=== PATIENT | female | born 2000 | race Caucasian/White ===

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

== ENCOUNTER 2019-03-24 21:46 | Emergency (ER) | payer MEDICAID, OTHER ==
[~2019-03-24] VITALS: Ht 154.9 cm; Wt 55.2 kg
[~2019-03-24 21:46] MED LIST changes: +BACT800T5 PO; +HYDR-3715 PO; -NORCOTAB PO
[2019-03-24 21:47] VITALS: BP 118/86
[2019-03-24] MEDS ORDERED: IBUP-1022 PO (22:56)
[2019-03-24] MEDS ORDERED: IBUPROFEN 600 MG TAB PO ONE (23:00)
== END 2019-03-24 23:02 | disposition home or self-care (01) ==
LOC: M ED 21:46
DX: N94.6 Dysmenorrhea, unspecified (principal); J45.909 Unspecified asthma, uncomplicated; F33.9 Major depressive disorder, recurrent, unspecified; F41.9 Anxiety disorder, unspecified; Z88.1 Allergy status to other antibiotic agents; Z91.030 Bee allergy status; F17.210 Nicotine dependence, cigarettes, uncomplicated

== ENCOUNTER 2019-08-19 01:54 | Emergency (ER) | payer OTHER ==
[~2019-08-19] VITALS: Ht 154.9 cm; Wt 58.4 kg
[~2019-08-19 01:54] MED LIST changes: +IBUP-1022 PO
[2019-08-19] MEDS ORDERED: PROAAER10 INH ×2 (02:25→04:56)
[2019-08-19] MEDS ORDERED: EPIP0.3I2 IM ×2 (02:26→04:56)
[2019-08-19 02:44] LABS: HEMATOCRIT 39.9 % (36.0-47.0); HEMOGLOBIN 13.8 g/dl (12.0-15.5); MEAN CORPUSCULAR HEMOGLOBIN 30.7 pg (27.0-33.0); MEAN CORPUSCULAR HGB CONC 34.6 g/dl (32.0-36.5); MEAN CORPUSCULAR VOLUME 88.7 fl (80.0-96.0); PLATELET COUNT, AUTOMATED 308 10^3/uL (150-450); WHITE BLOOD COUNT 13.8 10^3/uL (4.0-10.0)
[2019-08-19 03:10] LABS: HCG, SERUM QUALITATIVE NEGATIVE (NEGATIVE)
[2019-08-19 03:20] LABS: ACETAMINOPHEN LEVEL < 2.0 UG/ML (10.0-30.0); ALBUMIN 4.1 GM/DL (3.2-5.2); ALT/SGPT 20 U/L (12-78); BILIRUBIN,DIRECT < 0.1 MG/DL (0.0-0.2); BILIRUBIN,TOTAL 0.2 MG/DL (0.2-1.0); BLOOD UREA NITROGEN 7 MG/DL (7-18); CALCIUM LEVEL 8.8 MG/DL (8.5-10.1); CARBON DIOXIDE LEVEL 27 MEQ/L (21-32); CHLORIDE LEVEL 108 MEQ/L (98-107); CREATININE FOR GFR 0.78 MG/DL (0.55-1.30); ETHYL ALCOHOL (ETHANOL) < 0.003 % (0.000-0.010); GLUCOSE, FASTING 90 MG/DL (70-100); POTASSIUM SERUM 3.8 MEQ/L (3.5-5.1); SALICYLATE LEVEL 2.6 MG/DL (5.0-30.0); SODIUM LEVEL 142 MEQ/L (136-145); TOTAL PROTEIN 7.9 GM/DL (6.4-8.2)
[2019-08-19 03:29] LABS: AMPHETAMINES LEVEL URINE NEGATIVE (NEGATIVE); BARBITURATES URINE NEGATIVE (NEGATIVE); BENZODIAZEPINES URINE NEGATIVE (NEGATIVE); CANNABINOIDS URINE NEGATIVE (NEGATIVE); COCAINE METABOLITE URINE NEGATIVE (NEGATIVE); METHADONE URINE NEGATIVE (NEGATIVE); OPIATES URINE NEGATIVE (NEGATIVE); PHENCYCLIDINE URINE NEGATIVE (NEGATIVE)
[2019-08-19] MEDS ORDERED: ACETAMINOPHEN TAB 650MG DOSE (2X325MG) PO ONE (04:00)
[2019-08-19] MEDS ORDERED: NICOTINE 21MG/24HR 1 EA TRANSDERMAL TD ONE (04:00)
[2019-08-19] MEDS ORDERED: ACET-897 PO (04:56)
[2019-08-19] MEDS ORDERED: CRAN400C PO (04:56)
--- NOTE | 2019-08-19 07:15 | ECGEPIP ---
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
[2019-08-19 13:26] VITALS: BP 124/60
== END 2019-08-19 13:28 ==
LOC: M ED 01:54
DX: R45.851 Suicidal ideations (principal); J45.909 Unspecified asthma, uncomplicated; Z88.1 Allergy status to other antibiotic agents; Z91.030 Bee allergy status; F17.210 Nicotine dependence, cigarettes, uncomplicated
CPT/HCPCS: 36415; 80048; 80076; 80307; 84443; 84703; 85027; 93005; 99285; G0480

== ENCOUNTER 2019-10-15 09:00 | Emergency (ER) | payer OTHER ==
[~2019-10-15] VITALS: Ht 154.9 cm; Wt 62.8 kg
[~2019-10-15 09:00] MED LIST changes: +ACET-897 PO; +CRAN400C PO; +EPIP0.3I2 IM; +PROAAER10 INH
[2019-10-15] MEDS ORDERED: PRAZ1CAP (09:06)
[2019-10-15] MEDS ORDERED: ARIP1TAB6 (09:06)
[2019-10-15] MEDS ORDERED: NICO2GUM5 (09:06)
[2019-10-15 10:34] LABS: INFLUENZA A AMPLIFICATION NEGATIVE (NEGATIVE); INFLUENZA B AMPLIFICATION NEGATIVE (NEGATIVE)
[2019-10-15] MEDS ORDERED: VENTAER INH (11:00)
[2019-10-15 11:07] VITALS: BP 128/95
== END 2019-10-15 11:09 | disposition home or self-care (01) ==
LOC: M ED 09:00
DX: J40 Bronchitis, not specified as acute or chronic (principal); J45.909 Unspecified asthma, uncomplicated; F33.9 Major depressive disorder, recurrent, unspecified; F41.9 Anxiety disorder, unspecified; F43.10 Post-traumatic stress disorder, unspecified; Z88.1 Allergy status to other antibiotic agents; Z88.8 Allergy status to other drugs, medicaments and biological substances; Z91.030 Bee allergy status; F17.210 Nicotine dependence, cigarettes, uncomplicated

== ENCOUNTER 2019-12-28 10:13 | Emergency (ER) | payer OTHER ==
[~2019-12-28] VITALS: Ht 154.9 cm; Wt 64.0 kg
[~2019-12-28 10:13] MED LIST changes: +ARIP1TAB6; +NICO2GUM5; +PRAZ1CAP; +VENTAER INH
[2019-12-28] MEDS ORDERED: ONDANSETRON 4 MG ORAL DISINTEGRATING TAB (Q0162 PER 1MG) PO ONE (12:00)
[2019-12-28] MEDS ORDERED: ONDA4TAB6 PO (12:52)
[2019-12-28] MEDS ORDERED: MUCI600T31 PO (12:54)
[2019-12-28 12:59] VITALS: BP 100/59
== END 2019-12-28 13:01 | disposition home or self-care (01) ==
LOC: M ED 10:13
DX: R11.2 Nausea with vomiting, unspecified (principal); J45.909 Unspecified asthma, uncomplicated; Z79.51 Long term (current) use of inhaled steroids; Z79.899 Other long term (current) drug therapy; Z88.8 Allergy status to other drugs, medicaments and biological substances; Z91.030 Bee allergy status
CPT/HCPCS: 81001; 84702; 99284; Q0162

== ENCOUNTER → 2019-12-30 | Outpatient (REF) | payer OTHER ==
[~2019-12-30] MED LIST changes: +MUCI600T31 PO; +ONDA4TAB6 PO
== END ==
LOC: M LAB REF 12:33
PROVIDERS: ATTEND Physician Assistant Medical
DX: R19.7 Diarrhea, unspecified (principal)

== ENCOUNTER 2020-01-07 08:54 | Emergency (ER) | payer OTHER ==
[~2020-01-07] VITALS: Ht 154.9 cm; Wt 63.6 kg
[2020-01-07 10:10] LABS: HEMATOCRIT 42.5 % (36.0-47.0); HEMOGLOBIN 14.8 g/dl (12.0-15.5); MEAN CORPUSCULAR HEMOGLOBIN 30.8 pg (27.0-33.0); MEAN CORPUSCULAR HGB CONC 34.8 g/dl (32.0-36.5); MEAN CORPUSCULAR VOLUME 88.5 fl (80.0-96.0); PLATELET COUNT, AUTOMATED 376 10^3/uL (150-450); WHITE BLOOD COUNT 11.6 10^3/uL (4.0-10.0)
[2020-01-07] MEDS ORDERED: NS 1,000 ML IV ONE (10:15)
[2020-01-07 10:42] LABS: ALBUMIN 4.5 GM/DL (3.2-5.2); ALT/SGPT 24 U/L (12-78); BILIRUBIN,DIRECT 0.1 MG/DL (0.0-0.2); BILIRUBIN,TOTAL 0.4 MG/DL (0.2-1.0); BLOOD UREA NITROGEN 9 MG/DL (7-18); CARBON DIOXIDE LEVEL 28 MEQ/L (21-32); CHLORIDE LEVEL 110 MEQ/L (98-107); CREATININE FOR GFR 0.82 MG/DL (0.55-1.30); GLUCOSE, FASTING 75 MG/DL (70-100); LIPASE 59 U/L (73-393); POTASSIUM SERUM 4.1 MEQ/L (3.5-5.1); SODIUM LEVEL 142 MEQ/L (136-145); TOTAL PROTEIN 8.2 GM/DL (6.4-8.2)
[2020-01-07 10:48] LABS: AMPHETAMINES LEVEL URINE NEGATIVE (NEGATIVE); BARBITURATES URINE NEGATIVE (NEGATIVE); BENZODIAZEPINES URINE NEGATIVE (NEGATIVE); CANNABINOIDS URINE POSITIVE (NEGATIVE); COCAINE METABOLITE URINE NEGATIVE (NEGATIVE); METHADONE URINE NEGATIVE (NEGATIVE); OPIATES URINE NEGATIVE (NEGATIVE); PHENCYCLIDINE URINE NEGATIVE (NEGATIVE)
[2020-01-07 11:14] VITALS: BP 106/63
== END 2020-01-07 11:17 | disposition home or self-care (01) ==
LOC: M ED 08:54
DX: R11.15 Cyclical vomiting syndrome unrelated to migraine (principal); F12.10 Cannabis abuse, uncomplicated; Z88.1 Allergy status to other antibiotic agents; Z88.8 Allergy status to other drugs, medicaments and biological substances; Z91.030 Bee allergy status; F17.210 Nicotine dependence, cigarettes, uncomplicated

== ENCOUNTER 2020-01-28 08:25 | Emergency (ER) | payer OTHER ==
[~2020-01-28] VITALS: Ht 154.9 cm; Wt 61.3 kg
[2020-01-28] MEDS ORDERED: EPIP0.3I2 IM (08:31)
[2020-01-28] MEDS ORDERED: AZITHROMYCIN 250 MG TAB PO ONE (10:30)
[2020-01-28] MEDS ORDERED: GENTAMICIN SULF INJ 80MG/2ML VIAL (J1580) IM ONE (10:30)
[2020-01-28] MEDS ORDERED: GENTAMICIN 10 MG/ML 2ML VIAL*PRES.FREE* (J1580) IM SCH (10:45)
[2020-01-28 10:48] LABS: HCG, SERUM QUALITATIVE NEGATIVE (NEGATIVE)
[2020-01-28] MEDS ORDERED: METR1GEL7 PV (10:53)
[2020-01-28 11:20] VITALS: BP 121/58
[2020-01-28 11:28] LABS: CHLAMYDIA DNA AMPLIFICATION NEGATIVE (NEGATIVE); GC DNA AMPLIFICATION NEGATIVE (NEGATIVE)
[2020-01-28 11:44] LABS: HEPATITIS A ANTIBODY IGM NEGATIVE (NEGATIVE); HEPATITIS B CORE ANTIBODY IGM NEGATIVE (NEGATIVE); HEPATITIS B SURFACE ANTIGEN NEGATIVE (NEGATIVE); HEPATITIS C VIRUS ABY INDEX < 0.0 INDEX (<0.8); HIV 1&2 SCREEN CENTAUR NEGATIVE (NEGATIVE)
== END 2020-01-28 11:26 | disposition home or self-care (01) ==
LOC: M ED 08:25
DX: N76.0 Acute vaginitis (principal); F12.10 Cannabis abuse, uncomplicated; F17.200 Nicotine dependence, unspecified, uncomplicated; Z20.2 Contact with and (suspected) exposure to infections with a predominantly sexual mode of transmission; J45.909 Unspecified asthma, uncomplicated; Z79.51 Long term (current) use of inhaled steroids; Z79.899 Other long term (current) drug therapy; Z88.8 Allergy status to other drugs, medicaments and biological substances; Z91.030 Bee allergy status

== ENCOUNTER → 2020-02-01 | Outpatient (REF) | payer OTHER ==
[~2020-02-01] MED LIST changes: +METR1GEL7 PV
[2020-02-08 00:06] LABS: HSV TYPE I IgG SPECIFIC <0.91 index (0.00-0.90); HSV TYPE I IgM AB <1:10 titer (<1:10); HSV TYPE II IgG SPECIFIC <0.91 index (0.00-0.90); HSV TYPE II IgM ABY <1:10 titer (<1:10)
== END ==
LOC: M SFHCLERA 14:57
PROVIDERS: ATTEND Nurse Practitioner Family
DX: Z20.2 Contact with and (suspected) exposure to infections with a predominantly sexual mode of transmission (principal)
CPT/HCPCS: 86695; 86696; G0463

== ENCOUNTER 2020-02-28 13:51 | Emergency (ER) | payer OTHER ==
[~2020-02-28] VITALS: Ht 154.9 cm; Wt 59.4 kg
[2020-02-28 14:25] LABS: BASO % 0.4 % (0.0-1.0); EOS # 0.1 10^3/uL (0.0-0.5); HEMATOCRIT 41.2 % (36.0-47.0); HEMOGLOBIN 14.3 g/dl (12.0-15.5); LYMPH # 3.4 10^3/uL (1.5-5.0); LYMPH % 33.8 % (24.0-44.0); MEAN CORPUSCULAR HGB CONC 34.7 g/dl (32.0-36.5); MEAN CORPUSCULAR VOLUME 89.2 fl (80.0-96.0); MONO # 0.7 10^3/uL (0.0-0.8); MONO % 7.1 % (0.0-5.0); NEUTROPHILS # 5.7 10^3/uL (1.5-8.5); NEUTROPHILS % 57.5 % (36.0-66.0); PLATELET COUNT, AUTOMATED 358 10^3/uL (150-450); RED BLOOD COUNT 4.62 10^6/uL (4.00-5.40); WHITE BLOOD COUNT 9.9 10^3/uL (4.0-10.0)
[2020-02-28] MEDS ORDERED: ACETAMINOPHEN 325 MG TAB PO ONE (14:30)
[2020-02-28 14:35] LABS: APPEARANCE, URINE CLEAR (CLEAR); BACTERIA, URINE AUTO NEGATIVE (NEGATIVE); BILIRUBIN, URINE AUTO NEGATIVE (NEGATIVE); BLOOD, URINE BLOOD 2+ (NEGATIVE); COLOR, URINE YELLOW (YELLOW); GLUCOSE, URINE (UA) AUTO NEGATIVE (NEGATIVE); KETONE, URINE AUTO 1+ mg/dL (NEGATIVE); LEUKOCYTE ESTERASE, URINE AUTO NEGATIVE (NEGATIVE); NITRITE, URINE AUTO NEGATIVE (NEGATIVE); PROTEIN, URINE AUTO NEGATIVE (NEGATIVE); RBC, URINE AUTO 0 /HPF (0-3); SPECIFIC GRAVITY URINE AUTO 1.017 (1.002-1.035); SQUAMOUS EPITHELIAL CELL UR AU 2 /HPF (0-6); WBC, URINE AUTO 0 /HPF (0-3)
[2020-02-28 16:20] VITALS: BP 113/51
--- NOTE | 2020-02-28 17:13 | REP ---
REASON: Pelvic cramping. COMPARISON: 11/24/2018 which was normal. Transvesical imaging only was performed. The uterus measures 6.9 x 3.4 x 4.6 cm and is within normal limits. The endometrial echo complex is unremarkable appearing measuring 7 mm in its greatest thickness. There is no free fluid in the cul-de-sac. There is no fluid in the endometrial cavity. The right ovary measures 3 x 1.7 x 2.3 cm and is within normal limits with an RI of 0.58. The left ovary measures 3.2 x 2.9 x 2 cm and is within normal limits with an RI of 0.50. The urinary bladder was empty. IMPRESSION: Normal pelvic ultrasound. Electronically Signed by Octaviano Calero DO 02/29/2020 10:54 A
== END 2020-02-28 16:21 | disposition home or self-care (01) ==
LOC: M ED 13:51
DX: N93.8 Other specified abnormal uterine and vaginal bleeding (principal); J45.909 Unspecified asthma, uncomplicated; G43.909 Migraine, unspecified, not intractable, without status migrainosus; F33.9 Major depressive disorder, recurrent, unspecified; F41.9 Anxiety disorder, unspecified; F43.10 Post-traumatic stress disorder, unspecified; Z88.1 Allergy status to other antibiotic agents; Z88.8 Allergy status to other drugs, medicaments and biological substances; F17.210 Nicotine dependence, cigarettes, uncomplicated

== ENCOUNTER → 2020-03-22 | Outpatient (REF) | payer OTHER | LOC: M LAB REF 07:45 | PROVIDERS: ATTEND Dermatology | DX: D22.5 Melanocytic nevi of trunk (principal) ==

== ENCOUNTER 2020-04-30 18:13 | Emergency (ER) | payer OTHER ==
[~2020-04-30] VITALS: Ht 157.5 cm; Wt 57.6 kg
[2020-04-30] MEDS ORDERED: PRENTAB53 PO (18:19)
[2020-04-30] MEDS ORDERED: AZO1CHW PO (18:19)
[2020-04-30 18:54] LABS: HEMATOCRIT 39.8 % (36.0-47.0); HEMOGLOBIN 13.3 g/dl (12.0-15.5); MEAN CORPUSCULAR HEMOGLOBIN 30.1 pg (27.0-33.0); MEAN CORPUSCULAR HGB CONC 33.4 g/dl (32.0-36.5); PLATELET COUNT, AUTOMATED 351 10^3/uL (150-450); RED BLOOD COUNT 4.42 10^6/uL (4.00-5.40); WHITE BLOOD COUNT 8.9 10^3/uL (4.0-10.0)
[2020-04-30 19:19] LABS: AMPHETAMINES LEVEL URINE NEGATIVE (NEGATIVE); BARBITURATES URINE NEGATIVE (NEGATIVE); BENZODIAZEPINES URINE NEGATIVE (NEGATIVE); CANNABINOIDS URINE POSITIVE (NEGATIVE); COCAINE METABOLITE URINE NEGATIVE (NEGATIVE); METHADONE URINE NEGATIVE (NEGATIVE); OPIATES URINE NEGATIVE (NEGATIVE); PHENCYCLIDINE URINE NEGATIVE (NEGATIVE)
[2020-04-30 19:30] LABS: HCG, SERUM QUALITATIVE NEGATIVE (NEGATIVE)
[2020-04-30 19:38] LABS: ALBUMIN 4.3 GM/DL (3.2-5.2); ALT/SGPT 19 U/L (12-78); BILIRUBIN,DIRECT < 0.1 MG/DL (0.0-0.2); BILIRUBIN,TOTAL 0.3 MG/DL (0.2-1.0); BLOOD UREA NITROGEN 9 MG/DL (7-18); CALCIUM LEVEL 9.1 MG/DL (8.5-10.1); CARBON DIOXIDE LEVEL 26 MEQ/L (21-32); CHLORIDE LEVEL 110 MEQ/L (98-107); CREATININE FOR GFR 0.76 MG/DL (0.55-1.30); GLUCOSE, FASTING 97 MG/DL (70-100); POTASSIUM SERUM 3.7 MEQ/L (3.5-5.1); SALICYLATE LEVEL 3.5 MG/DL (5.0-30.0); SODIUM LEVEL 141 MEQ/L (136-145); THYROID STIMULATING HORMONE 0.837 uIU/ML (0.463-3.98); TOTAL PROTEIN 7.9 GM/DL (6.4-8.2)
[2020-04-30 19:39] LABS: ACETAMINOPHEN LEVEL < 2.0 UG/ML (10.0-30.0); ETHYL ALCOHOL (ETHANOL) < 0.003 % (0.000-0.010)
[2020-04-30 20:08] VITALS: BP 113/72
== END 2020-04-30 20:14 | disposition home or self-care (01) ==
LOC: M ED 18:13
DX: Z60.9 Problem related to social environment, unspecified (principal); F41.8 Other specified anxiety disorders; J45.909 Unspecified asthma, uncomplicated; F60.3 Borderline personality disorder; Z88.0 Allergy status to penicillin; Z88.8 Allergy status to other drugs, medicaments and biological substances; Z91.030 Bee allergy status; F17.210 Nicotine dependence, cigarettes, uncomplicated
CPT/HCPCS: 36415; 80048; 80076; 80307; 84443; 84703; 85027; 99284; G0480

== ENCOUNTER 2020-05-07 16:14 | Emergency (ER) | payer OTHER ==
[~2020-05-07] VITALS: Ht 157.5 cm; Wt 54.5 kg
[~2020-05-07 16:14] MED LIST changes: +AZO1CHW PO; +PRENTAB53 PO
[2020-05-07] MEDS ORDERED: EPIP0.3I2 IM (16:40)
[2020-05-07] MEDS ORDERED: NICOTINE 21MG/24HR 1 EA TRANSDERMAL TD ONE (16:45)
[2020-05-07 16:55] LABS: HEMATOCRIT 40.6 % (36.0-47.0); HEMOGLOBIN 13.9 g/dl (12.0-15.5); MEAN CORPUSCULAR HEMOGLOBIN 30.5 pg (27.0-33.0); MEAN CORPUSCULAR HGB CONC 34.2 g/dl (32.0-36.5); PLATELET COUNT, AUTOMATED 363 10^3/uL (150-450); RED BLOOD COUNT 4.56 10^6/uL (4.00-5.40); WHITE BLOOD COUNT 9.2 10^3/uL (4.0-10.0)
[2020-05-07 17:15] LABS: HCG, SERUM QUALITATIVE NEGATIVE (NEGATIVE)
[2020-05-07 17:16] LABS: AMPHETAMINES LEVEL URINE NEGATIVE (NEGATIVE); BARBITURATES URINE NEGATIVE (NEGATIVE); BENZODIAZEPINES URINE NEGATIVE (NEGATIVE); CANNABINOIDS URINE POSITIVE (NEGATIVE); COCAINE METABOLITE URINE NEGATIVE (NEGATIVE); METHADONE URINE NEGATIVE (NEGATIVE); OPIATES URINE NEGATIVE (NEGATIVE); PHENCYCLIDINE URINE NEGATIVE (NEGATIVE)
[2020-05-07 17:34] LABS: ACETAMINOPHEN LEVEL < 2.0 UG/ML (10.0-30.0); ALBUMIN 4.3 GM/DL (3.2-5.2); ALT/SGPT 16 U/L (12-78); BILIRUBIN,DIRECT 0.1 MG/DL (0.0-0.2); BILIRUBIN,TOTAL 0.4 MG/DL (0.2-1.0); BLOOD UREA NITROGEN 6 MG/DL (7-18); CALCIUM LEVEL 9.2 MG/DL (8.5-10.1); CARBON DIOXIDE LEVEL 20 MEQ/L (21-32); CHLORIDE LEVEL 112 MEQ/L (98-107); CREATININE FOR GFR 0.74 MG/DL (0.55-1.30); ETHYL ALCOHOL (ETHANOL) < 0.003 % (0.000-0.010); GLUCOSE, FASTING 87 MG/DL (70-100); SALICYLATE LEVEL 4.5 MG/DL (5.0-30.0); SODIUM LEVEL 140 MEQ/L (136-145); THYROID STIMULATING HORMONE 0.651 uIU/ML (0.463-3.98); TOTAL PROTEIN 7.7 GM/DL (6.4-8.2)
[2020-05-07] MEDS ORDERED: ACETAMINOPHEN 325 MG TAB PO ONE (19:45)
[2020-05-08] MEDS ORDERED: PREN29TA4 PO (14:53)
[2020-05-08] MEDS ORDERED: VENTAER INH (14:53)
--- NOTE | 2020-05-08 15:59 | ECGEPIP ---
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
[2020-05-08 21:53] VITALS: BP 112/64
== END 2020-05-08 21:55 | disposition home or self-care (01) ==
LOC: M ED 16:14
DX: F33.9 Major depressive disorder, recurrent, unspecified (principal); J45.909 Unspecified asthma, uncomplicated; Z88.1 Allergy status to other antibiotic agents; Z88.8 Allergy status to other drugs, medicaments and biological substances; Z91.030 Bee allergy status; F17.210 Nicotine dependence, cigarettes, uncomplicated
CPT/HCPCS: 36415; 80048; 80076; 80307; 81001; 84443; 84703; 85027; 87086; 93005; 99284; G0480

== ENCOUNTER → 2020-07-03 | Emergency (ER) | payer OTHER ==
[~2020-07-03] MED LIST changes: +PREN29TA4 PO
== END | disposition left against medical advice (07) ==
LOC: M ED
DX: Z53.21 Procedure and treatment not carried out due to patient leaving prior to being seen by health care provider (principal)

== ENCOUNTER → 2020-11-02 | Outpatient (CLI) | payer OTHER | LOC: M LAB 14:51 | PROVIDERS: ATTEND Nurse Practitioner Family | DX: N92.6 Irregular menstruation, unspecified (principal) ==

== ENCOUNTER → 2020-11-20 | Outpatient (REF) | payer OTHER | LOC: M SFHCLERA 09:28 | PROVIDERS: ATTEND Nurse Practitioner Family | DX: R19.5 Other fecal abnormalities (principal) | CPT/HCPCS: 87177; 87505; G0463 ==

== ENCOUNTER → 2020-11-28 | Outpatient (REF) | payer OTHER | LOC: M SFHCLERA 14:54 | PROVIDERS: ATTEND Nurse Practitioner Family | DX: R19.5 Other fecal abnormalities (principal) ==

== ENCOUNTER 2020-12-07 18:31 | Emergency (ER) | payer OTHER ==
[~2020-12-07] VITALS: Ht 157.5 cm; Wt 58.9 kg
--- OUTSIDE RECORDS SUMMARY | 2020-12-07 18:37 | CCD ---
Author Author [facility] Organization [facility] Address Unknown Phone Unavailable Care Team Providers Care Heating And Cooling Systems Engineer Name Role Phone Shawna Mosquera Unavailable PROBLEMS Type Condition ICD9-CM Code [id number] Code Onset Dates Condition S tatus SNOMED Code Notes Problem Allergy to bee sting Z91.030 Active 145019941 Problem Exercise-induced asthma J45.990 Active 49861126 Problem Bipolar disorder, current episode depressed, mild F31.31 Active 655649847 Problem Abnormal findings on imaging test R93.89 Active 048467466 Problem Bipolar disorder, current episode mixed, moderate F31.62 Active 075265772 Problem Bipolar disorder, current ep isode depressed, severe, without psychotic features F31.4 Active 244043500 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 0171520 02 Problem Missed menses N92.6 Active 59551884 Problem 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 Active 763123651 ALLERGIES Allergen (clinical drug ingredient) Drug/Non Drug Allergy do cumented on EMR Reaction Allergy Type Onset Date Status lidocaine Lidocaine([facility] Code:[address]-40) swollen,hives Drug Aller gy Active Bees, hornets and wasp Anaphylaxis Non Drug Allergy Active Clindamycin Phos & Cleanser peeling skin Drug Allergy Active ceclor Anaphylaxis Drug Allergy Active ENCOUNTERS from 1999 to 2020-11-04 Encounter Location Date Provider Diagnosis [facility] [address] [place] [address] Oct, Shawna Mosquera Acute vaginitis N76.0 ; Other specified bacterial agents as the cause of diseases classified elsewhere B96.89 ; Bipolar disorder, current episode mixed, moderate F31.62 ; Abnormal findings on imaging test R93.89 and Missed menses N92.6 IMMUNIZATIONS No Information SOCIAL HISTORY Tobacco Use: Social History Observation Description Date Details (start date - stop date) Former Smoker Sex Assigned At : Social History Observation Description Sex Assigned At Unknown Education: Question Answer Notes Level of Education: Finished High School Audit Question Answer Notes Total Score: 0 Interpretation: Alcohol Education Language: Question Answer Notes Languages spoken: Belarusian Sikhism: Question Answer Notes Sikhism 33 None Sexual Hx: Question Answer Notes Had sex in the last 12 months (vaginal, oral, or anal)? Yes LMP: 09/28/2019 Have you ever had an STD? No with Men only Use protection? No Drug and Alcohol Question Answer Notes Total Score: 0 Interpretation: No problems reported Alcohol Screening: Question Answer Notes Did you have a drink containing alcohol in the past year? No Points 0 Interpretation Negative Tobacco Use: Question Answer Notes Are you a: former smoker 1 week without smoki ng Smoking Cessation Information Given 10/27/2020 REASON FOR REFERRAL No Information VITAL SIGNS Weight 129 lbs Oct, Height 61 in Oct, BMI 24.37 kg/m2 Oct, Heart Rate 78 /min Oct, Respiratory Rate 17 /min Oct, Temperature 98.6 degrees Fahrenheit Oct, Oximetry 99 Oct, Blood pressure systolic 127 mm Hg Oct, Blood pressure diastolic 56 mm Hg Oct, MEDICATIONS Medication SIG (Take, Route, Frequency, Duration) Notes Start Da te End Date Status BuSpar 10 MG 1 tablet Orally Twice a day Active Metronidazole 0.75 % 1 applicator full at bedtime Vaginal Once a day for 5 day(s) Aug, Active Rexulti 1 MG 1 tablet Orally Once a day for 30 day(s) Active Azithromycin 250 MG 2 tablets on day 1 then 1 ta blet x 4 days Orally Daily for 5 day(s) Oct, Not-Taking Aripiprazole 5 MG TAKE 1 TABLET BY MOUTH ONCE DAILY Oral for 30 Not-Taking Multivitamins - 1 tablet Orally Once a day for 30 day(s) Not-Taking EpiPen 2-Jay 0.3 MG/0.3ML as directed Injection as nee ded for allergic rxn for 1 days May, Active - 1 tablet Orally Once a day for 30 day(s) Active Prazosin HCl 1 MG 1 capsule at bedtime Orally Once a day for 30 day(s ) Not-Taking Nicotine Step 3 7 MG/24HR 1 patch to skin Transdermal Once a day for 30 day(s) May, Not-Taking One-A-Day Womens 1 28-0.8-235 MG 1 capsule Or ally Once a day for 30 day(s) Oct, Not-Taking Valacyclovir HCl 1 GM 1 tablet Orally bid for 10 day(s) Jan, Not-Taking EpiPen Not-Taking Valacyclovir HCl 1 GM 1 tablet Orally Once a day for 90 day(s) Sep, Active Albuterol 90 MCG/ACT 1 Inhalation every 4 hours as needed for 30 days Active Nicotine Step 2 14 MG/24HR 1 patch to skin Transdermal Once a day for 30 day(s) May, Not-Taking Melatonin 5 MG 2 tablet in the evening Orally Once a day Not-Taking Abilify 5 MG 1 tablet Orally Once a day for 30 day(s) Not-Taking Ventolin HFA 108 (90 Base) MCG/ACT 2 puffs as needed I nhalation every 6 hrs for 30 days Not-Taking Macrobid 100 MG 1 capsule Orally twice daily for 5 day(s) Feb, Not-Taking AZO Cranberry 250-30 MG as directed Orally Not-Taking PredniSONE 20 MG 2 tablets Orally Once a day for 5 day(s) Oct, Not-Taking PROCEDURES No Information RESULTS Component Value Reference Range Test, Urine Reviewed date:10/30/2020 11:31:43 Interpretation: Performing Lab:[facility], [place] [address] Test, Urine neg Negative - Internal QC Acceptable (Y/N) yes Urinalysis, no micro Reviewed date:10/30/2020 11:31:43 Interpretation: Performing Lab:[facility], ,[place] [address] Spec gravity 1.005 1.002 - 1.035 pH 8 5.0 - 9.0 Leukocyte neg Negative - Nitrate neg Negative - Protein trace Negative - mg/dl Glucose neg Negative - mg/dl Ketones neg Negative - mg/dl Urobili neg Normal - mg/dl Bilirubin nneg Negative - Blood neg Negative - Internal QC Acceptable (Y/N) yes REASON FOR VISIT follow up BV MEDICAL (GENERAL) HISTORY Type Description Date Medical History Bipolar disorder Medical History Borderline personality disorder Medical History PDSD Medical History Anxiety/depression Medical History Asthma Surgical History root canal 2013 Hospitalization History [facility] 08/2019 Goals Section No Information Health Concerns No Information MEDICAL EQUIPMENT No Information MENTAL STATUS No Information FUNCTIONAL STATUS No Information ASSESSMENTS Encounter Date Diagnosis Assessment Notes Treatment Notes Treatm ent Clinical Notes Oct, Acute vaginitis (ICD-10 - N76.0) UA negative, urine test also negative. Recurrent, no wet mount required. Plan initiate tx. Recommend consult w/ [facility] as she was being followed previously. Recurrent episodes of BV, not responding to conventional treatment. Also discussed use of natural lubricant like coconut oil, also refrain from hygienic products with fragrance. Oct, Other specified bacterial ag ents as the cause of diseases classified elsewhere (ICD-10 - B96.89) see notes above Oct, Bipolar disorder, current ep isode mixed, moderate (ICD-10 - F31.62) Per HPI notes, unable to start medications due to insurance coverage issues. She has also not been seen by in 2 months (per pt). This is concerning to me given recent sxs that brought her to ED. STRONGLY encouraged her to contact to set up appointment. Also STRONGLY encouraged her to contact [facility] to work out coverage issues. She tells me "I'm going to do that today, its getting annoying." Oct, Abnormal findings on imaging test (ICD-10 - R93. 89) I have requested ED report from [facility] be faxed for review. I am uncertain findings and therefore necessity for neurological consultation. Will initiate referral if warranted upon review of ED report. Oct, Missed menses (ICD-10 - N92.6) urine test negative at this time PLAN OF TREATMENT Medication Medication Name Sig Start Date Stop Date Metronidazole 0.75 % 1 applicator full at bedtime Vaginal Once a day for 5 day(s) Aug, Treatment Notes Assessment Notes Clinical Notes Acute vaginitis UA negative, urine p regnancy test also negative. Recurrent, no wet mount required. Plan initiate tx. Recommend consult w/ [facility] as she was being followed previously. Recurrent episodes of BV, not responding to conventional treatment. Also discussed use of natural lubricant like coconut oil, also refrain from hygienic products with fragrance. Other specified bacterial agents as the cause of disea ses classified elsewhere see notes above Bipolar disorder, current episode mixed, moderate Per HPI notes, unable to start medications due to insurance coverage issues. She has also not been seen by in 2 months (per pt). This is concerning to me given recent sxs that brought her to ED. STRONGLY encouraged her to contact to set up appointment. Also STRONGLY encouraged her to contact [facility] to work out coverage issues. She tells me "I'm going to do that today, its getting annoying." Abnormal findings on imaging test I have requested ED report from [facility] be faxed for review. I am uncertain findings and therefore necessity for neurological consultation. Will initiate referral if warranted upon review of ED report. Missed menses urine test negative at this time Next Appt Details 1 Week, non-resolving (prefer [facility] consul t) Reason: Insurance Providers Payer Name Payer Address Payer Phone Insured Name Patient Relati onship to Insured Coverage Start Date Coverage End Date [facility] [employer] [id number] [place] [id number] JOHNATHAN FONSECA
--- OUTSIDE RECORDS SUMMARY | 2020-12-07 18:37 | CCD | Continuity of Care Document ---
Author Author Kesha AVILA M.D. Organization Unknown Address [address] [place] [address] Phone [phone] Care Team Providers Care Audio Technician Name Role Phone Shawna Mosquera AUTM [phone] Problems Active Problems Provider Date MRI scan abnormal Liane Avila M.D. Onset: 11/27/2020 Headache Liane Avila M.D. Onset: 11/27/2020 Dizziness Liane Avila M.D. Onset: 11/27/2020 Social History Type Date Description Comments Sex Unknown Tobacco Use Start: Unknown Patient is a current smoker, smo kes every day Allergies, Adverse Reactions, Alerts Active Allergies Reaction Severity Comments Date Cefaclor 11/27/2020 Bee Sting 11/27/2020 Wasps 11/27/2020 Yellow Hornet Venom 11/27/19 21 Medications Active Medications SIG Qnty Indications Ordering Provide r Date Valacyclovir HCL 1gm Tablets 1 tablet Orally Once a day for 90 day(s) Unknown 09/29/2020 Macrobid 100mg Capsules 1 capsule Orally twice daily for 5 day(s) Unknown 020 Valacyclovir HCL 1gm Tablets 1 tablet Orally bid for 10 day(s) Unknown 020 Azithromycin 250mg Tablets 2 tablets on day 1 then 1 tablet x 4 days Orally Daily for 5 day(s) Unknown 10/19/2019 Prednisone 20mg Tablets 2 tablets Orally Once a day for 5 day(s) Unknown 10/19/20 19 Metronidazole 0.75% Gel 1 applicator full at bedtime Vaginal Once a day for 5 day(s) Unkno wn 09/09/2019 Epipen 2-Jay 0.3mg/0 .3ML Solution Auto-Inject as directed Injection as needed for allergic rxn for 1 days Unknown 05/24/2019 Nicotine Transdermal System Step 3 7mg/24HR Patches 24HR 1 patch to skin Transdermal Once a day for 30 day(s) Unknown 05/24/2019 Nicotine Transdermal System Step 2 14mg/24HR Patches 24HR 1 patch to skin Transdermal Once a day for 30 day(s) Unknown 05/24/2019 Quetiapine Fumarate 50mg Tablets Patient takes 1 tablet by mouth as needed at bedtime Benson Avila M.D. Rexulti 1mg Tablets 1 tablet Orally Once a day for 30 day(s) Unknown Aripiprazole 5mg Tablets Take 1 Tablet By Mouth Once Daily Oral for 30 Unknown Prazosin HCL 1mg Capsules 1 capsule at bedtime Orally Once a day for 30 day(s) Unknown Abilify 5mg Tablets 1 tablet Orally Once a day for 30 day(s) Unknown Ventolin HFA 108(90Base) mcg/Act A erosol 2 puffs as needed Inhalation every 6 hrs for 30 days Unknown Immunizations Description No Information Available Vital Signs Date Vital Result Comment 11/27/2020 9:36am Respiratory Rate 12 /min Height 62 inches 5'2" Weight 130.00 lb BMI (Body Mass Index) 23.8 kg/m2 [place] Body Weight 110 lb Results Description No Information Available Procedures Description No Information Available Medical Devices Description No Information Available Encounters Type Date Location Provider Dx Diagnosis Office Visit 11/27/2020 9:00a [facility] Liane chen M.D. 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 Plan of Treatment Future Appointment(s):* 02/26/2021 11:00 am - Liane Avila M.D. at [facility] * 12/01/2020 12:45 pm - EEG at [facility] Functional Status Description No Information Available Mental Status Description No Information Available Referrals Description No Information Available
--- OUTSIDE RECORDS SUMMARY | 2020-12-07 18:37 | CCD | Continuity of Care Document ---
Author Author Kesha ADDISON Organization Unknown Address [address] [place] [address] Phone [phone] Care Team Providers Care Electrician Powerhouse Name Role Phone Shawna Mosquera MORTGAGE SPECIALIST AUTM [phone] Problems Active Problems Provider Date MRI scan abnormal Liane Dodge M.D. Onset: 11/27/2020 Headache Liane Dodge M.D. Onset: 11/27/2020 Dizziness Liane Dodge M.D. Onset: 11/27/2020 Social History Type Date [...] by mouth as needed at bedtime Benson Dodge M.D. Rexulti 1mg Tablets 1 tablet Orally [...] lb BMI (Body Mass Index) 23.8 kg/m2 [place] Body Weight 110 lb Results Description No Information Available Procedures Date Code Description Status 12/01/2020 96739 EEG Recording Awake & Asleep Com pleted 12/01/2020 85671 EEG Recording Awake & Asleep Com pleted Medical Devices Description No Information Available Encounters Type Date Location Provider Dx Diagnosis Office Visit 11/27/2020 9:00a Main office - [place] Liane chen M.D. 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 Plan of Treatment Future Appointment(s):* 02/26/2021 11:00 am - Liane Dodge M.D. at Main office - [place] Functional Status Description No Information Available Mental Status Description No Information Available Referrals Refer to Dr Reason for Referral Status Appt Date Liane Dodge M.D. Created 0 [address] [place] [address] [phone]
--- OUTSIDE RECORDS SUMMARY | 2020-12-07 18:37 | CCD ---
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 Active 552005558 Problem Exercise-induced asthma J45.990 Active 63802477 Problem Bipolar disorder, current episode depressed, mild F31.31 Active 289995268 Problem Bipolar disorder, current ep isode depressed, severe, without psychotic features F31.4 Active 123792846 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 5260789 02 ALLERGIES Allergen (clinical drug ingredient) Drug/Non Drug Allergy do cumented on EMR Reaction Allergy Type Onset Date Status lidocaine Lidocaine([facility] Code:[address]-68) swollen,hives Drug Aller gy Active Bees, hornets and wasp Anaphylaxis Non Drug Allergy Active Clindamycin Phos & Cleanser peeling skin Drug Allergy Active ceclor Anaphylaxis Drug Allergy Active ENCOUNTERS from 1999 to 2020-10-06 Encounter Location Date Provider Diagnosis [facility] [address] [place] [address] Sep, Shawna Mosquera Acute vaginitis N76.0 IMMUNIZATIONS No Information SOCIAL HISTORY Tobacco Use: Social History Observation Description Date Details (start date - stop date) Current Smoker Sex Assigned At : Social History Observation Description Sex Assigned At Unknown Education: Question Answer Notes Level of Education: Finished High School Audit Question Answer Notes Total Score: 0 Interpretation: Alcohol Education Language: Question Answer Notes Languages spoken: Malay Cheondoism: Question Answer Notes Cheondoism 33 None Sexual Hx: Question Answer Notes [...] Use: Question Answer Notes Are you a: current smoker How many cigarettes a day do you smoke? 6-10 Are you interested in quitting? Not ready to quit REASON FOR REFERRAL No Information VITAL SIGNS No information MEDICATIONS Medication SIG (Take, Route, Frequency, Duration) Notes Start Da te End Date Status BuSpar 10 MG 1 tablet Orally Twice a day Active One-A-Day Womens 1 28-0.8-235 MG 1 capsule Or ally Once a day for 30 day(s) Oct, Not-Taking Valacyclovir HCl 1 GM 1 tablet Orally bid for 10 day(s) Jan, Active Macrobid 100 MG 1 capsule Orally twice daily for 5 day(s) Feb, Not-Taking Azithromycin 250 MG 2 tablets on day 1 then 1 ta blet x 4 days Orally Daily for 5 day(s) Oct, Not-Taking Ventolin HFA 108 (90 Base) MCG/ACT 2 puffs as needed I nhalation every 6 hrs for 30 days Not-Taking PredniSONE 20 MG 2 tablets Orally Once a day for 5 day(s) Oct, Not-Taking Melatonin 5 MG 2 tablet in the evening Orally Once a day Not-Taking Aripiprazole 5 MG TAKE 1 TABLET BY MOUTH ONCE DAILY Oral for 30 Not-Taking Metronidazole 0.75 % 1 applicator full at bedtime Vaginal Once a day for 5 day(s) Aug, Active Nicotine Step 2 14 MG/24HR 1 patch to skin Transdermal Once a day for 30 day(s) May, Not-Taking Nicotine Step 3 7 MG/24HR 1 patch to skin Transdermal Once a day for 30 day(s) May, Not-Taking Abilify 5 MG 1 tablet Orally Once a day for 30 day(s) Not-Taking EpiPen Not-Taking EpiPen 2-Jay 0.3 MG/0.3ML as directed Injection as nee ded for allergic rxn for 1 days May, Active Multivitamins - 1 tablet Orally Once a day for 30 day(s) Not-Taking AZO Cranberry 250-30 MG as directed Orally Not-Taking Albuterol 90 MCG/ACT 1 Inhalation every 4 hours as needed for 30 days Active - 1 tablet Orally Once a day for 30 day(s) Active Valacyclovir HCl 1 GM 1 tablet Orally Once a day for 90 day(s) Sep, Active Prazosin HCl 1 MG 1 capsule at bedtime Orally Once a day for 30 day(s ) Not-Taking Rexulti 1 MG 1 tablet Orally Once a day for 30 day(s) Active PROCEDURES No Information RESULTS No Results REASON FOR VISIT requesting more vaginal gel MEDICAL (GENERAL) HISTORY Type Description Date Medical History Bipolar disorder Medical History Borderline personality disorder Medical History PDSD Medical History Anxiety/depression Medical History Asthma Surgical History root canal 2013 [facility] Goals Section No Information Health Concerns No Information MEDICAL EQUIPMENT No Information MENTAL STATUS No Information FUNCTIONAL STATUS No Information ASSESSMENTS Encounter Date Diagnosis Assessment Notes Treatment Notes Treatm ent Clinical Notes Sep, Acute vaginitis (ICD-10 - N76.0) PLAN OF TREATMENT Medication Medication Name Sig Start Date Stop Date Metronidazole 0.75 % 1 applicator full at bedtime Vaginal Once a day for 5 day(s) Aug, Valacyclovir HCl 1 GM 1 tablet Orally Once a day for 90 day(s) 1 2020 Insurance Providers Payer Name Payer Address Payer Phone Insured Name Patient Relati onship to Insured Coverage Start Date Coverage End Date [facility] [address] [place] [address] JOHNATHAN FONSECA
--- OUTSIDE RECORDS SUMMARY | 2020-12-07 18:37 | CCD ---
Author Author [facility] Organization [facility] Address Unknown Phone Unavailable Care Team Providers Care Feather Shaper Name Role Phone Emy Marvinhan Unavailable PROBLEMS Type Condition ICD9-CM Code [id number] Code Onset Dates Condition S tatus SNOMED Code Notes Problem Allergy to bee sting Z91.030 Active 213151284 Problem Exercise-induced asthma J45.990 Active 10506391 Problem Bipolar disorder, current episode depressed, mild F31.31 Active 598744511 Problem Abnormal findings on imaging test R93.89 Active 952020001 Problem Bipolar disorder, current episode mixed, moderate F31.62 Active 045496307 Problem Bipolar disorder, current ep isode depressed, severe, without psychotic features F31.4 Active 052089903 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 0634259 02 Problem Missed menses N92.6 Active 04960608 Problem 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 Active 713349511 ALLERGIES Allergen (clinical drug ingredient) Drug/Non Drug Allergy do cumented on EMR Reaction Allergy Type Onset Date Status lidocaine Lidocaine([facility] Code:[address]-28) swollen,hives Drug Aller gy Active Bees, hornets and wasp Anaphylaxis Non Drug Allergy Active Clindamycin Phos & Cleanser peeling skin Drug Allergy Active ceclor Anaphylaxis Drug Allergy Active ENCOUNTERS from 1999 to 2020-11-21 Encounter Location Date Provider Diagnosis [facility] [address] [place] [address] Nov, Meghan Marvin Abnormal stools R19.5 IMMUNIZATIONS No Information SOCIAL HISTORY Tobacco Use: Social History Observation Description Date Details (start date - stop date) Former Smoker Sex Assigned At : Social History Observation Description Sex Assigned At Unknown Education: Question Answer Notes Level of Education: Finished High School Audit Question Answer Notes Total Score: 0 Interpretation: Alcohol Education Language: Question Answer Notes Languages spoken: German Rastafarian: Question Answer Notes Rastafarian 33 None Sexual Hx: Question Answer Notes [...] FOR REFERRAL No Information VITAL SIGNS Weight 130 lbs Nov, Height 61 in Nov, BMI 24.56 kg/m2 Nov, Heart Rate 85 /min Nov, Respiratory Rate 17 /min Nov, Temperature 98.6 degrees Fahrenheit Nov, Oximetry 99 Nov, Blood pressure systolic 104 mm Hg Nov, Blood pressure diastolic 67 mm Hg Nov, MEDICATIONS Medication SIG (Take, Route, Frequency, Duration) Notes Start Da te End Date Status Rexulti 1 MG 1 tablet Orally Once a day for 30 day(s) Not-Taking EpiPen 2-Jay 0.3 MG/0.3ML as directed Injection as nee ded for allergic rxn for 1 days May, Active EpiPen Not-Taking BuSpar 10 MG 1 tablet Orally Twice a day Not-Taking Abilify 5 MG 1 tablet Orally Once a day for 30 day(s) Not-Taking One-A-Day Womens 1 28-0.8-235 MG 1 capsule Or ally Once a day for 30 day(s) Oct, Not-Taking SEROquel 50 MG 1 tablet at bedtime Orally Once a day Active Azithromycin 250 MG 2 tablets on day 1 then 1 ta blet x 4 days Orally Daily for 5 day(s) Oct, Not-Taking Albuterol 90 MCG/ACT 1 Inhalation every 4 hours as needed for 30 days Active Ventolin HFA 108 (90 Base) MCG/ACT 2 puffs as needed I nhalation every 6 hrs for 30 days Not-Taking Aripiprazole 5 MG TAKE 1 TABLET BY MOUTH ONCE DAILY Oral for 30 Not-Taking - 1 tablet Orally Once a day for 30 day(s) Active Multivitamins - 1 tablet Orally Once a day for 30 day(s) Not-Taking PredniSONE 20 MG 2 tablets Orally Once a day for 5 day(s) Oct, Not-Taking Macrobid 100 MG 1 capsule Orally twice daily for 5 day(s) Feb, Not-Taking Nicotine Step 2 14 MG/24HR 1 patch to skin Transdermal Once a day for 30 day(s) May, Not-Taking Melatonin 5 MG 2 tablet in the evening Orally Once a day Not-Taking Prazosin HCl 1 MG 1 capsule at bedtime Orally Once a day for 30 day(s ) Not-Taking AZO Cranberry 250-30 MG as directed Orally Not-Taking Valacyclovir HCl 1 GM 1 tablet Orally bid for 10 day(s) Jan, Not-Taking Valacyclovir HCl 1 GM 1 tablet Orally Once a day for 90 day(s) Sep, Active Metronidazole 0.75 % 1 applicator full at bedtime Vaginal Once a day for 5 day(s) Aug, Not-Taking Nicotine Step 3 7 MG/24HR 1 patch to skin Transdermal Once a day for 30 day(s) May, Not-Taking PROCEDURES No Information RESULTS Component Value Reference Range GASTROINTESTINAL GI PANEL (GIPANEL) Reviewed date:11/21/2020 07:07:39 Interpretation:NEGATIVE by MULTIPLEXED NUCLEIC ACID PCR Performing Lab:[facility], [facility] [address] [address] , ,[place] [address] GASTROINTESTINAL (GI) PANEL This Gastrointestinal PCR Panel detects the following bacteria, GASTROINTESTINAL (GI) PANEL parasites and viruses: Cam pylobacter (jejuni, coli and upsaliensis), GASTROINTESTINAL (GI) PANEL Clostridium difficile (tox in A/B), Plesiomonas shigelloides, GASTROINTESTINAL (GI) PANEL Salmonella, Yersinia enter ocolitica, Vibrio (parahaemolyticus, GASTROINTESTINAL (GI) PANEL vulnificus and cholerae), Vibrio clolerae, Enteroaggregative GASTROINTESTINAL (GI) PANEL E. coli (EAEC), Enteropath ogenis E. coli (EPEC), Enterotoxigenic GASTROINTESTINAL (GI) PANEL E. coli (ETEC) it/st, Shig a-like producing E. coli (STEC) stx1/stc2, GASTROINTESTINAL (GI) PANEL E.coli O157, Shigella/Ente roinvasive E. coli (EIEC), Cryptosporidium, GASTROINTESTINAL (GI) PANEL Cyclospora cayetanensis, E ntamoeba histolytica, Giardia lamblia, GASTROINTESTINAL (GI) PANEL Adenovirus F 40/41, Astrov irus, Norovirus GI/GII, Rotavirus A and GASTROINTESTINAL (GI) PANEL Sapovirus (I, II, IV, V). GASTROINTESTINAL (GI) PANEL GASTROINTESTINAL (GI) PANEL NEGATIVE by MULTIPLEXED NUCLEIC ACID PCR GASTROINTESTINAL (GI) PANEL REASON FOR VISIT [place] MEDICAL (GENERAL) HISTORY Type Description Date Medical History Bipolar disorder Medical History Borderline personality disorder Medical History PDSD Medical History Anxiety/depression Medical History Asthma Surgical History root canal 2012 Hospitalization History [facility] 08/2019 Goals Section No Information Health Concerns No Information MEDICAL EQUIPMENT No Information MENTAL STATUS No Information FUNCTIONAL STATUS No Information ASSESSMENTS Encounter Date Diagnosis Assessment Notes Treatment Notes Treatm ent Clinical Notes Nov, Abnormal stools (ICD-10 - R19.5) Patient reports abnormal stools with worm like structures noted. Will get GI panel and O&P for further eval. Discussed hand hygiene and supportive care. F/u with PCP in 1 week if sxs persist and testing negative. ER for new or worsening sxs. Patient educated on diagnosis, medications, treatments, and expected outcomes. Patient educated on risks, SE/AE, benefits, alternatives of regimen. Discussed emergent signs and symptoms and to seek emergency medical attention if they occur. Patient voiced understanding and had all questions answered. PLAN OF TREATMENT Treatment Notes Assessment Notes Clinical Notes Abnormal stools Patient reports abnormal sto ols with worm like structures noted. Will get GI panel and O&P for further eval. Discussed hand hygiene and supportive care. F/u with PCP in 1 week if sxs persist and testing negative. ER for new or worsening sxs. Patient educated on diagnosis, medicatio ns, treatments, and expected outcomes. Patient educated on risks, SE/AE, benefits, alternatives of regimen. Discussed emergent signs and symptoms and to seek [facility] medical attention if they occur. Patient voiced understanding and had all questions answered. Treatment Notes Test Name Order Date OVA Parasite Conventional 2020-11-21 Next Appt Details 1 Week, prn Reason: Insurance Providers Payer Name Payer Address Payer Phone Insured Name Patient Relati onship to Insured Coverage Start Date Coverage End Date [facility] [address] [place] [address] JOHNATHAN FONSECA
--- OUTSIDE RECORDS SUMMARY | 2020-12-07 18:37 | CCD | Continuity of Care Document ---
Author Author Kesha AVILA M.D. Organization Unknown Address [address] [place] [address] Phone [phone] Care Team Providers Care Investigation Clerk Name Role Phone Shawna Mosquera AUTM [phone] Problems Active Problems Provider Date MRI scan [...] lb BMI (Body Mass Index) 23.8 kg/m2 [place] Body Weight 110 lb Results Description No Information Available Procedures Description No Information Available Medical Devices Description No Information Available Encounters Description No Information Available Assessments Date Code Description Provider 11/27/2020 R94.02 Abnormal brain scan Liane chen M.D. 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 Plan of Treatment Future Appointment(s):* 02/26/2021 11:00 am - Liane Avila M.D. at [facility] * 12/01/2020 12:45 pm - EEG at [facility] Functional Status Description No Information Available Mental Status Description No Information Available Referrals Description No Information Available
--- OUTSIDE RECORDS SUMMARY | 2020-12-07 18:37 | CCD ---
Author Author [facility] Organization [facility] Address Unknown Phone Unavailable Care Team Providers Care Marketing Information Manager Name Role Phone Shawna Mosquera Unavailable PROBLEMS Type Condition ICD9-CM Code [id number] Code Onset Dates Condition S tatus SNOMED Code Notes Problem Allergy to bee sting Z91.030 Active 052754965 Problem Exercise-induced asthma J45.990 Active 18057550 Problem Bipolar disorder, current episode depressed, mild F31.31 Active 648027815 Problem Abnormal findings on imaging test R93.89 Active 234549680 Problem Bipolar disorder, current episode mixed, moderate F31.62 Active 586152172 Problem Bipolar disorder, current ep isode depressed, severe, without psychotic features F31.4 Active 947718581 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 4328487 02 Problem Missed menses N92.6 Active 32192501 Problem 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 Active 377484393 ALLERGIES Allergen (clinical drug ingredient) Drug/Non Drug Allergy do cumented on EMR Reaction Allergy Type Onset Date Status lidocaine Lidocaine([facility] Code:[address]-98) swollen,hives Drug Aller gy Active Bees, hornets and wasp Anaphylaxis Non Drug Allergy Active Clindamycin Phos & Cleanser peeling skin Drug Allergy Active ceclor Anaphylaxis Drug Allergy Active ENCOUNTERS from 1999 to 2020-11-13 Encounter Location Date Provider Diagnosis [facility] [address] [place] [address] Oct, Shawna Mosquera Abnormal head CT R93.0 IMMUNIZATIONS No Information SOCIAL HISTORY Tobacco Use: Social History Observation Description Date Details (start date - stop date) Former Smoker Sex Assigned At : Social History Observation Description Sex Assigned At Unknown Education: Question Answer Notes Level of Education: Finished High School Audit Question Answer Notes Total Score: 0 Interpretation: Alcohol Education Language: Question Answer Notes Languages spoken: Citizen Of [place] Judaism: Question Answer Notes Judaism 33 None Sexual Hx: Question Answer Notes [...] day(s) Oct, Not-Taking PROCEDURES No Information RESULTS No Results REASON FOR VISIT Referral MEDICAL (GENERAL) HISTORY Type Description Date Medical History Bipolar disorder Medical History Borderline personality disorder Medical History PDSD Medical History Anxiety/depression Medical History Asthma Surgical History root canal 2013 Hospitalization History [facility] 08/2019 Goals Section No Information Health Concerns No Information MEDICAL EQUIPMENT No Information MENTAL STATUS No Information FUNCTIONAL STATUS No Information ASSESSMENTS Encounter Date Diagnosis Assessment Notes Treatment Notes Treatm ent Clinical Notes Oct, Abnormal head CT (ICD-10 - R93.0) PLAN OF TREATMENT Medication Medication Name Sig Start Date Stop Date Metronidazole 0.75 % 1 applicator full at bedtime Vaginal Once a day for 5 day(s) Aug, Insurance Providers Payer Name Payer Address Payer Phone Insured Name Patient Relati onship to Insured Coverage Start Date Coverage End Date [facility] [employer] [address] [place] [address] JOHNATHAN FONSECA
--- OUTSIDE RECORDS SUMMARY | 2020-12-07 18:37 | CCD ---
Author Author [facility] Organization [facility] Address Unknown Phone Unavailable Care Team Providers Care Infectious Diseases Physician Name Role Phone Shawna Mosquera Unavailable PROBLEMS Type Condition ICD9-CM Code [id number] Code Onset Dates Condition S tatus SNOMED Code Notes Problem Allergy to bee sting Z91.030 Active 385103288 Problem Exercise-induced asthma J45.990 Active 22183858 Problem Bipolar disorder, current episode depressed, mild F31.31 Active 606804497 Problem Abnormal findings on imaging test R93.89 Active 487387426 Problem Bipolar disorder, current episode mixed, moderate F31.62 Active 048072880 Problem Bipolar disorder, current ep isode depressed, severe, without psychotic features F31.4 Active 464342620 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 4953416 02 Problem Missed menses N92.6 Active 52160184 Problem 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 Active 737721995 ALLERGIES Allergen (clinical drug ingredient) Drug/Non Drug Allergy do cumented on EMR Reaction Allergy Type Onset Date Status lidocaine Lidocaine([facility] Code:[address]-80) swollen,hives Drug Aller gy Active Bees, hornets and wasp Anaphylaxis Non Drug Allergy Active Clindamycin Phos & Cleanser peeling skin Drug Allergy Active ceclor Anaphylaxis Drug Allergy Active ENCOUNTERS from 1999 to 2020-10-28 Encounter Location Date Provider Diagnosis [address] [address] Oct, Shawna Mosquera IMMUNIZATIONS No Information SOCIAL HISTORY Tobacco Use: Social History Observation Description Date Details (start date - stop date) Former Smoker Sex Assigned At : Social History Observation Description Sex Assigned At Unknown Education: Question Answer Notes Level of Education: Finished High School Audit Question Answer Notes Total Score: 0 Interpretation: Alcohol Education Language: Question Answer Notes Languages spoken: Israeli Christian: Question Answer Notes Christian 33 None Sexual Hx: Question Answer Notes [...] Information RESULTS No Results REASON FOR VISIT Chest pain MEDICAL (GENERAL) HISTORY Type Description Date Medical History Bipolar disorder Medical History Borderline personality disorder Medical History PDSD Medical History Anxiety/depression Medical History Asthma Surgical History root canal 2013 Hospitalization History [facility] 08/2019 Goals Section No Information Health Concerns No Information MEDICAL EQUIPMENT No Information MENTAL STATUS No Information FUNCTIONAL STATUS No Information ASSESSMENTS No Information PLAN OF TREATMENT Medication Medication Name Sig Start Date Stop Date Metronidazole 0.75 % 1 applicator full at bedtime Vaginal Once a day for 5 day(s) Aug, Insurance Providers Payer Name Payer Address Payer Phone Insured Name Patient Relati onship to Insured Coverage Start Date Coverage End Date [facility] [address] [place] [address] JOHNATHAN FONSECA
--- OUTSIDE RECORDS SUMMARY | 2020-12-07 18:37 | CCD ---
Author Author [facility] Organization [facility] Address Unknown Phone Unavailable Care Team Providers Care Wood Heel Flap Trimmer Name Role Phone Shanwa Mosquera Unavailable PROBLEMS Type Condition ICD9-CM Code [id number] Code Onset Dates Condition S tatus SNOMED Code Notes Problem Allergy to bee sting Z91.030 Active 987741741 Problem Exercise-induced asthma J45.990 Active 29412487 Problem Bipolar disorder, current episode depressed, mild F31.31 Active 806131079 Problem Abnormal findings on imaging test R93.89 Active 070446634 Problem Bipolar disorder, current episode mixed, moderate F31.62 Active 071165934 Problem Bipolar disorder, current ep isode depressed, severe, without psychotic features F31.4 Active 036251449 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 8568132 02 Problem Missed menses N92.6 Active 99567727 Problem 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 Active 663588619 ALLERGIES Allergen (clinical drug ingredient) Drug/Non Drug Allergy do cumented on EMR Reaction Allergy Type Onset Date Status lidocaine Lidocaine([facility] Code:[address]-02) swollen,hives Drug Aller gy Active Bees, hornets and wasp Anaphylaxis Non Drug Allergy Active Clindamycin Phos & Cleanser peeling skin Drug Allergy Active ceclor Anaphylaxis Drug Allergy Active ENCOUNTERS from 1999 to 2020-11-02 Encounter Location Date Provider Diagnosis [facility] [address] [place] [address] Oct, Shawnaoliver Mosquera Missed menses N92.6 IMMUNIZATIONS No Information SOCIAL HISTORY Tobacco Use: Social History Observation Description Date Details (start date - stop date) Former Smoker Sex Assigned At : Social History Observation Description Sex Assigned At Unknown Education: Question Answer Notes Level of Education: Finished High School Audit Question Answer Notes Total Score: 0 Interpretation: Alcohol Education Language: Question Answer Notes Languages spoken: Polish Mosque: Question Answer Notes Mosque 33 None Sexual Hx: Question Answer Notes [...] Information RESULTS No Results REASON FOR VISIT Test MEDICAL (GENERAL) HISTORY Type Description Date Medical History Bipolar disorder Medical History Borderline personality disorder Medical History PDSD Medical History Anxiety/depression Medical History Asthma Surgical History root canal 2012 Hospitalization History [facility] 08/2019 Goals Section No Information Health Concerns No Information MEDICAL EQUIPMENT No Information MENTAL STATUS No Information FUNCTIONAL STATUS No Information ASSESSMENTS Encounter Date Diagnosis Assessment Notes Treatment Notes Treatm ent Clinical Notes Oct, Missed menses (ICD-10 - N92.6) PLAN OF TREATMENT Medication Medication Name Sig Start Date Stop Date Metronidazole 0.75 % 1 applicator full at bedtime Vaginal Once a day for 5 day(s) Aug, Future Test Test Name Order Date HCG, SERUM QUANTITATIVE [id number] Insurance Providers Payer Name Payer Address Payer Phone Insured Name Patient Relati onship to Insured Coverage Start Date Coverage End Date [facility] INSUR[facility] [address] [place] [address] JOHNATHAN FONSECA
--- OUTSIDE RECORDS SUMMARY | 2020-12-07 18:37 | CCD | Continuity of Care Document ---
Author Author Kesha ADDISON Organization Unknown Address [address] [place] [address] Phone [phone] Care Team Providers Care Lead Developer Name Role Phone Shawna Mosquera TABLEAU ADMINISTRATOR AUTM [phone] Problems Active Problems Provider Date MRI scan [...] lb BMI (Body Mass Index) 23.8 kg/m2 [place] Body Weight 110 lb Results Description No Information Available Procedures Description No Information Available Medical Devices Description No Information Available Encounters Type Date Location Provider Dx Diagnosis Office Visit 11/27/2020 9:00a [facility] Liane chen M.D. 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 Plan of Treatment Future Appointment(s):* 02/26/2021 11:00 am - Liane Dodge M.D. at [facility] office [facility] Functional Status Description No Information Available Mental Status Description No Information Available Referrals Description No Information Available
--- OUTSIDE RECORDS SUMMARY | 2020-12-07 18:37 | CCD ---
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 Active 754987498 Problem Exercise-induced asthma J45.990 Active 83969971 Problem Bipolar disorder, current episode depressed, mild F31.31 Active 935347429 Problem Bipolar disorder, current ep isode depressed, severe, without psychotic features F31.4 Active 144821772 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 5226514 02 ALLERGIES Allergen (clinical drug ingredient) Drug/Non Drug Allergy do cumented on EMR Reaction Allergy Type Onset Date Status lidocaine Lidocaine([facility] Code:[address]-96) swollen,hives Drug Aller gy Active Bees, hornets and wasp Anaphylaxis Non Drug Allergy Active Clindamycin Phos & Cleanser peeling skin Drug Allergy Active ceclor Anaphylaxis Drug Allergy Active ENCOUNTERS from 1999 to 2020-10-07 Encounter Location Date Provider Diagnosis [facility] [address] [place] [address] Sep, Shawna Mosquera Acute vaginitis N76.0 ; Herpes simplex v irus (HSV) infection of vagina A60.04 and Exercise-induced asthma J45.990 IMMUNIZATIONS No Information SOCIAL HISTORY Tobacco Use: Social History Observation Description Date Details (start date - stop date) Current Smoker Sex Assigned At : Social History Observation Description Sex Assigned At Unknown Education: Question Answer Notes Level of Education: Finished High School Audit Question Answer Notes Total Score: 0 Interpretation: Alcohol Education Language: Question Answer Notes Languages spoken: Nepali Scientologist: Question Answer Notes Scientologist 33 None Sexual Hx: Question Answer Notes [...] FOR REFERRAL No Information VITAL SIGNS Weight 128.8 lbs Sep, Height 61 in Sep, BMI 24.33 kg/m2 Sep, Heart Rate 72 /min Sep, Respiratory Rate 17 /min Sep, Temperature 99.6 degrees Fahrenheit Sep, Oximetry 98 Sep, Blood pressure systolic 94 mm Hg Sep, Blood pressure diastolic 55 mm Hg Sep, MEDICATIONS Medication SIG (Take, Route, Frequency, Duration) [...] Information RESULTS No Results REASON FOR VISIT DISCUSS BACTERIAL VAGINOSIS, WHEEZING. MEDICAL (GENERAL) HISTORY Type Description Date Medical History Bipolar disorder Medical History Borderline personality disorder Medical History PDSD Medical History Anxiety/depression Medical History Asthma Surgical History root canal 2013 Hospitalization History [facility] 08/2019 Goals Section No Information Health Concerns No Information MEDICAL EQUIPMENT No Information MENTAL STATUS No Information FUNCTIONAL STATUS No Information ASSESSMENTS Encounter Date Diagnosis Assessment Notes Treatment Notes Treatm ent Clinical Notes Sep, Acute vaginitis (ICD-10 - N76.0) Plan initiate tx, pt very familiar with sxs. Uncertain as to ACCOUNTING ANALYST not initiating tx, will send at this time. Sep, Herpes simplex virus (HSV) infection of vagina ( ICD-10 - A60.04) Pt has treated >3 episodes in past month, plan suppressive therapy for 90 days, then re-evaluate. Continue to follow w/ ACCOUNTING ANALYST as directed. Sep, Exercise-induced asthma (ICD-10 - J45.990) Pt with inhaler on hand, disouraged smoking as she recently started smoking about 1/2 ppd. She will attempt to cut down and stop smoking altogether in next month. PLAN OF TREATMENT Medication Medication Name Sig Start Date Stop Date Metronidazole 0.75 % 1 applicator full at bedtime Vaginal Once a day for 5 day(s) Aug, Valacyclovir HCl 1 GM 1 tablet Orally Once a day for 90 day(s) 1 2020 Treatment Notes Assessment Notes Clinical Notes Acute vaginitis Plan initiate tx, pt very familiar with sxs. Uncertain as to ACCOUNTING ANALYST not initiating tx, will send at this time. Herpes simplex virus (HSV) infection of vagina Pt has treated >3 episodes in past month, plan suppressive therapy for 90 days, then re-evaluate. Continue to follow w/ ACCOUNTING ANALYST as directed. Exercise-induced asthma Pt with inhaler on hand, disouraged smoking as she recently started smoking about 1/2 ppd. She will attempt to cut down and stop smoking altogether in next month. Next Appt Details 3 Months (re-evaluate suppressive HSV tx ) Reason: Insurance Providers Payer Name Payer Address Payer Phone Insured Name Patient Relati onship to Insured Coverage Start Date Coverage End Date [facility] INSURANCE [address] [place] [id number] JOHNATHAN FONSECA
--- OUTSIDE RECORDS SUMMARY | 2020-12-07 18:37 | CCD ---
Author Author [facility] Organization [facility] Address Unknown Phone Unavailable Care Team Providers Care Oriental Rug Repairer Name Role Phone Shawna Mosquera Unavailable PROBLEMS Type Condition ICD9-CM Code [id number] Code Onset Dates Condition S tatus SNOMED Code Notes Problem Allergy to bee sting Z91.030 Active 021719059 Problem Exercise-induced asthma J45.990 Active 79744933 Problem Bipolar disorder, current episode depressed, mild F31.31 Active 192892774 Problem Abnormal findings on imaging test R93.89 Active 467134569 Problem Bipolar disorder, current episode mixed, moderate F31.62 Active 952664695 Problem Bipolar disorder, current ep isode depressed, severe, without psychotic features F31.4 Active 829410744 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 4408138 02 Problem Missed menses N92.6 Active 71367507 Problem 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 Active 129281861 ALLERGIES Allergen (clinical drug ingredient) Drug/Non Drug Allergy do cumented on EMR Reaction Allergy Type Onset Date Status lidocaine Lidocaine([facility] Code:[address]-25) swollen,hives Drug Aller gy Active Bees, hornets and wasp Anaphylaxis Non Drug Allergy Active Clindamycin Phos & Cleanser peeling skin Drug Allergy Active ceclor Anaphylaxis Drug Allergy Active ENCOUNTERS from 1999 to 2020-10-27 Encounter Location Date Provider Diagnosis [facility] [address] [place] [address] Oct, Shawna Mosquera IMMUNIZATIONS No Information SOCIAL HISTORY Tobacco Use: Social History Observation Description Date Details (start date - stop date) Former Smoker Sex Assigned At : Social History Observation Description Sex Assigned At Unknown Education: Question Answer Notes Level of Education: Finished High School Audit Question Answer Notes Total Score: 0 Interpretation: Alcohol Education Language: Question Answer Notes Languages spoken: Kenyan Mu-Ism: Question Answer Notes Mu-Ism 33 None Sexual Hx: Question Answer Notes [...] Information RESULTS No Results REASON FOR VISIT Appointment MEDICAL (GENERAL) HISTORY Type Description Date Medical History Bipolar disorder Medical History Borderline personality disorder Medical History PDSD Medical History Anxiety/depression Medical History Asthma Surgical History root canal 2013 Hospitalization History [facility] 08/2019 Goals Section No Information Health Concerns [...] Insured Coverage Start Date Coverage End Date [facility] INSURANCE [address] [place] [id number] JOHNATHAN FONSECA
--- OUTSIDE RECORDS SUMMARY | 2020-12-07 18:37 | CCD ---
Author Author [facility] Organization [facility] Address Unknown Phone Unavailable Care Team Providers Care Financial Analysis Manager Name Role Phone Shawna Mosquera Unavailable PROBLEMS Type Condition ICD9-CM Code QKC03-FP Code Onset Dates Condition S tatus SNOMED Code Notes Problem Allergy to bee sting Z91.030 Active 589592077 Problem Exercise-induced asthma J45.990 Active 65817863 Problem Bipolar disorder, current episode depressed, mild F31.31 Active 847645608 Problem Abnormal findings on imaging test R93.89 Active 918225332 Problem Bipolar disorder, current episode mixed, moderate F31.62 Active 524979661 Problem Bipolar disorder, current ep isode depressed, severe, without psychotic features F31.4 Active 888533428 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 5348783 02 Problem Missed menses N92.6 Active 82779113 Problem 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 Active 894393058 ALLERGIES Allergen (clinical drug ingredient) Drug/Non Drug Allergy do cumented on EMR Reaction Allergy Type Onset Date Status lidocaine Lidocaine([facility] Code:[address]-13) swollen,hives Drug Aller gy Active Bees, hornets and wasp Anaphylaxis Non Drug Allergy Active Clindamycin Phos & Cleanser peeling skin Drug Allergy Active ceclor Anaphylaxis Drug Allergy Active ENCOUNTERS from 1999 to 2020-11-03 Encounter Location Date Provider Diagnosis [facility] [address] [place] [address] Oct, Shawna Mosquera IMMUNIZATIONS No Information SOCIAL HISTORY Tobacco Use: Social History Observation Description Date Details (start date - stop date) Former Smoker Sex Assigned At : Social History Observation Description Sex Assigned At Unknown Education: Question Answer Notes Level of Education: Finished High School Audit Question Answer Notes Total Score: 0 Interpretation: Alcohol Education Language: Question Answer Notes Languages spoken: Libyan Restoration: Question Answer Notes Restoration 33 None Sexual Hx: Question Answer Notes [...] Information RESULTS No Results REASON FOR VISIT hcg MEDICAL (GENERAL) HISTORY Type Description Date Medical History Bipolar disorder Medical History Borderline personality disorder Medical History PDSD Medical History Anxiety/depression Medical History Asthma Surgical History root canal 2013 Hospitalization History [facility] 08/2019 Goals Section No Information Health Concerns [...] Insured Coverage Start Date Coverage End Date [facility] INSURANCE [address] [place] [id number] JOHNATHAN FONSECA
--- OUTSIDE RECORDS SUMMARY | 2020-12-07 18:37 | CCD ---
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 7356297 02 Problem Atopic dermatitis, mild L20.9 Active 71696262 Problem Exercise-induced asthma J45.990 Active 72604036 Problem Intrinsic eczema L20.84 Active 06122190 Problem Allergy to bee sting Z91.030 Active 709714526 Problem Missed menses N92.6 Active 37413014 Problem 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 Active 120651960 Problem Abnormal findings on imaging test R93.89 Active 256395819 Problem Bipolar disorder, current episode mixed, moderate F31.62 Active 024882842 ALLERGIES Allergen (clinical drug ingredient) Drug/Non Drug Allergy do cumented on EMR Reaction Allergy Type Onset Date Status lidocaine Lidocaine([facility] Code:[address]-12) swollen,hives Drug Aller gy Active Bees, hornets and wasp Anaphylaxis Non Drug Allergy Active Clindamycin Phos & Cleanser peeling skin Drug Allergy Active ceclor Anaphylaxis Drug Allergy Active ENCOUNTERS from 1999 to 2020-11-27 Encounter Location Date Provider Diagnosis [facility] [address] [place] [address] Nov, Meghan Rodríguezister IMMUNIZATIONS No Information SOCIAL HISTORY Tobacco Use: Social History Observation Description Date Details (start date - stop date) Former Smoker Sex Assigned At : Social History Observation Description Sex Assigned At Unknown Education: Question Answer Notes Level of Education: Finished High School Audit Question Answer Notes Total Score: 0 Interpretation: Alcohol Education Language: Question Answer Notes Languages spoken: Burundian Protestant: Question Answer Notes Protestant 33 None Sexual Hx: Question Answer Notes [...] Answer Notes Are you a: former smoker Quit Friday11/19/20 Smoking Cessation Information Given 10/27/2020 REASON FOR REFERRAL No Information VITAL SIGNS No information MEDICATIONS Medication SIG (Take, Route, Frequency, Duration) Notes Start Da te End Date Status Metronidazole 0.75 % 1 applicator full at bedtime Vaginal Once a day for 5 day(s) Aug, Not-Taking Macrobid 100 MG 1 capsule Orally twice daily for 5 day(s) Feb, Not-Taking Valacyclovir HCl 1 GM 1 tablet Orally Once a day for 90 day(s) Sep, Active Prazosin HCl 1 MG 1 capsule at bedtime Orally Once a day for 30 day(s ) Not-Taking Rexulti 1 MG 1 tablet Orally Once a day for 30 day(s) Not-Taking EpiPen Not-Taking SEROquel 50 MG 1 tablet at bedtime Orally Once a day Active Melatonin 5 MG 2 tablet in the evening Orally Once a day Not-Taking BuSpar 10 MG 1 tablet Orally Twice a day Not-Taking EpiPen 2-Jay 0.3 MG/0.3ML as directed Injection as nee ded for allergic rxn for 1 days May, Active Abilify 5 MG 1 tablet Orally Once a day for 30 day(s) Not-Taking Ventolin HFA 108 (90 Base) MCG/ACT 2 puffs as needed I nhalation every 6 hrs for 30 days Not-Taking Nicotine Step 3 7 MG/24HR 1 patch to skin Transdermal Once a day for 30 day(s) May, Not-Taking One-A-Day Womens 1 28-0.8-235 MG 1 capsule Or ally Once a day for 30 day(s) Oct, Not-Taking Aripiprazole 5 MG TAKE 1 TABLET BY MOUTH ONCE DAILY Oral for 30 Not-Taking Nicotine Step 2 14 MG/24HR 1 patch to skin Transdermal Once a day for 30 day(s) May, Not-Taking Valacyclovir HCl 1 GM 1 tablet Orally bid for 10 day(s) Jan, Not-Taking PredniSONE 20 MG 2 tablets Orally Once a day for 5 day(s) Oct, Not-Taking Triamcinolone Acetonide 0.1 % 1 application Externally Once a da y for 14 days Nov, Active AZO Cranberry 250-30 MG as directed Orally Not-Taking - 1 tablet Orally Once a day for 30 day(s) Active Albuterol 90 MCG/ACT 1 Inhalation every 4 hours as needed for 30 days Active Azithromycin 250 MG 2 tablets on day 1 then 1 ta blet x 4 days Orally Daily for 5 day(s) Oct, Not-Taking Multivitamins - 1 tablet Orally Once a day for 30 day(s) Not-Taking PROCEDURES No Information RESULTS No Results REASON FOR VISIT test results MEDICAL (GENERAL) HISTORY Type Description Date Medical [...] Medication Name Sig Start Date Stop Date Triamcinolone Acetonide 0.1 % 1 application Externally Once a day for 14 days Nov, Insurance Providers Payer Name Payer Address Payer Phone Insured Name Patient Relati onship to Insured Coverage Start Date Coverage End Date [facility] INS[facility] [address] [place] [id number] JOHNATHAN FONSECA
--- OUTSIDE RECORDS SUMMARY | 2020-12-07 18:38 | CCD ---
Author Author [facility] Organization [facility] Address Unknown Phone Unavailable Care Team Providers Care Inside Sales Trainer Name Role Phone TURRIN, DELMIS Unavailable Unavailable TURRIN, DELMIS Unavailable Unavailable TURRIN, DELMIS Unavailable Unavailable TURRIN, DELMIS Unavailable Unavailable Kendrick, J Juan PA-C Unavailable Unavailable Kendrick, J Juan PA-C Unavailable Unavailable Kendrick, J Juan PA-C Unavailable Unavailable Kendrick, J Juan PA-C Unavailable Unavailable Kendrick, J Juan PA-C Unavailable Unavailable Kendrick, J Juan PA-C Unavailable Unavailable Kendrick, J Juan PA-C Unavailable Unavailable Kendrick, J Juan PA-C Unavailable Unavailable Kendrick, J Juan PA-C Unavailable Unavailable Kendrick, J Juan PA-C Unavailable Unavailable Kendrick, J Juan PA-C Unavailable Unavailable DilleMarilia DDS Unavailable Unavailable Dille, Marilia Dennis DDS Unavailable Unavailable DilleMarilia DDS Unavailable Unavailable Dilrajwinder, Marilia Dennis DDS Unavailable Unavailable ALPA MOTA MD Unavailable Unavailable ALPA MOTA MD Unavailable Unavailable ALPA MOTA MD Unavailable Unavailable ALPA MOTA MD Unavailable Unavailable ALPA MOTA MD Unavailable Unavailable Rosalino, R Shawna DIRECTOR SPECIAL EDUCATION Unavailable Unavailable Rosalino, R Shawna DIRECTOR SPECIAL EDUCATION Unavailable Unavailable Rosalino, R Shawna DIRECTOR SPECIAL EDUCATION Unavailable Unavailable Rosalino, R Shawna DIRECTOR SPECIAL EDUCATION Unavailable Unavailable Rosalino, R Shawna DIRECTOR SPECIAL EDUCATION Unavailable Unavailable Rosalino, R Shawna DIRECTOR SPECIAL EDUCATION Unavailable Unavailable Rosalino, R Shawna DIRECTOR SPECIAL EDUCATION Unavailable Unavailable Rosalino, R Shawna DIRECTOR SPECIAL EDUCATION Unavailable Unavailable Rosalino, R Shawna DIRECTOR SPECIAL EDUCATION Unavailable Unavailable Rosalino, R Shawna DIRECTOR SPECIAL EDUCATION Unavailable Unavailable Rosalino, R Shawna DIRECTOR SPECIAL EDUCATION Unavailable Unavailable Rosalino, R Shawna DIRECTOR SPECIAL EDUCATION Unavailable Unavailable Rosalino, R Shawna DIRECTOR SPECIAL EDUCATION Unavailable Unavailable Rosalino, R Shawna DIRECTOR SPECIAL EDUCATION Unavailable Unavailable Rosalino, R Shawna DIRECTOR SPECIAL EDUCATION Unavailable Unavailable Rosalino, R Shawna DIRECTOR SPECIAL EDUCATION Unavailable Unavailable Rosalino, R Shawna DIRECTOR SPECIAL EDUCATION Unavailable Unavailable Rosalino, R Shawna DIRECTOR SPECIAL EDUCATION Unavailable Unavailable Rosalino, R Shawna DIRECTOR SPECIAL EDUCATION Unavailable Unavailable Rosalino, R Shawna DIRECTOR SPECIAL EDUCATION Unavailable Unavailable Rosalino, R Shawna DIRECTOR SPECIAL EDUCATION Unavailable Unavailable Rosalino, R Shawna DIRECTOR SPECIAL EDUCATION Unavailable Unavailable Rosalino, R Shawna DIRECTOR SPECIAL EDUCATION Unavailable Unavailable Rosalino, R Shawna DIRECTOR SPECIAL EDUCATION Unavailable Unavailable Rosalino, R Shawna DIRECTOR SPECIAL EDUCATION Unavailable Unavailable Rosalino, R Shawna DIRECTOR SPECIAL EDUCATION Unavailable Unavailable Rosalino, R Shawna DIRECTOR SPECIAL EDUCATION Unavailable Unavailable Rosalino, R Shawna DIRECTOR SPECIAL EDUCATION Unavailable Unavailable Rosalino, R Shawna DIRECTOR SPECIAL EDUCATION Unavailable Unavailable Rosalino, R Shawna DIRECTOR SPECIAL EDUCATION Unavailable Unavailable Rosalino, R Shawna DIRECTOR SPECIAL EDUCATION Unavailable Unavailable Rosalino, R Shawna DIRECTOR SPECIAL EDUCATION Unavailable Unavailable SAMANTA, JAYNA MD Unavailable Unavailable SAMANTA, JAYNA MD Unavailable Unavailable SAMANTA, JAYNA MD Unavailable Unavailable SAMANTA, JAYNA MD Unavailable Unavailable SAMANTA, JAYNA MD Unavailable Unavailable JACKYRanjith BELTRAN MD Unavailable Unavailable JACKYRanjith BELTRAN MD Unavailable Unavailable JACKYRanjith BELTRAN MD Unavailable Unavailable JACKYRanjith BELTRAN MD Unavailable Unavailable JACKYRanjith BELTRAN MD Unavailable Unavailable JACKYRanjith BELTRAN MD Unavailable Unavailable JACKYRanjith BELTRAN MD Unavailable Unavailable JACKYRanjith BELTRAN MD Unavailable Unavailable JACKYRanjith BELTRAN MD Unavailable Unavailable JACKYRanjith BELTRAN MD Unavailable Unavailable JACKYRanjith BELTRAN MD Unavailable Unavailable JACKYRanjith BELTRAN MD Unavailable Unavailable JACKYRanjith MD Unavailable Unavailable JACKYRanjith BELTRAN MD Unavailable Unavailable JACKYRanjith BELTRAN MD Unavailable Unavailable JACKYRanjith BELTRAN MD Unavailable Unavailable JACKYRanjith BELTRAN MD Unavailable Unavailable JACKYRanjith BELTRAN MD Unavailable Unavailable JACKYRanjith BELTRAN MD Unavailable Unavailable JACKYRanjith MD Unavailable Unavailable JACKYRanjith MD Unavailable Unavailable JACKYRanjith SERGEY MD Unavailable Unavailable JACKYRanjith BELTRAN MD Unavailable Unavailable Ty Dodge MD Unavailable Unavailable Ty Dodge MD Unavailable Unavailable Ty Dodge MD Unavailable Unavailable Ty Dodge MD Unavailable Unavailable Ty Dodge MD Unavailable Unavailable Ty Dodge MD Unavailable Unavailable Ty Dodge MD Unavailable Unavailable Ty Dodge MD Unavailable Unavailable Ty Dodge MD Unavailable Unavailable Ty Dodge MD Unavailable Unavailable Ty Dodge MD Unavailable Unavailable Ty Dodge MD Unavailable Unavailable Ty Dodge MD Unavailable Unavailable Ty Dodge MD Unavailable Unavailable Ty Dodge MD Unavailable Unavailable Ty Dodge MD Unavailable Unavailable Ty Dodge MD Unavailable Unavailable Ty Dodge MD Unavailable Unavailable Ty Dodge MD Unavailable Unavailable Ty Dodge MD Unavailable Unavailable Ty Dodge MD Unavailable Unavailable Ty Dodge MD Unavailable Unavailable Ty Dodge MD Unavailable Unavailable Ty Dodge MD Unavailable Unavailable Ty Dodge MD Unavailable Unavailable Ty Dodge MD Unavailable Unavailable Ty Dodge MD Unavailable Unavailable Ty Dodge MD Unavailable Unavailable Ty Dodge MD Unavailable Unavailable Ty Dodge MD Unavailable Unavailable Ty Dodge MD Unavailable Unavailable Ty Dodge MD Unavailable Unavailable Ty Dodge MD Unavailable Unavailable Ty Dodge MD Unavailable Unavailable Ty Dodge MD Unavailable Unavailable Ty Dodge MD Unavailable Unavailable Ty Dodge MD Unavailable Unavailable Ty Dodge MD Unavailable Unavailable Ty Dodge MD Unavailable Unavailable Ty Dodge MD Unavailable Unavailable Ty Dodge MD Unavailable Unavailable Ty Dodge MD Unavailable Unavailable Ty Dodge MD Unavailable Unavailable Ty Dodge MD Unavailable Unavailable Ty Dodge MD Unavailable Unavailable Ty Dodge MD Unavailable Unavailable Ty Dodge MD Unavailable Unavailable Ty Dodge MD Unavailable Unavailable Ty Dodge MD Unavailable Unavailable Ty Dodge MD Unavailable Unavailable Ty Dodge MD Unavailable Unavailable Ty Dodge MD Unavailable Unavailable Ty Dodge MD Unavailable Unavailable Ty Dodge MD Unavailable Unavailable Ty Dodge MD Unavailable Unavailable Ty Dodge MD Unavailable Unavailable Ty Dodge MD Unavailable Unavailable Ty Dodge MD Unavailable Unavailable Ty Dodge MD Unavailable Unavailable Ty Dodge MD Unavailable Unavailable Ty Dodge MD Unavailable Unavailable Ty Dodge MD Unavailable Unavailable Ty Dodge MD Unavailable Unavailable Ty Dodge MD Unavailable Unavailable Ty Dodge MD Unavailable Unavailable Ty Dodge MD Unavailable Unavailable Ty Dodge MD Unavailable Unavailable Ty Dodge MD Unavailable Unavailable Ty Dodge MD Unavailable Unavailable Ty Dodge MD Unavailable Unavailable Ty Dodge MD Unavailable Unavailable Ty Dodge MD Unavailable Unavailable Ty Dodge MD Unavailable Unavailable Ty Dodge MD Unavailable Unavailable Ty Dodge MD Unavailable Unavailable XIAO POWELL MD Unavailable Unavailable XIAO POWLEL MD Unavailable Unavailable XIAO POWELL MD Unavailable Unavailable XIAO POWELL MD Unavailable Unavailable XIAO POWELL MD Unavailable Unavailable XIAO POWELL MD Unavailable Unavailable XIAO POWELL MD Unavailable Unavailable Ranjith BLANCO MD Unavailable Unavailable Ranjith BLANCO MD Unavailable Unavailable Ranjith BLANCO MD Unavailable Unavailable Ranjith BLANCO MD Unavailable Unavailable Ranjith BLANCO MD Unavailable Unavailable Ranjith BLANCO MD Unavailable Unavailable Ranjith BLANCO MD Unavailable Unavailable Ranjith BLANCO MD Unavailable Unavailable Ranjith BLANCO MD Unavailable Unavailable Ranjith BLANCO MD Unavailable Unavailable Ranjith BLANCO MD Unavailable Unavailable Ranjith BLANCO MD Unavailable Unavailable Ranjith BLANCO MD Unavailable Unavailable Ranjith BLANCO MD Unavailable Unavailable Ranjith BLANCO MD Unavailable Unavailable Ranjith BLANCO MD Unavailable Unavailable Ranjith BLANCO MD Unavailable Unavailable Ranjith BLANCO MD Unavailable Unavailable Ranjith BLANCO MD Unavailable Unavailable Ranjith BLANCO MD Unavailable Unavailable BLANCO, L ANNAMARIE MD Unavailable Unavailable BLANCO, L ANNAMARIE MD Unavailable Unavailable BLANCO, L ANNAMARIE MD Unavailable Unavailable BLANCO, L ANNAMARIE MD Unavailable Unavailable BLANCO, L ANNAMARIE MD Unavailable Unavailable BLANCO, L ANNAMARIE MD Unavailable Unavailable BLANCO, L ANNAMARIE MD Unavailable Unavailable BLANCO, L ANNAMARIE MD Unavailable Unavailable BLANCO, L ANNAMARIE MD Unavailable Unavailable BLANCO, L ANNAMARIE MD Unavailable Unavailable BALNCO, L ANNAMARIE MD Unavailable Unavailable BLANCO, L ANNAMARIE MD Unavailable Unavailable BLANCO, L ANNAMARIE MD Unavailable Unavailable BLANCO, L ANNAMARIE MD Unavailable Unavailable BLANCO, L ANNAMARIE MD Unavailable Unavailable BLANCO, L ANNAMARIE MD Unavailable Unavailable BLANCO, L ANNAMARIE MD Unavailable Unavailable BLANCO, L ANNAMARIE MD Unavailable Unavailable BLANCO, L ANNAMARIE MD Unavailable Unavailable BLNACO, L ANNAMARIE MD Unavailable Unavailable BLANCO, L ANNAMARIE MD Unavailable Unavailable BLANCO, L ANNAMARIE MD Unavailable Unavailable Re-disclosure Warning The records that you are about to access may contain information from federally-assisted alcohol or drug abuse programs. If such information is present, then the following federally mandated warning applies: This information has been disclosed to you from records protected by federal confidentiality rules (42 CFR part 2). The federal rules prohibit you from making any further disclosure of this information unless further disclosure is expressly permitted by the written consent of the person to whom it pertains or as otherwise permitted by 42 CFR part 2. A general authorization for the release of medical or other information is NOT sufficient for this purpose. The Federal rules restrict any use of the information to criminally investigate or prosecute any alcohol or drug abuse patient.The records that you are about to access may contain highly sensitive health information, the redisclosure of which is protected by Article 27-F of the [facility] Public Health law. If you continue you may have access to information: Regarding HIV / AIDS; Provided by facilities licensed or operated by the [facility] Office of Mental Health; or Provided by the [facility] Office for People With Developmental Disabilities. If such information is present, then the following [facility] mandated warning applies: This information has been disclosed to you from confidential records which are protected by state law. State law prohibits you from making any further disclosure of this information without the specific written consent of the person to whom it pertains, or as otherwise permitted by law. Any unauthorized further disclosure in violation of state law may result in a fine or mcc sentence or both. A general authorization for the release of medical or other information is NOT sufficient authorization for further disc losure. Allergies and Adverse Reactions Type Description Substance Reaction Status Data Source(s ) Lidocaine Lidocaine Lidocaine swollen,hives Active eCW1 ([facility]) ceclor ceclor ceclor Anaphylaxis Active eCW1 ([facility]) Bees, hornets and wasp Bees, hornets and wasp Bees, hornets and wasp Anaphylaxis Active eCW1 ([facility]) Drug allergy Clindamycin Phos & Cleanser Clindamycin Phos & C leanser peeling skin Active eCW1 ([facility]) ceclor ceclor ceclor Anaphylaxis Active eCW1 ([facility]) Bees, hornets and wasp Bees, hornets and wasp Bees, hornets and wasp Anaphylaxis Active eCW1 ([facility]) Drug allergy Clindamycin Phos & Cleanser Clindamycin Phos & C leanser peeling skin Active eCW1 ([facility]) ceclor ceclor ceclor Anaphylaxis Active eCW1 ([facility]) Bees, hornets and wasp Bees, hornets and wasp Bees, hornets and wasp Anaphylaxis Active eCW1 ([facility]) Drug allergy Clindamycin Phos & Cleanser Clindamycin Phos & C leanser peeling skin Active eCW1 ([facility]) ceclor ceclor ceclor Anaphylaxis Active eCW1 ([facility]) Bees, hornets and wasp Bees, hornets and wasp Bees, hornets and wasp Anaphylaxis Active eCW1 ([facility]) Drug allergy Clindamycin Phos & Cleanser Clindamycin Phos & C leanser peeling skin Active eCW1 ([facility]) ceclor ceclor ceclor Anaphylaxis Active eCW1 ([facility]) Bees, hornets and wasp Bees, hornets and wasp Bees, hornets and wasp Anaphylaxis Active eCW1 ([facility]) Drug allergy Clindamycin Phos & Cleanser Clindamycin Phos & C leanser peeling skin Active eCW1 ([facility]) ceclor ceclor ceclor Anaphylaxis Active eCW1 ([facility]) Bees, hornets and wasp Bees, hornets and wasp Bees, hornets and wasp Anaphylaxis Active eCW1 ([facility]) Drug allergy Clindamycin Phos & Cleanser Clindamycin Phos & C leanser peeling skin Active eCW1 ([facility]) Encounters Encounter Providers Location Date Indications Data Source(s ) Outpatient Attender: Liane Dodge MD Main office - [facility] 11/27/2020 08:00:00 AM EST MEDENT ([facility] abel, TORO) Unknown [address] [facility] [id number] 11/22/2020 12:00:00 AM EST eCW1 ([facility]) Outpatient [address] [facility] [facility] [id number] 11/20/2020 12:00:00 AM EST eCW1 ([facility]) Unknown [address] [facility] [facility] [id number] 11/13/2020 12:00:00 AM EST eCW1 ([facility]) Unknown [address] [facility] [address] 11/02/2020 12:00:00 AM EST eCW1 ([facility]) Unknown [address] [facility] [id number] 11/01/2020 12:00:00 AM EST eCW1 ([facility]) Outpatient [address] [facility] [id number] 10/27/2020 12:00:00 AM EST eCW1 ([facility]) Emergency Attender: SERGEY RICO MDConsultant: Shawna PULIDO 10/26/2020 03:02:00 PM EST - 10/26/2020 08:33:00 PM EST [facility] Patient discharged. Unknown [address] [facility] [place] [address] 10/26/2020 12:00:00 AM EST eCW1 ([facility]) Unknown [address] [facility] [id number] 10/24/2020 12:00:00 AM EST eCW1 ([facility]) Unknown [address] [facility] [id number] 10/06/2020 12:00:00 AM EST [facility]1 [facility]) Outpatient [address] [facility] [id number] 09/29/2020 12:00:00 AM EST [facility]CW1 [facility]) Emergency Attender: Juan BESTCConsultant: Shawna Mosquera DIRECTOR SPECIAL EDUCATION 09/26/2020 04:48:00 PM EST - 09/26/2020 07:19:00 PM EST [facility] Patient discharged. Unknown [address] [facility] [id number] 09/12/2020 12:00:00 AM EDT eCW1 ([facility]) Emergency Attender: DELMIS KWONConsultant: Shawna gaspar DIRECTOR SPECIAL EDUCATION 07/03/2020 11:54:00 PM EDT - 07/04/2020 03:50:00 AM EDT [facility] Patient discharged. Outpatient 05/08/2020 01:06:00 PM EDT [facility] psych bed Unknown [address] [facility] [id number] 05/02/2020 12:00:00 AM EDT eCW1 ([facility]) Unknown [address] [facility] [id number] 04/26/2020 12:00:00 AM EDT eCW1 ([facility]) Outpatient Attender: Jeannie FLOR 04/25/2020 07:55:57 P M EDT [facility] Dermatology [address] [place] [address] 04/05/2020 12:00:00 AM EDT eCW1 ([facility]) [facility] [address] [place] [address] 04/04/2020 12:00:00 AM EDT eCW1 ([facility]) [facility] [address] [place] [address] 03/30/2020 12:00:00 AM EDT eCW1 ([facility]) [facility] [address] [place] [phone] 03/22/2020 12:00:00 AM EDT eCW1 ([facility]) ([facility]) [facility] Scheduled Visit [address] [place] [phone] 03/17/2020 12:00:00 AM EDT eCW1 ([facility]) Outpatient Attender: ANNAMARIE [facility] pit recorder 10:15:00 AM EDT MEDENT ([facility] [employer] [employer]) [facility] Derm[facility] [address] [place] [phone] 03/09/2020 12:00:00 AM EDT eCW1 ([facility]) Outpatient 03/08/2020 05:20:00 AM EDT [facility] [address] [address] 03/03/2020 12:00:00 AM EDT eCW1 ([facility]) Outpatient Attender: Jeannie MARADIAGA 03/01/2020 10:31:01 A M EDT [facility] [place] [address] [facility] [address] 02/29/2020 12:00:00 AM EDT eCW1 ([facility]) [facility] [address] [place] [address] [place] [address] 02/24/2020 12:00:00 AM EDT eCW1 ([facility]) [facility] [address] [place] [phone] 02/17/2020 12:00:00 AM EDT eCW1 ([facility]) [facility] [address] [facility] [place] [address] 02/16/2020 12:00:00 AM EDT eCW1 ([facility]) [facility] [place] [address] [facility] [place] [address] 02/08/2020 12:00:00 AM EDT eCW1 ([facility]) [facility] [address] [facility] [place] [address] 02/04/2020 12:00:00 AM EDT eCW1 ([facility]) [facility] [address] [facility] [place] [address] 02/03/2020 12:00:00 AM EDT eCW1 ([facility]) [facility] [address] [facility] [place] [address] 02/01/2020 12:00:00 AM EDT eCW1 ([facility]) [facility] [address] [place] [phone] 01/31/2020 12:00:00 AM EDT eCW1 ([facility]) [facility] [address] [facility] [address] 01/26/2020 12:00:00 AM EDT eCW1 ([facility]) [facility] [address] [facility] [address] 01/25/2020 12:00:00 AM EDT eCW1 ([facility]) Outpatient 01/14/2020 01:32:00 PM EST [facility] [place] [address] [facility] [address] 01/10/2020 12:00:00 AM EST eCW1 ([facility]) [facility] [place] [address] [facility] [address] 01/10/2020 12:00:00 AM EST eCW1 ([facility]) [facility] [address] [place] [phone] 12/30/2019 12:00:00 AM EST eCW1 ([facility]) [facility] [address] [facility] [place] [address] 12/29/2019 12:00:00 AM EST eCW1 ([facility]) [facility] [address] [place] [address] 12/09/2019 12:00:00 AM EST eCW1 ([facility]) [facility] Derm[facility] [address] [place] [phone] 12/02/2019 12:00:00 AM EST eCW1 ([facility]) [facility] [address] [place] [address] 11/29/2019 12:00:00 AM EST eCW1 ([facility]) [facility] [address] [place] [address] 11/29/2019 12:00:00 AM EST eCW1 ([facility]) [facility] [address] [address] 11/24/2019 12:00:00 AM EST eCW1 ([facility]) [facility] [address] [place] [address] 11/22/2019 12:00:00 AM EST eCW1 ([facility]) [facility] [address] [place] [phone] 11/22/2019 12:00:00 AM EST eCW1 ([facility]) [facility] [address] [place] [phone] 11/15/2019 12:00:00 AM EST eCW1 ([facility]) [facility] [address] [address] 11/08/2019 12:00:00 AM EST eCW1 ([facility]) [facility] [address] [address] 11/04/2019 12:00:00 AM EST eCW1 ([facility]) [facility] [address] [address] 10/21/2019 12:00:00 AM EST eCW1 ([facility]) [facility] Rajiv [address] [facility] [address] 10/19/2019 12:00:00 AM EST eCW1 ([facility]) [facility] Tom Ng [address] [place] [address] 10/19/2019 12:00:00 AM EST eCW1 ([facility]) Inpatient Attender: JAYNA ENGLAND MDAtten apolo: XIAO POWELL MDAttender: ALPA MOTA MDAdmitter: JAYNA ENGLAND MD ER-3RD 08/19/2019 09:03: 00 PM EDT - 08/24/2019 01:40:00 AM EDT [facility] Patient discharged. Medications Medication Brand Name Start Date Product Form Dose Route Admi nistrative Instructions Pharmacy Instructions Status Indications Reaction Description Data Source(s) Triamcinolone Acetonide 1 MG/ML Topical Cream Triamcin olone Acetonide 0.1 % Triamcinolone Acetonide 0.1 % 11/24/2020 12:00:00 AM EST 1.0 {appli cation} active Triamcinolone Acetonide 0 .1 % eCW1 ([facility]) valacyclovir 1000 MG Oral Tablet Valacyclovir HCl 1 GM Valac yclovir HCl 1 GM 09/29/2020 12:00:00 AM EST 1.0 {tablet} active Valacyclovir HCl 1 GM eCW1 ([facility]) valacyclovir 1000 MG Oral Tablet Valacyclovir HCl 1 GM Valac yclovir HCl 1 GM 09/29/2020 12:00:00 AM EST 1.0 {tablet} active Valacyclovir HCl 1 GM eCW1 ([facility]) valacyclovir 1000 MG Oral Tablet Valacyclovir HCl 1 GM Valac yclovir HCl 1 GM 09/29/2020 12:00:00 AM EST 1.0 {tablet} active Valacyclovir HCl 1 GM eCW1 ([facility]) valacyclovir 1000 MG Oral Tablet Valacyclovir HCL 09/29/2020 12:00: 00 AM EST active MEDENT ([facility] ) valacyclovir 1000 MG Oral Tablet Valacyclovir HCl 1 GM Valac yclovir HCl 1 GM 09/29/2020 12:00:00 AM EST 1.0 {tablet} active Valacyclovir HCl 1 GM eCW1 ([facility]) valacyclovir 1000 MG Oral Tablet Valacyclovir HCl 1 GM Valac yclovir HCl 1 GM 09/29/2020 12:00:00 AM EST 1.0 {tablet} active Valacyclovir HCl 1 GM eCW1 ([facility]) valacyclovir 1000 MG Oral Tablet Valacyclovir HCl 1 GM Valac yclovir HCl 1 GM 09/29/2020 12:00:00 AM EST 1.0 {tablet} active Valacyclovir HCl 1 GM eCW1 ([facility]) valacyclovir 1000 MG Oral Tablet Valacyclovir HCl 1 GM Valac yclovir HCl 1 GM 09/29/2020 12:00:00 AM EST 1.0 {tablet} active Valacyclovir HCl 1 GM eCW1 ([facility]) valacyclovir 1000 MG Oral Tablet Valacyclovir HCl 1 GM Valac yclovir HCl 1 GM 09/29/2020 12:00:00 AM EST 1.0 {tablet} active Valacyclovir HCl 1 GM eCW1 ([facility]) valacyclovir 1000 MG Oral Tablet Valacyclovir HCl 1 GM Valac yclovir HCl 1 GM 09/29/2020 12:00:00 AM EST 1.0 {tablet} active Valacyclovir HCl 1 GM eCW1 ([facility]) valacyclovir 1000 MG Oral Tablet Valacyclovir HCl 1 GM Valac yclovir HCl 1 GM 09/29/2020 12:00:00 AM EST 1.0 {tablet} active Valacyclovir HCl 1 GM eCW1 ([facility]) Multivitamin Plus Dha 03/13/2020 12:00:00 AM EDT ORAL active MEDENT ([facility]) NITROFURANTOIN, MACROCRYSTALS 25 MG / Ni trofurantoin, Monohydrate 75 MG Oral Capsule [Macrobid] Macrobid 100 MG Macrobid 100 MG 02/17/2020 12:00:00 AM EDT suspended 1 capsule eCW1 ([facility]) NITROFURANTOIN, MACROCRYSTALS 25 MG / Ni trofurantoin, Monohydrate 75 MG Oral Capsule [Macrobid] Macrobid 100 MG Macrobid 100 MG 02/17/2020 12:00:00 AM EDT 1.0 {capsule} suspended Macrobid 100 MG eCW1 ([facility]) NITROFURANTOIN, MACROCRYSTALS 25 MG / Ni trofurantoin, Monohydrate 75 MG Oral Capsule [Macrobid] Macrobid 100 MG Macrobid 100 MG 02/17/2020 12:00:00 AM EDT 1.0 {capsule} suspended Macrobid 100 MG eCW1 ([facility]) NITROFURANTOIN, MACROCRYSTALS 25 MG / Ni trofurantoin, Monohydrate 75 MG Oral Capsule [Macrobid] Macrobid 100 MG Macrobid 100 MG 02/17/2020 12:00:00 AM EDT 1.0 {capsule} suspended Macrobid 100 MG eCW1 ([facility]) NITROFURANTOIN, MACROCRYSTALS 25 MG / Ni trofurantoin, Monohydrate 75 MG Oral Capsule [Macrobid] Macrobid 100 MG Macrobid 100 MG 02/17/2020 12:00:00 AM EDT 1.0 {capsule} suspended Macrobid 100 MG eCW1 ([facility]) NITROFURANTOIN, MACROCRYSTALS 25 MG / Ni trofurantoin, Monohydrate 75 MG Oral Capsule [Macrobid] Macrobid 100 MG Macrobid 100 MG 02/17/2020 12:00:00 AM EDT 1.0 {capsule} suspended Macrobid 100 MG eCW1 ([facility]) NITROFURANTOIN, MACROCRYSTALS 25 MG / Ni trofurantoin, Monohydrate 75 MG Oral Capsule [Macrobid] Macrobid 100 MG Macrobid 100 MG 02/17/2020 12:00:00 AM EDT 1.0 {capsule} suspended Macrobid 100 MG eCW1 ([facility]) NITROFURANTOIN, MACROCRYSTALS 25 MG / Ni trofurantoin, Monohydrate 75 MG Oral Capsule [Macrobid] Macrobid 02/17/2020 12:00:00 AM EDT active MEDENT ([facility]) NITROFURANTOIN, MACROCRYSTALS 25 MG / Ni trofurantoin, Monohydrate 75 MG Oral Capsule [Macrobid] Macrobid 100 MG Macrobid 100 MG 02/17/2020 12:00:00 AM EDT suspended 1 capsule eCW1 ([facility]) NITROFURANTOIN, MACROCRYSTALS 25 MG / Ni trofurantoin, Monohydrate 75 MG Oral Capsule [Macrobid] Macrobid 100 MG Macrobid 100 MG 02/17/2020 12:00:00 AM EDT 1.0 {capsule} suspended Macrobid 100 MG eCW1 ([facility]) NITROFURANTOIN, MACROCRYSTALS 25 MG / Ni trofurantoin, Monohydrate 75 MG Oral Capsule [Macrobid] Macrobid 100 MG Macrobid 100 MG 02/17/2020 12:00:00 AM EDT 1.0 {capsule} suspended Macrobid 100 MG eCW1 ([facility]) NITROFURANTOIN, MACROCRYSTALS 25 MG / Ni trofurantoin, Monohydrate 75 MG Oral Capsule [Macrobid] Macrobid 100 MG Macrobid 100 MG 02/17/2020 12:00:00 AM EDT active 1 capsule eCW1 ([facility]) NITROFURANTOIN, MACROCRYSTALS 25 MG / Ni trofurantoin, Monohydrate 75 MG Oral Capsule [Macrobid] Macrobid 100 MG Macrobid 100 MG 02/17/2020 12:00:00 AM EDT 1.0 {capsule} suspended Macrobid 100 MG eCW1 ([facility]) NITROFURANTOIN, MACROCRYSTALS 25 MG / Ni trofurantoin, Monohydrate 75 MG Oral Capsule [Macrobid] Macrobid 100 MG Macrobid 100 MG 02/17/2020 12:00:00 AM EDT 1.0 {capsule} suspended Macrobid 100 MG eCW1 ([facility]) NITROFURANTOIN, MACROCRYSTALS 25 MG / Ni trofurantoin, Monohydrate 75 MG Oral Capsule [Macrobid] Macrobid 100 MG Macrobid 100 MG 02/17/2020 12:00:00 AM EDT 1.0 {capsule} suspended Macrobid 100 MG eCW1 ([facility]) NITROFURANTOIN, MACROCRYSTALS 25 MG / Ni trofurantoin, Monohydrate 75 MG Oral Capsule [Macrobid] Macrobid 100 MG Macrobid 100 MG 02/17/2020 12:00:00 AM EDT 1.0 {capsule} suspended Macrobid 100 MG eCW1 ([facility]) NITROFURANTOIN, MACROCRYSTALS 25 MG / Ni trofurantoin, Monohydrate 75 MG Oral Capsule [Macrobid] Macrobid 100 MG Macrobid 100 MG 02/17/2020 12:00:00 AM EDT 1.0 {capsule} suspended Macrobid 100 MG eCW1 ([facility]) NITROFURANTOIN, MACROCRYSTALS 25 MG / Ni trofurantoin, Monohydrate 75 MG Oral Capsule [Macrobid] Macrobid 100 MG Macrobid 100 MG 02/17/2020 12:00:00 AM EDT 1.0 {capsule} suspended Macrobid 100 MG eCW1 ([facility]) valacyclovir 1000 MG Oral Tablet Valacyclovir HCl 1 GM Valac yclovir HCl 1 GM 02/01/2020 12:00:00 AM EDT 1.0 {tablet} suspende d Valacyclovir HCl 1 GM eCW1 ([facility]) valacyclovir 1000 MG Oral Tablet Valacyclovir HCl 1 GM Valac yclovir HCl 1 GM 02/01/2020 12:00:00 AM EDT 1.0 {tablet} active Valacyclovir HCl 1 GM eCW1 ([facility]) valacyclovir 1000 MG Oral Tablet Valacyclovir HCl 1 GM Valac yclovir HCl 1 GM 02/01/2020 12:00:00 AM EDT 1.0 {tablet} suspende d Valacyclovir HCl 1 GM eCW1 ([facility]) valacyclovir 1000 MG Oral Tablet Valacyclovir HCl 1 GM Valac yclovir HCl 1 GM 02/01/2020 12:00:00 AM EDT 1.0 {tablet} suspende d Valacyclovir HCl 1 GM eCW1 ([facility]) valacyclovir 1000 MG Oral Tablet Valacyclovir HCl 1 GM Valac yclovir HCl 1 GM 02/01/2020 12:00:00 AM EDT 1.0 {tablet} suspende d Valacyclovir HCl 1 GM eCW1 ([facility]) valacyclovir 1000 MG Oral Tablet Valacyclovir HCl 1 GM Valac yclovir HCl 1 GM 02/01/2020 12:00:00 AM EDT suspended 1 tablet eCW1 ([facility]) valacyclovir 1000 MG Oral Tablet Valacyclovir HCl 1 GM Valac yclovir HCl 1 GM 02/01/2020 12:00:00 AM EDT 1.0 {tablet} suspende d Valacyclovir HCl 1 GM eCW1 ([facility]) valacyclovir 1000 MG Oral Tablet Valacyclovir HCl 1 GM Valac yclovir HCl 1 GM 02/01/2020 12:00:00 AM EDT suspended 1 tablet eCW1 ([facility]) valacyclovir 1000 MG Oral Tablet Valacyclovir HCl 1 GM Valac yclovir HCl 1 GM 02/01/2020 12:00:00 AM EDT active 1 tablet eCW1 ([facility]) valacyclovir 1000 MG Oral Tablet Valacyclovir HCl 1 GM Valac yclovir HCl 1 GM 02/01/2020 12:00:00 AM EDT 1.0 {tablet} suspende d Valacyclovir HCl 1 GM eCW1 ([facility]) valacyclovir 1000 MG Oral Tablet Valacyclovir HCl 1 GM Valac yclovir HCl 1 GM 02/01/2020 12:00:00 AM EDT 1.0 {tablet} active Valacyclovir HCl 1 GM eCW1 ([facility]) valacyclovir 1000 MG Oral Tablet Valacyclovir HCL 02/01/2020 12:00: 00 AM EDT active MEDENT ([facility] ) valacyclovir 1000 MG Oral Tablet Valacyclovir HCl 1 GM Valac yclovir HCl 1 GM 02/01/2020 12:00:00 AM EDT 1.0 {tablet} suspende d Valacyclovir HCl 1 GM eCW1 ([facility]) valacyclovir 1000 MG Oral Tablet Valacyclovir HCl 1 GM Valac yclovir HCl 1 GM 02/01/2020 12:00:00 AM EDT 1.0 {tablet} suspende d Valacyclovir HCl 1 GM eCW1 ([facility]) valacyclovir 1000 MG Oral Tablet Valacyclovir HCl 1 GM Valac yclovir HCl 1 GM 02/01/2020 12:00:00 AM EDT 1.0 {tablet} active Valacyclovir HCl 1 GM eCW1 ([facility]) valacyclovir 1000 MG Oral Tablet Valacyclovir HCl 1 GM Valac yclovir HCl 1 GM 02/01/2020 12:00:00 AM EDT 1.0 {tablet} suspende d Valacyclovir HCl 1 GM eCW1 ([facility]) valacyclovir 1000 MG Oral Tablet Valacyclovir HCl 1 GM Valac yclovir HCl 1 GM 02/01/2020 12:00:00 AM EDT 1.0 {tablet} suspende d Valacyclovir HCl 1 GM eCW1 ([facility]) valacyclovir 1000 MG Oral Tablet Valacyclovir HCl 1 GM Valac yclovir HCl 1 GM 02/01/2020 12:00:00 AM EDT 1.0 {tablet} suspende d Valacyclovir HCl 1 GM eCW1 ([facility]) 0.75 % 11/19/2019 12:00:00 AM EST gel 140 INSERT ONE APPLICATORFUL VAGINALLY TWO TIMES A DAY FOR 5 DAYS INSERT ONE APPLICATORFUL VAGINALLY TWO T IMES A DAY FOR 5 DAYS SOLD: 11/22/2019 [facility] 27 mg iron- 1 mg 11/19/2019 12:00:00 AM EST tablet 30 TAKE ONE TABLET BY MOUTH EVERY DAY TAKE ONE TABLET BY MOUTH EVERY DAY SOLD: 11/22/2019 [facility] 1 mg 11/16/2019 12:00:00 AM EST capsule 30 TAKE ONE CAPSULE BY MOUTH AT BEDTIME NEEDED FOR NIGHTMARES TAKE ONE CAPSULE BY MOUTH AT BEDTIME NEEDED FOR NIGHTMARES SOLD: 11/16/2019 [facility] 5 mg 11/03/2019 12:00:00 AM EST tablet 30 TAKE ONE TABLET BY MOUTH EVERY DAY TAKE ONE TABLET BY MOUTH EVERY DAY SOLD: 11/03/2019 [facility]aux Azithromycin 250 MG Oral Tablet Azithromycin 250 MG 10/19/2019 1 2:00:00 AM EST suspended 2 tablets on d ay 1 then 1 tablet x 4 days eCW1 ([facility]) Prednisone 20 MG Oral Tablet PredniSONE 20 MG PredniSONE 20 MG 10/19/2019 12:00:00 AM EST 2.0 {tablets} suspended PredniSONE 20 MG eCW1 ([facility]) Prednisone 20 MG Oral Tablet PredniSONE 20 MG PredniSONE 20 MG 10/19/2019 12:00:00 AM EST active 2 tablet s eCW1 ([facility]) PredniSONE 20 MG UNK 10/19/2019 12:00:00 AM EST a ctive 2 tablets eCW1 ([facility]) One-A-Day Womens 1 28-0.8-235 MG One-A-Day Wo mens 1 28-0.8-235 MG 10/19/2019 12:00:00 AM EST suspended 1 capsule eCW1 ([facility]) One-A-Day Womens 1 28-0.8-235 MG One-A-Day Wo mens 1 28-0.8-235 MG 10/19/2019 12:00:00 AM EST 1.0 {capsule} susp ended One-A-Day Womens 1 28-0.8-235 MG eCW1 ([facility]) One-A-Day Womens 1 28-0.8-235 MG One-A-Day Wo mens 1 28-0.8-235 MG 10/19/2019 12:00:00 AM EST 1.0 {capsule} susp ended One-A-Day Womens 1 28-0.8-235 MG eCW1 ([facility]) One-A-Day Womens 1 28-0.8-235 MG One-A-Day Wo mens 1 28-0.8-235 MG 10/19/2019 12:00:00 AM EST 1.0 {capsule} susp ended One-A-Day Womens 1 28-0.8-235 MG eCW1 ([facility]) Prednisone 20 MG Oral Tablet PredniSONE 20 MG PredniSONE 20 MG 10/19/2019 12:00:00 AM EST suspended 2 tab lets eCW1 ([facility]) Azithromycin 250 MG Oral Tablet Azithromycin 250 MG 10/19/2019 1 2:00:00 AM EST suspended Azithromycin 2 50 MG eCW1 ([facility]) Prednisone 20 MG Oral Tablet PredniSONE 20 MG PredniSONE 20 MG 10/19/2019 12:00:00 AM EST 2.0 {tablets} suspended PredniSONE 20 MG eCW1 ([facility]) One-A-Day Womens 1 28-0.8-235 MG One-A-Day Wo mens 1 28-0.8-235 MG 10/19/2019 12:00:00 AM EST 1.0 {capsule} susp ended One-A-Day Womens 1 28-0.8-235 MG eCW1 ([facility]) Prednisone 20 MG Oral Tablet PredniSONE 20 MG PredniSONE 20 MG 10/19/2019 12:00:00 AM EST 2.0 {tablets} suspended PredniSONE 20 MG eCW1 ([facility]) Azithromycin 250 MG Oral Tablet Azithromycin 250 MG 10/19/2019 1 2:00:00 AM EST suspended Azithromycin 2 50 MG eCW1 ([facility]) One-A-Day Womens 1 28-0.8-235 MG One-A-Day Wo mens 1 28-0.8-235 MG 10/19/2019 12:00:00 AM EST 1.0 {capsule} susp ended One-A-Day Womens 1 28-0.8-235 MG eCW1 ([facility]) Azithromycin 250 MG Oral Tablet Azithromycin 10/19/2019 12:00:00 AM EST active MEDENT ([facility] ) Azithromycin 250 MG Oral Tablet Azithromycin 250 MG 10/19/2019 1 2:00:00 AM EST suspended Azithromycin 2 50 MG eCW1 ([facility]) Azithromycin 250 MG Oral Tablet Azithromycin 250 MG 10/19/2019 1 2:00:00 AM EST suspended 2 tablets on d ay 1 then 1 tablet x 4 days eCW1 ([facility]) Prednisone 20 MG Oral Tablet PredniSONE 20 MG PredniSONE 20 MG 10/19/2019 12:00:00 AM EST 2.0 {tablets} suspended PredniSONE 20 MG eCW1 ([facility]) One-A-Day Womens 1 28-0.8-235 MG One-A-Day Wo mens 1 28-0.8-235 MG 10/19/2019 12:00:00 AM EST 1.0 {capsule} susp ended One-A-Day Womens 1 28-0.8-235 MG eCW1 ([facility]) Azithromycin 250 MG Oral Tablet Azithromycin 250 MG 10/19/2019 1 2:00:00 AM EST suspended Azithromycin 2 50 MG eCW1 ([facility]) Prednisone 20 MG Oral Tablet PredniSONE 20 MG PredniSONE 20 MG 10/19/2019 12:00:00 AM EST 2.0 {tablets} suspended PredniSONE 20 MG eCW1 ([facility]) Prednisone 20 MG Oral Tablet PredniSONE 20 MG PredniSONE 20 MG 10/19/2019 12:00:00 AM EST 2.0 {tablets} suspended PredniSONE 20 MG eCW1 ([facility]) Prednisone 20 MG Oral Tablet PredniSONE 20 MG PredniSONE 20 MG 10/19/2019 12:00:00 AM EST suspended 2 tab lets eCW1 ([facility]) Prednisone 20 MG Oral Tablet Prednisone 10/19/2019 12:00:00 AM EST active MEDENT ([facility] ) Azithromycin 250 MG Oral Tablet Azithromycin 250 MG 10/19/2019 1 2:00:00 AM EST suspended Azithromycin 2 50 MG eCW1 ([facility]) One-A-Day Womens 1 28-0.8-235 MG One-A-Day Wo mens 1 28-0.8-235 MG 10/19/2019 12:00:00 AM EST 1.0 {capsule} susp ended One-A-Day Womens 1 28-0.8-235 MG eCW1 ([facility]) Prednisone 20 MG Oral Tablet PredniSONE 20 MG PredniSONE 20 MG 10/19/2019 12:00:00 AM EST 2.0 {tablets} suspended PredniSONE 20 MG eCW1 ([facility]) One-A-Day Womens 1 28-0.8-235 MG One-A-Day Wo mens 1 28-0.8-235 MG 10/19/2019 12:00:00 AM EST suspended 1 capsule eCW1 ([facility]) Prednisone 20 MG Oral Tablet PredniSONE 20 MG PredniSONE 20 MG 10/19/2019 12:00:00 AM EST 2.0 {tablets} suspended PredniSONE 20 MG eCW1 ([facility]) One-A-Day Womens 1 28-0.8-235 MG UNK 10/19/2019 12:00:0 0 AM EST active 1 capsule eCW1 ([facility]) Azithromycin 250 MG Oral Tablet Azithromycin 250 MG 10/19/2019 1 2:00:00 AM EST suspended 2 tablets on d ay 1 then 1 tablet x 4 days eCW1 ([facility]) Azithromycin 250 MG Oral Tablet Azithromycin 250 MG 10/19/2019 1 2:00:00 AM EST suspended Azithromycin 2 50 MG eCW1 ([facility]) Prednisone 20 MG Oral Tablet PredniSONE 20 MG PredniSONE 20 MG 10/19/2019 12:00:00 AM EST 2.0 {tablets} suspended PredniSONE 20 MG eCW1 ([facility]) Prednisone 20 MG Oral Tablet PredniSONE 20 MG PredniSONE 20 MG 10/19/2019 12:00:00 AM EST 2.0 {tablets} suspended PredniSONE 20 MG eCW1 ([facility]) One-A-Day Womens 1 28-0.8-235 MG UNK 10/19/2019 12:00:0 0 AM EST suspended 1 capsule eCW1 ([facility]) Azithromycin 250 MG Oral Tablet Azithromycin 250 MG 10/19/2019 1 2:00:00 AM EST suspended Azithromycin 2 50 MG eCW1 ([facility]) Azithromycin 250 MG Oral Tablet Azithromycin 250 MG 10/19/2019 1 2:00:00 AM EST suspended Azithromycin 2 50 MG eCW1 ([facility]) Azithromycin 250 MG UNK 10/19/2019 12:00:00 AM EST suspended 2 tablets on day 1 then 1 tablet x 4 days eCW1 ([facility]) One-A-Day Womens 1 28-0.8-235 MG One-A-Day Wo mens 1 28-0.8-235 MG 10/19/2019 12:00:00 AM EST 1.0 {capsule} susp ended One-A-Day Womens 1 28-0.8-235 MG eCW1 ([facility]) Prednisone 20 MG Oral Tablet PredniSONE 20 MG PredniSONE 20 MG 10/19/2019 12:00:00 AM EST suspended 2 tab lets eCW1 ([facility]) Azithromycin 250 MG Oral Tablet Azithromycin 250 MG 10/19/2019 1 2:00:00 AM EST suspended Azithromycin 2 50 MG eCW1 ([facility]) Azithromycin 250 MG Oral Tablet Azithromycin 250 MG 10/19/2019 1 2:00:00 AM EST suspended Azithromycin 2 50 MG eCW1 ([facility]) One-A-Day Womens 1 28-0.8-235 MG One-A-Day Wo mens 1 28-0.8-235 MG 10/19/2019 12:00:00 AM EST suspended 1 capsule eCW1 ([facility]) Azithromycin 250 MG UNK 10/19/2019 12:00:00 AM EST active 2 tablets on day 1 then 1 tablet x 4 days eCW1 ([facility]) Azithromycin 250 MG Oral Tablet Azithromycin 250 MG 10/19/2019 1 2:00:00 AM EST suspended Azithromycin 2 50 MG eCW1 ([facility]) One-A-Day Womens 1 28-0.8-235 MG One-A-Day Wo mens 1 28-0.8-235 MG 10/19/2019 12:00:00 AM EST 1.0 {capsule} susp ended One-A-Day Womens 1 28-0.8-235 MG eCW1 ([facility]) One-A-Day Womens 1 28-0.8-235 MG One-A-Day Wo mens 1 28-0.8-235 MG 10/19/2019 12:00:00 AM EST 1.0 {capsule} susp ended One-A-Day Womens 1 28-0.8-235 MG eCW1 ([facility]) Azithromycin 250 MG Oral Tablet Azithromycin 250 MG 10/19/2019 1 2:00:00 AM EST active 2 tablets on day 1 then 1 tablet x 4 days eCW1 ([facility]) Prednisone 20 MG Oral Tablet PredniSONE 20 MG PredniSONE 20 MG 10/19/2019 12:00:00 AM EST 2.0 {tablets} suspended PredniSONE 20 MG eCW1 ([facility]) Prednisone 20 MG Oral Tablet PredniSONE 20 MG PredniSONE 20 MG 10/19/2019 12:00:00 AM EST 2.0 {tablets} suspended PredniSONE 20 MG eCW1 ([facility]) One-A-Day Womens 1 28-0.8-235 MG One-A-Day Wo mens 1 28-0.8-235 MG 10/19/2019 12:00:00 AM EST 1.0 {capsule} susp ended One-A-Day Womens 1 28-0.8-235 MG eCW1 ([facility]) Azithromycin 250 MG Oral Tablet Azithromycin 250 MG 10/19/2019 1 2:00:00 AM EST suspended Azithromycin 2 50 MG eCW1 ([facility]) Azithromycin 250 MG Oral Tablet Azithromycin 250 MG 10/19/2019 1 2:00:00 AM EST suspended Azithromycin 2 50 MG eCW1 ([facility]) One-A-Day Womens 1 28-0.8-235 MG One-A-Day Wo mens 1 28-0.8-235 MG 10/19/2019 12:00:00 AM EST 1.0 {capsule} susp ended One-A-Day Womens 1 28-0.8-235 MG eCW1 ([facility]) Prednisone 20 MG Oral Tablet PredniSONE 20 MG PredniSONE 20 MG 10/19/2019 12:00:00 AM EST 2.0 {tablets} suspended PredniSONE 20 MG eCW1 ([facility]) One-A-Day Womens 1 28-0.8-235 MG One-A-Day Wo mens 1 28-0.8-235 MG 10/19/2019 12:00:00 AM EST 1.0 {capsule} susp ended One-A-Day Womens 1 28-0.8-235 MG eCW1 ([facility]) Prednisone 20 MG Oral Tablet PredniSONE 20 MG PredniSONE 20 MG 10/19/2019 12:00:00 AM EST 2.0 {tablets} suspended PredniSONE 20 MG eCW1 ([facility]) PredniSONE 20 MG UNK 10/19/2019 12:00:00 AM EST suspended 2 tablets eCW1 ([facility]) Azithromycin 250 MG Oral Tablet Azithromycin 250 MG 10/19/2019 1 2:00:00 AM EST suspended Azithromycin 2 50 MG eCW1 ([facility]) One-A-Day Womens 1 28-0.8-235 MG One-A-Day Wo mens 1 28-0.8-235 MG 10/19/2019 12:00:00 AM EST 1.0 {capsule} susp ended One-A-Day Womens 1 28-0.8-235 MG eCW1 ([facility]) Insurance Providers Payer name Policy type / Coverage type Policy ID Covered green party ID Covered green party's relationship to yousif Policy Yousif Plan Information [facility] [id number] [facility] [id number] [facility] [id number] [facility] [id number] [facility] [employer] - O/P [id number] 18 [id number] [facility] [employer] - O/P [id number] 01 [id number] [facility] [id number] [facility] [id number] Medicaid Dental P [id number] S [id number] [employer] [facility] O [id number] S [id number] ANSI-Not a Secondary Insurance [id number] ANSI-Not a Secondary Insurance [id number] MEDICAID [id number] SP [id number] ANSI-Not a Secondary Insurance [id number] ANSI-Medicaid [id number] MEDICAID M [id number] ANSI-Medicaid [id number] Problems, Conditions, and Diagnoses Code Display Name Description Problem Type Effective Dates Data Source(s) 311322812 Dizziness Dizziness Problem 11/27/2020 12:00:00 AM NICK HINOJOSA ([facility], ) [id number] Headache Headache Problem 11/27/2020 12:00:00 AM ES T MEDENT ([facility] ) [id number] MRI scan abnormal MRI scan abnormal Problem 11/27 12:00:00 AM EST MEDENT ([facility] ) L20.84 [id number] Intrinsic eczema Problem 11/24/2020 12:00:00 AM EST eCW1 ([facility]) L20.9 23286005 Atopic dermatitis, mild Problem 11/24/2020 1 2:00:00 AM EST eCW1 ([facility]) F31.62 [id number] Bipolar disorder, current episode mixed, moderate Problem 10/27/2020 12:00:00 AM EST eCW1 ([facility]) R93.89 [id number] Abnormal findings on imaging test Problem 10/27/2020 12:00:00 AM EST eCW1 ([facility]) A60.04 349249028 Herpes simplex virus (HSV) infection of v agina Problem 09/29/2020 12:00:00 AM EST eCW1 ([facility]) N92.6 66057848 Missed menses Problem 05/23/2020 12:00:00 AM EDT eCW1 ([facility]) Q82.5 206658275 Congenital nevus of back Problem 12/02/2019 12:00:00 AM EST eCW1 ([facility]) Q82.5 723361134 Congenital nevus of back Problem 12/02/2019 12:00:00 AM EST eCW1 ([facility]) O86759 Nicotine dependence, cigarettes, uncompl icated Nicotine dependence, cigarettes, uncomplicated Diagnosis 10/26/2020 03:02:00 PM [facility] [id number] Unspecified asthma, uncomplicated Unspecified as thma, uncomplicated Diagnosis 10/26/2020 03:02:00 PM [facility] 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 Diagnosis 10/26/2020 03:02:00 P M [facility] B9689 Other specified bacterial ag ents as the cause of diseases classified elsewhere Other specified bacterial agents as the cause of diseases classified elsewhere Diagnosis 10/26/2020 03:02:00 PM [facility] J208 Acute bronchitis due to other specified organisms Acute bronchitis due to other specified organisms Diagnosis 10/26/2020 03:02:00 PM [facility] R0789 Other chest pain Other chest pain Diagnosis 10/26/2020 03 :02:00 PM [facility] N939 Abnormal uterine and vaginal bleeding, u nspecified Abnormal uterine and vaginal bleeding, unspecified Diagnosis 09/26/2020 04:48:00 PM [facility] R102 Pelvic and perineal pain Pelvic and perineal pain Diag nosis 09/26/2020 04:48:00 PM [facility] psych bed psych bed Diagnosis 05/08/2020 01:06:00 PM ED [facility] Surgeries/Procedures Procedure Description Date Indications Data Source(s) ELECTROENCEPHALOGRAM W/REC AWAKE&ASLEEP 12/01/2020 12: 00:00 AM EST MED[facility] ([facility]) ELECTROENCEPHALOGRAM W/REC AWAKE&ASLEEP 12/01/2020 12: 00:00 AM EST MED[facility] ([facility]) PSYTX W PT 45 MINUTES 04/04/2020 12:00:00 AM EDT eCW1 ([facility]) EXC TR-EXT B9 PEDRO 2.1-3 CM 03/22/2020 12:00:00 AM EDT eCW1 ([facility]) INTMD RPR S/A/T/EXT 2.6-7.5 03/22/2020 12:00:00 AM EDT eCW1 ([facility]) TeleMedicine Est. Pt. Level 3 03/09/2020 12:00:00 AM E DT eCW1 ([facility]) Results ID Date Data Source GASTROINTESTINAL GI PANEL (GIPANEL) 11/20/2020 12:00:00 AM EST eCW1 ([facility]) Name Value Range Interpretation Code Description Data Tasha rce(s) Supporting Document(s) This Gastrointestinal PCR Panel detects the following bacteria, GASTROINTESTINAL (GI) PANEL eCW1 ([facility]) ID Date Data Source [id number] 10/27/2020 03:09:00 PM EST [facility] [place] [address] PHONE: [phone] FAX: [phone] Name .................. : RAYMUNDO RECINOS Acct Number.................. : [id number] ROOM. ................. : TR- MR Number ................... : [id number] Stay type ............. : E/R Discharge Date......... ... : 10/26/20 Admit Date ......... : 10/26/20 Admit Phys .................... : COONEYNORM Date of ....... : 2000 Family Phys ................... : ROSALINO GARCIA Phone .................. : [phone] Age ................................ : 20 Film# .................. .:[id number] Sex ................................. : F Unsigned transcriptions are preliminary reports and do not represent a medical or legal document CT HEAD W/O CONTRAST [id number] COMPLETE:10/26/20 17:08 [place] [id number] Reaso n(s): Dizziness CT OF THE HEAD WITHOUT CONTRAST: COMPARISON: There are no previous studies for comparison. FINDINGS: There is severe symmetrical calcification at bilateral basal ganglia that is very dense. There is also a small area of calcification at the left frontal lobe measuring about 0.7 cm. There is no mass, mass effect, midline shift, extra-axial fluid collection or intracranial hemorrhage. The ventricles are normal size and configuration. The orbits are unremarkable along with the visualized paranasal sinuses. No suspicious osseous lesion or acute fracture is identified. IMPRESSION: Severe symmetrical calcification seen at bilateral basal ganglia with a small area of calcification at the left frontal lobe. The calcification at the basal ganglia can be caused by numerous etiologies, including Fahr disease, prior carbon monoxide poisoning, TORCH infections, parathyroid disorders, hypoxia, inherited disorders, such as mitochondrial disease, tubular sclerosis, to name a few possibilities. Correlate clinically. Otherwise, no acute disease. While performing the above CT examination, radiation dose reduction was accomplished utilizing automated exposure control, adjusting of the mA and kV based on the patient's body size and/or the use of imperative reconstructive techniques. CT dose: 778.1 mGycm Electronically Reviewed and Signed By Derick Pickens MD , 10/27/20 15:09, TDS Transcribe Initials: GET , Transcribe Date: 10/27/20 00:10, Dictation Date: Page 1 of 2 [place] [address] PHONE: [phone] FAX: [phone] Name .................. : RAYMUNDO RECINOS Acct Number.................. : [id number] ROOM. ................. : TR-06 Number ................... : [id number] Stay type ............. : E/R Discharge Date......... ... : 10/26/20 Admit Date ......... : 10/26/20 Admit Phys .................... : COONEYNORM Date of ....... : 2000 Family Phys ................... : ROSALINO GARCIA Phone .................. : [phone] Age ................................ : 20 Film# .................. .:[id number] Sex ................................. : F Unsigned transcriptions are preliminary reports and do not represent a medical or legal document CT HEAD W/O CONTRAST [id number] COMPLE TE:10/26/20 17:08 [place] [id number] Reason(s): Dizziness Copy for: LOUISE KATZ via fax Copy for: EMERGENCY DEPT via modem Copy for: Gavin MED REC DISCHARGED Page 2 of 2 Name Value Range Interpretation Code Description Data Tasha rce(s) Supporting Document(s) ID Date Data Source [id number] 10/27/2020 03:09:00 [place] [address] PHONE: [phone] FAX: [phone] Name .................. : RAYMUNDO RECINOS Acct Number.................. : [id number] ROOM. ................. : TR-06 Number ................... : [id number] Stay type ............. : E/R Discharge Date......... ... : 10/26/20 Admit Date ......... : 10/26/20 Admit Phys .................... : COONEYNORM Date of ....... : 2000 Family Phys ................... : ROSALINO GARCIA Phone .................. : [phone] Age ................................ : 20 Film# .................. .:[id number] Sex ................................. : F Unsigned transcriptions are preliminary reports and do not represent a medical or legal document CHEST 2 VIEWS 31904 COMPLETE:10/26/20 17:08 [place] [id number] Reason(s): Chest Pain CHEST X-RAY: PA AND LATERAL VIEWS HISTORY: Chest pain. FINDINGS: The cardiac and mediastinal silhouettes appear normal and the lungs are clear. The bones and soft tissues are normal. The upper abdomen is unremarkable. There is mild spurring at the thoracic spine. IMPRESSION: No acute disease identifiable. Electronically Reviewed and Signed By Derick Pickens MD , 10/27/20 15:09, TDS Transcribe Initials: GET , Transcribe Date: 10/27/20 00:09, Dictation Date: Copy for: LOUISE KATZ via fax Copy for: EMERGENCY DEPT via modem Copy for: 710 MED REC DISCHARGED Page 1 of 1 Name Value Range Interpretation Code Description Data Tasha rce(s) Supporting Document(s) ID Date Data Source [id number] 10/27/2020 02:41:00 PM [facility] [address] [place] [address] PHONE: [phone] FAX: [phone] Name .................. : RAYMUNDO RECINOS Acct Number.................. : [id number] ROOM. ................. : TR-06 MR Number ................... : [id number] Stay type ............. : E/R Discharge Date......... ... : 10/26/20 Admit Date ......... : 10/26/20 Admit Phys .................... : COONEYNORM Date of ....... : 2000 Family Phys ................... : ROSALINO MA Phone . ................. : [phone] Age ................................ : 20 Film# .................. .:[id number] Sex ................................. : F Unsigned transcriptions are preliminary reports and do not represent a medical or legal document [place] [address] COMPLETE:10/26/20 19:10 [place] [id number] Reason(s): chest pain w/ dizziness CTA OF THE NECK WITH CONTRAST: FINDINGS: The brachiocephalic artery, bilateral common carotid arteries and bilateral subclavian arteries are normal in appearance. The internal carotid arteries, vertebral arteries and external carotid arteries are without pathology. No evidence of arterial dissection is seen. The visualized pulmonic apices are clear. IMPRESSION: Negative CTA neck. While performing the above CT examination, radiation dose reduction was accomplished utilizing automated exposure control, adjusting of the mA and kV based on the patient's body size and/or the use of imperative reconstructive techniques. CT dose: 1047.8 mGycm Contrast agent in mL: 75 Isovue 370 Method of administration: Intravenous Electronic ally Reviewed and Signed By Naldo Brower MD , 10/27/20 14:41, KGG Transcribe Initials: DZ , Transcribe Date: 10/27/20 02:17, Dictation Date: Copy for: LOUISE KATZ via fax Copy for: EMERGENCY DEPT via modem Copy for: 710 MED REC DISCHARGED Page 1 of 1 Name Value Range Interpretation Code Description Data Tasha rce(s) Supporting Document(s) ID Date Data Source [id number] 10/27/2020 02:41:00 [place] [address] PHONE: [phone] FAX: [phone] Name .................. : RAYMUNDO RECINOS Acct Number.................. : [id number] ROOM. ................. : TR-06 MR Number ................... : [id number] Stay type ............. : E/R Discharge Date......... ... : 10/26/20 Admit Date ......... : 10/26/20 Admit Phys .................... : COONEYNO Date of ....... : 2000 Family Phys ................... : ROSALINO GARCIA Phone . ................. : [phone] Age ................................ : 20 Film# .................. .:[id number] Sex ................................. : F Unsigned transcriptions are preliminary reports and do not represent a medical or legal document [place] [id number] COMPLETE:10/26/20 19:10 [place] [id number] Reason(s): chest pain w/ dizziness CTA OF THE HEAD WITH CONTRAST: FINDINGS: The distal internal carotid arteries, distal vertebral arteries and basilar artery are normal in appearance. The anterior cerebral arteries, middle cerebral arteries and posterior cerebral arteries are normal in caliber without aneurysmal dilatation. Atherosclerotic narrowing or arterial embolus is not seen in the anterior, middle or posterior cerebral arteries. Patent normal caliber bilateral posterior communicating arteries are seen. IMPRESSION: Negative CTA brain. While performing the above CT examination, radiation dose reduction was accomplished utilizing automated exposure control, adjusting of the mA and kV based on the patient's body size and/or the use of imperative reconstructive techniques. CT dose: 1047.8 mGycm Contrast agent in mL: 75 Isovue 370 Method of administration: Intravenous Electronically Reviewed and Signed By Naldo Brower MD , 10/27/20 14:41, KGG Transcribe Initials: DZ , Transcribe Date: 10/27/20 02:14, Dictation Date: Copy for: LOUISE KATZ via fax Copy for: EMERGENCY DEPT via [place] Copy for: [address] [place] [address] REC [address] [place] [address] PHONE: [phone] FAX: [phone] Name .................. : RAYMUNDO RECINOS Acct Number.................. : [id number] ROOM. ................. : TR-06 MR Number ................... : [id number] Stay type ............. : E/R Discharge Date......... ... : 10/26/20 Admit Date ......... : 12/10/20 Admit Phys .................... : CODEVINNORM Date of ....... : 2000 Family Phys ................... : ROSALINO MA Phone .................. : [phone] Age ................................ : 20 Film# .................. .:[id number] Sex ................................. : F Unsigned transcriptions are preliminary reports and do not represent a medical or legal document [place] [address] COMPLETE:10/26/20 19:10 [place] [address] Reason(s): chest pain w/ dizziness DISCHARGED Page 2 of 2 Name Value Range Interpretation Code Description Data Tasha rce(s) Supporting Document(s) ID Date Data Source [id number] 10/27/2020 01:27:[address] [address] RESPIRATORY CARE REPORT ==== ---------NAME------- NUMBER SEX AGE ADMIT DISC. XRAY# F/C VIJI RECINOS [id number] F 10/26/20 10/26/20993015 SB4 E/R DATE OF : 2000 M/R# [id number] #: [id number] TR-06 LOCATION: EMERGENCY DEPT EKG 45929 COMP LETE:12/11/20 07:27 [facility] [address] PHYSICIAN: SRINIVAS GIL CH Name Value Range Interpretation Code Description Data Tasha rce(s) Supporting Document(s) ID Date Data Source [id number] 10/26/2020 03:02:00 PM EST [facility] 1 OrderSheet [facility] Department [address] [place] [address] Phone #: ext- [phone] 10/26/2020 15:01 Patient: JORJE FONSECA Sex: F : 2000 Age: 20yWEIGHT:58.0 kg (S) HEIGHT:62 inches (S) BMI:23.4ALLERGIES: Gustavo BuckleysCHIEF COMPLAINT: discomfortDIAGNOSIS: Atypical chest pain, Problem, BronchitisLAB ORDERSOrder Description Priority Entered Acknowledged InitialedCBC w Diff STAT 15:39 10/26/2020 15:39 [facility] winch derrick operator, Michael ER P.A.-C; [id number] STAT 15:39 10/26/2020 15:39 [facility] winch derrick operator, Michael ER P.A.-C; Movu4Aomyqf STAT 15:39 10/26/2020 15:39 [facility] winch derrick operator, Michael ER P.A.-C; Cqok3CY/PTT STAT 15:39 10/26/2020 15:39 [facility] winch derrick operator, Michael ER P.A.-C; Cmyp9Wzrxgbbr-Z STAT 15:39 10/26/2020 15:39 [facility] winch derrick operator, Michael ER P.A.-C; Onwc7Q-Eunzn STAT 15:39 10/26/2020 15:39 [facility] winch derrick operator, Michael ER P.A.-C; Htoh1ALL STAT 15:39 10/26/2020 15:39 [facility] winch derrick operator, Michael RUBIO P.A.-C; Eznr3Doaapeufut (Clean STAT 15:39 10/26/2020 15:39 BurnhamCatch) Vickey Gil winch derrick operator, Michael RUBIO P.A.-C; Zbsm5IZM Serum Qual STAT 15:39 10/26/2020 15:39 Hollie Vickey Gil winch derrick operator, Michael RUBIO P.A.-C; [id number] STUDY ORDERSOrder Description Priority Entered Acknowledged InitialedChest 2 View STAT 16:47 10/26/2020 16:55 Peter 2 OrderSheet [facility] Emergency Department [address] [place] [address] Phone #: ext- [phone] 15:01 Patient: JORJE FONSECA Sex: F : 2000 Age: 20y(Oxygen?(No)) Vickey Peña RN P.A.-C; Reason for Study: Chest PainCT Head W/O Cont STAT 16:47 10/26/2020 16:55 Matt(Oxygen?(No)) Vickey Peña RN P.A.-C; Reason for Study: DizzinessCT CTA HEAD W STAT 18:40 10/26/2020 18:46 PeterCON INC PP Vickey Peña RN(Oxygen?(No)) P.A.-C;(IV?(Yes)) Reason for Study: chest pain w/ dizzinessCT CTA NECK W STAT 18:40 10/26/2020 18:46 PeterCON INC PP Vickey Peña RN(Oxygen?(No)) P.A.-C;(IV?(Yes)) Reason for Study: chest pain w/ dizzinessMEDICATION/IV/DRIP/FLUID ORDERSOrder Description Priority Entered Acknowledged InitialedIV NS : Bolus 500 15:39 10/26/2020 15:50 PetermL, then 100 mL/hr Vickey Peña RN P.A.-C;GENERAL ORDERS Order Description Priority Entered Acknowledged InitialedBlood Pressure 15:39 10/26/2020 15:39 [facility] Vickey Gil winch derrick operator, Michael ER P.A.-C; Iugy3Behugkf Monitor 15:39 10/26/2020 15:39 Washta(continuous) Vickey Gil winch derrick operator, Michael ER P.A.-C; Caru4UBM 15:39 10/26/2020 15:39 Washta Vickey Gil winch derrick operator, Michael ER P.A.-C; Pxip5SAT 15:39 10/26/2020 15:39 Washta Vickey [facility] winch derrick operator, Michael ER P.A.-C; Fpdz3Witrlj Old EKG 15:39 10/26/2020 15:39 Washta Vickey Gil winch derrick operator, Michael ER P.A.-C; Upxy9Zwwcmp Old Records 15:39 10/26/2020 15:39 Washta Vickey Gil winch derrick operator, Michael ER 3 OrderSheet [facility] Emergency Department [address] [place] [address] Phone #: ext- [phone] 10/26/2020 15:01 Patient: JORJE FONSECA Sex: F : 2000 Age: 20y P.A.-C; Cffb8Daies oximeter 15:39 10/26/2020 15:39 Washta(Continuous) Vickey Gil winch derrick operator, Michael ER P.A.-C; Xdki0Bbezpa Lock 15:39 10/26/2020 15:49 Matt Peña RN P.A.-C;Vitals 15:39 10/26/2020 15:39 Hollie Gil winch derrick operator, Michael ER P.A.-C; Tech1-- (gait test) 18:40 10/26/2020 18:47 Matt Peña RN P.A.-C;[Electronically signed by Matt Peña RN (20:33 10/26/2020)][Electronically signed by Vickey Gil P.A.-C (21:53 10/26/2020)][Electronically locked by Matt Peña RN (20:33 10/26/2020)] Name Value Range Interpretation Code Description Data Tasha rce(s) Supporting Document(s) ID Date Data Source [id number] 10/26/2020 03:02:00 PM EST [facility] 1 Medication Reconciliation Report [facility] Department [address] [place] [address] Phone #: ext- [phone] 10/26/2020 15:01 Patient: JORJE FONSECA Sex: F : 2000 Age: 20yWeight: 58.0 kgHeight/Length: 62 in.BMI: 23.4ALLERGIES: Fanny Buckley patient's Home Medications are listed below:THE FOLLOWING MEDICATIONS NEED TO BE RECONCILED: Acyclovir Oral 200 mg, daily Albuterol Sulfate HFA Inhalation 2 puffs, prn Epinephrine Injection Vitamins Oral 1 pill, dailyThe source(s) of the original Home Medication information:Not obtained.The following Medications were given to the patient in the Emergency Department:IV NS IV Fluids bolus 500 mL over 20 minute(s), then 100 mL/hr, administered: 15:50 10/26/2020The following Medications were prescribed to the patient:azithromycin 250 mg tablet Take 2 tablet single dose for 1 days -- Take 2 tabs by mouth and day 1`andthen 1 tab by mouth for days 2-5. Dispense 6 tablet. Refills: 0. Substitution permitted.Pharmacy - [facility] [address] ; [place] [address]. .Zyrtec 10 mg tablet Take 1 tablet once a day for 15 days -- Dispense 15 tablet. Refills: 0. Substitutionpermitted.Pharmacy - [facility] [address] ; [place] [address]. . -- Vickey Gil P.A.-C Name Value Range Interpretation Code Description Data [facility]) Supporting Document(s) ID Date Data Source [id number] 10/26/2020 03:02:00 PM [facility] 1 Medication Administration Record [facility] Emergency Department [address] [place] [address] Phone #: ext- [phone] 10/26/2020 15:01 Patient: JORJE FONSECA Sex: F : 2000 Age: 20yWeight: 58.0 kgHeight/Length: 62 inBMI: 23.4ALLERGIES: Lidocaines, Cecor Date/Time Medication Administered Medication OrderedStart IV NS IV NS : Bolus 500 mL, then 43332:50 10/26/2020 Dose: IV Fluids mL/Yolanda Peña RN Rate: 100 mL/hr over 5 hour(s)---- Bolus: 500 mL over 20 minute(s)Stop Dispensed: 1000 mL bag20:26 10/26/2020 Site: #1 left Octavio Peña RN Name Value Range Interpretation Code Description Data [facility] rce(s) Supporting Document(s) ID Date Data Source [id number] 10/26/2020 03:02:00 PM [facility] 1 General Instructions [facility] Emergency Department [address] [place] [address] Phone #: ext [phone] 10/26/2020 15:01 [id number] Sex[facility] F : 2000 Age: 20yAtypical chest painAcute bacterial bronchitis. ;abnormal CT of the head. (severe dense calcofication bilat basxal ganglia).INSTRUCTIONSNo strenuous activity for two weeks.No dietary restrictions. Avoid stimulants (such as cigarettes, coffee, cold medicines, sinus medicines,street drugs). Do not smoke.(Recommend to utilize OTC Motrin and Tylenol to control inflammation and pain management.Recommend to follow the instructions on the bottle and not to exceed.).Warnings: Further evaluation is necessary.GENERAL WARNINGS: Return or contact your physician immediately if your condition worsens orchanges unexpectedly, if not improving as expected, or if other problems arise.Prescription Medications:azithromycin 250 mg tablet Take 2 tablet single dose for 1 days -- Take 2 tabs by mouth and day 1`andthen 1 tab by mouth for days 2-5. Dispense 6 tablet. Refills: 0. Substitution permitted.[facility] [address] ; [place] [address]. .Zyrtec 10 mg tablet Take 1 tablet once a day for 15 days -- Dispense 15 tablet. Refills: 0. Substitutionpermitted.[facility] [id number] ; [place] [address]. .Follow-up:Return to the emergency department as needed. Follow up with your healthcare provider in about twodays. Call for an appointment.Understanding of the discharge instructions verbalized by patient.Follow-up with: Jefry Morales MD, Cardiology, , [address] [place] [address], [address] Follow up. Call for the next available appointment. Reason for referral: evaluation and treatment.Follow-up with: [facility], , [id number], [address] [place], [address] 2 General Instructions [facility] Emergency Department [address] [place] [address] Phone #: ext- [phone] 10/26/2020 15:01 Patient: JORJE FONSECA Sex: F : 2000 Age: 20y F ollow up. Call for the next available appointment. Reason for referral: evaluation, treatment and Basedon finding today on head CT. severe dense calcofication bilat basxal ganglia. ADDITIONAL INFORMATIONUncertain Causes of Chest PainChest pain can happen for a number of reasons. Sometimes the cause can't be determined. Ifyour condition does not seem serious, and your pain does not appear to be coming from your heart,your healthcare provider may recommend watching it closely. Sometimes the signs of a seriousproblem take more time to appear. Many problems not related to your heart can cause chest pain.These include: Musculoskeletal. Costochondritis is an inflammation of the tissues around the ribs that can occur from trauma or overuse injuries, or a strain of the muscles of the chest wall Respiratory. Pneumonia, collapsed lung (pneumothorax), or inflammation of the lining of the chest and lungs (pleurisy) Gastrointestinal. Esophageal reflux, heartburn, ulcers, or gallbladder disease Anxiety and panic disorders 3 General Instructions [facility] Emergency Department [address] [place] [address] Phone #: ext- [phone] 10/26/2020 15:01 Patient: JORJE FONSECA Sex: F : 2000 Age: 20y Nerve compression and inflammation Rare miscellaneous problems such as aortic aneurysm (a swelling of the large artery coming out of the heart) or pulmonary embolism (a blood clot in the lungs)Home careAfter your visit, follow these recommendations: Rest today and avoid strenuous activity. Take any prescribed medicine as directed. Be aware of any recurrent chest pain and notice any changesFollow-up careFollow up with your healthcare provider if you do not start to feel better within 24 hours, or as advised.Call [phone] if any of these occur: A change in the type of pain: if it feels different, becomes more severe, lasts longer, or begins to spread into your shoulder, arm, neck, jaw or back Shortness of breath or increased pain with breathing Weakness, dizziness, or fainting Rapid heart beat Crushing sensation in your chestWhen to seek medical adviceCall your healthcare provider right away if any of the following occur: Cough with dark colored sputum (phlegm) or blood Fever of 100.4F (38C) or higher, or as directed by your healthcare provider Swelling, pain or redness in one leg 1720-1964 [employer]. [address] [place] [address]. All rights reserved. This information is not intended as asubstitute for professional medical care. Always follow your healthcare professional's instructions.Bronchitis, Antibiotic Treatment (Adult) 4 General Instructions [facility] Emergency Department [address] [place] [address] Phone #: ext- [phone] 10/26/2020 15:01 Patient: JORJE FONSECA Becca cct#: [id number] Sex: F : 2000 Age: 20yBronchitis is an infection of the air passages (bronchial tubes) in your lungs. It often occurs when youhave a cold. This illness is contagious during the first few days and is spread through the air bycoughing and sneezing, or by direct contact (touching the sick person and then touching your owneyes, nose, or mouth).Symptoms of bronchitis include cough with mucus (phlegm) and low-grade fever. Bronchitis usuallylasts 7 to 14 days. Mild cases can be treated with simple home remedies. More severe infection istreated with an antibiotic.Home careFollow these guidelines when caring for yourself at home: If your symptoms are severe, rest at home for the first 2 to 3 days. When you go back to your usual activities, don't let yourself get too tired. Don't smoke. Also stay away from secondhand smoke. 5 General Instructions [facility] Emergency Department [address] [place] [address] Phone #: ext- [phone] 10/26/2020 15:01 Patient: JORJE FONSECA Sex: F : 2000 Age: 20y You may use vwbv-bbq-wnzsvom medicines to control fever or pain, unless another medicine was prescribed. If you have chronic liver or kidney disease or have ever had a stomach ulcer or gastrointestinal bleeding, talk with your healthcare provider before using these medicines. Also talk to your provider if you are taking medicine to prevent blood clots. Aspirin should never be given to anyone younger than 18 who is ill with a viral infection or fever. It may cause severe liver or brain damage. Your appetite may be low, so a light diet is fine. Stay well hydrated by drinking 6 to 8 glasses of fluids per day. This includes water, soft drinks, sports drinks, juices, tea, or soup. Extra fluids will help loosen mucus in your nose and lungs. Ytmk-hix-qriecuz cough, cold, and sore- throat medicines will not shorten the length of the illness, but they may be helpful to reduce your symptoms. Don't use decongestants if you have high blood pressure. Finish all antibiotic medicine. Do this even if you are feeling better after only a few days.Follow-up careFollow up with your healthcare provider, or as advised. If you had an X-ray or ECG(electrocardiogram), a specialist will review it. You will be told of any new test results that may affectyour care.If you are age 65 or older, if you smoke, or if you have a chronic lung disease or condition that affectsyour immune system, ask your healthcare provider about getting a pneumococcal vaccine and ayearly flu shot (influenza vaccine).When to seek medical adviceCall your healthcare provider right away if any of these occur: Fever of 100.4F (38C) or higher, or as directed by your healthcare provider Coughing up more sputum Weakness, drowsiness, headache, facial pain, ear pain, or a stiff neckCall 911Call 911 if any of these occur. Coughing up blood Weakness, drowsiness, headache, or stiff neck that get worse Trouble breathing, wheezing, or pain with breathing 6 General Instructions [facility] Emergency Department [address] [place] [address] Phone #: ext- [phone] 10/26/2020 15:01 Patient: JORJE FONSECA Sex: F : 2000 Age: 20y 3225-1987 [employer]. [address] [place] [address]. All rights reserved. This information is not intended as asubstitute for professional medical care. Always follow your healthcare professional's instructions. You have been given the following additional information: Chest Pain, Uncertain Cause Bronchitis, Antibiotic Treatment (Adult) No strenuous activity for two weeks.(Electronically signed by Vickey Gil P.A.-C 10/26/2020 21:53) Name Value Range Interpretation Code Description Data Tasha rce(s) Supporting Document(s) ID Date Data Source [id number] 10/26/2020 03:02:00 PM EST [facility] 1 Clinical Report - Nurses [facility] Emergency Department [address] [place] [address] Phone #: [phone] 10/26/2020 15:01 Patient: JORJE FONSECA Sex: F : 2000 Age: 20yTRIAGEArrived by private vehicle. Historian: patient.Acuity: LEVEL 3.Chief Complaint: CHEST PAIN and DISCOMFORT and (dizziness, back spasms).Onset. (6 months ago). 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 SEPSIS SCREEN NEGATIVE. No suspected or confirmedsigns of infection present.SUSAN COMA SCORE: 15- eyes open- spontaneous (4); best verbal response- oriented (5); bestmotor response- obeys commands (6). --15:13 10/26/20 Matt Peña RN15:04 10/26/20. BP: 123/71. MAP: 88. HR: 74. RR: 16. O2 saturation: 99%. Temp: 98.9 F. Pain level now:12/27. --15:13 10/26/20 Matt Peña RN.Weight: 58 kg stated. Height/Length: 62 inches Per Patient. BMI: 23.4. --15:04 10/26/20 Matt Peña RN.MedicationsPrenatal Vitamins Oral 1 pill, daily. --15:08 10/26/20 Matt Peña RN Acyclovir Oral 200 mg, daily. --15:10/26/20 Matt Peña RN Albuterol Sulfate HFA Inhalation 2 puffs, as needed. --15:09/05 Matt Peña RN Epinephrine Injection. --15:10 10/26/20 Matt Peña RN.AllergiesCecor. --15:10 10/26/20 Matt Peña RNLidocaines. --15:10 10/26/20 Matt Peña RN.HistoryPAST MEDICAL HX: Immunizations: up-to-date. Last normal menstrual period- Sep 24.SOCIAL HX: Light tobacco smoker (cigarette)- less than 1/2 a pack per day. Occasional alcohol use;consumes liquor drinks. Occasional drug use: marijuana. She was offered HIV testing but declined andhepatitis C testing but declined. She has not traveled outside the [place]Infectious disease exposure: No infectious disease exposure. The patient was not exposed to Coronavirus. 2 Clinical Report - Nurses [facility] Emergency Department [address] [place] [address] Phone #: ext- [phone] 10/26/2020 15:01 Patient: JORJE FONSECA Sex: F : 2000 Age: 20y SELF HARM ASSESSMENT: Self harm assessment was performed. The patient answered "no" to the question(s) "Have you recently felt down, depressed, or hopeless?", "Do you have thoughts of harming or killing yourself?", "Do you have a plan for harming or killing yourself?", "Have you recently had thoughts about harming or killing others?", "Do you have any dangerous items in your possession?", "Have you noticed less interest or pleasure in doing things?", "Are you here because you tried to hurt yourself?" and "Have you ever tried to hurt yourself before today?". ABUSE ASSESSMENT: No report of abuse. NUTRITIONAL RISK ASSESSMENT: The nutritional risk assessment revealed no deficiencies. FUNCTIONAL ASSESSMENT: Functional assessment: no impairments noted. LEARNING NEEDS ASSESSMENT: The learning needs assessment revealed no barriers. FALL RISK ASSESSMENT: Fall risk assessment completed. No risk factors identified. SKIN INTEGRITY ASSESSMENT: Skin integrity risk assessment completed. No skin integrity risk identified. --15:13 10/26/20 Matt Peña RN. Interventions To treatment room. --15:13 10/26/20 Matt Peña RN.PHYSICAL ASSESSMENTAmbulatory to room.GENERAL / NEURO / PSYCH: Alert. Oriented X 4. Appears in pain.HEENT: Mucous membranes are pink.RESPIRATORY: Respirations not labored. Chest pain reproducible (left anterior chest). Breath soundswithin normal limits.CVS: Normal sinus rhythm noted. Heart sounds within normal limits. Pulses within normal limits.Capillary refill less than 2 seconds.GI / : The patient has had nausea. Abdomen soft and nontender.EXTREMITIES: No lower extremity edema.SKIN: Skin is warm and dry. Normal skin turgor. Skin is non-tender. --15:17 10/26/20 Matt Peña RN.NURSING PROGRESS NOTESCardiac monitor, NIBP monitor and pulse oximeter placed on patient; air sampling and monitoring- Lead II; monitoralarms on. Patient gowned. Head of bed elevated. Reassurance given. Call light placed in reach.Side rails up x 2. Bed placed in lowest position. Patient ready for evaluation- ED physician notified.--15:17 10/26/20 Matt Peña RN EKG time: (15:08 10/26/2020). EKG was performed by a robin and shown to the PARichard Gil. 3 Clinical Report - Nurses [facility] Emergency Department [address] [place] [address] Phone #: ext- [phone] 10/26/2020 15:01 Patient: JORJE FONSECA Sex: F : 2000 Age: 20y --15:18 10/26/20 Washta winch derrick operatorMichael Gillis ER Tech1 15:32 10/26/2020 Site #1 started via IV in the left antecubital space with an 20g angiocath, with aseptic technique and good blood return; one attempt. Blood drawn: rainbow set and green tube(s). Labeled in the presence of the patient and sent to the lab. Saline lock flushed with 10 mL saline. --15:32 10/26/20 Matt Peña RN 15:50 10/26/2020 Started bag #1 1000 mL IV Fluids IV NS; bolus of 500 mL over 20 minute(s) then a t 100 mL/hr over 5 hour(s) via site #1 via IV pump. Allergies verified and confirmed 5 rights. IV patency established. IV site checked: no pain, redness, or swelling. IV flushed thoroughly pre- and post-medication administration. Information reviewed with patient including reason for taking this medication. Verbalizes understanding. --15:50 10/26/20 Matt Peña RN 16:16 10/26/20. BP: 120/70. MAP: 86. HR: 64. RR: 16. O2 saturation: 100%. Pain level now: 010. --16:16 10/26/20 Matt Peña RN Patient transported to radiology and CT by wheelchair with mask and pc network technician. --16:57 10/26/20 Matt Peña RN Patient returned from radiology and CT by wheelchair with mask and pc network technician. --17:04 10/26/20 Matt Peña RN 17:10 10/26/20. BP: 116/54. MAP: 74. HR: 66. RR: 16. O2 saturation: 100%. Pain level now: 010. --17:10 10/26/20 Matt Peña RN ( Pt remains awake and alert, ambulating to the bathroom without issues, she denies any pain or discomfort, is waiting on final test results). --18:37 10/26/20 Matt Peña RN 18:36 10/26/20. BP: 121/71. MAP: 87. HR: 70. RR: 16. O2 saturation: 100%. Pain level now: 010. --18:37 10/26/20 Matt Peña RN 20:17 10/26/20. BP: 123/62. MAP: 82. HR: 62. RR: 16. O2 saturation: 100%. Pain level now: 02/24. --20:17 10/26/20 Matt Peña RN 20:26 10/26/2020 IV Fluids IV NS via IV site #1 Discontinued: STOPPED upon discharge. Total amount infused: 900 mL. IV patency established. IV site checked: no pain, redness, or swelling. IV flushed thoroughly. --20:26 10/26/20 Matt Peña RN 20:27 10/26/2020 Site #1 removed upon discharge. Catheter intact. Manual pressure and bandage applied. --20:27 10/26/20 Matt Peña RN.DISPOSITION / DISCHARGE Condition at departure: improved and stable. Discharge instructions provided and reviewed with the patient. Reviewed medication(s) side effects, precautions, dosing and course information. Prescription(s) 4 Clinical Report - Nurses [facility] Emergency Department [address] [place] [address] Phone #: ext- [phone] 10/26/2020 15:01 Patient: JORJE FONSECA Sex: F : 2000 Age: 20y sent electronically to pharmacy. Activity restrictions (rest) reviewed. Patient verbalized understanding. Written instructions provided in Venezuelan. The patient was discharged by the physician starch treating assistant. She was discharged home and accompanied by prepared foods team leader. She left ambulatory and via private vehicle. 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 --20:33 10/26/20 Matt Peña RN 20:27 10/26/20. BP: 119/82. MAP: 94. HR: 62. RR: 16. O2 saturation: 100%. Temp: 98.7 F. Pain level now: 02/24. --20:33 10/26/20 Matt Peña RN.Locked/Released at 10/26/2020 20:33 by Matt Peña RN Name Value Range Interpretation Code Description Data Tasha rce(s) Supporting Document(s) ID Date Data Source [id number] 10/26/2020 03:02:00 PM EST [facility] 1 Clinical Report - Physicians/Mid Levels [facility] Emergency Department [address] [place] [address] Phone #: ext- [phone] 10/26/2020 15:01 Patient: JORJE FONSECA Sex: F : 2000 Age: 20y Time Seen: 15:25 10/26/2020; initial patient contact, initial documentation. Arrived- By private vehicle. Historian- patient. Disposition decision: 20:26 10/26/2020.HISTORY OF PRESENT ILLNESS Chief Complaint: CHEST DISCOMFORT. It is described as sharp and "pain" and it is described as located in the left chest area. This started 6 months ago and is still present but is improving. No nausea, vomiting or difficulty breathing. (pt states she has had left chest pain for the past 6 months along with dizziness, she feels it may be related to her anxiety, she also reports back and neck spasms). Similar symptoms previously. Patient has had similar symptoms frequently. Recent medical care: Not recently seen/assessed.REVIEW OF SYSTEMSLast normal menstrual period was 4 weeks ago. No fever, chills, cough, pedal edema or faintingepisodes. No sore throat, blurred vision, abdominal pain, black stools or difficulty with urination. No skinrash, enlarged lymph nodes, joint pain or bloody stools. The patient has had a headache. All othersystems reviewed and are negative.PAST HISTORYSee nurses notes. Problems: Borderline personality disorder. Depression. Bipolar Disorder. Anxiety Reaction. Asthma. STD - Sexually Transmitted Disease. PTSD. Vaginal Bleeding. Herpes. (06/07/2020 refilled) Pelvic Pain. Additional Surgeries: Biopsy. (Mole benign) Oral surgery 2012. Medications: 2 Clinical Report - Physicians/Mid Levels [facility] Emergency Department [address] [place] [address] Phone #: ext- [phone] 10/26/2020 15:01 Patient: JORJE FONSECA Sex: F : 2000 Age: 20y Epinephrine Injection. Albuterol Sulfate HFA Inhalation 2 puffs, as needed. Acyclovir Oral 200 mg, daily. Vitamins Oral 1 pill, daily. Allergies: Cecor. Lidocaines.SOCIAL HISTORYLight tobacco smoker- less than 1/2 a pack per day. Occasional alcohol use. Drug use: marijuana.ADDITIONAL NOTESThe nursing notes have been reviewed.PHYSICAL EXAMVital Signs: 10/26/2020 15:04 BP: 123/71. MAP: 88. HR: 74. RR: 16. O2 saturation: 99%. Temp: 98.9 F.Pain level now: 12/27. Have been reviewed.Appearance: Alert. Oriented X3. No acute distress.Eyes: Eyelids appear normal to inspection. Corneas appear normal to inspection. Pupils equal, roundand reactive to light and light. EOMs intact. Periorbital areas appear normal to inspection. Anteriorchambers clear.ENT: Normal ENT inspection. Airway intact. TM's normal. Ears normal. Nose normal. Nares normal.Pharynx normal. Moist mucous membranes. Uvula midline. Voice normal.Neck: Normal in spection.CVS: Normal heart rate and rhythm. Pulses normal. Strong peripheral pulses. Heart sounds normal.Respiratory: Chest normal on inspection. No respiratory distress. Unlabored respirations. Lungs clear.Mild left mid- and anterior chest wall tenderness. The tenderness is well-localized. Good chest movement.Breath sounds normal and equal.Abdomen: Normal inspection. Soft and nontender. Bowel sounds normal. No distention.Back: Normal external inspection. No CVA tenderness.Skin: Skin warm and dry.Extremities: Extremities exhibit normal ROM. No lower extremity edema. No calf tenderness. No lowerextremity edema.Neuro: Awake. Alert. Oriented X 3. Mood/affect normal. Cranial nerves II through XII intact andnormal (as tested). No cerebellar findings. No motor deficit. Moves all extremities equally. No sensorydeficit. Normal gait. Reflexes normal. Reflex exam: right triceps 2+, left triceps 2+, right biceps 2+, leftbiceps 2+, right brachioradialis 2+ and left brachioradialis 2+.Psych: Cognition normal. Thought process and content normal. Insight and judgement normal.LABS, X-RAYS, AND EKGEKG: Normal sinus rhythm. Rate: 76. NSR w/ sinus arrhythmia; cannot r/o anterior infarct, ageundetermined, abnormal ecg Dicussed and reviewed with/by attending. 3 Clinical Report - Physicians/Mid Levels [facility] Emergency Department [address] [place] [address] Phone #: ext- [phone] 10/26/2020 15:01 [id number] Sex: F : 2000 Age: 20yChest X-ray: (Nelia mas Terence - 10/26/2020 5:37:31 PMNo acute disease). The X-rays were interpreted by the radiologist.CTA Head: denver Naldo Brower - 10/26/2020 8:04:49 PMNo acute disease. The study was interpreted by the radiologist.CT Head: (tg TonnyDerick tam - 10/26/2020 5:54:17 PMsevere dense calcofication bilat basxal ganglia; may be from Fahr dz, TORCH infection in utero,parathyroid d/o, carbon monoxide poisoning, hypoxia, mitochondraila disorders; nad). The study wasinterpreted by the radiologist.Note - Special Studies: CTA Neckdenver Naldo Brower - 10/26/2020 8:12:17 PMNega tive.Laboratory Tests:Chest 2 View: (LESLIE: 10/26/2020 16:47) ( Mscvd 10/26/2020 17:08) In [place]CHEST 2 VIEWSReason(s): Chest PainTRANSPORTATION: WC IV? O2? Oxygen?(No) Room: EDCT Head W/O Cont: (LESLIE: 10/26/2020 16:47) ( MsgRcvd 10/26/2020 17:08) In ProgressCT HEAD W/O CONTRASTReason(s): DizzinessTRANSPORTATION: WC IV? O2? Oxygen?(No) Room: EDCBC w Diff: (LESLIE: 10/26/2020 15:11) ( Mscvd 10/26/2020 15:57) Final results Test Result Flag Units (Reference) CBC W/AUTOMATED DIFF COMPLETE BLOOD COUNT WBC 8.8 10/uL (4.2 - 11.0) RBC 4.60 10/uL (4.20 - 5.40) HEMOGLOBIN 14.1 g/dL (12.0 - 16.0) HEMATOCRIT 41.1 % (37.0 - 47.0) MCV 89.3 fL (81.0 - 101) MCH 30.7 pg (27.0 - 34.0) MCHC 34.3 g/dL (31.0 - 36.0) RDW 12.4 % (11.5 - 14.5) PLATELETS 332 10/uL (150 - 450) MPV 9.4 fL (7.4 - 10.4) NEUT 52.1 % (37.0 - 80.0) LYMPH 39.0 % (25.0 - 40.0) MONO 7.1 % (3.0 - 8.0) EOS 1.1 % (0.0 - 7.0) BASO 0.5 % (0.0 - 2.5) %IG 0.2 H % (0.0 - 0.0) %NRBC 0.0 % (0.0 - 0.0) #NEUT 4.56 10/uL (2.00 - 6.90) #LYMPH 3.42 H 10/uL (0.60 - 3.40) #MONO 0.62 10/uL (0.00 - 0.90) #EOS 0.10 10/uL (0.00 - 0.70) 4 Clinical Report - Physicians/Mid Levels [facility] Emergency Department [address] [place] [address] Phone #: ext- [phone] 10/26/2020 15:01 Patient: JORJE FONSECA Sex: F : 2000 Age: 20y #BASO 0.04 10/uL (0.00 - 0.20) #IG 0.02 10/uL (0.00 - 0.10) #NRBC 0.00 10/uL (0.00 - 0.00) MANUAL DIFF NOT INDICATED RBC MORPH NOT INDICATEDCMP: (LESLIE: 10/26/2020 15:11) ( MsgRcvd 10/26/2020 16:42) Final results Test Result Flag Units (Reference) COMPREHENSIVE METABOLIC PANEL COMPREHENSIVE METABOLIC PANEL SODIUM 137 mEq/L (134 - 153) POTASSIUM 4.5 mEq/L (3.6 - 5.0) CHLORIDE 103 mEq/L (98 - 107) CO2 27 MEQ/L (22 - 30) GLUCOSE 86 MG/DL (65 - 110) BUN 11 MG/DL (7 - 21) CREATININE 0.7 MG/DL (0.7 - 1.5) BUN/CREAT 16 (8 - 27) TOTAL PROTEIN 7.5 G/DL (6.3 - 8.2) ALBUMIN 4.8 G/DL (3.9 - 5.0) GLOBULIN 2.7 GM/DL (2.4 - 3.2) A/G RATIO 1.8 (0.8 - 2.0) CALCIUM 9.8 MG/DL (8.4 - 10.2) TOTAL BILI <0.7 MG/DL (0.2 - 1.3) ALKALINE PHOS 69 U/L (38 - 126) SGOT/AST 12 U/L (5 - 40) SGPT/ALT 11 U/L (7 - 56) ANION GAP 7.0 L mmol/L (8.0 - 16.0) AGE 20 yrs NON-AA GFR >60 mL/min AFR AMER GFR >60 mL/min Male GFR Interprentation 20-49 yrs >60 mL/min Sopvjh20-36 yrs >56 mL/min Normal 60-69 yrs >49 mL/min Normal 70-79yrs>42 mL/min Normal 80 and above >35 mL/min Normal Female GFRInterpretation 20-39 yrs >60 mL/min Normal 40-49 yrs >58 mL/minNormal 50-59 yrs >51 mL/min Normal 60-69 yrs >45 mL/min Nczzhx83-04 yrs >39 mL/min Normal 80 and above >32 mL/min NormalLipase: (LESLIE: 10/26/2020 15:11) ( MsgRcvd 10/26/2020 16:42) Final results Test Result Flag Units (Reference) LIPASE 30 U/L (13 - 60)PT/PTT: (LESLIE: 10/26/2020 15:11) ( [facility] [place] [place] 15[facility]56) Final results Test Result Flag Units (Reference) PROTIME 13.7 SECONDS (11.0 - 15.5) INR 1.00 (0.93 - 1.23) PTT 29.8 SECONDS (24.8 - 36.7) \\BLDo\\INR INTERPRETATION\\BLDx\\ Therapeutic range for Coumadin andrelated oral anticoagulants. -International Normalized Ratio (INR): 2.0 - 3.0 for VenousThrombosis, Pulmonary Embolus, Tissue heart valves, Acute [place] Atrial Fibrillation, Valvular heart diseaseand recurrent Systemic Embolism. - International Normalized Ratio (INR): 2.5 - 3.5 forMechanical Prosthetic valve.Troponin-T: (LESLIE: 10/26/2020 15:11) ( [facility] [place] 10/26/2020 16:29) Final results Test Result Flag Units (Reference) 5 Clinical Report - Physicians/Mid Levels [facility] Emergency Department [address] [place] [address] Phone #: ext- [phone] 10/26/2020 15:01 Patient: JORJE FONSECA Sex: F : 2000 Age: 20y TROPONIN T <0.01 NG/ML (0.00 - 0.10) TROPONIN T0.1 ng/ml Recommended as the clinical threshold value forTroponin T. D-Dimer: (LESLIE: 10/26/2020 15:11) ( [facility] [place] 10/26/2020 15:57) Final results Test Result Flag Units (Reference) D-DIMER QUANT 0.43 ug/mL (0.27 - 0.50) TSH: (LESLIE: 10/26/2020 15:11) ( [facility] [place] 10/26/2020 16:42) Final results Test Result Flag Units (Reference) TSH 1.35 uIU/mL (0.47 - 5.01) Urinalysis: (LESLIE: 10/26/2020 15:11) ( [facility]54) Final results Test Result Flag Units (Reference) URINALYSIS URINALYSIS SOURCE R COLOR yellow (NORMAL: Yello CLARITY clear (NORMAL: Clear SPEC GRAVITY 1.010 (1.001 - 1.030 pH 7 (5 - 9) GLUCOSE NORM (NORMAL: Negat BILIRUBIN NEG (NORMAL: Negat KETONE NEG (NORMAL: Negat PROTEIN NEG (NORMAL: Negat NITRITE NEG (NORMAL: Negat BLOOD NEG (NORMAL: Negat LEUK EST NEG (NORMAL: Negat UROBILINOGEN NOR (less than 1.0 MICROSCOPIC Not Indicate Beta-HCG, Qual Serum: (LESLIE: 10/26/2020 15:11) ( [facility] 10/26/2020 16:30) Final results Test Result Flag Units (Reference) HCG SERUM QUAL NEGATIVE (NORMAL: NEGAT HCG SERUM QL REENTER NEGATIVE (NORMAL: NEGAT { KIT LOT # [id number] ){ KIT EXP DATE 08.22.21 ){ PROCEDURAL CONTROL VALID ).PROGRESS AND PROCEDURESCourse of Care: VSS, NAD, AOx3, interacting well and appropriately, no use of accessory muscle, able tospeak full sentences, stable, non-toxic looking. Enter room and pt lying peacefully in bed in NAD. Patient stable. Denies any new issues, concerns, or complaints. Pt has c/o of anter chest pain and transient dizziness. Will obitna labs and imaging for furhte reval. pending resuts. 6 Clinical Report - Physicians/Mid Levels [facility] Emergency Department [address] [place] [address] Phone #: ext- [phone] 10/26/2020 15:01 Patient: JORJE FONSECA Sex: F : 2000 Age: 20y Discussed wiht pt and sts she also noted a continued cough for a few months. ? bronchititis vs other. Pending resutls. If no significatn patho, will tx bronchoitits. Pt agrees. 16:53 10/26/20. Reviewed results. Enter room and patient lying peacefully in bed in NAD. Patient stable. Denies any new issues, concerns, or complaints. Understands imaging requests. Reviewed results. Enter room and patient lying peacefully in bed in NAD. Patient stable. Denies any new issues, concerns, or complaints. Will discuss wiht attening. Discussed with attending and recommends to obtian CTA head and neck due to dizziness and CP. Enter room and patient lying peacefully in bed in NAD. Patient stable. Denies any new issues, concerns, or complaints. Pt agrees and undestands. Penidng resutls. Discussed [facility] nurse and indicates he has seen pt ambulate to/from the restroom in NAD. Reviewed resutls. Enter room and patient lying peacefully in bed in NAD. Patient stable. Denies any new issues, concerns, or complaints. Discussed results with pt. Discussed tx plan with pt. Discussed a nd counseled on stable condition. Discussed importance of a f/u with PCP. Discussed return to ER criteria. Answered their questions. Indicates and verbalizes that they understand, agree, and will comply with above. Denies any new questions or concerns. Patient has capacity to understand. Stressed the importance to f/u with neurolgoy for further eval. Sts she has a appt with PCP tomorrow. Informed to discuss findings and obtain outpt referrals. Sts she understands and agrees. Discharge decision based on the following: patient's condition is stable; patient's exam is stable; social support is adequate; transportation is available; follow-up is available. Discussed of OTC Motrin and Tylenol to control inflammation and pain management. Informed to follow directions on bottle that are appropriate for age and/or weight. Disposition: Discharged home in good and improved condition. Condition: good and stable.CLINICAL IMPRESSION Atypical chest pain Acute bacterial bronchitis. ; abnormal CT of the head. (severe dense calcofication bilat basxal ganglia). 7 Clinical Report - Physicians/Mid Levels [facility] Emergency Department [address] [place] [address] Phone #: ext- [phone] 10/26/2020 15:01 Patient: JORJE FONSECA Sex: F : 2000 Age: 20yINSTRUCTIONS No strenuous activity for two weeks. No dietary restrictions. Avoid stimulants (such as cigarettes, coffee, cold medicines, sinus medicines, street drugs). Do not smoke. (Recommend to utilize OTC Motrin and Tylenol to control inflammation and pain management. Recommend to follow the instructions on the bottle and not to exceed.). Warnings: Further evaluation is necessary. GENERAL WARNINGS: Return or contact your physician immediately if your condition worsens or changes unexpectedly, if not improving as expected, or if other problems arise. Prescription Medications: azithromycin 250 mg tablet Take 2 tablet single dose for 1 days -- Take 2 tabs by mouth and day 1`and then 1 tab by mouth for days 2-5. Dispense 6 tablet. Refills: 0. Substitution permitted. [facility] [id number] ; [place] [address]. . Zyrtec 10 mg tablet Take 1 tablet once a day for 15 days -- Dispense 15 tablet. Refills: 0. Substitution p ermitted. [facility] [id number] ; [place] [address]. . Follow-up: Return to the emergency department as needed. Follow up with your healthcare provider in about two days. Call for an appointment. Understanding of the discharge instructions verbalized by patient. Follow-up with: Jefry Morales MD, Cardiology, , [address] [place] [address], [place], [address] Follow up. Call for the next available appointment. Reason for referral: evaluation and treatment. Follow-up with: [facility], , [id number], [address] [place] [address], [id number] Follow up. Call for the next available appointment. Reason for referral: evaluation, treatment and Based on finding today on head CT. severe dense calcofication bilat basxal ganglia.(Electronically signed by Vickey Gil P.A.-C 10/26/2020 21:53) Name Value Range Interpretation Code Description Data Tasha rce(s) Supporting Document(s) ID Date Data Source [id number] 10/26/2020 04:42:00 PM [facility] Name Value Range Interpretation Code Description Data Tasha rce(s) Supporting Document(s) Thyrotropin [Units/volume] in Serum or Plasma by Detec tion limit <= 0.05 mIU/L 1.35 uIU/mL 0.47 - 5.01 [facility] ID Date Data Source [id number] 10/26/2020 04:42:00 PM [facility] Name Value Range Interpretation Code Description Data Tasha rce(s) Supporting Document(s) Lipase [Enzymatic activity/volume] in Serum or Plasma 30 U/L 13 - 60 [facility] ID Date Data Source [id number] 10/26/2020 04:42:00 PM [facility] Name Value Range Interpretation Code Description Data Tasha rce(s) Supporting Document(s) COMPREHENSIVE METABOLIC PANEL [facility] COMPREHENSIVE METABOLIC PANEL Sodium [Moles/volume] in Serum or Plasma 137 mEq/L 134 - 153 [facility] Potassium [Moles/volume] in Serum or Plasma 4.5 mEq/L 3.6 - 5.0 [facility] Chloride [Moles/volume] in Serum or Plasma 103 mEq/L 98 - 107 [facility] Carbon dioxide, total [Moles/volume] in Serum or Plasma 27 MEQ/L 22 - 30 [facility] Glucose [Mass/volume] in Serum or Plasma 86 MG/DL 65 - 110 [facility] BUN 11 MG/DL 7 - 21 [facility] Creatinine [Mass/volume] in Serum or Plasma 0.7 MG/DL 0.7 - 1.5 [facility] BUN/CREAT 16 8 - 27 [facility] Protein [Mass/volume] in Serum or Plasma 7.5 G/DL 6.3 - 8.2 [facility] Albumin [Mass/volume] in Serum or Plasma 4.8 G/DL 3.9 - 5.0 [facility] Globulin [Mass/volume] in Serum by calculation 2.7 GM/DL 2.4 - 3.2 [facility] A/G RATIO 1.8 0.8 - 2.0 [facility] Calcium [Mass/volume] in Serum or Plasma 9.8 MG/DL 8.4 - 10.2 [facility] Bilirubin.total [Mass/volume] in Serum or Plasma <0.7 MG/DL 0.2 - 1.3 [facility] Alkaline phosphatase [Enzymatic activity/volume] in Serum or Plasma 69 U/L 38 - 126 [facility] Aspartate aminotransferase [Enzymatic activity/volume] in Serum or Plasma 12 U/L 5 - 40 [facility] Alanine aminotransferase [Enzymatic activity/volume] in Seru m or Plasma 11 U/L 7 - 56 [facility] Anion gap 3 in Serum or Plasma 7.0 mmol/L 8.0 - 16.0 L [facility] AGE 20 yrs [facility] al NON-AA GFR >60 mL/min [facility] ital AFR AMER GFR >60 mL/min [facility] Ho spital Male GFR In terprentation 20-49 yrs >60 mL/min Normal 50-59 yrs >56 mL/min Normal 60-69 yrs >49 mL/min Normal 70-79yrs >42 mL/min Normal 80 and above >35 mL/min Normal Female GFR Interpretation 20-39 yrs >60 mL/min Normal 40-49 yrs >58 mL/min Normal 50-59 yrs >51 mL/min Normal 60-69 yrs >45 mL/min Normal 70-79 yrs >39 mL/min Normal 80 and above >32 mL/min Normal ID Date Data Source [id number] 10/26/2020 04:29:00 PM [facility] Name Value Range Interpretation Code Description Data Tasha rce(s) Supporting Document(s) HCG SERUM QUAL NEGATIVE NORMAL: NEGATIVE [facility] HCG SERUM QL REENTER NEGATIVE NORMAL: NEGATIVE [facility] { KIT LOT # [id number] ){ KIT EXP DATE 08.22.21 ){ PROCEDURAL CONTROL VALID ) ID Date Data Source [id number] 10/26/2020 04:29:00 PM [facility] Name Value Range Interpretation Code Description Data Tasha rce(s) Supporting Document(s) TROPONIN T <0.01 NG/ML 0.00 - 0.10 [facility] ospital TROPONIN T0.1 ng/ml Recommended as the c linical threshold value forTroponin T. ID Date Data Source [id number] 10/26/2020 03:57:00 PM [facility] Name Value Range Interpretation Code Description Data Tasha rce(s) Supporting Document(s) Fibrin D-dimer FEU [Mass/volume] in Platelet poor plasma 0.43 ug /mL 0.27 - 0.50 [facility] ID Date Data Source [id number] 10/26/2020 03:57:00 PM [facility] Name Value Range Interpretation Code Description Data Tasha rce(s) Supporting Document(s) CBC W/AUTOMATED DIFF [facility] COMPLETE BLOOD COUNT Leukocytes [#/volume] in Blood by Automated count 8.8 10^3/uL 4.2 - 1 1.0 [facility] Erythrocytes [#/volume] in Blood by Automated count 4.60 10^6/uL 4. 20 - 5.40 [facility] Hemoglobin [Mass/volume] in Blood 14.1 g/dL 12.0 - 16.0 [facility] Hematocrit [Volume Fraction] of Blood by Automated count 41.1 % 3 7.0 - 47.0 [facility] Erythrocyte mean corpuscular volume [Entitic volume] by Auto mated count 89.3 fL 81.0 - 101 [facility] Erythrocyte mean corpuscular hemoglobin [Entitic mass] by Automated count 30.7 pg 27.0 - 34.0 [facility] Erythrocyte mean corpuscular hemoglobin concentration [Mass/volume] by Automated count 34.3 g/dL 31.0 - 36.0 [facility] Erythrocyte distribution width [Ratio] by Automated count 12.4 % 11.5 - 14.5 [facility] Platelets [#/volume] in Blood by Automated count 332 10^3/uL 150 - 45 0 [facility] Platelet mean volume [Entitic volume] in Blood by Automated count 9.4 fL 7.4 - 10.4 [facility] Neutrophils/100 leukocytes in Blood by Automated count 52.1 % 37. 0 - 80.0 [facility] Lymphocytes/100 leukocytes in Blood by Manual count 39.0 % 25.0 - 40.0 [facility] Monocytes/100 leukocytes in Blood by Automated count 7.1 % 3.0 - 8.0 [facility] Eosinophils/100 leukocytes in Blood by Automated count 1.1 % 0.0 - 7.0 [facility] Basophils/100 leukocytes in Blood by Automated count 0.5 % 0.0 - 2.5 [facility] %IG 0.2 % 0.0 - 0.0 [facility] %NRBC 0.0 % 0.0 - 0.0 [facility] al Neutrophils [#/volume] in Blood by Automated count 4.56 10^3/uL 2.00 - 6.90 [facility] Lymphocytes [#/volume] in Blood by Automated count 3.42 10^3/uL 0.60 - 3.40 H [facility] Monocytes [#/volume] in Blood by Automated count 0.62 10^3/uL 0.00 - 0.90 [facility] Eosinophils [#/volume] in Blood by Automated count 0.10 10^3/uL 0.00 - 0.70 [facility] Basophils [#/volume] in Blood by Automated count 0.04 10^3/uL 0.00 - 0.20 [facility] #IG 0.02 10^3/uL 0.00 - 0.10 [facility] ospital #NRBC 0.00 10^3/uL 0.00 - 0.00 [facility] ospital MANUAL DIFF NOT INDICATED [facility] RBC MORPH NOT INDICATED [facility] ID Date Data Source [id number] 10/26/2020 03:56:00 PM [facility] Name Value Range Interpretation Code Description Data Tasha rce(s) Supporting Document(s) Prothrombin time (PT) 13.7 SECONDS 11.0 - 15.5 [facility] INR in Platelet poor plasma by Coagulation assay 1.00 0.93 - 1. 23 [facility] aPTT in Blood by Coagulation assay 29.8 SECONDS 24.8 - 36.7 [facility] \\BLDo\\INR INTERPRETATION\\BLDx\\ Therapeutic range for Coumadin and related oral anticoagulants. - International Normalized Ratio (INR): 2.0 - 3.0 for Venous Thrombosis, Pulmonary Embolus, Tissue heart valves, Acute [place] Atrial Fibrillation, Valvular heart disease and recurrent Systemic Embolism. - International Normalized Ratio (INR): 2.5 - 3.5 for Mechanical Prosthetic valve. ID Date Data Source [id number] 10/26/2020 03:54:00 PM EST [facility] Name Value Range Interpretation Code Description Data [facility] rce(s) Supporting Document(s) [facility] SOURCE R [facility] COLOR yellow NORMAL: Yellow [facility]sp[facility] CLARITY clear NORMAL: Clear [facility] Specific gravity of Urine by Test strip 1.010 1.001 - 1.030 [facility] pH 7 5 - 9 [facility] al Glucose [Mass/volume] in Urine by Test strip NORM NORMAL: Negat [facility] Bilirubin.total [Presence] in Urine by Test strip NEG NORMAL: Negative [facility] Ketones [Presence] in Urine by Test strip NEG NORMAL: Negative [facility] Protein [Mass/volume] in Urine by Test strip NEG NORMAL: Negat [facility] Nitrite [Presence] in Urine by Test strip NEG NORMAL: Negative [facility] BLOOD NEG NORMAL: Negative [facility] Leukocyte esterase [Presence] in Urine by Test strip NEG SERGEY L: Negative [facility] Urobilinogen [Mass/volume] in Urine by Test strip NOR less donis n 1.0 mg/dL [facility] MICROSCOPIC Not Indicate [facility] ospital ID Date Data Source [id number] 09/26/2020 04:48:00 PM EST [facility] 1 OrderSheet [facility] Emergency Department [address] [place] [address] Phone #: ext- [phone] 09/26/2020 16:41 Patient: JORJE FONSECA Sex: F : 2000 Age: 20yWEIGHT:58.0 kg (S) HEIGHT:62 inches (S) BMI:23.4ALLERGIES: "numbing solution", Bee venom, CeclorCHIEF COMPLAINT: pelvic pain, vag bleedingDIAGNOSIS: Vaginal bleeding problemLAB ORDERSOrder Description Priority Entered Acknowledged InitialedBeta-HCG, Qual STAT 16:54 09/26/2020 17:00 Ish,Urine Juan JOE; Duke PaulinoCBC w Diff STAT 16:54 09/26/2020 17:00 Juan Deng; Duke PaulinoCMP STAT 16:54 09/26/2020 17:00 Juan Deng; Duke PaulinoLactic Acid STAT 16:54 09/26/2020 17:00 Juan Deng; Duke PaulinoLipase STAT 16:54 09/26/2020 17:00 Juan Deng; Duke PaulinoPT/PTT STAT 16:54 09/26/2020 17:00 Juan Deng; Duke PaulinoUrinalysis (Clean STAT 16:54 09/26/2020 17:03 Ferrell,Catch) Juan JOE; Nelsy PaulinoDIAGNOSTIC STUDY ORDERSOrder Description Priority Entered Acknowledged InitialedUS Pelvis STAT 17:27 09/26/2020 17:28 Sorbrosamaria,(Oxygen?(No)) Juan JOE; Duke Paulino Reason for Study: Abnormal Bleeding, Pelvic PainUS STAT 17:33 09/26/2020 17:39 Ferrell,TRANSVAGINAL Juan JOE; Nelsy Paulino(NON OB)(Oxygen?(No)) Reason for Study: Pelvic Pain, Abnormal BleedingMEDICATION/IV/DRIP/FLUID ORDERSOrder Description Priority Entered Acknowledged InitialedNS IV : Bolus 500 16:59 09/26/2020 17:20 Ish,mL, then 100 mL/hr Juan JOE; Duke Paulino(NOW x1) 2 OrderSheet [facility] Emergency Department [address] [place] [address] Phone #: ext- [phone] 09/26/2020 16:41 Patient: JORJE FONSECA Sex: F : 2000 Age: 20yZofran IVP 4 mg 16:59 09/26/2020 17:20 Juan Deng; Duke PaulinoGENERAL ORDERSOrder Description Priority Entered Acknowledged InitialedCardiac Monitor 16:54 09/26/2020 17:00 Ish,(continuous) Juan JOE; Duke PaulinoBlood Pressure 16:54 09/26/2020 16:59 Ish,Monitor Juan JOE; Duke PaulinoNPO 16:54 09/26/2020 16:59 Juan Deng; Duke PaulinoPulse Oximetry 16:54 09/26/2020 17:00 Ish,Continuous Juan JOE; Duke PaulinoVitals 16:54 09/26/2020 17:00 Juan Deng; Duke PaulinoWarm blanket 16:54 09/26/2020 17:00 Juan Deng; Duke Paulino[Electronically signed by Duke Deng R.N. (21:02 09/26/2020)][Electronically signed by Juan Marks (10:16 09/29/2020)][Electronically locked by Duke Deng R.N. (21:02 09/26/2020)] Name Value Range Interpretation Code Description Data [facility] Supporting Document(s) ID Date Data Source [id number] 09/26/2020 04:48:00 PM [place] [address] Medication Reconciliation Report [facility] Emergency Department [address] [place] [address] Phone #: ext- [phone] 09/26/2020 16:41 Patient: JORJE FONSECA Sex: F : 2000 Age: 20yWeight: 58.0 kgHeight/Length: 62 in.BMI: 23.4ALLERGIES: "numbing solution", Bee venom, CeclorThe patient's Home Medications are listed below:CONTINUE TAKING THE FOLLOWING MEDICATIONS: Albuterol Sulfate HFA Inhalation valACYclovir HCl Oral (1 gm), 2x a dayThe source(s) of the original Home Medication information:patientThe following Medications were given to the patient in the Emergency Department:NS [IV] IV Fluids bolus 500 mL over 30 minute(s), then 100 mL/hr, administered: 09/26/2020 5:20:00 PMZofran [IVP] IVP 4 mg, administered: 09/26/2020 5:20:00 PMThe following Medications were prescribed to the patient:None. Name Value Range Interpretation Code Description Data [facility]) Supporting Document(s) ID Date Data Source [id number] 09/26/2020 04:48:00 PM [place] [id number] Medication Administration Record [facility] Emergency Department [address] [place] [address] Phone #: ext- [phone] 09/26/2020 16:41 Patient: JORJE FONSECA Sex: F : 2000 Age: 20yWeight: 58.0 kgHeight/Length: 62 inBMI: 23.4ALLERGIES: Bee venom, "numbing solution", Ceclor Date/Time Medication Administered Medication OrderedStart NS [IV] NS IV : Bolus 500 mL, then 44406:20 09/26/2020 Dose: IV Fluids mL/hr (NOW x1)Duke Deng R.N. Rate: 100 mL/hr over 5 hour(s)---- Bolus: 500 mL over 30 minute(s)Stop Dispensed: 1000 mL bag18:40 09/26/2020 Site: #1 left ACSDuke franco R.N.Given ZOFRAN [IVP] (ONDANSETRON HCL) Zofran IVP 4 mg17:20 09/26/2020 Dose: 4 mg IVPSDuke franco R.N. Site: #1 left AC Name Value Range Interpretation Code Description Data Tasha rce(s) Supporting Document(s) ID Date Data Source [id number] 09/26/2020 04:48:00 PM EST [facility] 1 General Instructions [facility] Emergency Department [address] [place] [address] Phone #: ext- [phone] 09/26/2020 16:41 Patient: JORJE FONSECA Sex: F : 2000 Age: 20yModerate dysfunctional uterine bleeding and vaginal bleeding with ovulation.INSTRUCTIONSNo strenuous activity until better. Rest at home for two days. Do not work for two days.Drink plenty of fluids for the next 48 hours as needed. No sexual contact until symptoms resolve. Do notsmoke. No alcohol.(continue tylenol for pain as needed).Warnings: Further evaluation is necessary. It is very important to follow up with a healthcare provider.GENERAL WARNINGS: Return or contact your physician immediately if your condition worsens orchanges unexpectedly, if not improving as expected, or if other problems arise. Specifically return if pain,vomiting, bleeding, breathing difficulty or fever. worsening vaginal bleeding.Your Current Medications: Your current home medications have been reviewed.CONTINUE TAKING THE FOLLOWING MEDICATIONS:Albuterol Sulfate HFA Inhalation.valACYclovir HCl Oral : Tablet 1 gm, 2x a day.Follow-up:Follow up with your healthcare provider in three days even if well. Call for the next available appointment.Reason for referral: evaluation and recommend spot remover referral if symptoms persist. Summary of care providedto patient via paper.Understanding of the discharge instructions verbalized by patient. Expected course of illness, dischargeinstructions, a ctivity level, follow-up appointment and risks and benefits of treatment reviewed with patientand understanding verbalized. Agrees to plan of care. ADDITIONAL INFORMATIONPainful Menstrual Periods (Dysmenorrhea) 2 General Instructions [facility] Emergency Department [address] [place] [address] Phone #: ext- [phone] 09/26/2020 16:41 Patient: JORJE FONSECA Sex: F : 2000 Age: 20yDysmenorrhea is the term used to describe painful menstrual periods.The uterus is a muscle. Normally, chemicals called prostaglandins cause the uterus to contract duringyour period. The contractions push out the build-up of tissue that occurs each month inside theuterus. If the contraction is very strong, it can cause pain. The pain may feel like cramping in thelower abdomen, lower back, or thighs. In severe cases, you may have other symptoms as well. Thesecan include nausea, vomiting, loose stools, sweating, or dizziness.There are 2 types of dysmenorrhea:Primary dysmenorrhea refers to common menstrual cramps. It may begin 1 or 2 years after you firstget your period. It may get better or go away as you get older or when you have a baby. The crampsare most often felt just before, or on the first day of your period. They may last 1 to 3 days. Treatmentis with medicines and comfort measures as described below (see the "Home care" section).Secondary dysmenorrhea may start later in life. It describes menstrual pain that occurs due to anunderlying health problem. The pain may last longer than common menstrual cramps. It may alsoworsen over time. Some problems that can lead to secondary dysmenorrhea include: Pelvic inflammatory disease (PID). Infection that involves the female reproductive organs, such as the uterus and fallopian tubes Fibroids. Benign growths within the wall of the uterus (not cancer) Endometriosis. Tissue that normally only lines the uterus also grows outside of it (because the abnormal tissue also swells and bleeds each month, it can cause pain)Once the cause of secondary dysmenorrhea is found, it can be treated. Your healthcare provider willdiscuss options with you as needed. Your care may also include some of the treatments describedbelow (see the "Home care" section). 3 General Instructions [facility] Emergency Department [address] [place] [address] Phone #: ext- [phone] 09/26/2020 16:41 Patient: JORJE FONSECA Sex: F : 2000 Age: 20yHome careMedicinesCertain medicines can help relieve or prevent menstrual pain and cramping. These can include: Nonsteroidal anti-inflammatory drugs (NSAIDs), such as ibuprofen Prescription pain medicine, if needed Hormone therapy (this includes most methods of hormonal control such as pills, shots, or a hormone-releasing IUD)General careTo help relieve pain and cramping, try these tips: Rest as needed. Apply a heating pad to the lower belly or back as directed. A warm bath or massage to these areas may also help. Exercise regularly. Many women find that being more active each week helps reduce pain and cramping. Ask your healthcare provider for advice about other treatments you can try to help control pain and cramping.Follow-up careFollow up with your healthcare provider, or as advised.When to seek medical adviceCall your healthcare provider right away if any of these occur: Fever of 100.4F (38C) or higher, or as directed by your provider Pain or cramping worsens or doesn't improve with medicine Pain or cramping lasts longer than usual or occurs between periods Unusual vaginal discharge between periods Bleeding becomes heavy (soaking more than 1 pad or tampon every hour for 3 hours) Passage of pink or montes tissue from the vagina 4 General Instructions [facility] Emergency Department [address] [place] [address] Phone #: ext- [phone] 09/26/2020 16:41 Patient: JORJE FONSECA Sex: F : 2000 Age: 20y [id number] [employer] [place] [address]. All rights reserved. This information is not intended as asubstitute for professional medical care. Always follow your healthcare professional's instructions. You have been given the following additional information: Painful Menstrual Periods (Dysmenorrhea) No strenuous activity until better. Rest at home for two days. Do not work for two days.(Electronically signed by HEATH Castro 09/29/2020 10:16) Name Value Range Interpretation Code Description Data Tasha rce(s) Supporting Document(s) ID Date Data Source [id number] 09/26/2020 04:48:00 PM EST [facility] 1 Clinical Report - Nurses [facility] Emergency Department [address] [place] [address] Phone #: ext- [phone] 09/26/2020 16:41 Patient: JORJE FONSECA Sex: F : 2000 Age: 20yTRIAGEHistorian: patient. Unaccompanied.Triage time: 16:44 09/26/2020. Acuity: LEVEL 3.Chief Complaint: VAGINAL BLEED.Alert. No acute distress.( Pt states started menses yesterday. States bleeding heavier than usual with clots. Reports feeling dizzy inroute to hospital. Reports lower abd cramping yesterday, no pain at this time.).SEPSIS SCREEN: SIRS Screen negative. Sepsis Screen negative. No suspected or confirmed signs ofinfection present. --16:52 09/26/20 rFida Melgar6:44 09/26/20. BP: 135/75. MAP: 95. HR: 79. RR: 16. O2 saturation: 98% on room air. Temp: 97.7 F(oral). Pain level now: 0/10. --16:52 09/26/20 Gabo Melgar.Weight: 58 kg stated. Height/Length: 62 inches Per Patient. BMI: 23.4. --16:43 09/26/20 Gabo Melgar.MedicationsvalACYclovir HCl Oral (Tablet 1 gm), 2x a day. --16:50 09/26/20 Gabo Melgar Albuterol Sulfate HFA Inhalation. --16:50 09/26/20 Gabo Melgar.Allergies"numbing solution".Ceclor. --16:49 09/26/20 Gabo MelgarBee venom. --16:49 09/26/20 Gabo Melgar.PROBLEMS:STD - Sexually Transmitted Disease.Pelvic Pain.Bipolar Disorder.Borderline personality disorder.Anxiety Reaction.Asthma.Depression.PTSD.Herpes: (06/07/2020 refilled). --17:14 09/26/20 Duke Deng R.N.Medication/allergy information source: the patient. --16:52 09/26/20 Gabo Melgar.ADDITIONAL SURGERIES: 2 Clinical Report - Nurses [facility] Emergency Department [address] [place] [address] Phone #: ext- [phone] 09/26/2020 16:41 [id number] Sex: [facility] : 2000 Age: 20y Biopsy (Mole benign). Oral surgery 2012. --17:14 09/26/20 Duke Deng R.N. History PAST MEDICAL HX: Last normal menstrual period now. Denies current . SOCIAL HX: Light tobacco smoker (cigarette)- less than 1/2 a pack per day. Occasional alcohol use. History of drug use: marijuana. The patient was offered HIV testing but declined. Patient education was provided. The patient was offered hepatitis C testing but declined. Patient education was provided. The patient has not traveled outside the [place] Infectious disease exposure: No infectious disease exposure. The patient was not exposed to Coronavirus. Patient is not a known carrier of tuberculosis, hepatitis, HIV, MRSA or VRE. Patient is not a known carrier of CRE. SELF HARM ASSESSMENT: Self harm assessment was performed. The patient answered "no" to the question(s) "Do you have thoughts of harming or killing yourself?", "Do you have a plan for harming or killing yourself?" and "Have you recently had thoughts about harming or killing others?". ABUSE ASSESSMENT: Abuse assessment. The patient had positive responses to the question(s) "Do you feel safe in your home?". Abuse denied. No suspicion of abuse. No report of abuse. NUTRITIONAL RISK ASSESSMENT: The nutritional risk assessment revealed no deficiencies. FUNCTIONAL ASSESSMENT: Functional assessment: no impairments noted. LEARNING NEEDS ASSESSMENT: The learning needs assessment revealed no barriers. FALL RISK ASSESSMENT: Fall risk assessment completed. No risk factors identified. SKIN INTEGRITY ASSESSMENT: Skin integrity risk assessment completed. No skin integrity risk identified. --16:52 09/26/20 Gabo Melgar. Interventions Identification band on patient. To treatment room. --16:52 09/26/20 Gabo Melgar.PHYSICAL VLITQBGIAT57:59 09/26/20. Ambulatory to room. Patient gowned.GENERAL / NEURO / PSYCH: Alert. Oriented X 4. Appears in no acute distress.HEENT: Mucous membranes are pink.RESPIRATORY: Respirations not labored. Breath sounds within normal limits.CVS: Capillary refill less than 2 seconds.GI / : Abdomen soft and nontender. Bowel sounds within normal limits. Vaginal bleeding present.SKIN: Skin is warm and dry. --16:59 09/26/20 Duke Deng R.N.NURSING PROGRESS NOTES 3 Clinical Report - Nurses [facility] Emergency Department [address] [place] [address] Phone #: ext- [phone] 09/26/2020 16:41 Patient: JORJE FONSECA Sex: F : 2000 Age: 20y 16:59 09/26/20. Patient gowned. Reassurance given. Two patient identifiers checked. Call light placed in reach. Bed placed in lowest position. Brakes of bed on. Patient ready for evaluation- PA notified. --16:59 09/26/20 Duke Deng R.N. 17:00 09/26/20. BP: 123/79. MAP: 93. HR: 70. RR: 26. O2 saturation: 99%. --17:11 09/26/20 [facility] PhiladelphiaFl[facility] ER Tech 17:12 09/26/2020 Site #1 started via IV in the left antecubital space with an 20g angiocath, with aseptic technique and good blood return; one attempt. Blood drawn: rainbow set. Labeled in the presence of the patient and sent to the lab. Saline lock flushed with 10 mL saline. --17:12 09/26/20 Duke Deng R.N. 17:20 09/26/2020 Started bag #1 1000 mL IV Fluids NS; bolus of 500 mL over 30 minute(s) then at 100 mL/hr over 5 hour(s) via site #1 via IV pump. Allergies verified and confirmed 5 rights. IV patency established. IV site checked: no pain, redness, or swelling. IV flushed thoroughly pre- and post-medication administration. Information reviewed with patient including reason for taking this medication, signs of allergic reaction and precautions. Verbalizes understanding. --17:20 09/26/20 Duke Deng R.N. 17:20 09/26/2020 Zofran (Ondansetron HCl) IVP 4 mg given over 2 minute(s) via site #1. Allergies verified and confirmed 5 rights. IV patency established. IV site checked: no pain, redness, or swelling. IV flushed thoroughly pre- and post-medication administration. IVP given by RN. Information reviewed with patient including reason for taking this medication, signs of allergic reaction and precautions. Verbalizes understanding. --17:20 09/26/20 So Duke simms R.N. [facility] by wheelchair with pc network technician. --17:39 09/26/20 Ny Delgado RN 18:12 09/26/20. BP: 116/63. MAP: 80. HR: 58. RR: 24. O2 saturation: 99%. --18:13 09/26/20 [place] winch derrick operator, Flory, Tech1 18:40 09/26/2020 IV Fluids NS via IV site #1 Discontinued: bag #1 infused upon discharge. Total amount infused: 600 mL. IV patency established. IV site checked: no pain, redness, or swelling. IV flushed thoroughly. --18:40 09/26/20 Duke Deng R.N.DISPOSITION / DISCHARGE 18:43 09/26/20. Condition at departure: improved and stable. The goals identified in the patient's plan of care were met. Fall risk assessment completed. No risk factors identified. No learning barriers present. Discharge instructions provided and reviewed with the patient. Reviewed warnings. Reviewed medication(s). Treatments reviewed. Reviewed referral to a primary care physician. Activity restrictions (rest) reviewed. Work note given. Patient verbalized understanding. Written instruction s provided in [place]an. The patient was discharged by the physician starch treating assistant. She was discharged home. She left ambulatory and via private vehicle. Patient driving. --18:48 09/26/20 Duke Deng R.N. 18:47 09/26/2020 Site #1 removed upon discharge. Catheter intact. Bandage applied. --18:47 09/26/20 Duke Deng R.N. 4 Clinical Report - Nurses [facility] Emergency Department [address] [place] [address] Phone #: ext- [phone] 09/26/2020 16:41 Patient: JORJE FONSECA Sex: F : 2000 Age: 20y 18:40 09/26/20. BP: 124/74. MAP: 90. HR: 78. RR: 26. O2 saturation: 100%. Temp: 98.5 F. Pain level now: 0/10. --18:48 09/26/20 Duke Deng R.N.Locked/Released at 09/26/2020 21:02 by Duke Deng R.N. Name Value Range Interpretation Code Description Data Tasha rce(s) Supporting Document(s) ID Date Data Source [id number] 09/26/2020 04:48:00 PM EST [facility] 1 Clinical Report - Physicians/Mid Levels [facility] Emergency Department [address] [place] [address] Phone #: ext- [phone] 09/26/2020 16:41 Patient: JORJE FONSECA Sex: F : 2000 Age: 20y Time Seen: 17:00 09/26/2020. Arrived- By private vehicle. Historian- patient. Disposition decision: 18:35 09/26/2020.HISTORY OF PRESENT ILLNESS Chief Complaint: PELVIC PAIN and VAGINAL BLEEDING. This started yesterday Pt states she started menses yesterday, states she is having heavier bleeding with cramps that are more painful today in her pelvic region. Has nausea, no vomiting. No SOB, some dizziness. The symptoms are described as moderate. Modifying factors. Not worsened by anything. Not relieved by anything. The patient has had pelvic pain and abnormal bleeding described as heavier than normal period and passing clots. No abdominal pain, vaginal pain, low back pain, flank pain or missed period(s). No vaginal discharge, vaginal itching, genital lesions, pain with urination or urinary frequency. No urgency of urination or hematuria. Last normal menstrual period now. Sexually active. Similar symptoms previously. Patient has had similar symptoms once. Recent medical care: Not recently seen/assessed.REVIEW OF SYSTEMSThe patient has had n ausea. No vomiting, diarrhea, black stools, headache or fever. No chills, anorexia,eye discomfort, sore throat or cough. No difficulty breathing, chest pain, skin rash, enlarged lymph nodesor joint pain.PAST HISTORYSee nurses notes. Problems: STD - Sexually Transmitted Disease. Pelvic Pain. Bipolar Disorder. Borderline personality disorder. Anxiety Reaction. Asthma. Depression. PTSD. Herpes. Additional Surgeries: Biopsy. 2 Clinical Report - Physicians/Mid Levels [facility] Emergency Department [address] [place] [address] Phone #: ext- [phone] 09/26/2020 16:41 Patient: JORJE FONSECA Sex: F : 2000 Age: 20y Oral surgery 2013. Medications: Albuterol Sulfate HFA Inhalation. valACYclovir HCl Oral (Tablet 1 gm), 2x a day. Allergies: "numbing solution". Bee venom. Ceclor.SOCIAL HISTORYLight tobacco smoker. Occasional alco hol use. No drug use. No recent travel.ADDITIONAL NOTESThe nursing notes have been reviewed with agreement regarding the chief complaint, HPI, ROS, PMH andpatient medications and allergies.PHYSICAL EXAMVital Signs: 09/26/2020 16:44 BP: 135/75. MAP: 95. HR: 79. RR: 16. O2 saturation: 98% on room air.Temp: 97.7 F. Pain level now: 0/10. Have been reviewed as normal and appear to be correct. Bloodpressure normal. Mean arterial pressure- normal. Heart rate normal. Respiratory rate normal.Temperature normal. Oxygen saturation normal.Appearance: Alert. Oriented X3. No acute distress.HEENT: Normal external inspection.ENT: Pharynx normal.Neck: Neck supple.CVS: Heart sounds normal.Respiratory: No respiratory distress. Painless inspiration. Breath sounds normal. Chest nontender.Abdomen: Soft. Mild tenderness in the lower abdomen. Bowel sounds normal. No organomegaly. Nomass.Back: Normal external inspection.Skin: Skin warm and dry. Normal skin color. No rash. Normal skin turgor.Extremities: Extremities nontender. No lower extremity edema.Neuro: Oriented X 3. Mood/affect normal. No motor deficit. No sensory deficit.LABS, X-RAYS, AND EKGPelvic Sonogram: transvaginal US- NAD. R ovary not seen. The study was independently viewed by toni interpreted by the radiologist and contemporaneously by me. Interpretation time: 18:34 09/26/2020.Laboratory Tests: Laboratory tests have been ordered, with results reviewed and considered in themedical decision making process. Beta-HCG, Qual Urine: (LESLIE: 09/26/2020 17:02) ( MsgRcvd 09/26/2020 17:22) Final results Test Result Flag Units (Reference) HCG URINE QUAL NEGATIVE (NORMAL: NEGAT HCG URINE QL REENTER NEGATIVE (NORMAL: NEGAT { KIT LOT # [id number] ){ KIT EXP DATE 3 Clinical Report - Physicians/Mid Levels [facility] Emergency Department [address] [place] [address], [place] [address] Phone #: ext- [phone] 09/26/2020 16:41 Patient: JORJE FONSECA Sex: F : 2000 Age: 71 ){ PROCEDURAL CONTROL VALID)CBC w Diff: (LESLIE: 09/26/2020 17:12) ( MsgRcvd 09/26/2020 17:34) Final results Test Result Flag Units (Reference) CBC W/AUTOMATED DIFF COMPLETE BLOOD COUNT WBC 8.9 10/uL (4.2 - 11.0) RBC 4.54 10/uL (4.20 - 5.40) HEMOGLOBIN 14.0 g/dL (12.0 - 16.0) HEMATOCRIT 41.0 % (37.0 - 47.0) MCV 90.3 fL (81.0 - 101) MCH 30.8 pg (27.0 - 34.0) MCHC 34.1 g/dL (31.0 - 36.0) RDW 12.2 % (11.5 - 14.5) PLATELETS 354 10/uL (150 - 450) MPV 9.2 fL (7.4 - 10.4) NEUT 53.7 % (37.0 - 80.0) LYMPH 38.4 % (25.0 - 40.0) MONO 5.7 % (3.0 - 8.0) EOS 1.5 % (0.0 - 7.0) BASO 0.5 % (0.0 - 2.5) %IG 0.2 H % (0.0 - 0.0) %NRBC 0.0 % (0.0 - 0.0) #NEUT 4.76 10/uL (2.00 - 6.90) #LYMPH 3.41 H 10/uL (0.60 - 3.40) #MONO 0.51 10/uL (0.00 - 0.90) #EOS 0.13 10/uL (0.00 - 0.70) #BASO 0.04 10/uL (0.00 - 0.20) #IG 0.02 10/uL (0.00 - 0.10) #NRBC 0.00 10/uL (0.00 - 0.00) MANUAL DIFF NOT INDICATED RBC MORPH NOT INDICATEDCMP: (LESLIE: 09/26/2020 17:12) ( MsgRcvd 09/26/2020 18:13) Final results Test Result Flag Units (Reference) COMPREHENSIVE METABOLIC PANEL COMPREHENSIVE METABOLIC PANEL SODIUM 140 mEq/L (134 - 153) POTASSIUM 3.8 mEq/L (3.6 - 5.0) CHLORIDE 106 mEq/L (98 - 107) CO2 25 MEQ/L (22 - 30) GLUCOSE 82 MG/DL (65 - 110) BUN 9 MG/DL (7 - 21) CREATININE 0.7 MG/DL (0.7 - 1.5) BUN/CREAT 13 (8 - 27) TOTAL PROTEIN 7.2 G/DL (6.3 - 8.2) ALBUMIN 4.5 G/DL (3.9 - 5.0) GLOBULIN 2.7 GM/DL (2.4 - 3.2) A/G RATIO 1.7 (0.8 - 2.0) CALCIUM 9.5 MG/DL (8.4 - 10.2) TOTAL BILI <0.7 MG/DL (0.2 - 1.3) ALKALINE PHOS 78 U/L (38 - 126) SGOT/AST 13 U/L (5 - 40) SGPT/ALT 11 U/L (7 - 56) ANION GAP 9.0 mmol/L (8.0 - 16.0) AGE 20 yrs 4 Clinical Report - Physicians/Mid Levels [facility] Department [address] [place] [address] Phone #: ext- [phone] 09/26/2020 16:41 Patient: JORJE FONSECA Sex: F : 2000 Age: 20y NON-AA GFR >60 mL/min AFR AMER GFR >60 mL/min Male GFR Interprentation 20-49 yrs >60 mL/min Normal 50-59 yrs >56 mL/min Normal 60-69 yrs >49 mL/min Normal 70-79yrs >42 mL/min Normal 80 and above >35 mL/min Normal Female GFR Interpretation 20-39 yrs >60 mL/min Normal 40-49 yrs >58 mL/min Normal 50-59 yrs >51 mL/min Normal 60-69 yrs >45 mL/min Normal 70-79 yrs >39 mL/min Normal 80 and above >32 mL/min Normal Lactic Acid: (LESLIE: 09/26/2020 17:12) ( MsgRcvd 09/26/2020 17:35) Final results Test Result Flag Units (Reference) LACTIC ACID 1.0 MMOL/L (0.2 - 2.2) Lipase: (LESLIE: 09/26/2020 17:12) ( MsgRcvd 09/26/2020 18:13) Final results Test Result Flag Units (Reference) LIPASE 23 U/L (13 - 60) PT/PTT: (LESLIE: 09/26/2020 17:12) ( MsgRcvd 09/26/2020 18:09) Final results Test Result Flag Units (Reference) PROTIME 13.3 SECONDS (11.0 - 15.5) INR 1.00 (0.93 - 1.23) PTT 28.3 SECONDS (24.8 - 36.7) \\BLDo\\INR INTERPRETATION\\BLDx\\ Therapeutic range for Coumadin and related oral anticoagulants. -International Normalized Ratio (INR): 2.0 - 3.0 for Venous Thrombosis, Pulmonary Embolus, Tissue heart valves, Acute [place] Atrial Fibrillation, Valvular heart disease and recurrent Systemic Embolism. -International Normalized Ratio (INR): 2.5 - 3.5 for Mechanical Prosthetic valve. Urinalysis: (LESLIE: 09/26/2020 17:02) ( MsgRcvd 09/26/2020 17:27) Final results Test Result Flag Units (Reference) URINALYSIS URINALYSIS SOURCE Clean Catch COLOR yellow (NORMAL: Yello CLARITY clear (NORMAL: Clear SPEC GRAVITY 1.015 (1.001 - 1.030 pH 6 (5 - 9) GLUCOSE NORM (NORMAL: Negat BILIRUBIN NEG (NORMAL: Negat KETONE 5 A (NORMAL: Negat PROTEIN 15 (NORMAL: Negat NITRITE NEG (NORMAL: Negat BLOOD 250 A (NORMAL: Negat LEUK EST NEG (NORMAL: Negat UROBILINOGEN NOR (less than 1.0 MICROSCOPIC See Below RBC 5 - 7 A (NORMAL: NONE EPITHELIAL FEW (NORMAL: NONE.PROGRESS AND PROCEDURESCourse of Care: 17:43 Sep 26 2020. Awaiting pelvic US results. 5 Clinical Report - Physicians/Mid Levels [facility] Emergency Department [address] [place] [address] Phone #: ext- [phone] 09/26/2020 16:41 [id number] Sex[facility] : 2000 Age: 20y Disposition: Discharged home in good and improved condition. Discharge decision based on the following: patient's condition is improved; patient is ambulatory; patient is active; patient's pain is controlled; patient's exam is improved; minimally abnormal test results; improving condition on repeat evaluation; social support is adequate; transportation is available; follow-up is available; clinical impression is consistent with outpatient treatment.CLINICAL IMPRESSION Moderate dysfunctional uterine bleeding and vaginal bleeding with ovulation.INSTRUCTIONS No strenuous activity until better. Rest at home for two days. Do not work for two days. Drink plenty of fluids for the next 48 hours as needed. No sexual contact until symptoms resolve. Do not smoke. No alcohol. (continue tylenol for pain as needed). Warnings: Further evaluation is necessary. It is very important to follow up with a healthcare provider. GENERAL WARNINGS: Return or contact your physician immediately if your condition worsens or changes unexpectedly, if not improving as expected, or if other problems arise. Specifically return if pain, vomiting, bleeding, breathing difficulty or fever. worsening vaginal bleeding. Your Current Medications: Your current home medications have been reviewed. CONTINUE TAKING THE FOLLOWING MEDICATIONS: Albuterol Sulfate HFA Inhalation. valACYclovir HCl Oral : Tablet 1 gm, 2x a day. Follow-up: Follow up with your healthcare provider in three days even if well. Call for the next available appointment. Reason for referral: evaluation and recommend spot remover referral if symptoms persist. Summary of care provided to patient via paper. Understanding of the discharge instructions verbalized by patient. Expected course of illness, discharge instructions, activity level, follow-up appointment and risks and benefits of treatment reviewed with patient and understanding verbalized. Agrees to plan of care.(Electronically signed by HEATH Castro 09/29/2020 10:16) 6Clinical Report - Physicians/Mid Levels [facility] Department [address] [place] [address] Phone #: ext- [phone] 09/26/2020 16:41 Patient: JORJE FONSECA Sex: F : 2000 Age: 20y Name Value Range Interpretation Code Description Data Tasha rce(s) Supporting Document(s) ID Date Data Source [id number] 09/27/2020 02:10:00 [place] [address] PHONE: [phone] FAX: [phone] Name .................. : RAYMUNDO RECINOS Acct Number.................. : [id number] ROOM. ................. : TR-05 MR Number ................... : [id number] Stay type ............. : E/R Discharge Date......... ... : 09/26/20 Admit Date ......... : 09/26/20 Admit Phys .................... : KENDRICK WILIAN Date of ....... : 2000 Family Phys ................... : ROSALINO GARCIA Phone .................. : [phone] Age ................................ : 20 Film# .................. .:[id number] Sex ................................. : F Unsigned transcriptions are preliminary reports and do not represent a medical or legal document TRANSVAGINAL(NON OB) [id number] COMPLETE:09/26/20 19:50 ADB 96410 Reason(s): Pelvic Pain TRANSVAGINAL PELVIC ULTRASOUND: INDICATION: Pelvic pain. FINDINGS: The uterus measures 7.1 x 2.6 x 4.2 cm. The endometrial stripe measures 1 mm in thickness. The left ovary is sonographica lly normal. The right ovary is not well visualized. IMPRESSION: No acute pelvic abnormality. The right ovary is not visualized. Electronically Reviewed and Signed By Roberto Mason M.D. , 09/27/20 14:10, [place] Transcribe Initials: GET , Transcribe Date: 09/27/20 01:10, Dictation Date: Copy for: KENDRICK Walton via fax Copy for: EMERGENCY DEPT via mode Copy for: 710 MED REC DISCHARGED Page 1 of 1 Name Value Range Interpretation Code Description Data Tasha rce(s) Supporting Document(s) ID Date Data Source [id number] 09/27/2020 02:09:00 PM EST [facility] [address] [place] [address] PHONE: [phone] FAX: [phone] Name .................. : RAYMUNDO RECINOS Acct Number.................. : [id number] ROOM. ................. : TR-05 MR Number ................... : [id number] Stay type ............. : E/R Discharge Date......... ... : 09/26/20 Admit Date ......... : 09/26/20 Admit Phys .................... : KENDRICK WILIAN Date of ....... : 2000 Family Phys ................... : [employer] Phone .................. : [phone] Age ................................ : 20 Film# .................. .:[id number] Sex ................................. : F Unsigned transcriptions are preliminary reports and do not represent a medical or legal document PELVIC [id number] COMPLETE:09/26/20 19:50 ADB 58866 Reason(s): Abnormal Bleeding PELVIC ULTRASOUND: INDICATION: Abnormal bleeding. FINDINGS: The uterus measures 6.9 x 3.5 x 4.7 cm. The endometrium is not well visualized due to lack of bladder filling. The left ovary is sonographically normal. The right ovary is not well visualized. IMPRESSION: Limited examination. Please see transvaginal report for further details. Electronically Reviewed and Signed By Roberto Mason M.D. , 09/27/20 14:09, [facility] Transcribe Initials: GET , Transcribe Date: 09/27/20 01:08, Dictation Date: Copy for: KENDRICK Walton via fax Copy for: EMERGENCY DEPT via modem Copy for: 710 MED REC DISCHARGED Page 1 of 1 Name Value Range Interpretation Code Description Data Tasha rce(s) Supporting Document(s) ID Date Data Source [id number] 09/26/2020 06:13:00 PM [facility] Name Value Range Interpretation Code Description Data Tasha rce(s) Supporting Document(s) Lipase [Enzymatic activity/volume] in Serum or Plasma 23 U/L 13 - 60 [facility] ID Date Data Source [id number] 09/26/2020 06:13:00 PM [facility] Name Value Range Interpretation Code Description Data [facility] Supporting Document(s) COMPREHENSIVE METABOLIC PANEL [facility] COMPREHENSIVE METABOLIC PANEL Sodium [Moles/volume] in Serum or Plasma 140 mEq/L 134 - 153 [facility] Potassium [Moles/volume] in Serum or Plasma 3.8 mEq/L 3.6 - 5.0 [facility] Chloride [Moles/volume] in Serum or Plasma 106 mEq/L 98 - 107 [facility] Carbon dioxide, total [Moles/volume] in Serum or Plasma 25 MEQ/L 22 - 30 [facility] Glucose [Mass/volume] in Serum or Plasma 82 MG/DL 65 - 110 [facility] BUN 9 MG/DL 7 - 21 [facility] Creatinine [Mass/volume] in Serum or Plasma 0.7 MG/DL 0.7 - 1.5 [facility] BUN/CREAT 13 8 - 27 [facility] al Protein [Mass/volume] in Serum or Plasma 7.2 G/DL 6.3 - 8.2 [facility] Albumin [Mass/volume] in Serum or Plasma 4.5 G/DL 3.9 - 5.0 [facility] Globulin [Mass/volume] in Serum by calculation 2.7 GM/DL 2.4 - 3.2 [facility] A/G RATIO 1.7 0.8 - 2.0 [facility] Calcium [Mass/volume] in Serum or Plasma 9.5 MG/DL 8.4 - 10.2 [facility] Bilirubin.total [Mass/volume] in Serum or Plasma <0.7 MG/DL 0.2 - 1.3 [facility] Alkaline phosphatase [Enzymatic activity/volume] in Serum or Plasma 78 U/L 38 - 126 [facility] Aspartate aminotransferase [Enzymatic activity/volume] in Serum or Plasma 13 U/L 5 - 40 [facility] Alanine aminotransferase [Enzymatic activity/volume] in Seru m or Plasma 11 U/L 7 - 56 [facility] Anion gap 3 in Serum or Plasma 9.0 mmol/L 8.0 - 16.0 [facility] AGE 20 yrs [facility] NON-AA GFR >60 mL/min [facility] ital AFR AMER GFR >60 mL/min [facility] spital Male GFR In terprentation 20-49 yrs >60 mL/min Normal 50-59 yrs >56 mL/min Normal 60-69 yrs >49 mL/min Normal 70-79yrs >42 mL/min Normal 80 and above >35 mL/min Normal Female GFR Interpretation 20-39 yrs >60 mL/min Normal 40-49 yrs >58 mL/min Normal 50-59 yrs >51 mL/min Normal 60-69 yrs >45 mL/min Normal 70-79 yrs >39 mL/min Normal 80 and above >32 mL/min Normal ID Date Data Source [id number] 09/26/2020 06:09:00 PM EST [facility] Name Value Range Interpretation Code Description Data Tasha rce(s) Supporting Document(s) Prothrombin time (PT) 13.3 SECONDS 11.0 - 15.5 [facility] INR in Platelet poor plasma by Coagulation assay 1.00 0.93 - 1. 23 [facility] aPTT in Blood by Coagulation assay 28.3 SECONDS 24.8 - 36.7 [facility] \\BLDo\\INR INTERPRETATION\\BLDx\\ Therapeutic range for Coumadin and related oral anticoagulants. - International Normalized Ratio (INR): 2.0 - 3.0 for Venous Thrombosis, Pulmonary Embolus, Tissue heart valves, Acute [place] Atrial Fibrillation, Valvular heart disease and recurrent Systemic Embolism. - International Normalized Ratio (INR): 2.5 - 3.5 for Mechanical Prosthetic valve. ID Date Data Source [id number] 09/26/2020 05:35:00 PM EST [facility] Name Value Range Interpretation Code Description Data Tasha rce(s) Supporting Document(s) Lactate [Moles/volume] in Serum or Plasma 1.0 MMOL/L 0.2 - 2.2 [facility] ID Date Data Source [id number] 09/26/2020 05:33:00 PM EST [facility] Name Value Range Interpretation Code Description Data Tasha rce(s) Supporting Document(s) CBC W/AUTOMATED DIFF [facility] COMPLETE BLOOD COUNT Leukocytes [#/volume] in Blood by Automated count 8.9 10^3/uL 4.2 - 1 1.0 [facility] Erythrocytes [#/volume] in Blood by Automated count 4.54 10^6/uL 4. 20 - 5.40 [facility] Hemoglobin [Mass/volume] in Blood 14.0 g/dL 12.0 - 16.0 [facility] Hematocrit [Volume Fraction] of Blood by Automated count 41.0 % 3 7.0 - 47.0 [facility] Erythrocyte mean corpuscular volume [Entitic volume] by Auto mated count 90.3 fL 81.0 - 101 [facility] Erythrocyte mean corpuscular hemoglobin [Entitic mass] by Automated count 30.8 pg 27.0 - 34.0 [facility] Erythrocyte mean corpuscular hemoglobin concentration [Mass/volume] by Automated count 34.1 g/dL 31.0 - 36.0 [facility] Erythrocyte distribution width [Ratio] by Automated count 12.2 % 11.5 - 14.5 [facility] Platelets [#/volume] in Blood by Automated count 354 10^3/uL 150 - 45 0 [facility] Platelet mean volume [Entitic volume] in Blood by Automated count 9.2 fL 7.4 - 10.4 [facility] Neutrophils/100 leukocytes in Blood by Automated count 53.7 % 37. 0 - 80.0 [facility] Lymphocytes/100 leukocytes in Blood by Manual count 38.4 % 25.0 - 40.0 [facility] Monocytes/100 leukocytes in Blood by Automated count 5.7 % 3.0 - 8.0 [facility] Eosinophils/100 leukocytes in Blood by Automated count 1.5 % 0.0 - 7.0 [facility] Basophils/100 leukocytes in Blood by Automated count 0.5 % 0.0 - 2.5 [facility] %IG 0.2 % 0.0 - 0.0 [facility] al %NRBC 0.0 % 0.0 - 0.0 [facility] al Neutrophils [#/volume] in Blood by Automated count 4.76 10^3/uL 2.00 - 6.90 [facility] Lymphocytes [#/volume] in Blood by Automated count 3.41 10^3/uL 0.60 - 3.40 H [facility] Monocytes [#/volume] in Blood by Automated count 0.51 10^3/uL 0.00 - 0.90 [facility] Eosinophils [#/volume] in Blood by Automated count 0.13 10^3/uL 0.00 - 0.70 [facility] Basophils [#/volume] in Blood by Automated count 0.04 10^3/uL 0.00 - 0.20 [facility] #IG 0.02 10^3/uL 0.00 - 0.10 [facility] #NRBC 0.00 10^3/uL 0.00 - 0.00 [facility] ospital MANUAL DIFF NOT INDICATED [facility] RBC MORPH NOT INDICATED [facility] spital ID Date Data Source [id number] 09/26/2020 05:27:00 PM EST [facility] Name Value Range Interpretation Code Description Data Tasha rce(s) Supporting Document(s) [facility] SOURCE Clean Catch [facility] ital COLOR yellow NORMAL: Yellow [facility] CLARITY clear NORMAL: Clear [facility] Specific gravity of Urine by Test strip 1.015 1.001 - 1.030 [facility] pH 6 5 - 9 [facility] al Glucose [Mass/volume] in Urine by Test strip NORM NORMAL: Negat tej [facility] Bilirubin.total [Presence] in Urine by Test strip NEG NORMAL: Negative [facility] Ketones [Presence] in Urine by Test strip 5 NORMAL: Negative A [facility] Protein [Mass/volume] in Urine by Test strip 15 NORMAL: Negat tej [facility] Nitrite [Presence] in Urine by Test strip NEG NORMAL: Negative [facility] BLOOD 250 NORMAL: Negative [facility] Leukocyte esterase [Presence] in Urine by Test strip NEG SERGEY L: Negative [facility] Urobilinogen [Mass/volume] in Urine by Test strip NOR less donis n 1.0 mg/dL [facility] MICROSCOPIC See Below [facility] ital Erythrocytes [#/volume] in Urine by Test strip 5 - 7 NORMAL: NON E SEEN A [facility] EPITHELIAL FEW NORMAL: NONE SEEN [facility] ID Date Data Source [id number] 09/26/2020 05:21:00 PM EST [facility] Name Value Range Interpretation Code Description Data Tasha rce(s) Supporting Document(s) HCG URINE QUAL NEGATIVE NORMAL: NEGATIVE [facility] HCG URINE QL REENTER NEGATIVE NORMAL: NEGATIVE [facility] { KIT LOT # [id number] ){ KIT EXP DATE 08-22-21 ){ PROCEDURAL CONTROL VALID ) ID Date Data Source [id number] 07/03/2020 11:54:00 PM EDT [facility] 1 OrderSheet [facility] Department [address] [place] [address] Phone #: ext- [phone] 07/03/2020 23:28 Patient: JORJE FONSECA Sex: F : 2000 Age: 19yWEIGHT:54.4 kg (S) HEIGHT:62 inches (S) BMI:22.0ALLERGIES: "numbing solution", CeclorCHIEF COMPLAINT: pelvic painDIAGNOSIS: C/O pelvic painLAB ORDERSOrder Description Priority Entered Acknowledged InitialedCB w Diff STAT 00:01 07/04/2020 00:15 Delmis Galdamez R.N., M.D.;Chlamydia/GC STAT 00:01 07/04/2020 00:15 Maggy Ward Kwon, Delmis Estrada R.N., M.D.;CMP STAT 00:01 07/04/2020 00:15 Maggy Wardfreda Kwon, Delmis Estrada R.N., M.D.;Culture, Genital STAT 00:01 07/04/2020 00:15 Maggy Wardfreda Kwon, Delmis Estrada R.N., M.D.;Culture, Urine STAT 00:01 07/04/2020 00:15 Maggy Ward(Urine, Clean Cher, Delmis Estrada R.N.Catch) Prachi;HCG Serum Qual STAT 00:01 07/04/2020 00:15 Delmis Galdamez R.N., M.D.;Type Rh STAT 00:01 07/04/2020 00:15 Maggy Wardfreda Kwon, Delmis Estrada R.N., M.D.;Urinalysis (Clean STAT 00:01 07/04/2020 00:15 Maggy RolandoirCatch) Delmis KwonN. Prachi;CRP STAT 00:01 07/04/2020 00:15 Maggy Wardfreda Kwon, Delmis McneilNRichard M.D.;Bacterial Vaginosis STAT 00:24 07/04/2020 00:36 Maggy Delmis Naylor R.N. M.D.; 2 OrderSheet [facility] Department [address] [place] [address] Phone #: ext- [phone] 07/03/2020 23:28 Patient: JOJRE FONSECA Sex: F : 2000 Age: 19yDIAGNOSTIC STUDY ORDERSOrder Description Priority Entered Acknowledged InitialedUS STAT 01:37 07/04/2020 Ack'd: 01:47 Maggy 02:46 Maggy BlairTRANSVAGINAL Turrin, Delmis Estrada R.NRichard Estrada RRichardNRichard(NON OB) MRichardDRichard;(Oxygen?(No)) Reason for Study: Left sided pelvic pain w spotting, not MEDICATION/IV/DRIP/FLUID ORDERSOrder Description Priority Entered Acknowledged InitialedNS IV 1000 mL 00:02 07/04/2020 Ack'd: 00:15 Maggy 00:36 Maggy BlairBolus: : Bolus 1000 Turrin, R iccardo Ward Estrada R.N. Natalie R.N.mL (X1) M.D.;Toradol 15 mg IVP 00:02 07/04/2020 Ack'd: 00:15 Maggy 00:38 Maggy BlairX1 dose: 15 mg Turrin, Delmis Estrada R.NRichard Gale.N.(NOW x1) M.D.;GENERAL ORDERSOrder Description Priority Entered Acknowledged InitialedNPO 00:01 07/04/2020 00:15 Delmis Galdamez R.N., M.D.;Pelvic Exam Setup 00:01 07/04/2020 00:15 Delmis Galdamez R.N., M.D.;Saline Lock 00:01 07/04/2020 00:15 Delmis Galdamez R.N., M.D.;[Electronically signed by Maggy Mistry R.N. (03:54 07/04/2020)][Electronically signed by Delmis Kwon M.D. (06:17 07/04/2020)][Electronically locked by Maggy Mistry R.N. (03:54 07/04/2020)] Name Value Range Interpretation Code Description Data Tasha rce(s) Supporting Document(s) ID Date Data Source [id number] 07/03/2020 11:54:00 PM EDT [facility] 1 Medication Reconciliation Report [facility] Emergency Department [address] [place] [address] Phone #: ext- [phone] 07/03/2020 23:28 [id number] Sex[facility] F : 2000 Age: 19yWeight: 54.4 kgHeight/Length: 62 in.BMI: 22.0ALLERGIES: "numbing solution", CecthadThe patient's Home Medications are listed below:CONTINUE TAKING THE FOLLOWING MEDICATIONS: Albuterol Sulfate HFA Inhalation valACYclovir HCl Oral (1 gm), 2x a dayThe source(s) of the original Home Medication information:Not obtained.The following Medications were given to the patient in the Emergency Department:NS [IV] IV Fluids bolus 0, then 999 mL/hr, administered: 07/04/2020 12:31:00 AMToradol [IVP] IVP 15 mg, administered: 07/04/2020 12:32:00 AMThe following Medications were prescribed to the patient:None. Name Value Range Interpretation Code Description Data Tasha rce(s) Supporting Document(s) ID Date Data Source [id number] 07/03/2020 11:54:00 PM EDT [facility] 1 Medication Administration Record [facility] Department [address] [place] [address] Phone #: ext- [phone] 07/03/2020 23:28 Patient: JORJE FONSECA Sex: F : 2000 Age: 19yWeight: 54.4 kgHeight/Length: 62 inBMI: 22ALLERGIES: "numbing solution"Tiago Date/Time Medication Administered Medication OrderedStart NS [IV] NS IV 1000 mL Bolus: : Bolus [id number] 07/04/2020 Dose: IV Fluids mL (X1)Maggy Estrada R.N. Rate: 999 mL/hr---- Dispensed: 1000 mL bagStop Site: #1 right AC01:30 07/04/2020Maggy Estrada R.N.Given TORADOL [IVP] (KETOROLAC Toradol 15 mg IVP X1 dose: 15 mg00:32 07/04/2020 TROMETHAMINE) (NOW x1)Maggy Ward Estrada R.N. Dose: 15 mg IVP Site: #1 right AC Name Value Range Interpretation Code Description Data Tasha rce(s) Supporting Document(s) ID Date Data Source [id number] 07/03/2020 11:54:00 PM EDT [facility] 1 General Instructions [facility] [address] [place] [address] Phone #: ext- [phone] 07/03/2020 23:28 Patient: JORJE FONSECA Sex: F : 2000 Age: 19yAcute pelvic pain. (Resolved).INSTRUCTIONS Drink plenty of fluids. No sexual contact. Do not smoke. No alcohol. (PLEASE FOLLOW UP WITH YOUR HOUSEKEEPING STAFF IN NEXT 2 DAYS FOR FURTHER WORKUP OF YOUR PELVIC PAIN NEEDED).Warnings: Further evaluation is necessary in order to conduct further tests (your HOUSEKEEPING STAFF). It is veryimportant to follow up with a healthcare provider.GENERAL WARNINGS: Return or contact your physician immediately if your condition worsens orchanges unexpectedly, if not improving as expected, or if other problems arise. Specifically return if pain,vomiting, bleeding, breathing difficulty or fever greater than 102 degrees F and not controlled byacetaminophe n or ibuprofen worsens.Your Current Medications: Your current home medications have been reviewed.CONTINUE TAKING THE FOLLOWING MEDICATIONS:Albuterol Sulfate HFA Inhalation.valACYclovir HCl Oral : Tablet 1 gm, 2x a day.Follow-up:Return to the emergency department as needed. Follow up with a transit bus driver in two days even if well.Call for an appointment. Reason for referral: evaluation and treatment. Summary of care provided topatient via paper.Understanding of the discharge instructions verbalized by patient. Expected course of illness, dischargeinstructions, activity level, diet, follow-up appointment and risks and benefits of treatment reviewed withpatient and understanding verbalized. Agrees to plan of care. ADDITIONAL INFORMATIONPelvic Pain, Uncertain Cause 2 General Instructions [facility] [address] [place] [address] Phone #: ext- [phone] 07/03/2020 23:28 Patient: JORJE FONSECA Sex: F : 2000 Age: 19yPelvic pain is pain felt in the lowest part of the belly (abdomen) and betwe en the hipbones. The painmay occur suddenly and recently (acute). Or the pain may last for 6 months or longer (chronic).There are many possible causes of pelvic pain. The pain may be due to a problem in the femalereproductive system. Or, it may be due to a problem in the digestive, urinary, or musculoskeletalsystems.Based on your visit today, the exact cause of your pelvic pain is not certain. Your condition does notappear to be serious at this time. But it is important for you to keep watching for any new symptomsor worsening of your condition.General careYour healthcare provider may advise a number of ways to help manage your pain. These can include: Taking lzsh-ysm-tfgegbr pain medicine. Stronger pain medicine may also be prescribed, if needed. Applying heat to the pelvic area. Use a heating pad or a hot pack. Taking a hot bath may also help. Getting plenty of rest. Making certain lifestyle changes. These can include practicing good posture and getting regular exer cise. Studies have shown that these changes help reduce pelvic pain in some women. Seeing a physical therapist or pain specialist. These healthcare providers can discuss other ways to manage pain with you.Follow-up care 3 General Instructions [facility] Department [address] [place] [address] Phone #: ext- [phone] 07/03/2020 23:28 Patient: JORJE FONSECA Sex: F : 2000 Age: 19yFollow up with your healthcare provider, or as advised.When to seek medical adviceCall your healthcare provider right away if any of the following occur: Fever of 100.4F or higher, or as directed by your healthcare provider Pain worsens or you have sudden, severe pain or new pain Nausea, vomiting, sweating, or restlessness Dizziness or fainting Unusual vaginal discharge Abnormal vaginal bleeding (especially bleeding after menopause) [id number] [employer]. [address] [place] [address]. All rights reserved. This information is not intended as asubstitute for professional medical care. Always follow your healthcare professional's instructions. You have been given the following additional information: Pelvic Pain, Unknown Cause(Electronically signed by Delmis Kwon M.D. 07/04/2020 06:17) Name Value Range Interpretation Code Description Data Tasha rce(s) Supporting Document(s) ID Date Data Source [id number] 07/03/2020 11:54:00 PM EDT [facility] 1 Clinical Report - Nurses [facility] [address] [place] [address] Phone #: ext [phone] 07/03/2020 23:28 Patient: JORJE FONSECA Sex: F : 2000 Age: 19yTRIAGEArrived by private vehicle. 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 --23:31 07/03/20 Maggy Mancuso R.N.Onset. (). ( Pain worse today. Saw PCP on the for Nausea and Vomiting.).SEPSIS SCREEN: Sepsis Screen negative. No suspected or confirmed signs of infection present. --23:388 Maggy Estrada R.N.23:31 07/03/20. BP: 112/57. MAP: 75. HR: 68. RR: 18. O2 saturation: 100%. Temp: 99.2 F. Pain levelnow: 08/26. --23:38 07/03/20 Maggy Estrada R.N. Acuity: LEVEL 3. --23:40 07/03/20 Maggy Estrada R.N.Last oral intake by patient was (3 hours ago Beef Ragu and coffee). --23:42 07/03/20 Maggy Estrada R.N.Height/Length: 62 inches Per Patient. --23:28 07/03/20 Maggy Estrada R.N.. Weight: 544.3 kg stated. BMI: 219.7. Correction --23:28 07/03/20 Maggy Estrada R.N..Weight: 54.4 kg stated. BMI: 22. --23:28 07/03/20 Maggy Estrada R.N.MedicationsvalACYclovir HCl Oral (Tablet 1 gm), 2x a day. --23:35 07/03/20 Maggy Estrada R.N. Albuterol Sulfate HFA Inhalation. --23:36 07/03/20 Maggy Estrada R.N.AllergiesCeclor. --23:33 07/03/20 Maggy Estrada R.N."numbing solution". --23:33 07/03/20 Maggy Estrada R.N.PROBLEMS:PTSD.Borderline personality disorder.Bipolar Disorder. 2 Clinical Report - Nurses [facility] [address] [place] [address] Phone #: ext- [phone] 07/03/2020 23:28 Patient: JORJE FONSECA Sex: F : 2000 Age: 19y Depression. Anxiety Reaction. Asthma. Herpes: (06/07/2020 refilled). --23:37 07/03/20 Maggy Estrada R.N. ADDITIONAL SURGERIES: Biopsy (Mole benign). Oral surgery 2013. --23:37 07/03/20 Maggy Estrada R.N. History PAST MEDICAL HX: Prior sexually transmitted disease history: herpes. No history of diabetes mellitus or hypertension. No history of pelvic inflammatory disease. Last normal menstrual period- Jun. 1. Para 0. Sexual history - sexually active. No contraception. SOCIAL HX: Light tobacco smoker (cigarette)- less than 1/2 a pack per day. History of occasional drug use: marijuana. No alcohol use. She was offered HIV testing but declined and hepatitis C testing but declined. She has not traveled outside the [place] Infectious disease exposure: No infectious disease exposure. (No known exposures to COVID). SELF HARM ASSESSMENT: Self harm assessment was performed. The patient answered "no" to the question(s) "Do you have thoughts of harming or killing yourself?" and "Have you recently had thoughts about harming or killing others?". ABUSE ASSESSMENT: No report of abuse. FALL RISK ASSESSMENT: Fall risk assessment completed. Risk factors identified include severe pain. Fall interventions initiated. Bed in low position. Brakes on. Call light in reach of patient. --23:40 07/03/20 Maggy Estrada R.N.PHYSICAL ASSESSMENTAmbulatory to room.GENERAL / NEURO / PSYCH: Alert. Oriented X 4.HEENT: Mucous membranes are pink.RESPIRATORY: Respirations not labored.GI / : Urgency of urination. Genital lesions present. ( reports some nausea, no vomiting or diarrhea.Last BM today, normal. Appetite good.).SKIN: Skin is warm and dry. --23:42 07/03/20 Maggy Estrada R.N.NURSING PROGRESS NOTESHead of bed elevated. Reassurance given. Call light placed in reach. Bed placed in lowest position.Brakes of bed on. --23:42 07/03/20 Maggy Estrada R.N. 00:11 07/04/2020 Site #1 started via IV in the right antecubital space with an 20g angiocath; one attempt. Blood drawn: rainbow set. Saline lock flushed with 10 mL saline. --00:16 07/04/20 Maggy Estrada R.N. 3 Clinical Report - Nurses [facility] [address] [place] [address] Phone #: ext- [phone] 07/03/2020 23:28 Patient: JORJE FONSECA Sex: F : 2000 Age: 19y Urine collected. --00:16 07/04/20 Maggy anton R.N. 00:31 07/04/2020 Started bag #1 1000 mL IV Fluids NS; at 999 mL/hr via site #1. Allergies verified and confirmed 5 rights. IV patency established. IV site checked: no pain, redness, or swelling. IV flushed thoroughly pre- and post-medication administration. Information reviewed with patient including reason for taking this medication. Verbalizes understanding. --00:36 07/04/20 Maggy Estrada R.N. 00:32 07/04/2020 Toradol (Ketorolac Tromethamine) IVP 15 mg given via site #1. IV patency established. IV site checked: no pain, redness, or swelling. IV flushed thoroughly pre- and post-medication administration. IVP given by RN. Information reviewed with patient including reason for taking this medication. Verbalizes understanding. --00:38 07/04/20 Maggy Estrada R.N. PELVIC EXAM: Pelvic exam performed by ED physician. Assisted by one nurse. Preparation: pelvic tray; patient placed in lithotomy position. Procedure: speculum and bimanual exam. Specimens collected and sent to lab: GC and chlamydia. Status post-procedure: she was stable. Patient tolerated the procedure well. Total time of assist / procedure: 15 minutes. ( Vaginal culture and BV swab also set.). --00:40 07/04/20 Maggy Estrada R.N. The patient is calm and resting quietly. Overall patient status is improved. ( Reports that her pain is down to 3-4/10. U/S tech called. Pt updated as to status.). --01:46 07/04/20 Maggy Estrada R.N. 01:40 07/04/20. BP: 99/46. MAP: 63. HR: 56. RR: 16. O2 saturation: 99%. Pain level now: 10. --01:46 07/04/20 Maggy Estrada R.N. 01:30 07/04/2020 IV Fluids NS via IV site #1 D iscontinued: bag #1 completed. Total amount infused: 975 mL. IV patency established. IV site checked: no pain, redness, or swelling. IV flushed thoroughly. --02:46 07/04/20 Maggy Estrada R.N. Patient returned from sonogram by wheelchair with pc network technician. --02:46 07/04/20 Maggy Estrada R.N. 03:15 07/04/20. The patient is resting quietly. --03:51 07/04/20 Maggy Estrada R.N. 03:41 07/04/2020 Site #1 removed upon discharge. Bandage applied. --03:51 07/04/20 Maggy Estrada R.N.DISPOSITION / DISCHARGE Departure time: 03:50 07/04/2020. Condition at departure: improved and stable. No learning barriers present. Follow up contact number PCP in 2 days even if well. Patient verbalized understanding. Written instructions provided in [place]. The patient was discharged by the physician. She was discharged home. She left ambulatory and via private vehicle. 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 --03:51 07/04/20 Maggy Estrada R.N. 4 Clinical Report - Nurses [facility] [address] [place] [address] Phone #: ext- [phone] 07/03/2020 23:28 Patient: JORJE FONSECA Sex: F : 2000 Age: 19y 03:50 07/04/20. BP: deferred. HR: deferred. RR: 16. O2 saturation: 99%. Temp: 98.9 F. Pain level now: 01/24. --03:51 07/04/20 Maggy Estrada R.N.Locked/Released at 07/04/2020 03:54 by Maggy Estrada R.N. Name Value Range Interpretation Code Description Data Tasha rce(s) Supporting Document(s) ID Date Data Source [id number] 07/03/2020 11:54:00 PM EDT [facility] 1 Clinical Report - Physicians/Mid Levels [facility] [address] [place] [address] Phone #: ext- [phone] 07/03/2020 23:28 Patient: JORJE FONSECA Sex: F : 2000 Age: 19y Time Seen: 23:38 07/03/2020; initial patient contact. Arrived- By private vehicle. Historian- patient. Disposition decision: 03:40 07/04/2020.HISTORY OF PRESENT ILLNESS Chief Complaint: PELVIC PAIN. This started 5 days ago and still present. It has been intermittent. The symptoms are described as moderate. Modifying factors. Not worsened by anything. Not relieved by anything. The patient has had moderate, intermittent, dull, aching suprapubic and left-sided pelvic pain with a vaginal discharge. She has had abnormal bleeding described as spotting from 8-12 to 8-14, maybe light period? She has had a scant amount of vaginal discharge. No abdominal pain, vaginal pain, low back pain, flank pain or pain with urination. No urinary frequency, urgency of urination or hematuria. Sexually active- heterosexual. (pt is taking Valtrex for recurrent Herpes Genitalis). Similar symptoms previously. Patient has had similar symptoms occasionally. Recent medical care: Not recently seen/assessed.REVIEW OF SYSTEMSThe patient has had mild nausea. No vomiting, d iarrhea, black stools, headache or fever. No chills,anorexia, eye discomfort, sore throat or cough. No difficulty breathing, chest pain, skin rash, enlargedlymph nodes or joint pain. All other systems reviewed and are negative.PAST HISTORYSee nurses notes. Has not had a pelvic infection. No history of sexually transmitted disease. Problems: STD - Sexually Transmitted Disease. PTSD. Borderline personality disorder. Bipolar Disorder. Depression. Anxiety Reaction. Asthma. Herpes. Additional Surgeries: Biopsy. Oral surgery 2012. Medications: 2 Clinical Report - Physicians/Mid Levels [facility] [address] [place] [address] Phone #: ext- [phone] 07/03/2020 23:28 Patient: JORJE FONSECA Sex: F : 2000 Age: 19y Albuterol Sulfate HFA Inhalation. valACYclovir HCl Oral (Tablet 1 gm), 2x a day. Allergies: "numbing solution". Ceclor.SOCIAL HISTORYLight tobacco smoker- less than 1/2 a pack per day. History of occasional drug use: marijuana. Noalcohol use.ADDITIONAL NOTESThe nursing notes have been reviewed with agreement regarding the chief complaint, HPI, ROS, PMH andpatient medications and allergies.PHYSICAL EXAMVital Signs: 07/03/2020 23:31 BP: 112/57. MAP: 75. HR: 68. RR: 18. O2 saturation: 100%. Temp: 99.2 F.Pain level now: 08/26. Have been reviewed. Oxygen saturation normal.Appearance: Alert. Oriented X3. No acute distress.HEENT: Normal external inspection.ENT: Pharynx normal.Neck: Neck supple.CVS: Heart sounds normal.Respiratory: No respiratory distress. Painless inspiration. Breath sounds normal. Chest nontender.Abdomen: Soft. Mild tenderness in the left lower quadrant and lower abdomen. No guarding or reboundtenderness. Bowel sounds normal. No organomegaly. No mass.Back: Normal external inspection. No CVA tenderness.: External inspection normal. Speculum exam normal. Slight vaginal bleeding, via the cervical os.No vaginal discharge. No cervical dilation. No herpes-like lesions. Bimanual exam normal. Notenderness present on bimanual exam. Uterus not enlarged. No uterine tenderness. No tendernesswith movement of the cervix. No adnexal tenderness. No pelvic mass.Skin: Skin warm and dry. Normal skin color. No rash. Normal skin turgor.Extremities: Extremities nontender. No lower extremity edema.Neuro: Oriented X 3. Mood/affect normal. No motor deficit. No sensory deficit.LABS, X- RAYS, AND EKGPelvic Sonogram: REPORT SUBMISSION DATE: Jul 04, 2020 3:29:59 AM EDT NAME: JORJE FONSECA STUDY INITIATED: Jul 04, 2020 2:23:07 AM EDT STUDY RECEIVED: Jul 04, 2020 2:50:28 AM EDT GENDER: F MODALITY TYPE: US\\SR 3 Clinical Report - Physicians/Mid Levels [facility] [address] [place] [address] Phone #: ext- [phone] 07/03/2020 23:28 Patient: JORJE FONSECA Sex: F : 2000 Age: 19yDOB: [birth year] DESCRIPTION: US TRANSVAGINAL(NON OB)INSTITUTION: [facility] ORDERING PHYSICIAN: Delmis BeltranION #: [id number] HISTORY:ULTRASOUND PELVIS TRANSVAGINALCOMPARISON: NoneHISTORY: US TRASNVAGINAL PELVIC PAINTECHNIQUE:Ultrasound images through the pelvis obtained via transvaginal approach.FINDINGS:The uterus measures 6.3 x 2.5 x 4.6 cm. Endometrial stripe is not thickened.The right ovary measures 3.3 x 3.0 x 2.0 cm. Left ovary measures 2.2 x 2.6 x 1.7 cm. Doppler flow isdetected in the ovaries bilaterally.No free fluid or adnexal mass.ImpressionUnremarkable transvaginal pelvic ultrasound.Electronically signed on Jul 04, 2020 3:29:59 AM EDT by:Ambika Gilliam, [place] [employer]. Study type: transvaginal evaluation. The study was interpretedby the radiologist.Laboratory Tests: Laboratory tests have been ordered, with results reviewed and considered in themedical decision making process.US TRANSVAGINAL (NON OB): (LESLIE: 07/04/2020 01:37) ( MsgRcvd 07/04/2020 03:30) Final resultsUS TRANSVAGINAL(NON OB)Reason(s): Left sided pelvic pain w spotting, not TRANSPORTATION: WC IV? O2? Oxygen?(No) Room: ED Exam US TRANSVAGINAL(NON OB) [place] [address] ---------NAME--------- NUMBER SEX AGE ADMIT DISC. XRAY# F/C TYPE RAYMUNDO RECINOS [id number] F 19 07/03/20 [id number] NA E/R DATE OF : 2000 M/R# [id number] #: [id number] TR-04 LOCATION: EMERGENCY DEPT TRANSCRIBED: 07/04/20 3:29 IF US TRANSVAGINAL(NON OB) [id number] COMPLETED:07/04/20 3:30 holly [id number] Reason(s): Left sided pelvic pain w spotting, not 4 Clinical Report - Physicians/Mid Levels [facility] [address] [place] [address] Phone #: ext- [phone] 07/03/2020 23:28 Patient: JORJE FONSECA Sex: F : 2000 Age: 19y PHYSICIAN: CHER LERMA ===== R A D I O L O G Y R E P O R T PATIENT HISTORY: US TRASNVAGINAL PELVIC PAIN ULTRASOUND PELVIS TRANSVAGINAL COMPARISON: None HISTORY: US TRASNVAGINAL PELVIC PAIN TECHNIQUE: Ultrasound images through the pelvis obtained via transvaginal approach. FINDINGS: The uterus measures 6.3 x 2.5 x 4.6 cm. Endometrial stripe is not thickened. The right ovary measures 3.3 x 3.0 x 2.0 cm. Left ovary measures 2.2 x 2.6 x 1.7 cm. Doppler flow is detected in the ovaries bilaterally. No free fluid or adnexal mass. IMPRESSIONS: Unremarkable transvaginal pelvic ultrasound. Electronically Signed By: Wesley Ball M.D. , Radiologist Date/Time: 07/04/20 03:29CBC w Diff: (LESLIE: 07/04/2020 00:10) ( MsgRcvd 07/04/2020 00:19) Final results Test Result Flag Units (Reference) CBC W/AUTOMATED DIFF COMPLETE BLOOD COUNT WBC 9.1 10/uL (4.2 - 11.0) RBC 4.29 10/uL (4.20 - 5.40) HEMOGLOBIN 13.0 g/dL (12.0 - 16.0) HEMATOCRIT 38.3 % (37.0 - 47.0) MCV 89.3 fL (81.0 - 101) MCH 30.3 pg (27.0 - 34.0) MCHC 33.9 g/dL (31.0 - 36.0) RDW 12.7 % (11.5 - 14.5) PLATELETS 327 10/uL (150 - 450) MPV 9.1 fL (7.4 - 10.4) NEUT 51.9 % (37.0 - 80.0) LYMPH 40.8 H % (25.0 - 40.0) MONO 5.5 % (3.0 - 8.0) EOS 1.2 % (0.0 - 7.0) BASO 0.4 % (0.0 - 2.5) %IG 0.2 H % (0.0 - 0.0) %NRBC 0.0 % (0.0 - 0.0) #NEUT 4.71 10/uL (2.00 - 6.90) #LYMPH 3.71 H 10/uL (0.60 - 3.40) #MONO 0.50 10/uL (0.00 - 0.90) #EOS 0.11 10/uL (0.00 - 0.70) 5 Clinical Report - Physicians/Mid Levels [facility] [address] [place] [address] Phone #: ext- [phone] 07/03/2020 23:28 [id number] Sex[facility] : 2000 Age: 19y #BASO 0.04 10/uL (0.00 - 0.20) #IG 0.02 10/uL (0.00 - 0.10) #NRBC 0.00 10/uL (0.00 - 0.00) MANUAL DIFF NOT INDICATED RBC MORPH NOT INDICATEDCMP: (LESLIE: 07/04/2020 00:10) ( MsgRcvd 07/04/2020 00:45) Final results Test Result Flag Units (Reference) COMPREHENSIVE METABOLIC PANEL COMPREHENSIVE METABOLIC PANEL SODIUM 140 mEq/L (134 - 153) POTASSIUM 3.8 mEq/L (3.6 - 5.0) CHLORIDE 105 mEq/L (98 - 107) CO2 25 MEQ/L (22 - 30) GLUCOSE 93 MG/DL (65 - 110) BUN 14 MG/DL (7 - 21) CREATININE 0.8 MG/DL (0.7 - 1.5) BUN/CREAT 18 (8 - 27) TOTAL PROTEIN 6.9 G/DL (6.3 - 8.2) ALBUMIN 4.6 G/DL (3.9 - 5.0) GLOBULIN 2.3 L GM/DL (2.4 - 3.2) A/G RATIO 2.0 (0.8 - 2.0) CALCIUM 9.3 MG/DL (8.4 - 10.2) TOTAL BILI <0.7 MG/DL (0.2 - 1.3) ALKALINE PHOS 80 U/L (38 - 126) SGOT/AST 14 U/L (5 - 40) SGPT/ALT 13 U/L (7 - 56) ANION GAP 10.0 mmol/L (8.0 - 16.0) AGE 20 yrs NON-AA GFR >60 mL/min AFR AMER GFR >60 mL/min Male GFR Interprentation 20-49 yrs >60 mL/min [id number] yrs >56 mL/min Normal 60-69 yrs >49 mL/min Normal 70-79yrs>42 mL/min Normal 80 and above >35 mL/min Normal Female GFRInterpretation 20-39 yrs >60 mL/min Normal 40-49 yrs >58 mL/minNormal 50-59 yrs >51 mL/min Normal 60-69 yrs >45 mL/min [id number] yrs >39 mL/min Normal 80 and above >32 mL/min NormalBeta-HCG, Qual Serum: (LESLIE: 07/04/2020 00:10) ( NegRcvd 07/04/2020 00:26) Final results Test Result Flag Units (Reference) HCG SERUM QUAL NEGATIVE (NORMAL: NEGAT HCG SERUM QL REENTER NEGATIVE (NORMAL: NEGAT { KIT LOT # [id number] ){ KIT EXP [id number] ){ PROCEDURAL CONTROL VALID)Type Rh: (LESLIE: 07/04/2020 00:10) ( [facility] 07/04/2020 01:08) Final results Test Result Flag Units (Reference) ABO GROUP A RH TYPE POSITIVE { ABO/RH REENTER A POSITIVEUrinalysis: (LESLIE: 07/03/2020 23:50) ( [facility] 07/04[facility]16) Final results Test Result Flag Units (Reference) 6 Clinical Report - Physicians/Mid Levels [facility] [address] [place] [address] Phone #: ext- [phone] 07/03/2020 23:28 Patient: JORJE FONSECA Sex: F : 2000 Age: 19y URINALYSIS URINALYSIS SOURCE R COLOR yellow (NORMAL: Yello CLARITY cloudy (NORMAL: Clear SPEC GRAVITY 1.015 (1.001 - 1.030 pH 8 (5 - 9) GLUCOSE NORM (NORMAL: Negat BILIRUBIN NEG (NORMAL: Negat KETONE NEG (NORMAL: Negat PROTEIN NEG (NORMAL: Negat NITRITE NEG (NORMAL: Negat BLOOD NEG (NORMAL: Negat LEUK EST NEG (NORMAL: Negat UROBILINOGEN NOR (less than 1.0 MICROSCOPIC Not Indicate CRP: (LESLIE: 07/04/2020 00:10) ( MsgRcvd 07/04/2020 00:35) Final results Test Result Flag Units (Reference) CRP-HS 1.26 MG/L (1.00 - 3.00) CDC/S HS-CRP CUT-OFF: RELATIVE RISK: <1.0 mg/L Low 1.0 - 3.0 mg/L Average >3.0 mg/L High Optimally, the average of HS-CRP results repeated two weeks apart should be used for risk assessment..PROGRESS AND PROCEDURESCourse of Care: 01:26 07/04/20. w orkup all in and reviewed and nml, incl. CRP, UA; pt is doing markedlywell, abdomen soft, minimal left pelvic pain; pelvic swabs results pending; will do pelvic US before d/c 03:40 07/04/20. pelvic US (TV) results back and nml; pt will be d/c home w instructions to f/u w her HOUSEKEEPING STAFF in next few days; she agrees. Critical care performed (60 minutes). Time is exclusive of separately billable procedures. Time includes: direct patient care, interpretation of data (laboratory data) and documentation of patient care- see progress notes. Patient counseled in person regarding the patient's stable condition, test results, diagnosis and need for follow-up. Patient agrees with plan of care. Disposition: Condition: good and stable. Discharge decision based on the following: patient's condition is stable; patient's condition is improved; patient is ambulatory; patient is active; patient drinking fluids; patient eating; patient's pain is controlled; patient's exam is improved; no abnormal test results; improving condition on multiple repeat evaluations; social support is good; transportation is available; follow-up is available; clinical impression is consistent with outpatient treatment.CLINICAL IMPRESSION 7 Clinical Report - Physicians/Mid Levels [facility] Emergency Department [address] [place] [address] Phone #: [phone] 07/03/2020 23:28 Patient: JORJE FONSECA Sex: F : 2000 Age: 19y Acute pelvic pain. (Resolved).INSTRUCTIONS Drink plenty of fluids. No sexual contact. Do not smoke. No alcohol. (PLEASE FOLLOW UP WITH YOUR HOUSEKEEPING STAFF IN NEXT 2 DAYS FOR FURTHER WORKUP OF YOUR PELVIC PAIN NEEDED). Warnings: Further evaluation is necessary in order to conduct further tests (your HOUSEKEEPING STAFF). It is very important to follow up with a healthcare provider. GENERAL WARNINGS: Return or contact your physician immediately if your condition worsens or changes unexpectedly, if not improving as expected, or if other problems arise. Specifically return if pain, vomiting, bleeding, breathing difficulty or fever greater than 102 degrees F and not controlled by acetaminophen or ibuprofen worsens. Your Current Medications: Your current home medications have been reviewed. CONTINUE TAKING THE FOLLOWING MEDICATIONS: Albuterol Sulfate HFA In halation. valACYclovir HCl Oral : Tablet 1 gm, 2x a day. Follow-up: Return to the emergency department as needed. Follow up with a transit bus driver in two days even if well. Call for an appointment. Reason for referral: evaluation and treatment. Summary of care provided to patient via paper. Understanding of the discharge instructions verbalized by patient. Expected course of illness, discharge instructions, activity level, diet, follow-up appointment and risks and benefits of treatment reviewed with patient and understanding verbalized. Agrees to plan of care.(Electronically signed by Delmis Kwon M.D. 07/04/2020 06:17) Name Value Range Interpretation Code Description Data Tasha rce(s) Supporting Document(s) ID Date Data Source [id number] 07/04/2020 03:29:00 AM EDT [address] [address] ---------NAME--------- NUMBER SEX AGE ADMIT DISC. XRAY# F/C TYPE RAYMUNDO RECINOS [id number] 07/03/20 [id number] NA E/R DATE OF : 2000 M/R# [id number] #: [id number] TR-04 LOCATION: EMERGENCY DEPT TRANSCRIBED: 07/04/20 3:29 IF US TRANSVAGINAL(NON OB) 60614 COMPLETED:07/04/20 3:30 holly 14733 Reason(s): Left sided pelvic pain w spotting, not PHYSICIAN: CHER FLORENTIN == R A D I O L O G Y R E P O R T PATIENT HISTORY:US TRASNVAGINAL PELVIC PAINULTRASOUND PELVIS TRANSVAGINALCOMPARISON: NoneHISTORY: US TRASNVAGINAL PELVIC PAINTECHNIQUE:Ultrasound images through the pelvis obtained via transvaginal approach.FINDINGS:The uterus measures 6.3 x 2.5 x 4.6 cm. Endometrial stripe is not thickened.The right ovary measures 3.3 x 3.0 x 2.0 cm. Left ovary measures 2.2 x 2.6 x 1.7cm. Doppler flow is detected in the ovaries bilaterally.No free fluid or adnexal mass.IMPRESSIONS:Unremarkable transvaginal pelvic ultrasound.Electronically Signed By:Wesley Ball M.D. , RadiologistDate/Time: 07/04/20 03:29 Name Value Range Interpretation Code Description Data Tasha rce(s) Supporting Document(s) ID Date Data Source [id number] 07/08/2020 10:29:00 AM EDT [facility] Name Value Range Interpretation Code Description Data Tasha rce(s) Supporting Document(s) CULTURE GENITAL [facility] _GENITAL CULTURE_$$[id number]$$[id number]$$ [id number]$$[id number]$$[id number]$$[id number] DATE/TIME: 07/08/2020 10:06Culture: CULTURE GENITAL Status: FinalGenital Culture, Routine: [id number] genital cait.Heavy growthIsolate 1 Yeast Flag: A . . . . . . .6isolatedScant growthRequest for further identification must be madewithin 1 week.Yeast Flag: AP1 Test performed [facility]: [facility] #: [id number] [address] [phone] [facility] [phone] Director : Tha Still MD NPI #: -- Continued on next page --Patient: RAYMUNDO RECINOS Order: [id number] Page 2Culture: CULTURE GENITAL Status: Final ====Apartment Rental Clerk : 07/08/20.1030.XMT.SENT REF ID Date Data Source [id number] 07/06/2020 06:23:00 AM EDT [facility] Name Value Range Interpretation Code Description Data Tasha rce(s) Supporting Document(s) Chlamydia trachomatis rRNA [Presence] in Unspecified specimen by Probe and target amplification method Negative Negative [facility] Neisseria gonorrhoeae rRNA [Presence] in Unspecified specimen by Probe and target amplification method Negative Negative [facility] ID Date Data Source [id number] 07/06/2020 06:18:00 AM EDT [facility] Name Value Range Interpretation Code Description Data Tasha rce(s) Supporting Document(s) Maritza sp rRNA [Presence] in Vaginal fluid by DNA probe Negative N egative [facility] Gardnerella vaginalis rRNA [Presence] in Genital specimen by DNA probe Negative Negative [facility] Trichomonas vaginalis rRNA [Presence] in Genital specimen by DNA probe Negative Negative [facility] ID Date Data Source [id number] 07/04/2020 01:08:00 AM EDT [facility] Name Value Range Interpretation Code Description Data Tasha rce(s) Supporting Document(s) ABO group [Type] in Blood A [facility] Rh [Type] in Blood POSITIVE [facility] { ABO/RH REENTER A POSITIVE ID Date Data Source [id number] 07/04/2020 12:45:00 AM EDT [facility] Name Value Range Interpretation Code Description Data Tasha rce(s) Supporting Document(s) COMPREHENSIVE METABOLIC PANEL [facility] COMPREHENSIVE METABOLIC PANEL Sodium [Moles/volume] in Serum or Plasma 140 mEq/L 134 - 153 [facility] Potassium [Moles/volume] in Serum or Plasma 3.8 mEq/L 3.6 - 5.0 [facility] Chloride [Moles/volume] in Serum or Plasma 105 mEq/L 98 - 107 [facility] Carbon dioxide, total [Moles/volume] in Serum or Plasma 25 MEQ/L 22 - 30 [facility] Glucose [Mass/volume] in Serum or Plasma 93 MG/DL 65 - 110 [facility] BUN 14 MG/DL 7 - 21 [facility] al Creatinine [Mass/volume] in Serum or Plasma 0.8 MG/DL 0.7 - 1.5 [facility] BUN/CREAT 18 8 - 27 [facility] Protein [Mass/volume] in Serum or Plasma 6.9 G/DL 6.3 - 8.2 [facility] Albumin [Mass/volume] in Serum or Plasma 4.6 G/DL 3.9 - 5.0 [facility] Globulin [Mass/volume] in Serum by calculation 2.3 GM/DL 2.4 - 3.2 L [facility] A/G RATIO 2.0 0.8 - 2.0 [facility] Calcium [Mass/volume] in Serum or Plasma 9.3 MG/DL 8.4 - 10.2 [facility] Bilirubin.total [Mass/volume] in Serum or Plasma <0.7 MG/DL 0.2 - 1.3 [facility] Alkaline phosphatase [Enzymatic activity/volume] in Serum or Plasma 80 U/L 38 - 126 [facility] Aspartate aminotransferase [Enzymatic activity/volume] in Serum or Plasma 14 U/L 5 - 40 [facility] Alanine aminotransferase [Enzymatic activity/volume] in Seru m or Plasma 13 U/L 7 - 56 [facility] Anion gap 3 in Serum or Plasma 10.0 mmol/L 8.0 - 16.0 [facility] AGE 19 yrs [facility] al NON-AA GFR >60 mL/min [facility] ital AFR AMER GFR >60 mL/min [facility] sp[facility] Male GFR In terprentation 20-49 yrs >60 mL/min Normal 50-59 yrs >56 mL/min Normal 60-69 yrs >49 mL/min Normal 70-79yrs >42 mL/min Normal 80 and above >35 mL/min Normal Female GFR Interpretation 20-39 yrs >60 mL/min Normal 40-49 yrs >58 mL/min Normal 50-59 yrs >51 mL/min Normal 60-69 yrs >45 mL/min Normal 70-79 yrs >39 mL/min Normal 80 and above >32 mL/min Normal ID Date Data Source [id number] 07/04/2020 12:35:00 AM EDT [facility] Name Value Range Interpretation Code Description Data Tasha rce(s) Supporting Document(s) C reactive protein [Mass/volume] in Serum or Plasma by High sensitivity method 1.26 MG/L 1.00 - 3.00 [facility] CDC/S HS-CRP CUT-OFF: RELATIVE RISK: <1.0 mg/L Low 1.0 - 3.0 mg/L Average >3.0 mg/L High Optimally, the average of HS-CRP results repeated two weeks apart should be used for risk assessment. ID Date Data Source [id number] 07/04/2020 12:26:00 AM EDT [facility] Name Value Range Interpretation Code Description Data Tasha rce(s) Supporting Document(s) HCG SERUM QUAL NEGATIVE NORMAL: NEGATIVE [facility] HCG SERUM QL REENTER NEGATIVE NORMAL: NEGATIVE [facility] { KIT LOT # [id number] ){ KIT EXP DATE 08-29-21 ){ PROCEDURAL CONTROL VALID ) ID Date Data Source [id number] 07/04/2020 12:18:00 AM EDT [facility] Name Value Range Interpretation Code Description Data Tasha rce(s) Supporting Document(s) CBC W/AUTOMATED DIFF [facility] COMPLETE BLOOD COUNT Leukocytes [#/volume] in Blood by Automated count 9.1 10^3/uL 4.2 - 1 1.0 [facility] Erythrocytes [#/volume] in Blood by Automated count 4.29 10^6/uL 4. 20 - 5.40 [facility] Hemoglobin [Mass/volume] in Blood 13.0 g/dL 12.0 - 16.0 [facility] Hematocrit [Volume Fraction] of Blood by Automated count 38.3 % 3 7.0 - 47.0 [facility] Erythrocyte mean corpuscular volume [Entitic volume] by Auto mated count 89.3 fL 81.0 - 101 [facility] Erythrocyte mean corpuscular hemoglobin [Entitic mass] by Automated count 30.3 pg 27.0 - 34.0 [facility] Erythrocyte mean corpuscular hemoglobin concentration [Mass/volume] by Automated count 33.9 g/dL 31.0 - 36.0 [facility] Erythrocyte distribution width [Ratio] by Automated count 12.7 % 11.5 - 14.5 [facility] Platelets [#/volume] in Blood by Automated count 327 10^3/uL 150 - 45 0 [facility] Platelet mean volume [Entitic volume] in Blood by Automated count 9.1 fL 7.4 - 10.4 [facility] Neutrophils/100 leukocytes in Blood by Automated count 51.9 % 37. 0 - 80.0 [facility] Lymphocytes/100 leukocytes in Blood by Manual count 40.8 % 25.0 - 40.0 H [facility] Monocytes/100 leukocytes in Blood by Automated count 5.5 % 3.0 - 8.0 [facility] Eosinophils/100 leukocytes in Blood by Automated count 1.2 % 0.0 - 7.0 [facility] Basophils/100 leukocytes in Blood by Automated count 0.4 % 0.0 - 2.5 [facility] %IG 0.2 % 0.0 - 0.0 [facility] %NRBC 0.0 % 0.0 - 0.0 [facility] al Neutrophils [#/volume] in Blood by Automated count 4.71 10^3/uL 2.00 - 6.90 [facility] Lymphocytes [#/volume] in Blood by Automated count 3.71 10^3/uL 0.60 - 3.40 H [facility] Monocytes [#/volume] in Blood by Automated count 0.50 10^3/uL 0.00 - 0.90 [facility] Eosinophils [#/volume] in Blood by Automated count 0.11 10^3/uL 0.00 - 0.70 [facility] Basophils [#/volume] in Blood by Automated count 0.04 10^3/uL 0.00 - 0.20 [facility] #IG 0.02 10^3/uL 0.00 - 0.10 [facility] #NRBC 0.00 10^3/uL 0.00 - 0.00 [facility] ospital MANUAL DIFF NOT INDICATED [facility] RBC MORPH NOT INDICATED [facility] spital ID Date Data Source [id number] 07/07/2020 12:10:00 PM EDT [facility] Name Value Range Interpretation Code Description Data Tasha rce(s) Supporting Document(s) CULTURE URINE [facility] _CULTURE URINE_$$[id number]$$[id number]$$[id number]$$[id number]$$[id number]$$[id number]$$[id number]$$[id number]$$[id number]$$ [id number]$$[id number]$$[id number]$$[id number]$$[id number]$$[id number]$$[id number]$$597633$$[id number]$$[id number]$$ [id number]$$[id number]$$[id number]$$273392$$[id number]$$[id number]$$[id number]$$[id number] -- Continued on next page --Patient: RAYMUNDO RECINOS Order: [id number] Page 2Culture: CULTURE URINE Status: Final ==== -- Continued on next page --Patient: RAYMUNDO RECINOS Order: [id number] Page 2Culture: CULTURE URINE Status: Prelim =====$$[id number]$$[id number] DATE/TIME: 07/07/2020 12:06Culture: CULTURE URINE Status: FinalIsolate 1 Escherichia coli Flag: A . . . . . . .110,000-25,000 colony forming units per mLCefazolin <=4 ug/mLCefazolin with an ASHLEY <=16 predicts susceptibility to the oral agentscefaclor, cefdinir, cefpodoxime, cefprozil, cefuroxime, cephalexin,and loracarbef when used for therapy of uncomplicated urinary tractinfections due to E. coli, Klebsiella pneumoniae, and Proteusmirabilis. Previous result entered on 07/06/2020 01:13 ET Escherichia coliUrine Culture,Comprehensive: [id number] coli Flag: APatient: RAYMUNDO RECINOS Order: [id number] Page 3Culture: CULTURE URINE Status: Final ISOLATE 1 Escherichia coli Isolate 1Antibiotic ASHLEY IntUnits ug/mL ----Amoxicillin/Clavulanic Acid S S . . . . . .20-8Ampicillin S S . . . . . .28-1Cefepime S S . . . . . .6644-9Ceftriaxone S S . . . . . .141-2Cefuroxime S S . . . . . .145- 3Ciprofloxacin S S . . . . . .185-9Ertapenem S S . . . . . .05549-8Wpqxvlhabh S S . . . . . .267-5Imipenem S S . . . . . .279-0Levofloxacin S S . . . . . .60466-6Abniqqjin S S . . . . . .6652-2Nitrofurantoin S S . . . . . .363-2Piperacillin/Tazobactam S S . . . . . .412-7Tetracycline S S . . . . . .496-0Tobramycin S S . . . . . .508-2Trimethoprim/Sulfa S S . . . . . .516-5P1 Test performed by: [facility] #: [id number] [address] [place] [id number] [facility] [phone] Director : Tha Still MD NPI #:Apartment Rental Clerk : 07/06/20.0626.XMT.SENT REF 07/07/20.1210.XMT.SENT REF ID Date Data Source [id number] 07/04/2020 12:16:00 AM EDT [facility] Name Value Range Interpretation Code Description Data Tasha rce(s) Supporting Document(s) URINALYSIS [facility] URINALYSIS SOURCE R [facility] COLOR yellow NORMAL: Yellow [facility] CLARITY cloudy NORMAL: Clear [facility] Specific gravity of Urine by Test strip 1.015 1.001 - 1.030 [facility] pH 8 5 - 9 [facility] Glucose [Mass/volume] in Urine by Test strip NORM NORMAL: Negat tej [facility] Bilirubin.total [Presence] in Urine by Test strip NEG NORMAL: Negative [facility] Ketones [Presence] in Urine by Test strip NEG NORMAL: Negative [facility] Protein [Mass/volume] in Urine by Test strip NEG NORMAL: Negat tej [facility] Nitrite [Presence] in Urine by Test strip NEG NORMAL: Negative [facility] BLOOD NEG NORMAL: Negative [facility] Leukocyte esterase [Presence] in Urine by Test strip NEG SERGEY L: Negative [facility] Urobilinogen [Mass/volume] in Urine by Test strip NOR less donis n 1.0 mg/dL [facility] MICROSCOPIC Not Indicate [facility] Procedure Social History Code Duration Value Status Description Data Source(s ) Smoking 11/24/2020 12:00:00 AM EST Former Smoker completed Former Smoker eCW1 ([facility]) Smoking 11/20/2020 12:00:00 AM EST Former Smoker completed Former Smoker eCW1 ([facility]) Smoking 10/27/2020 12:00:00 AM EST Former Smoker completed Former Smoker eCW1 ([facility]) Smoking 10/27/2020 12:00:00 AM EST Former Smoker completed Former Smoker eCW1 ([facility]) Smoking 10/27/2020 12:00:00 AM EST Former Smoker completed Former Smoker eCW1 ([facility]) Smoking 10/27/2020 12:00:00 AM EST Former Smoker completed Former Smoker eCW1 ([facility]) Smoking 10/27/2020 12:00:00 AM EST Former Smoker completed Former Smoker eCW1 ([facility]) Smoking 10/27/2020 12:00:00 AM EST Former Smoker completed Former Smoker eCW1 ([facility]) Smoking 09/29/2020 12:00:00 AM EST Current Smoker completed Curre nt Smoker eCW1 ([facility]) Smoking 09/29/2020 12:00:00 AM EST Current Smoker completed Curre nt Smoker eCW1 ([facility]) Smoking 03/22/2020 12:00:00 AM EDT Current Smoker completed Curre nt Smoker eCW1 ([facility]) Smoking 03/22/2020 12:00:00 AM EDT Current Smoker completed Curre nt Smoker eCW1 ([facility]) Smoking 03/22/2020 12:00:00 AM EDT Current Smoker completed Curre nt Smoker eCW1 ([facility]) Smoking 03/22/2020 12:00:00 AM EDT Current Smoker completed Curre nt Smoker eCW1 ([facility]) Vital Signs ID Date Data Source UNK Name Value Range Interpretation Code Description Data Source(s) Meredith body weight 110 [lb_av] 110 [lb_av] MEDEN T ([facility], ) Body mass index (BMI) [Ratio] 23.8 kg/m2 23.8 k g/m2 MEDENT ([facility]) Body weight 130.00 [lb_av] 130.00 [lb_av] MEDEN T ([facility]) Body height 62 [in_i] 62 [in_i] MEDENT ([facility]) 5'2" Respiratory rate 12 /min 12 /min MEDENT ( [facility]) Diastolic blood pressure 67 mm[Hg] 67 mm[Hg] eCW1 ([facility]) Systolic blood pressure 104 mm[Hg] 104 mm[Hg] e CW1 ([facility]) Body temperature 98.6 [degF] 98.6 [degF] eCW1 ( [facility]) Respiratory rate 17 /min 17 /min eCW1 ([facility]) Heart rate 85 /min 85 /min eCW1 ([facility]) Body mass index (BMI) [Ratio] 24.56 kg/m2 24.56 kg/m2 eCW1 ([facility]) Body height 61 [in_i] 61 [in_i] eCW1 ([facility]) Body weight 130 [lb_av] 130 [lb_av] eCW1 ([facility]) Diastolic blood pressure 56 mm[Hg] 56 mm[Hg] eCW1 ([facility]) Systolic blood pressure 127 mm[Hg] 127 mm[Hg] e CW1 ([facility]) Body temperature 98.6 [degF] 98.6 [degF] eCW1 ( [facility]) Respiratory rate 17 /min 17 /min eCW1 ([facility]) Heart rate 78 /min 78 /min eCW1 ([facility]) Body mass index (BMI) [Ratio] 24.37 kg/m2 24.37 kg/m2 eCW1 ([facility]) Body height 61 [in_i] 61 [in_i] eCW1 ([facility]) Body weight 129 [lb_av] 129 [lb_av] eCW1 ([facility]) Diastolic blood pressure 55 mm[Hg] 55 mm[Hg] eCW1 ([facility]) Systolic blood pressure 94 mm[Hg] 94 mm[Hg] e CW1 ([facility]) Body temperature 99.6 [degF] 99.6 [degF] eCW1 ( [facility]) Respiratory rate 17 /min 17 /min eCW1 ([facility]) Heart rate 72 /min 72 /min eCW1 ([facility]) Body mass index (BMI) [Ratio] 24.33 kg/m2 24.33 kg/m2 eCW1 ([facility]) Body height 61 [in_i] 61 [in_i] eCW1 ([facility]) Body weight 128.8 [lb_av] 128.8 [lb_av] eCW1 ([facility]placed by [facility]) Body mass index (BMI) [Ratio] 25.13 kg/m2 25.13 kg/m2 eCW1 ([facility]) Body height 61 [in_us] 61 [in_us] eCW1 ([facility]) Body weight Measured 133 [lb_av] 133 [lb_av] eC W1 ([facility]) Body surface area 1.60 m2 1.60 m2 MEDENT ([facility]) Body mass index (BMI) [Ratio] 23.6 kg/m2 23.6 k g/m2 MED[facility] ([facility] [employer] [facility]) Body weight 130.00 [lb_av] 130.00 [lb_av] MEDEN T ([facility] [employer] [facility]) Body height 62.25 [in_i] 62.25 [in_i] MEDENT ([facility] [employer]) 5'2.25" Diastolic blood pressure 62 mm[Hg] 62 mm[Hg] MEDENT ([facility] [employer]) Systolic blood pressure 106 mm[Hg] 106 mm[Hg] M EDENT ([facility] [employer]) Body mass index (BMI) [Ratio] 25.51 kg/m2 25.51 kg/m2 eCW1 ([facility]) Body height 61 [in_us] 61 [in_us] eCW1 ([facility]) Body weight Measured 135 [lb_av] 135 [lb_av] eC W1 ([facility]) Diastolic blood pressure 62 mm[Hg] 62 mm[Hg] eCW1 ([facility]) Systolic blood pressure 108 mm[Hg] 108 mm[Hg] e CW1 ([facility]) Body temperature 98.4 [degF] 98.4 [degF] eCW1 ( [facility]) Respiratory rate 16 /min 16 /min eCW1 ([facility]) Heart rate 79 /min 79 /min eCW1 ([facility]) Diastolic blood pressure 55 mm[Hg] 55 mm[Hg] eCW1 ([facility]) Systolic blood pressure 116 mm[Hg] 116 mm[Hg] e CW1 ([facility]) Body temperature 98.9 [degF] 98.9 [degF] eCW1 ( [facility]) Respiratory rate 18 /min 18 /min eCW1 ([facility]) Heart rate 79 /min 79 /min eCW1 ([facility]) Body mass index (BMI) [Ratio] 25.51 kg/m2 25.51 kg/m2 eCW1 ([facility]) Body height 61 [in_us] 61 [in_us] eCW1 ([facility]) Body weight Measured 135 [lb_av] 135 [lb_av] eC W1 ([facility]) Diastolic blood pressure 54 mm[Hg] 54 mm[Hg] eCW1 ([facility]) Systolic blood pressure 100 mm[Hg] 100 mm[Hg] e CW1 ([facility]) Body temperature 97.5 [degF] 97.5 [degF] eCW1 ( [facility]) Respiratory rate 18 /min 18 /min eCW1 ([facility]) Heart rate 79 /min 79 /min eCW1 ([facility]) Body mass index (BMI) [Ratio] 26.07 kg/m2 26.07 kg/m2 eCW1 ([facility]) Body height 61 [in_us] 61 [in_us] eCW1 ([facility]) Body weight Measured 138 [lb_av] 138 [lb_av] eC W1 ([facility]) Diastolic blood pressure 56 mm[Hg] 56 mm[Hg] eCW1 ([facility]) Systolic blood pressure 110 mm[Hg] 110 mm[Hg] e CW1 ([facility]) Body temperature 98.1 [degF] 98.1 [degF] eCW1 ( [facility]) Respiratory rate 18 /min 18 /min eCW1 ([facility]) Heart rate 82 /min 82 /min eCW1 ([facility]) Body mass index (BMI) [Ratio] 26.45 kg/m2 26.45 kg/m2 eCW1 ([facility]) Body height 61 [in_us] 61 [in_us] eCW1 ([facility]) Body weight Measured 140 [lb_av] 140 [lb_av] eC W1 ([facility]) ID Date Data Source [id number] 07/18/2020 12:50:00 PM EDT [facility] Name Value Range Interpretation Code Description Data Source(s) WEIGHT 58.8 kilos 58.8 kilos [facility] al HEIGHT 154.94 centimeters 154.94 centimeter [facility] WEIGHT 59.0909 kilos 59.0909 kilos [facility] HEIGHT 154.94 centimeters 154.94 centimeter [facility] Patient Treatment Plan of Care Planned Activity Planned Date Details Description Data Source (s) Triamcinolone Acetonide 1 MG/ML Topical Cream 11/24/2020 12:00:00 A M EST eCW1 ([facility]) valacyclovir 1000 MG Oral Tablet 09/29/2020 12:00:00 AM EST eCW1 ([facility]) valacyclovir 1000 MG Oral Tablet 09/29/2020 12:00:00 AM EST eCW1 ([facility]) NITROFURANTOIN, MACROCRYSTALS 25 MG / Ni trofurantoin, Monohydrate 75 MG Oral Capsule [Macrobid] 02/17/2020 12:00:00 AM EDT eC W1 ([facility]) valacyclovir 1000 MG Oral Tablet 02/01/2020 12:00:00 AM EDT eCW1 ([facility]) valacyclovir 1000 MG Oral Tablet 02/01/2020 12:00:00 AM EDT eCW1 ([facility]) Azithromycin 250 MG Oral Tablet 10/19/2019 12:00:00 AM EST eCW1 ([facility]) Prednisone 20 MG Oral Tablet 10/19/2019 12:00:00 AM EST eCW1 ([facility])
--- OUTSIDE RECORDS SUMMARY | 2020-12-07 18:38 | CCD ---
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 5732093 02 Problem Missed menses N92.6 Active 63613443 Problem Allergy to bee sting Z91.030 Active 552546341 Problem Exercise-induced asthma J45.990 Active 84875235 Problem Bipolar disorder, current episode depressed, mild F31.31 Active 316553175 Problem Bipolar disorder, current ep isode depressed, severe, without psychotic features F31.4 Active 904718689 ALLERGIES Allergen (clinical drug ingredient) Drug/Non Drug Allergy do cumented on EMR Reaction Allergy Type Onset Date Status lidocaine Lidocaine([facility] Code:[address]-88) swollen,hives Drug Aller gy Active Bees, hornets and wasp Anaphylaxis Non Drug Allergy Active Clindamycin Phos & Cleanser peeling skin Drug Allergy Active ceclor Anaphylaxis Drug Allergy Active ENCOUNTERS from 1999 to 2020-09-15 Encounter Location Date Provider Diagnosis [facility] [address] [place] [address] Aug, Shawna Mosquera Exposure to STD Z20.2 IMMUNIZATIONS No Information SOCIAL HISTORY Tobacco Use: Social History Observation Description Date Details (start date - stop date) Current Smoker Sex Assigned At : Social History Observation Description Sex Assigned At Unknown Education: Question Answer Notes Level of Education: Finished High School Audit Question Answer Notes Total Score: 0 Interpretation: Alcohol Education Language: Question Answer Notes Languages spoken: Kazakh Jewish: Question Answer Notes Jewish 32 None Sexual Hx: Question Answer Notes [...] many cigarettes a day do you smoke? 5 or less Are you interested in quitting? Thinking about quitting Counseled the patient on smoking cessation, education provid ed 01/07/2019 REASON FOR REFERRAL No Information VITAL SIGNS No information MEDICATIONS Medication SIG (Take, Route, Frequency, Duration) Start Date En d Date Status Nicotine Step 2 14 MG/24HR 1 patch to skin Transdermal Once a day for 30 day(s) May, Not-Taking Macrobid 100 MG 1 capsule Orally twice daily for 5 day(s) Feb, Not-Taking Aripiprazole 5 MG TAKE 1 TABLET BY MOUTH ONCE DAILY Oral for 30 Not-Taking PredniSONE 20 MG 2 tablets Orally Once a day for 5 day(s) Oct, 019 Not-Taking AZO Cranberry 250-30 MG as directed Orally Not-Taking EpiPen Not-Taking Ventolin HFA 108 (90 Base) MCG/ACT 2 puffs as needed I nhalation every 6 hrs for 30 days Not-Taking Melatonin 5 MG 2 tablet in the evening Orally Once a day Not-Taking Metronidazole 0.75 % 1 applicator full at bedtime Vaginal Once a day for 5 day(s) Aug, Not-Taking EpiPen 2-Jay 0.3 MG/0.3ML as directed Injection as nee ded for allergic rxn for 1 days May, Active Multivitamins - 1 tablet Orally Once a day for 30 day(s) Not-Taking Abilify 5 MG 1 tablet Orally Once a day for 30 day(s) Not-Taking One-A-Day Womens 1 28-0.8-235 MG 1 capsule Or ally Once a day for 30 day(s) Oct, Not-Taking Prazosin HCl 1 MG 1 capsule at bedtime Orally Once a day for 30 day (s) Not-Taking Azithromycin 250 MG 2 tablets on day 1 then 1 ta blet x 4 days Orally Daily for 5 day(s) Oct, Not-Taking Valacyclovir HCl 1 GM 1 tablet Orally bid for 10 day(s) Jan, 0 Active Albuterol 90 MCG/ACT 1 Inhalation every 4 hours as needed for 30 da ys Active - 1 tablet Orally Once a day for 30 day(s) Active Nicotine Step 3 7 MG/24HR 1 patch to skin Transdermal Once a day for 30 day(s) May, Not-Taking PROCEDURES No Information RESULTS No Results REASON FOR VISIT REFILL MEDICAL (GENERAL) HISTORY Type Description Date Medical History Bipolar disorder Medical History Borderline personality disorder Medical History PDSD Medical History Anxiety/depression Medical History Asthma Surgical History root canal 2013 Hospitalization History [facility] 08/2019 Goals Section No Information Health Concerns No Information MEDICAL EQUIPMENT No Information MENTAL STATUS No Information FUNCTIONAL STATUS No Information ASSESSMENTS Encounter Date Diagnosis Notes Aug, Exposure to STD (ICD-10 - Z20.2) PLAN OF TREATMENT Medication Medication Name Sig Start Date Stop Date EpiPen 2-Jay 0.3 MG/0.3ML as directed Injection as nee ded for allergic rxn for 1 days May, Albuterol 90 MCG/ACT 1 Inhalation every 4 hours as needed for 30 days Valacyclovir HCl 1 GM 1 tablet Orally bid for 10 day(s) Jan, Insurance Providers Payer Name Payer Address Payer Phone Insured Name Patient Relati onship to Insured Coverage Start Date Coverage End Date [facility] [employer] [id number] [place] [id number] [place]
[2020-12-07] MEDS ORDERED: QUET50TA3 (18:43)
[2020-12-07] MEDS ORDERED: VALA1TAB5 (18:43)
--- OUTSIDE RECORDS SUMMARY | 2020-12-07 19:39 | CCD ---
Author Author [facility] Organization [facility] Address Unknown Phone Unavailable Care Team Providers Care Track Manager Name Role Phone TURRIN, DELMIS Unavailable Unavailable TURRIN, DELMIS Unavailable Unavailable TURRIN, DELMIS Unavailable Unavailable TURRIN, DELMIS Unavailable Unavailable Kendrick, J Juan PA-C Unavailable Unavailable Kendrick, J Juan PA-C Unavailable Unavailable Kendrick, J Juan PA-C Unavailable Unavailable Kendrick, J Juan PA-C Unavailable Unavailable Kendrick, J Juan PA-C Unavailable Unavailable Kendrick, J Juan PA-C Unavailable Unavailable Kednrick, J Juan PA-C Unavailable Unavailable Kendrick, J [...] ALPA MOTA MD Unavailable Unavailable Rosalino, R Shwana TRANSMISSION OPERATOR Unavailable Unavailable Rosalino, R Shawna TRANSMISSION OPERATOR Unavailable Unavailable Rosalino, R Shawna TRANSMISSION OPERATOR Unavailable Unavailable Rosalino, R Shawna TRANSMISSION OPERATOR Unavailable Unavailable Rosalino, R Shawna TRANSMISSION OPERATOR Unavailable Unavailable Rosalino, R Shawna TRANSMISSION OPERATOR Unavailable Unavailable Rosalino, R Shawna TRANSMISSION OPERATOR Unavailable Unavailable Rosalino, R Shawna TRANSMISSION OPERATOR Unavailable Unavailable Rosalino, R Shawna TRANSMISSION OPERATOR Unavailable Unavailable Rosalino, R Shawna TRANSMISSION OPERATOR Unavailable Unavailable Rosalino, R Shawna TRANSMISSION OPERATOR Unavailable Unavailable Rosalino, R Shawna TRANSMISSION OPERATOR Unavailable Unavailable Rosalino, R Shawna TRANSMISSION OPERATOR Unavailable Unavailable Rosalino, R Shawna TRANSMISSION OPERATOR Unavailable Unavailable Rosalino, R Shawna TRANSMISSION OPERATOR Unavailable Unavailable Rosalino, R Shawna TRANSMISSION OPERATOR Unavailable Unavailable Rosalino, R Shawna TRANSMISSION OPERATOR Unavailable Unavailable Rosalino, R Shawna TRANSMISSION OPERATOR Unavailable Unavailable Rosalino, R Shawna TRANSMISSION OPERATOR Unavailable Unavailable Rosalino, R Shawna TRANSMISSION OPERATOR Unavailable Unavailable Rosalino, R Shawna TRANSMISSION OPERATOR Unavailable Unavailable Rosalino, R Shawna TRANSMISSION OPERATOR Unavailable Unavailable Rosalino, R Shawna TRANSMISSION OPERATOR Unavailable Unavailable Rosalino, R Shawna TRANSMISSION OPERATOR Unavailable Unavailable Rosalino, R Shawna TRANSMISSION OPERATOR Unavailable Unavailable Rosalino, R Shawna TRANSMISSION OPERATOR Unavailable Unavailable Rosalino, R Shawna TRANSMISSION OPERATOR Unavailable Unavailable Rosalino, R Shawna TRANSMISSION OPERATOR Unavailable Unavailable Rosalino, R Shawna TRANSMISSION OPERATOR Unavailable Unavailable Rosalino, R Shawna TRANSMISSION OPERATOR Unavailable Unavailable Rosalino, R Shawna TRANSMISSION OPERATOR Unavailable Unavailable Rosalino, R Shawna TRANSMISSION OPERATOR Unavailable Unavailable SAMANTA, JAYNA MD Unavailable Unavailable [...] Unavailable Unavailable Ranjith BLANCO MD Unavailable Unavailable Ranjtih BLANCO MD Unavailable Unavailable Ranjith BLANCO MD [...] is protected by Article 27-F of the [facility] Public Health law. If you continue you may have access to information: Regarding HIV / AIDS; Provided by facilities licensed or operated by the [facility] Office of Mental Health; or Provided by the [facility] Office for People With Developmental Disabilities. If such information is present, then the following [facility] mandated warning applies: This information has [...] law may result in a fine or [place] health care facility sentence or both. A general authorization for the release of medical or other information is NOT sufficient authorization for further disc losure. Allergies and Adverse Reactions Type Description Substance Reaction Status Data Source(s ) Lidocaine Lidocaine Lidocaine swollen,hives Active eCW1 ([facility]) ceclor ceclor ceclor Anaphylaxis Active eCW1 ([facility]) Bees, hornets and wasp Bees, hornets and wasp Bees, hornets and wasp Anaphylaxis Active eCW1 ([facility]) Drug allergy Clindamycin Phos & Cleanser Clindamycin Phos & C leanser peeling skin Active eCW1 ([facility]) ceclor ceclor ceclor Anaphylaxis Active eCW1 ([facility]) Bees, hornets and wasp Bees, hornets and wasp Bees, hornets and wasp Anaphylaxis Active eCW1 ([facility]) Drug allergy Clindamycin Phos & Cleanser Clindamycin Phos & C leanser peeling skin Active eCW1 ([facility]) ceclor ceclor ceclor Anaphylaxis Active eCW1 ([facility]) Bees, hornets and wasp Bees, hornets and wasp Bees, hornets and wasp Anaphylaxis Active eCW1 ([facility]) Drug allergy Clindamycin Phos & Cleanser Clindamycin Phos & C leanser peeling skin Active eCW1 ([facility]) ceclor ceclor ceclor Anaphylaxis Active eCW1 ([facility]) Bees, hornets and wasp Bees, hornets and wasp Bees, hornets and wasp Anaphylaxis Active eCW1 ([facility]) Drug allergy Clindamycin Phos & Cleanser Clindamycin Phos & C leanser peeling skin Active eCW1 ([facility]) ceclor ceclor ceclor Anaphylaxis Active eCW1 ([facility]) Bees, hornets and wasp Bees, hornets and wasp Bees, hornets and wasp Anaphylaxis Active eCW1 ([facility]) Drug allergy Clindamycin Phos & Cleanser Clindamycin Phos & C leanser peeling skin Active eCW1 ([facility]) ceclor ceclor ceclor Anaphylaxis Active eCW1 ([facility]) Bees, hornets and wasp Bees, hornets and wasp Bees, hornets and wasp Anaphylaxis Active eCW1 ([facility]) Drug allergy Clindamycin Phos & Cleanser Clindamycin Phos & C leanser peeling skin Active eCW1 ([facility]) Encounters Encounter Providers Location Date Indications Data Source(s ) Outpatient Attender: Liane Dodge MD Main office - [facility] [place] 11/27/2020 08:00:00 AM EST MEDENT ([facility] abel, TORO) Unknown [address] [facility] [id number] 11/22/2020 12:00:00 AM EST eCW1 ([facility]) Outpatient [address] [facility] [id number] 11/20/2020 12:00:00 AM EST eCW1 ([facility]) Unknown [address] [facility] [id number] 11/13/2020 12:00:00 AM EST eCW1 ([facility]) Unknown [address] [facility] [place] [address] 11/02/2020 12:00:00 AM EST eCW1 ([facility]) Unknown [address] [facility] [id number] 11/01/2020 12:00:00 AM EST eCW1 ([facility]) Outpatient [address] [facility] [id number] 10/27/2020 12:00:00 AM EST eCW1 ([facility]) Emergency Attender: SERGEY RICO MDConsultant: Shawna PULIDO 10/26/2020 03:02:00 PM EST - 10/26/2020 08:33:00 PM EST [facility] Patient discharged. Unknown [address] [facility] [place] [address] 10/26/2020 12:00:00 AM EST [facility]CW1 ([facility]) Unknown [address] [facility] [id number] 10/24/2020 12:00:00 AM EST eCW1 ([facility] [place]) Unknown [address] [facility] [address] 10/06/2020 12:00:00 AM EST [facility] [place]) Outpatient [address] [facility] [id number] 09/29/2020 12:00:00 AM EST [facility]) Emergency Attender: Juan BESTCConsultant: Shawna Mosquera TRANSMISSION OPERATOR 09/26/2020 04:48:00 PM EST - 09/26/2020 07:19:00 PM EST [facility] Patient discharged. Unknown [address] [facility] [id number] 09/12/2020 12:00:00 AM EDT [facility]CW1 [facility]) Emergency Attender: DELMIS KWONConsultant: Shawna gaspar TRANSMISSION OPERATOR 07/03/2020 11:54:00 PM EDT - 07/04/2020 03:50:00 AM EDT [facility] Patient discharged. Outpatient 05/08/2020 01:06:[address] [facility] psych bed Unknown [address] [facility] [id number] 05/02/2020 12:00:00 AM EDT eCW1 [facility] Unknown [address] [facility] [id number] 04/26/2020 12:00:00 AM EDT eCW1 [facility]) Outpatient Attender: Jeannie FLOR 04/25/2020 07:55:57 P M EDT [facility] [address] [place] [address] 04/05/2020 12:00:00 AM EDT eCW1 ([facility]) [facility] [address] [place] [address] 04/04/2020 12:00:00 AM EDT [facility]CW1 [facility] [address] [place] [address] 03/30/2020 12:00:00 AM EDT [facility]CW1 [facility] [place] Dermatology [address] [place] [phone] 03/22/2020 12:00:00 AM EDT eCW1 ([facility] [place]) ([facility]) [facility] Scheduled Visit [address] [place] [phone] 03/17/2020 12:00:00 AM EDT eCW1 ([facility]) Outpatient Attender: ANNAMARIE [facility] delphi programmer 10:15:00 AM EDT MEDENT ([facility] AUDIO VISUAL PRODUCTION SPECIALIST) [facility] Dermatology [address] [place] [phone] 03/09/2020 12:00:00 AM EDT eCW1 [facility]) Outpatient 03/08/2020 05:20:00 AM EDT [facility] [address] [address] 03/03/2020 12:00:00 AM EDT eCW1 ([facility]) Outpatient Attender: Jeannie MARADIAGA 03/01/2020 10:31:01 A M EDT [facility] [address] [facility] [address] 02/29/2020 12:00:00 AM EDT eCW1 ([facility] [place]) [facility] [address] [place] [address] [place] [address] 02/24/2020 12:00:00 AM EDT eCW1 ([facility] [place]) [facility] [address] [place] [address] 02/17/2020 12:00:00 AM EDT eCW1 [facility] [place]) [facility] [address] [facility] [place] [address] 02/16/2020 12:00:00 AM EDT eCW1 ([facility]) [facility] [address] [facility] [address] 02/08/2020 12:00:00 AM EDT eCW1 ([facility]) [facility] [address] [facility] [address] 02/04/2020 12:00:00 AM EDT eCW1 ([facility]) [facility] [address] [facility] [address] 02/03/2020 12:00:00 AM EDT eCW1 ([facility]) [facility] [address] [facility] [place] [address] 02/01/2020 12:00:00 AM EDT eCW1 ([facility]) [facility] [address] [place] [address] 01/31/2020 12:00:00 AM EDT eCW1 ([facility]) [facility] [address] [facility] [address] 01/26/2020 12:00:00 AM EDT eCW1 ([facility]) [facility] [address] [facility] [address] 01/25/2020 12:00:00 AM EDT eCW1 ([facility]) Outpatient 01/14/2020 01:32:00 PM EST [facility] [address] [facility] [address] 01/10/2020 12:00:00 AM EST eCW1 ([facility]) [facility] [place] [address] [facility] [address] 01/10/2020 12:00:00 AM EST eCW1 ([facility]) [facility] [address] [place] [address] 12/30/2019 12:00:00 AM EST eCW1 ([facility]) [facility] [address] [facility] [address] 12/29/2019 12:00:00 AM EST eCW1 ([facility]) [facility] [address] [place] [address] 12/09/2019 12:00:00 AM EST eCW1 ([facility]) [facility] Dermatology [address] [place] [address] 12/02/2019 12:00:00 AM EST eCW1 ([facility]) [facility] [address] [place] [phone] 11/29/2019 12:00:00 AM EST eCW1 ([facility]) [facility] [address] [place] [address] 11/29/2019 12:00:00 AM EST eCW1 ([facility]) [facility] [address] [address] 11/24/2019 12:00:00 AM EST eCW1 ([facility]) [facility] [address] [place] [phone] 11/22/2019 12:00:00 AM EST eCW1 ([facility]) [facility] Derm[facility]ology Center [address] [place] [phone] 11/22/2019 12:00:00 AM EST eCW1 [facility]) [facility] [address] [place] [phone] 11/15/2019 12:00:00 AM EST eCW1 ([facility]) [facility] [address] [address] 11/08/2019 12:00:00 AM EST eCW1 ([facility]) [facility] [address] [address] 11/04/2019 12:00:00 AM EST eCW1 ([facility]) [facility] [address] [address] 10/21/2019 12:00:00 AM EST eCW1 ([facility]) [facility] Rajiv [address] [facility] [address] 10/19/2019 12:00:00 AM EST eCW1 ([facility]) [facility] Tom Ng [address] [place] [address] 10/19/2019 12:00:00 AM EST eCW1 ([facility]) Inpatient Attender: JAYNA ENGLAND MDAtten paolo: XIAO POWELL MDAttender: ALPA MOTA MDAdmitter: JAYNA ENGLAND MD ER-3RD 08/19/2019 09:03: 00 PM EDT - 08/24/2019 01:40:00 AM EDT [facility] Patient discharged. Medications Medication Brand Name Start Date Product Form Dose Route Admi nistrative Instructions Pharmacy Instructions Status Indications Reaction Description Data Source(s) Triamcinolone Acetonide 1 MG/ML Topical Cream Triamcin olone Acetonide 0.1 % Triamcinolone Acetonide 0.1 % 11/24/2020 12:00:00 AM EST 1.0 {appli cation} active Triamcinolone Acetonide 0 .1 % eCW1 ([facility]) valacyclovir 1000 MG Oral Tablet Valacyclovir HCl 1 GM Valac yclovir HCl 1 GM 09/29/2020 12:00:00 AM EST 1.0 {tablet} active Valacyclovir HCl 1 GM eCW1 ([facility]) valacyclovir 1000 MG Oral Tablet Valacyclovir HCl 1 GM Valac yclovir HCl 1 GM 09/29/2020 12:00:00 AM EST 1.0 {tablet} active Valacyclovir HCl 1 GM eCW1 ([facility]) valacyclovir 1000 MG Oral Tablet Valacyclovir HCl 1 GM Valac yclovir HCl 1 GM 09/29/2020 12:00:00 AM EST 1.0 {tablet} active Valacyclovir HCl 1 GM eCW1 ([facility]) valacyclovir 1000 MG Oral Tablet Valacyclovir HCL 09/29/2020 12:00: 00 AM EST active MEDENT ([facility] ) valacyclovir 1000 MG Oral Tablet Valacyclovir HCl 1 GM Valac yclovir HCl 1 GM 09/29/2020 12:00:00 AM EST 1.0 {tablet} active Valacyclovir HCl 1 GM eCW1 ([facility]) valacyclovir 1000 MG Oral Tablet Valacyclovir HCl 1 GM Valac yclovir HCl 1 GM 09/29/2020 12:00:00 AM EST 1.0 {tablet} active Valacyclovir HCl 1 GM eCW1 ([facility]) valacyclovir 1000 MG Oral Tablet Valacyclovir HCl 1 GM Valac yclovir HCl 1 GM 09/29/2020 12:00:00 AM EST 1.0 {tablet} active Valacyclovir HCl 1 GM eCW1 ([facility]) valacyclovir 1000 MG Oral Tablet Valacyclovir HCl 1 GM Valac yclovir HCl 1 GM 09/29/2020 12:00:00 AM EST 1.0 {tablet} active Valacyclovir HCl 1 GM eCW1 ([facility]) valacyclovir 1000 MG Oral Tablet Valacyclovir HCl 1 GM Valac yclovir HCl 1 GM 09/29/2020 12:00:00 AM EST 1.0 {tablet} active Valacyclovir HCl 1 GM eCW1 ([facility]) valacyclovir 1000 MG Oral Tablet Valacyclovir HCl 1 GM Valac yclovir HCl 1 GM 09/29/2020 12:00:00 AM EST 1.0 {tablet} active Valacyclovir HCl 1 GM eCW1 ([facility]) valacyclovir 1000 MG Oral Tablet Valacyclovir HCl 1 GM Valac yclovir HCl 1 GM 09/29/2020 12:00:00 AM EST 1.0 {tablet} active Valacyclovir HCl 1 GM eCW1 ([facility]) Multivitamin Plus Dha 03/13/2020 12:00:00 AM EDT ORAL active MEDENT ([facility]NURSING SPECIAL[facility]) NITROFURANTOIN, MACROCRYSTALS 25 MG / Ni trofurantoin, Monohydrate 75 MG Oral Capsule [Macrobid] Macrobid 100 MG Macrobid 100 MG 02/17/2020 12:00:00 AM EDT suspended 1 capsule eCW1 ([facility]) NITROFURANTOIN, MACROCRYSTALS 25 MG / Ni trofurantoin, Monohydrate 75 MG Oral Capsule [Macrobid] Macrobid 100 MG Macrobid 100 MG 02/17/2020 12:00:00 AM EDT 1.0 {capsule} suspended Macrobid 100 MG eCW1 ([facility]) NITROFURANTOIN, MACROCRYSTALS 25 MG / Ni trofurantoin, Monohydrate 75 MG Oral Capsule [Macrobid] Macrobid 100 MG Macrobid 100 MG 02/17/2020 12:00:00 AM EDT 1.0 {capsule} suspended Macrobid 100 MG eCW1 ([facility]) NITROFURANTOIN, MACROCRYSTALS 25 MG / Ni trofurantoin, Monohydrate 75 MG Oral Capsule [Macrobid] Macrobid 100 MG Macrobid 100 MG 02/17/2020 12:00:00 AM EDT 1.0 {capsule} suspended Macrobid 100 MG eCW1 ([facility]) NITROFURANTOIN, MACROCRYSTALS 25 MG / Ni trofurantoin, Monohydrate 75 MG Oral Capsule [Macrobid] Macrobid 100 MG Macrobid 100 MG 02/17/2020 12:00:00 AM EDT 1.0 {capsule} suspended Macrobid 100 MG eCW1 ([facility]) NITROFURANTOIN, MACROCRYSTALS 25 MG / Ni trofurantoin, Monohydrate 75 MG Oral Capsule [Macrobid] Macrobid 100 MG Macrobid 100 MG 02/17/2020 12:00:00 AM EDT 1.0 {capsule} suspended Macrobid 100 MG eCW1 ([facility]) NITROFURANTOIN, MACROCRYSTALS 25 MG / Ni trofurantoin, Monohydrate 75 MG Oral Capsule [Macrobid] Macrobid 100 MG Macrobid 100 MG 02/17/2020 12:00:00 AM EDT 1.0 {capsule} suspended Macrobid 100 MG eCW1 ([facility]) NITROFURANTOIN, MACROCRYSTALS 25 MG / Ni trofurantoin, Monohydrate 75 MG Oral Capsule [Macrobid] Macrobid 02/17/2020 12:00:00 AM EDT active MEDENT ([facility]) NITROFURANTOIN, MACROCRYSTALS 25 MG / Ni trofurantoin, Monohydrate 75 MG Oral Capsule [Macrobid] Macrobid 100 MG Macrobid 100 MG 02/17/2020 12:00:00 AM EDT suspended 1 capsule eCW1 ([facility]) NITROFURANTOIN, MACROCRYSTALS 25 MG / Ni trofurantoin, Monohydrate 75 MG Oral Capsule [Macrobid] Macrobid 100 MG Macrobid 100 MG 02/17/2020 12:00:00 AM EDT 1.0 {capsule} suspended Macrobid 100 MG eCW1 ([facility]) NITROFURANTOIN, MACROCRYSTALS 25 MG / Ni trofurantoin, Monohydrate 75 MG Oral Capsule [Macrobid] Macrobid 100 MG Macrobid 100 MG 02/17/2020 12:00:00 AM EDT 1.0 {capsule} suspended Macrobid 100 MG eCW1 ([facility]) NITROFURANTOIN, MACROCRYSTALS 25 MG / Ni trofurantoin, Monohydrate 75 MG Oral Capsule [Macrobid] Macrobid 100 MG Macrobid 100 MG 02/17/2020 12:00:00 AM EDT active 1 capsule eCW1 ([facility]ending sale to [facility]) NITROFURANTOIN, MACROCRYSTALS 25 MG / Ni trofurantoin, Monohydrate 75 MG Oral Capsule [Macrobid] Macrobid 100 MG Macrobid 100 MG 02/17/2020 12:00:00 AM EDT 1.0 {capsule} suspended Macrobid 100 MG eCW1 ([facility]) NITROFURANTOIN, MACROCRYSTALS 25 MG / Ni trofurantoin, Monohydrate 75 MG Oral Capsule [Macrobid] Macrobid 100 MG Macrobid 100 MG 02/17/2020 12:00:00 AM EDT 1.0 {capsule} suspended Macrobid 100 MG eCW1 ([facility]) NITROFURANTOIN, MACROCRYSTALS 25 MG / Ni trofurantoin, Monohydrate 75 MG Oral Capsule [Macrobid] Macrobid 100 MG Macrobid 100 MG 02/17/2020 12:00:00 AM EDT 1.0 {capsule} suspended Macrobid 100 MG eCW1 ([facility]) NITROFURANTOIN, MACROCRYSTALS 25 MG / Ni trofurantoin, Monohydrate 75 MG Oral Capsule [Macrobid] Macrobid 100 MG Macrobid 100 MG 02/17/2020 12:00:00 AM EDT 1.0 {capsule} suspended Macrobid 100 MG eCW1 ([facility]) NITROFURANTOIN, MACROCRYSTALS 25 MG / Ni trofurantoin, Monohydrate 75 MG Oral Capsule [Macrobid] Macrobid 100 MG Macrobid 100 MG 02/17/2020 12:00:00 AM EDT 1.0 {capsule} suspended Macrobid 100 MG eCW1 ([facility]) NITROFURANTOIN, MACROCRYSTALS 25 MG / Ni trofurantoin, Monohydrate 75 MG Oral Capsule [Macrobid] Macrobid 100 MG Macrobid 100 MG 02/17/2020 12:00:00 AM EDT 1.0 {capsule} suspended Macrobid 100 MG eCW1 ([facility]) valacyclovir 1000 MG Oral Tablet Valacyclovir HCl 1 GM Valac yclovir HCl 1 GM 02/01/2020 12:00:00 AM EDT 1.0 {tablet} suspende d Valacyclovir HCl 1 GM eCW1 ([facility]) valacyclovir 1000 MG Oral Tablet Valacyclovir HCl 1 GM Valac yclovir HCl 1 GM 02/01/2020 12:00:00 AM EDT 1.0 {tablet} active Valacyclovir HCl 1 GM eCW1 ([facility]) valacyclovir 1000 MG Oral Tablet Valacyclovir HCl 1 GM Valac yclovir HCl 1 GM 02/01/2020 12:00:00 AM EDT 1.0 {tablet} suspende d Valacyclovir HCl 1 GM eCW1 ([facility]) valacyclovir 1000 MG Oral Tablet Valacyclovir HCl 1 GM Valac yclovir HCl 1 GM 02/01/2020 12:00:00 AM EDT 1.0 {tablet} suspende d Valacyclovir HCl 1 GM eCW1 ([facility]) valacyclovir 1000 MG Oral Tablet Valacyclovir HCl 1 GM Valac yclovir HCl 1 GM 02/01/2020 12:00:00 AM EDT 1.0 {tablet} suspende d Valacyclovir HCl 1 GM eCW1 ([facility]) valacyclovir 1000 MG Oral Tablet Valacyclovir HCl 1 GM Valac yclovir HCl 1 GM 02/01/2020 12:00:00 AM EDT suspended 1 tablet eCW1 ([facility]) valacyclovir 1000 MG Oral Tablet Valacyclovir HCl 1 GM Valac yclovir HCl 1 GM 02/01/2020 12:00:00 AM EDT 1.0 {tablet} suspende d Valacyclovir HCl 1 GM eCW1 ([facility]) valacyclovir 1000 MG Oral Tablet Valacyclovir HCl 1 GM Valac yclovir HCl 1 GM 02/01/2020 12:00:00 AM EDT suspended 1 tablet eCW1 ([facility]) valacyclovir 1000 MG Oral Tablet Valacyclovir HCl 1 GM Valac yclovir HCl 1 GM 02/01/2020 12:00:00 AM EDT active 1 tablet eCW1 ([facility]) valacyclovir 1000 MG Oral Tablet Valacyclovir HCl 1 GM Valac yclovir HCl 1 GM 02/01/2020 12:00:00 AM EDT 1.0 {tablet} suspende d Valacyclovir HCl 1 GM eCW1 ([facility]) valacyclovir 1000 MG Oral Tablet Valacyclovir HCl 1 GM Valac yclovir HCl 1 GM 02/01/2020 12:00:00 AM EDT 1.0 {tablet} active Valacyclovir HCl 1 GM eCW1 ([facility]) valacyclovir 1000 MG Oral Tablet Valacyclovir HCL 02/01/2020 12:00: 00 AM EDT active MEDENT ([facility] ) valacyclovir 1000 MG Oral Tablet Valacyclovir HCl 1 GM Valac yclovir HCl 1 GM 02/01/2020 12:00:00 AM EDT 1.0 {tablet} suspende d Valacyclovir HCl 1 GM eCW1 ([facility]) valacyclovir 1000 MG Oral Tablet Valacyclovir HCl 1 GM Valac yclovir HCl 1 GM 02/01/2020 12:00:00 AM EDT 1.0 {tablet} suspende d Valacyclovir HCl 1 GM eCW1 ([facility]) valacyclovir 1000 MG Oral Tablet Valacyclovir HCl 1 GM Valac yclovir HCl 1 GM 02/01/2020 12:00:00 AM EDT 1.0 {tablet} active Valacyclovir HCl 1 GM eCW1 ([facility]) valacyclovir 1000 MG Oral Tablet Valacyclovir HCl 1 GM Valac yclovir HCl 1 GM 02/01/2020 12:00:00 AM EDT 1.0 {tablet} suspende d Valacyclovir HCl 1 GM eCW1 ([facility]) valacyclovir 1000 MG Oral Tablet Valacyclovir HCl 1 GM Valac yclovir HCl 1 GM 02/01/2020 12:00:00 AM EDT 1.0 {tablet} suspende d Valacyclovir HCl 1 GM eCW1 ([facility]) valacyclovir 1000 MG Oral Tablet Valacyclovir HCl 1 GM Valac yclovir HCl 1 GM 02/01/2020 12:00:00 AM EDT 1.0 {tablet} suspende d Valacyclovir HCl 1 GM eCW1 ([facility]) 0.75 % 11/19/2019 12:00:00 AM EST [...] then 1 tablet x 4 days eCW1 ([facility]) Prednisone 20 MG Oral Tablet PredniSONE 20 MG PredniSONE 20 MG 10/19/2019 12:00:00 AM EST 2.0 {tablets} suspended PredniSONE 20 MG eCW1 ([facility]) Prednisone 20 MG Oral Tablet PredniSONE 20 MG PredniSONE 20 MG 10/19/2019 12:00:00 AM EST active 2 tablet s eCW1 ([facility]) PredniSONE 20 MG UNK 10/19/2019 12:00:00 AM EST a ctive 2 tablets eCW1 ([facility]) One-A-Day Womens 1 28-0.8-235 MG One-A-Day Wo mens 1 28-0.8-235 MG 10/19/2019 12:00:00 AM EST suspended 1 capsule eCW1 ([facility]) One-A-Day Womens 1 28-0.8-235 MG One-A-Day Wo mens 1 28-0.8-235 MG 10/19/2019 12:00:00 AM EST 1.0 {capsule} susp ended One-A-Day Womens 1 28-0.8-235 MG eCW1 ([facility]) One-A-Day Womens 1 28-0.8-235 MG One-A-Day Wo mens 1 28-0.8-235 MG 10/19/2019 12:00:00 AM EST 1.0 {capsule} susp ended One-A-Day Womens 1 28-0.8-235 MG eCW1 ([facility]) One-A-Day Womens 1 28-0.8-235 MG One-A-Day Wo mens 1 28-0.8-235 MG 10/19/2019 12:00:00 AM EST 1.0 {capsule} susp ended One-A-Day Womens 1 28-0.8-235 MG eCW1 ([facility]) Prednisone 20 MG Oral Tablet PredniSONE 20 MG PredniSONE 20 MG 10/19/2019 12:00:00 AM EST suspended 2 tab lets eCW1 ([facility]) Azithromycin 250 MG Oral Tablet Azithromycin 250 MG 10/19/2019 1 2:00:00 AM EST suspended Azithromycin 2 50 MG eCW1 ([facility]) Prednisone 20 MG Oral Tablet PredniSONE 20 MG PredniSONE 20 MG 10/19/2019 12:00:00 AM EST 2.0 {tablets} suspended PredniSONE 20 MG eCW1 ([facility]) One-A-Day Womens 1 28-0.8-235 MG One-A-Day Wo mens 1 28-0.8-235 MG 10/19/2019 12:00:00 AM EST 1.0 {capsule} susp ended One-A-Day Womens 1 28-0.8-235 MG eCW1 ([facility]) Prednisone 20 MG Oral Tablet PredniSONE 20 MG PredniSONE 20 MG 10/19/2019 12:00:00 AM EST 2.0 {tablets} suspended PredniSONE 20 MG eCW1 ([facility]) Azithromycin 250 MG Oral Tablet Azithromycin 250 MG 10/19/2019 1 2:00:00 AM EST suspended Azithromycin 2 50 MG eCW1 ([facility]) One-A-Day Womens 1 28-0.8-235 MG One-A-Day Wo mens 1 28-0.8-235 MG 10/19/2019 12:00:00 AM EST 1.0 {capsule} susp ended One-A-Day Womens 1 28-0.8-235 MG eCW1 ([facility]) Azithromycin 250 MG Oral Tablet Azithromycin 10/19/2019 12:00:00 AM EST active MEDENT ([facility], ) Azithromycin 250 MG Oral Tablet Azithromycin 250 MG 10/19/2019 1 2:00:00 AM EST suspended Azithromycin 2 50 MG eCW1 ([facility]) Azithromycin 250 MG Oral Tablet Azithromycin 250 MG 10/19/2019 1 2:00:00 AM EST suspended 2 tablets on d ay 1 then 1 tablet x 4 days eCW1 ([facility]) Prednisone 20 MG Oral Tablet PredniSONE 20 MG PredniSONE 20 MG 10/19/2019 12:00:00 AM EST 2.0 {tablets} suspended PredniSONE 20 MG eCW1 ([facility]) One-A-Day Womens 1 28-0.8-235 MG One-A-Day Wo mens 1 28-0.8-235 MG 10/19/2019 12:00:00 AM EST 1.0 {capsule} susp ended One-A-Day Womens 1 28-0.8-235 MG eCW1 ([facility]) Azithromycin 250 MG Oral Tablet Azithromycin 250 MG 10/19/2019 1 2:00:00 AM EST suspended Azithromycin 2 50 MG eCW1 ([facility]) Prednisone 20 MG Oral Tablet PredniSONE 20 MG PredniSONE 20 MG 10/19/2019 12:00:00 AM EST 2.0 {tablets} suspended PredniSONE 20 MG eCW1 ([facility]) Prednisone 20 MG Oral Tablet PredniSONE 20 MG PredniSONE 20 MG 10/19/2019 12:00:00 AM EST 2.0 {tablets} suspended PredniSONE 20 MG eCW1 ([facility]) Prednisone 20 MG Oral Tablet PredniSONE 20 MG PredniSONE 20 MG 10/19/2019 12:00:00 AM EST suspended 2 tab lets eCW1 ([facility]) Prednisone 20 MG Oral Tablet Prednisone 10/19/2019 12:00:00 AM EST active MEDENT ([facility], ) Azithromycin 250 MG Oral Tablet Azithromycin 250 MG 10/19/2019 1 2:00:00 AM EST suspended Azithromycin 2 50 MG eCW1 ([facility]) One-A-Day Womens 1 28-0.8-235 MG One-A-Day Wo mens 1 28-0.8-235 MG 10/19/2019 12:00:00 AM EST 1.0 {capsule} susp ended One-A-Day Womens 1 28-0.8-235 MG eCW1 ([facility]) Prednisone 20 MG Oral Tablet PredniSONE 20 MG PredniSONE 20 MG 10/19/2019 12:00:00 AM EST 2.0 {tablets} suspended PredniSONE 20 MG eCW1 ([facility]) One-A-Day Womens 1 28-0.8-235 MG One-A-Day Wo mens 1 28-0.8-235 MG 10/19/2019 12:00:00 AM EST suspended 1 capsule eCW1 ([facility]) Prednisone 20 MG Oral Tablet PredniSONE 20 MG PredniSONE 20 MG 10/19/2019 12:00:00 AM EST 2.0 {tablets} suspended PredniSONE 20 MG eCW1 ([facility]) One-A-Day Womens 1 28-0.8-235 MG UNK 10/19/2019 12:00:0 0 AM EST active 1 capsule eCW1 (Pending sale to [facility]) Azithromycin 250 MG Oral Tablet Azithromycin 250 MG 10/19/2019 1 2:00:00 AM EST suspended 2 tablets on d ay 1 then 1 tablet x 4 days eCW1 ([facility]) Azithromycin 250 MG Oral Tablet Azithromycin 250 MG 10/19/2019 1 2:00:00 AM EST suspended Azithromycin 2 50 MG eCW1 ([facility]) Prednisone 20 MG Oral Tablet PredniSONE 20 MG PredniSONE 20 MG 10/19/2019 12:00:00 AM EST 2.0 {tablets} suspended PredniSONE 20 MG eCW1 ([facility]) Prednisone 20 MG Oral Tablet PredniSONE 20 MG PredniSONE 20 MG 10/19/2019 12:00:00 AM EST 2.0 {tablets} suspended PredniSONE 20 MG eCW1 ([facility]) One-A-Day Womens 1 28-0.8-235 MG UNK 10/19/2019 12:00:0 0 AM EST suspended 1 capsule eCW1 ([facility]ending sale to [facility]) Azithromycin 250 MG Oral Tablet Azithromycin 250 MG 10/19/2019 1 2:00:00 AM EST suspended Azithromycin 2 50 MG eCW1 ([facility]) Azithromycin 250 MG Oral Tablet Azithromycin 250 MG 10/19/2019 1 2:00:00 AM EST suspended Azithromycin 2 50 MG eCW1 ([facility]) Azithromycin 250 MG UNK 10/19/2019 12:00:00 AM EST suspended 2 tablets on day 1 then 1 tablet x 4 days eCW1 ([facility]) One-A-Day Womens 1 28-0.8-235 MG One-A-Day Wo mens 1 28-0.8-235 MG 10/19/2019 12:00:00 AM EST 1.0 {capsule} susp ended One-A-Day Womens 1 28-0.8-235 MG eCW1 ([facility]) Prednisone 20 MG Oral Tablet PredniSONE 20 MG PredniSONE 20 MG 10/19/2019 12:00:00 AM EST suspended 2 tab lets eCW1 ([facility]) Azithromycin 250 MG Oral Tablet Azithromycin 250 MG 10/19/2019 1 2:00:00 AM EST suspended Azithromycin 2 50 MG eCW1 ([facility]) Azithromycin 250 MG Oral Tablet Azithromycin 250 MG 10/19/2019 1 2:00:00 AM EST suspended Azithromycin 2 50 MG eCW1 ([facility]) One-A-Day Womens 1 28-0.8-235 MG One-A-Day Wo mens 1 28-0.8-235 MG 10/19/2019 12:00:00 AM EST suspended 1 capsule eCW1 ([facility]) Azithromycin 250 MG UNK 10/19/2019 12:00:00 AM EST active 2 tablets on day 1 then 1 tablet x 4 days eCW1 ([facility]) Azithromycin 250 MG Oral Tablet Azithromycin 250 MG 10/19/2019 1 2:00:00 AM EST suspended Azithromycin 2 50 MG eCW1 ([facility]) One-A-Day Womens 1 28-0.8-235 MG One-A-Day Wo mens 1 28-0.8-235 MG 10/19/2019 12:00:00 AM EST 1.0 {capsule} susp ended One-A-Day Womens 1 28-0.8-235 MG eCW1 ([facility]) One-A-Day Womens 1 28-0.8-235 MG One-A-Day Wo mens 1 28-0.8-235 MG 10/19/2019 12:00:00 AM EST 1.0 {capsule} susp ended One-A-Day Womens 1 28-0.8-235 MG eCW1 ([facility]) Azithromycin 250 MG Oral Tablet Azithromycin 250 MG 10/19/2019 1 2:00:00 AM EST active 2 tablets on day 1 then 1 tablet x 4 days eCW1 ([facility]) Prednisone 20 MG Oral Tablet PredniSONE 20 MG PredniSONE 20 MG 10/19/2019 12:00:00 AM EST 2.0 {tablets} suspended PredniSONE 20 MG eCW1 ([facility]) Prednisone 20 MG Oral Tablet PredniSONE 20 MG PredniSONE 20 MG 10/19/2019 12:00:00 AM EST 2.0 {tablets} suspended PredniSONE 20 MG eCW1 ([facility]) One-A-Day Womens 1 28-0.8-235 MG One-A-Day Wo mens 1 28-0.8-235 MG 10/19/2019 12:00:00 AM EST 1.0 {capsule} susp ended One-A-Day Womens 1 28-0.8-235 MG eCW1 ([facility]) Azithromycin 250 MG Oral Tablet Azithromycin 250 MG 10/19/2019 1 2:00:00 AM EST suspended Azithromycin 2 50 MG eCW1 ([facility]) Azithromycin 250 MG Oral Tablet Azithromycin 250 MG 10/19/2019 1 2:00:00 AM EST suspended Azithromycin 2 50 MG eCW1 ([facility]) One-A-Day Womens 1 28-0.8-235 MG One-A-Day Wo mens 1 28-0.8-235 MG 10/19/2019 12:00:00 AM EST 1.0 {capsule} susp ended One-A-Day Womens 1 28-0.8-235 MG eCW1 ([facility]) Prednisone 20 MG Oral Tablet PredniSONE 20 MG PredniSONE 20 MG 10/19/2019 12:00:00 AM EST 2.0 {tablets} suspended PredniSONE 20 MG eCW1 ([facility]) One-A-Day Womens 1 28-0.8-235 MG One-A-Day Wo mens 1 28-0.8-235 MG 10/19/2019 12:00:00 AM EST 1.0 {capsule} susp ended One-A-Day Womens 1 28-0.8-235 MG eCW1 ([facility]) Prednisone 20 MG Oral Tablet PredniSONE 20 MG PredniSONE 20 MG 10/19/2019 12:00:00 AM EST 2.0 {tablets} suspended PredniSONE 20 MG eCW1 ([facility]) PredniSONE 20 MG UNK 10/19/2019 12:00:00 AM EST suspended 2 tablets eCW1 ([facility]) Azithromycin 250 MG Oral Tablet Azithromycin 250 MG 10/19/2019 1 2:00:00 AM EST suspended Azithromycin 2 50 MG eCW1 ([facility]) One-A-Day Womens 1 28-0.8-235 MG One-A-Day Wo mens 1 28-0.8-235 MG 10/19/2019 12:00:00 AM EST 1.0 {capsule} susp ended One-A-Day Womens 1 28-0.8-235 MG eCW1 ([facility]) Insurance Providers Payer name Policy type / Coverage type Policy ID Covered libertarian ID Covered libertarian's relationship to yousif Policy Yousif Plan Information [facility] [id number] [facility] [id number] [facility] [id number] [facility] [id number] [facility] [employer] - O/P [id number] 18 [id number] [facility] [employer] - O/P [id number] [facility] [id number] [facility] [id number] Medicaid Dental P [id number] S [id number] [employer] [facility] O [id number] S [id number] ANSI-Not a Secondary Insurance [id number] ANSI-Not a Secondary Insurance [id number] MEDICAID [id number] SP [id number] ANSI-Not a Secondary Insurance [id number] ANSI-Medicaid [id number] MEDICAID M [id number] S [id number] ANSI-Medicaid [id number] Problems, Conditions, and Diagnoses Code Display Name Description Problem Type Effective Dates Data Source(s) 939933680 Dizziness Dizziness Problem 11/27/2020 12:00:00 AM NICK HINOJOSA ([facility], ) 82130818 Headache Headache Problem 11/27/2020 12:00:00 AM ES T MEDENT ([facility], ) [id number] MRI scan abnormal MRI scan abnormal Problem 11/27 12:00:00 AM EST MEDENT ([facility], ) L20.84 41111652 Intrinsic eczema Problem 11/24/2020 12:00:00 AM EST eCW1 ([facility]) L20.9 66565278 Atopic dermatitis, mild Problem 11/24/2020 1 2:00:00 AM EST eCW1 ([facility]) F31.62 984238861 Bipolar disorder, current episode mixed, moderate Problem 10/27/2020 12:00:00 AM EST eCW1 ([facility]) R93.89 414065184 Abnormal findings on imaging test Problem 10/27/2020 12:00:00 AM EST eCW1 ([facility]) A60.04 429403079 Herpes simplex virus (HSV) infection of v agina Problem 09/29/2020 12:00:00 AM EST eCW1 ([facility]) N92.6 96764592 Missed menses Problem 05/23/2020 12:00:00 AM EDT eCW1 ([facility]) Q82.5 391882853 Congenital nevus of back Problem 12/02/2019 12:00:00 AM EST eCW1 ([facility]) Q82.5 039751804 Congenital nevus of back Problem 12/02/2019 12:00:00 AM EST eCW1 ([facility]) M59333 Nicotine dependence, cigarettes, uncompl icated Nicotine dependence, cigarettes, uncomplicated Diagnosis 10/26/2020 03:02:00 PM [facility] B97335 Unspecified asthma, uncomplicated Unspecified as thma, uncomplicated Diagnosis 10/26/2020 03:02:00 PM [facility] 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 Diagnosis 10/26/2020 03:02:00 P M [facility] B9689 Other specified bacterial ag ents as the cause of diseases classified elsewhere Other specified bacterial agents as the cause of diseases classified elsewhere Diagnosis 10/26/2020 03:02:00 PM [facility] J208 Acute bronchitis due to other specified organisms Acute bronchitis due to other specified organisms Diagnosis 10/26/2020 03:02:00 PM [facility] R0789 Other chest pain Other chest pain Diagnosis 10/26/2020 03 :02:00 PM [facility] N939 Abnormal uterine and vaginal bleeding, u nspecified Abnormal uterine and vaginal bleeding, unspecified Diagnosis 09/26/2020 04:48:00 PM Health system R102 Pelvic and perineal pain Pelvic and perineal pain Diag nosis 09/26/2020 04:48:00 PM [facility] psych bed psych bed Diagnosis 05/08/2020 01:06:00 PM ED [facility] Surgeries/Procedures Procedure Description Date Indications Data Source(s) ELECTROENCEPHALOGRAM W/REC AWAKE&ASLEEP 12/01/2020 12: 00:00 AM EST MEDENT ([facility]) ELECTROENCEPHALOGRAM W/REC AWAKE&ASLEEP 12/01/2020 12: 00:00 AM EST MEDENT ([facility]) PSYTX W PT 45 MINUTES 04/04/2020 12:00:00 AM EDT eCW1 ([facility]) EXC TR-EXT B9 PEDRO 2.1-3 CM 03/22/2020 12:00:00 AM EDT eCW1 ([facility]) INTMD RPR S/A/T/EXT 2.6-7.5 03/22/2020 12:00:00 AM EDT eCW1 ([facility]) TeleMedicine Est. Pt. Level 3 03/09/2020 12:00:00 AM E DT eCW1 ([facility]) Results ID Date Data Source GASTROINTESTINAL GI PANEL (GIPANEL) 11/20/2020 12:00:00 AM EST eCW1 ([facility]) Name Value Range Interpretation Code Description Data Tasha rce(s) Supporting Document(s) This Gastrointestinal PCR Panel detects the following bacteria, GASTROINTESTINAL (GI) PANEL eCW1 ([facility]) ID Date Data Source [id number] 10/27/2020 03:09:00 PM EST [facility] [place] [address] PHONE: [phone] FAX: [phone] Name .................. : RAYMUNDO RECINOS Acct Number.................. : [id number] ROOM. ................. : TR- MR Number ................... : [id number] Stay type ............. : E/R Discharge Date......... ... : 10/26/20 Admit Date ......... : 10/26/20 Admit Phys .................... : COONEYNORM Date of ....... : 2000 Family Phys ................... : ROSALINO GARCIA Phone .................. : [phone] Age ................................ : 20 Film# .................. .:[id number] Sex ................................. : F Unsigned transcriptions are preliminary reports and do not represent a medical or legal document CT HEAD W/O CONTRAST 71980 COMPLETE:10/26/20 17:08 [place] [address] Reaso n(s): Dizziness CT OF THE HEAD [...] 00:10, Dictation Date: Page 1 of 2 [place] [address] PHONE: [phone] FAX: [phone] Name .................. : RAYMUNDO RECINOS Acct Number.................. : [id number] ROOM. ................. : TR-06 Number ................... : [id number] Stay type ............. : E/R Discharge Date......... ... : 10/26/20 Admit Date ......... : 10/26/20 Admit Phys .................... : COONEYNORM Date of ....... : 2000 Family Phys ................... : ROSALINO GARCIA Phone .................. : [phone] Age ................................ : 20 Film# .................. .:[id number] Sex ................................. : F Unsigned transcriptions are preliminary reports and do not represent a medical or legal document CT HEAD W/O CONTRAST 65088 COMPLE TE:10/26/20 17:08 [place] [address] Reason(s): Dizziness Copy for: LOUISE KATZ via fax Copy for: EMERGENCY DEPT via modem Copy for: [facility] REC DISCHARGED Page 2 of 2 Name Value Range Interpretation Code Description Data Tasha rce(s) Supporting Document(s) ID Date Data Source [id number] 10/27/2020 03:09:00 [place] [address] PHONE: [phone] FAX: [phone] Name .................. : RAYMUNDO RECINOS Acct Number.................. : [id number] ROOM. ................. : TR-06 Number ................... : [id number] Stay type ............. : E/R Discharge Date......... ... : 10/26/20 Admit Date ......... : 10/26/20 Admit Phys .................... : COONEYNORM Date of ....... : 2000 Family Phys ................... : ROSALINO GARCIA Phone .................. : [phone] Age ................................ : 20 Film# .................. .:[id number] Sex ................................. : F Unsigned transcriptions are preliminary reports and do not represent a medical or legal document CHEST 2 VIEWS 30173 COMPLETE:10/26/20 17:08 [place] [address] Reason(s): Chest Pain CHEST X-RAY: PA AND [...] rce(s) Supporting Document(s) ID Date Data Source [id number] 10/27/2020 02:41:00 PM [facility] [address] [place] [address] PHONE: [phone] FAX: [phone] Name .................. : RAYMUNDO RECINOS Acct Number.................. : [id number] ROOM. ................. : TR-06 MR Number ................... : [id number] Stay type ............. : E/R Discharge Date......... ... : 10/26/20 Admit Date ......... : 10/26/20 Admit Phys .................... : COONEYNORM Date of ....... : 2000 Family Phys ................... : ROSALINO MA Phone . ................. : [phone] Age ................................ : 20 Film# .................. .:[id number] Sex ................................. : F Unsigned transcriptions are preliminary reports and do not represent a medical or legal document [place] [address] COMPLETE:10/26/20 19:10 [place] [address] Reason(s): chest pain w/ dizziness CTA OF [...] rce(s) Supporting Document(s) ID Date Data Source [id number] 10/27/2020 02:41:00 [place] [address] PHONE: [phone] FAX: [phone] Name .................. : RAYMUNDO RECINOS Acct Number.................. : [id number] ROOM. ................. : TR-06 MR Number ................... : [id number] Stay type ............. : E/R Discharge Date......... ... : 10/26/20 Admit Date ......... : 10/26/20 Admit Phys .................... : COONEYNO Date of ....... : 2000 Family Phys ................... : ROSALINO GARCIA Phone . ................. : [phone] Age ................................ : 20 Film# .................. .:[id number] Sex ................................. : F Unsigned transcriptions are preliminary reports and do not represent a medical or legal document [place] [address] COMPLETE:10/26/20 19:10 [place] [address] Reason(s): chest pain w/ dizziness CTA OF [...] via fax Copy for: EMERGENCY DEPT via [place] Copy for: [address] [place] [address] REC [address] [place] [address] PHONE: [phone] FAX: [phone] Name .................. : RAYMUNDO RECINOS Acct Number.................. : [id number] ROOM. ................. : TR-06 MR Number ................... : [id number] Stay type ............. : E/R Discharge Date......... ... : 10/26/20 Admit Date ......... : 12/10/20 Admit Phys .................... : CODEVINNORM Date of ....... : 2000 Family Phys ................... : ROSALINO MA Phone .................. : [phone] Age ................................ : 20 Film# .................. .:[id number] Sex ................................. : F Unsigned transcriptions are preliminary reports and do not represent a medical or legal document [place] [address] COMPLETE:10/26/20 19:10 [place] [address] Reason(s): chest pain w/ dizziness DISCHARGED Page 2 of 2 Name Value Range Interpretation Code Description Data Tasha rce(s) Supporting Document(s) ID Date Data Source [id number] 10/27/2020 01:27:[address] [address] RESPIRATORY CARE REPORT ==== ---------NAME------- NUMBER SEX AGE ADMIT DISC. XRAY# F/C VIJI RECINOS [id number] F 10/26/20 10/26/20408632 SB4 E/R DATE OF : 2000 M/R# [id number] #: [id number] TR-06 LOCATION: EMERGENCY DEPT EKG 97745 COMP LETE:12/11/20 07:27 [facility] [address] PHYSICIAN: SRINIVAS GIL CH Name Value Range Interpretation Code Description Data Tasha rce(s) Supporting Document(s) ID Date Data Source [id number] 10/26/2020 03:02:00 PM EST [facility] 1 OrderSheet [facility] Emergency Department [address] [place] [address] Phone #: ext- [phone] 10/26/2020 15:01 Patient: JORJE FONSECA Sex: F : 2000 Age: 20yWEIGHT:58.0 kg (S) HEIGHT:62 inches (S) BMI:23.4ALLERGIES: Gustavo BuckleysCHIEF COMPLAINT: discomfortDIAGNOSIS: Atypical chest pain, Problem, BronchitisLAB ORDERSOrder Description Priority Entered Acknowledged InitialedCBC w Diff STAT 15:39 10/26/2020 15:39 [facility] estimator and drafter, Michael ER P.A.-C; Kian9IOG STAT 15:39 10/26/2020 15:39 [facility] estimator and drafter, Michael ER P.A.-C; Uhzq1Hapqfk STAT 15:39 10/26/2020 15:39 [facility] estimator and drafter, Michael ER P.A.-C; Pbfe8RM/PTT STAT 15:39 10/26/2020 15:39 [facility] estimator and drafter, Michael ER P.A.-C; Pyww6Jdoyguja-O STAT 15:39 10/26/2020 15:39 [facility] estimator and drafter, Michael ER P.A.-C; Otpn2E-Uaeqr STAT 15:39 10/26/2020 15:39 [facility] estimator and drafter, Michael ER P.A.-C; Xvlq5GPR STAT 15:39 10/26/2020 15:39 [facility] estimator and drafter, Michael RUBIO P.A.-C; Rnmh9Orgcpiprvi (Clean STAT 15:39 10/26/2020 15:39 [place]) Vickey Gil estimator and drafter, Michael RUBIO P.A.-C; Csxk5TVI Serum Qual STAT 15:39 10/26/2020 15:39 Hollie Vickey Gil estimator and drafter, Michael RUBIO P.A.-C; Xipp6ILGTTEPBEK STUDY ORDERSOrder Description Priority Entered Acknowledged InitialedChest 2 View STAT 16:47 10/26/2020 16:55 Peter 2 OrderSheet [facility] Emergency Department [address] [place] [address] Phone #: ext- [phone] 15:01 Patient: JORJE [...] Entered Acknowledged InitialedBlood Pressure 15:39 10/26/2020 15:39 [facility] Vickey Gil estimator and drafter, Michael ER P.A.-C; Lxfq8Ztqweue Monitor 15:39 10/26/2020 15:39 [place](continuous) Vickey Gil estimator and drafter, Michael ER P.A.-C; Sgyj3DGU 15:39 10/26/2020 15:39 [place] Vickey Gil estimator and drafter, Michael ER P.A.-C; Orza1QOH 15:39 10/26/2020 15:39 [place] [facility] estimator and drafter, Michael ER P.A.-C; Yqvq2Upfmng Old EKG 15:39 10/26/2020 15:39 [place] Vickey Gil estimator and drafter, Michael ER P.A.-C; Yyzd1Ideksi Old Records 15:39 10/26/2020 15:39 [place] Vickey Gil estimator and drafter, Michael ER 3 OrderSheet [facility] Emergency Department [address] [place] [address] Phone #: ext- [phone] 10/26/2020 15:01 Patient: JORJE FONSECA Sex: F : 2000 Age: 20y P.A.-C; Kols5Mrdxq oximeter 15:39 10/26/2020 15:39 [place](Continuous) Vickey Gil estimator and drafter, Michael ER P.A.-C; Zeyf5Weekud Lock 15:39 10/26/2020 15:49 Matt Peña RN P.A.-C;Vitals 15:39 10/26/2020 15:39 Hollie Gil estimator and drafter, Michael ER P.A.-C; Tech1-- (gait test) 18:40 10/26/2020 18:47 Matt Peña RN P.A.-C;[Electronically signed by Matt Peña RN (20:33 10/26/2020)][Electronically signed by Vickey Gil P.A.-C (21:53 10/26/2020)][Electronically locked by Matt Peña RN (20:33 10/26/2020)] Name Value Range Interpretation Code Description Data Tasha rce(s) Supporting Document(s) ID Date Data Source [id number] 10/26/2020 03:02:00 PM EST [facility] 1 Medication Reconciliation Report [facility] Emergency Department [address] [place] [address] Phone #: ext- [phone] 10/26/2020 15:01 Patient: [...] 6 tablet. Refills: 0. Substitution permitted.Pharmacy - [facility] [phone] ; [place] [address]. .Zyrtec 10 mg tablet Take 1 tablet once a day for 15 days -- Dispense 15 tablet. Refills: 0. Substitutionpermitted.Pharmacy - [facility] [phone] ; [place] [address]. . -- Vickey Gil P.A.-C Name Value Range Interpretation Code Description Data [facility](s) Supporting Document(s) ID Date Data Source [id number] 10/26/2020 03:02:00 PM [facility] 1 Medication Administration Record [facility] Emergency Department [address] [place] [address] Phone #: ext- [phone] 10/26/2020 15:01 Patient: JORJE FONSECA Sex: F : 2000 Age: 20yWeight: 58.0 kgHeight/Length: 62 inBMI: 23.4ALLERGIES: Lidocaines, Cecor Date/Time Medication Administered Medication OrderedStart IV NS IV NS : Bolus 500 mL, then 60858:50 10/26/2020 Dose: IV Fluids mL/Yolanda Peña RN Rate: 100 mL/hr over 5 hour(s)---- Bolus: 500 mL over 20 minute(s)Stop Dispensed: 1000 mL bag20:26 10/26/2020 Site: #1 left Octavio Peña RN Name Value Range Interpretation Code Description Data [facility] rce(s) Supporting Document(s) ID Date Data Source [id number] 10/26/2020 03:02:00 PM [facility] 1 General Instructions [facility] Emergency Department [address] [place] [address] Phone #: ext [phone] 10/26/2020 15:01 [id number] Sex: F : 2000 Age: 20yAtypical chest [...] 2-5. Dispense 6 tablet. Refills: 0. Substitution permitted.[facility] [phone] ; [place] [address]. .Zyrtec 10 mg tablet Take 1 tablet once a day for 15 days -- Dispense 15 tablet. Refills: 0. Substitutionpermitted.[facility] [address] ; [place] [address]. .Follow-up:Return to the emergency department as needed. Follow up with your healthcare provider in about twodays. Call for an appointment.Understanding of the discharge instructions verbalized by patient.Follow-up with: Jefry Morales MD, Cardiology, , [address] [place] [address], [address] Follow up. Call for the next available appointment. Reason for referral: evaluation and treatment.Follow-up with: NEUROLOGY [facility], , [id number], [address] [place], [address] 2 General Instructions [facility] Emergency Department [address] [place] [address] Phone #: ext- [phone] 10/26/2020 15:01 Patient: [...] Anxiety and panic disorders 3 General Instructions [facility] Emergency Department [address] [place] [address] Phone #: ext- [phone] 10/26/2020 15:01 Patient: [...] better within 24 hours, or as advised.Call [phone] if any of these occur: A change [...] Swelling, pain or redness in one leg [id number] [employer]. [address] [place] [address]. All rights reserved. This information is not intended as asubstitute for professional medical care. Always follow your healthcare professional's instructions.Bronchitis, Antibiotic Treatment (Adult) 4 General Instructions [facility] Emergency Department [address] [place] [address] Phone #: ext- [phone] 10/26/2020 15:01 Patient: JORJE FONSECA Becca cct#: [id number] Sex: F : 2000 Age: 20yBronchitis is [...] away from secondhand smoke. 5 General Instructions [facility] Emergency Department [address] [place] [address] Phone #: ext- [phone] 10/26/2020 15:01 Patient: JORJE FONSECA Sex: F : 2000 Age: 20y You may use hpwy-yhu-rtzkbuc medicines to control fever or pain, unless [...] loosen mucus in your nose and lungs. Avjv-llq-cmbhcdw cough, cold, and sore- throat medicines will [...] or pain with breathing 6 General Instructions [facility] Emergency Department [address] [place] [address] Phone #: ext- [phone] 10/26/2020 15:01 Patient: JORJE FONSECA Sex: F : 2000 Age: 20y [id number] [employer] [place] [address]. All rights reserved. This information is not [...] rce(s) Supporting Document(s) ID Date Data Source [id number] 10/26/2020 03:02:00 PM EST [facility] 1 Clinical Report - Nurses [facility] Emergency Department [address] [place] [address] Phone #: uon- [phone] 10/26/2020 15:01 Patient: JORJE FONSECA Sex: F : 2000 Age: 20yTRIAGEArrived by private vehicle. Historian: patient.Acuity: LEVEL 3.Chief Complaint: CHEST PAIN and DISCOMFORT and (dizziness, back spasms).Onset. (6 months ago). ( pt states she has had left chest pain for the past 6 months along with dizziness,she feels it may be related to her anxiety, she also reports back and neck spasms).Treatment TOURIST GUIDE:None.SEPSIS SCREEN: SIRS SCREEN NEGATIVE. SEPSIS SCREEN NEGATIVE. [...] to Coronavirus. 2 Clinical Report - Nurses [facility] Emergency Department [address] [place] [address] Phone #: ext- [phone] 10/26/2020 15:01 Patient: [...] monitor and pulse oximeter placed on patient; environmental monitoring technician- Lead II; monitoralarms on. Patient gowned. Head of bed elevated. Reassurance given. Call light placed in reach.Side rails up x 2. Bed placed in lowest position. Patient ready for evaluation- ED physician notified.--15:17 10/26/20 Matt Peña RN EKG time: (15:08 10/26/2020). EKG was performed by a robin and shown to the PARichard Gil. 3 Clinical Report - Nurses [facility] Emergency Department [address] [place] [address] Phone #: ext- [phone] 10/26/2020 15:01 Patient: JORJE FONSECA Sex: F : 2000 Age: 20y --15:18 10/26/20 [place] estimator and drafterMichael Gillis ER Tech1 15:32 10/26/2020 Site #1 [...] and CT by wheelchair with mask and care tech. --16:57 10/26/20 Matt Peña RN Patient returned from radiology and CT by wheelchair with mask and care tech. --17:04 10/26/20 Matt Peña RN 17:10 10/26/20. [...] information. Prescription(s) 4 Clinical Report - Nurses [facility] Emergency Department [address] [place] [address] Phone #: ext- [phone] 10/26/2020 15:01 Patient: JORJE FONSECA Sex: F : 2000 Age: 20y sent electronically to pharmacy. Activity restrictions (rest) reviewed. Patient verbalized understanding. Written instructions provided in Icelandic. The patient was discharged by the physician cardiology physician assistant. She was discharged home and accompanied by life management teacher. She left ambulatory and via private vehicle. 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 --20:33 10/26/20 Matt Peña RN 20:27 10/26/20. BP: 119/82. MAP: 94. HR: 62. RR: 16. O2 saturation: 100%. Temp: 98.7 F. Pain level now: 02/24. --20:33 10/26/20 Matt Peña RN.Locked/Released at 10/26/2020 20:33 by Matt Peña RN Name Value Range Interpretation Code Description Data Tasha rce(s) Supporting Document(s) ID Date Data Source [id number] 10/26/2020 03:02:00 PM EST [facility] 1 Clinical Report - Physicians/Mid Levels [facility] Emergency Department [address] [place] [address] Phone #: ext- [phone] 10/26/2020 15:01 Patient: [...] Medications: 2 Clinical Report - Physicians/Mid Levels [facility] Emergency Department [address] [place] [address] Phone #: ext- [phone] 10/26/2020 15:01 Patient: JORJE FONSECA Sex: F [...] attending. 3 Clinical Report - Physicians/Mid Levels [facility] Emergency Department [address] [place] [address] Phone #: ext- [phone] 10/26/2020 15:01 [facility]: [id number] Sex: F : 2000 Age: 20yChest X-ray: [...] 10/26/2020 16:47) ( Mscvd 10/26/2020 17:08) In LannonCHEST 2 VIEWSReason(s): Chest PainTRANSPORTATION: WC IV? O2? [...] 0.70) 4 Clinical Report - Physicians/Mid Levels [facility] Emergency Department [address] [place] [address] Phone #: ext- [phone] 10/26/2020 15:01 Patient: JROJE FONSECA Sex: F : 2000 Age: 20y [...] Male GFR Interprentation 20-49 yrs >60 mL/min Wfzlbk69-98 yrs >56 mL/min Normal 60-69 yrs >49 mL/min Normal 70-79yrs>42 mL/min Normal 80 and above >35 mL/min Normal Female GFRInterpretation 20-39 yrs >60 mL/min Normal 40-49 yrs >58 mL/minNormal 50-59 yrs >51 mL/min Normal 60-69 yrs >45 mL/min Jtnrws88-66 yrs >39 mL/min Normal 80 and above >32 mL/min NormalLipase: (LESLIE: 10/26/2020 15:11) ( MsgRcvd 10/26/2020 16:42) Final results Test Result Flag Units (Reference) LIPASE 30 U/L (13 - 60)PT/PTT: (LESLIE: 10/26/2020 15:11) ( [facility] 10/26/[facility] 15:56) Final results Test Result Flag Units (Reference) PROTIME 13.7 SECONDS (11.0 - 15.5) INR 1.00 (0.93 - 1.23) PTT 29.8 SECONDS (24.8 - 36.7) \\BLDo\\INR INTERPRETATION\\BLDx\\ Therapeutic range for Coumadin andrelated oral anticoagulants. -International Normalized Ratio (INR): 2.0 - 3.0 for VenousThrombosis, Pulmonary Embolus, Tissue heart valves, Acute IN Atrial Fibrillation, Valvular heart diseaseand recurrent Systemic Embolism. - International Normalized Ratio (INR): 2.5 - 3.5 forMechanical Prosthetic valve.Troponin-T: (LESLIE: 10/26/2020 15:11) ( [facility] 10/26/2020 16:29) Final results Test Result Flag Units (Reference) 5 Clinical Report - Physicians/Mid Levels [facility] Emergency Department [address] [place] [address] Phone #: ext- [phone] 10/26/2020 15:01 Patient: JORJE FONSECA Sex: F : 2000 Age: 20y TROPONIN T <0.01 NG/ML (0.00 - 0.10) TROPONIN T0.1 ng/ml Recommended as the clinical threshold value forTroponin T. D-Dimer: (LESLIE: 10/26/2020 15:11) ( [facility] 10/26/2020 15:57) Final results Test Result Flag Units (Reference) D-DIMER QUANT 0.43 ug/mL (0.27 - 0.50) TSH: (LESLIE: 10/26/2020 15:11) ( [facility] 10/26/2020 16:42) Final results Test Result Flag Units (Reference) TSH 1.35 uIU/mL (0.47 - 5.01) Urinalysis: (LESLIE: 10/26/2020 15:11) ( [facility]54[facility] Final results Test Result Flag [...] Beta-HCG, Qual Serum: (LESLIE: 10/26/2020 15:11) ( [facility] 10/26/[facility] 16:30) Final results Test Result Flag Units (Reference) HCG SERUM QUAL NEGATIVE (NORMAL: NEGAT HCG SERUM QL REENTER NEGATIVE (NORMAL: NEGAT { KIT LOT # [id number] ){ KIT EXP DATE 08.22.21 ){ PROCEDURAL [...] resuts. 6 Clinical Report - Physicians/Mid Levels [facility] Emergency Department [address] [place] [address] Phone #: ext- [phone] 10/26/2020 15:01 Patient: JORJE FONSECA Sex: F [...] Pt agrees and undestands. Penidng resutls. Discussed [facility] nurse and indicates he has seen [...] ganglia). 7 Clinical Report - Physicians/Mid Levels [facility] Emergency Department [address] [place] [address] Phone #: ext- [phone] 10/26/2020 15:01 Patient: JORJE FONSECA Sex: F [...] Dispense 6 tablet. Refills: 0. Substitution permitted. [facility] [phone] ; [place] [address]. . Zyrtec 10 mg tablet Take 1 tablet once a day for 15 days -- Dispense 15 tablet. Refills: 0. Substitution p ermitted. [facility] [phone] ; [place] [address]. . Follow-up: Return to the emergency department as needed. Follow up with your healthcare provider in about two days. Call for an appointment. Understanding of the discharge instructions verbalized by patient. Follow-up with: Jefry Morales MD, Cardiology, , [address] [place] [address], [place], [address] Follow up. Call for the next available appointment. Reason for referral: evaluation and treatment. Follow-up with: NEUROLOGY [facility], , [id number], [address] [place] [address], [address] Follow up. Call for the next available appointment. Reason for referral: evaluation, treatment and Based on finding today on head CT. severe dense calcofication bilat basxal ganglia.(Electronically signed by Vickey Gil P.A.-C 10/26/2020 21:53) Name Value Range Interpretation Code Description Data Tasha rce(s) Supporting Document(s) ID Date Data Source [id number] 10/26/2020 04:42:00 PM [facility] Name Value Range Interpretation Code Description Data Tasha rce(s) Supporting Document(s) Thyrotropin [Units/volume] in Serum or Plasma by Detec tion limit <= 0.05 mIU/L 1.35 uIU/mL 0.47 - 5.01 [facility] ID Date Data Source [id number] 10/26/2020 04:42:00 PM [facility] Name Value Range Interpretation Code Description Data Tasha rce(s) Supporting Document(s) Lipase [Enzymatic activity/volume] in Serum or Plasma 30 U/L 13 - 60 [facility] ID Date Data Source [id number] 10/26/2020 04:42:00 PM [facility] Name Value Range Interpretation Code Description Data Tasha rce(s) Supporting Document(s) COMPREHENSIVE METABOLIC PANEL [facility] COMPREHENSIVE METABOLIC PANEL Sodium [Moles/volume] in Serum or Plasma 137 mEq/L 134 - 153 [facility] Potassium [Moles/volume] in Serum or Plasma 4.5 mEq/L 3.6 - 5.0 [facility] Chloride [Moles/volume] in Serum or Plasma 103 mEq/L 98 - 107 [facility] Carbon dioxide, total [Moles/volume] in Serum or Plasma 27 MEQ/L 22 - 30 [facility] Glucose [Mass/volume] in Serum or Plasma 86 MG/DL 65 - 110 [facility] BUN 11 MG/DL 7 - 21 [facility] Creatinine [Mass/volume] in Serum or Plasma 0.7 MG/DL 0.7 - 1.5 [facility] BUN/CREAT 16 8 - 27 [facility] Protein [Mass/volume] in Serum or Plasma 7.5 G/DL 6.3 - 8.2 [facility] Albumin [Mass/volume] in Serum or Plasma 4.8 G/DL 3.9 - 5.0 [facility] Globulin [Mass/volume] in Serum by calculation 2.7 GM/DL 2.4 - 3.2 [facility] A/G RATIO 1.8 0.8 - 2.0 [facility] Calcium [Mass/volume] in Serum or Plasma 9.8 MG/DL 8.4 - 10.2 [facility] Bilirubin.total [Mass/volume] in Serum or Plasma <0.7 MG/DL 0.2 - 1.3 [facility] Alkaline phosphatase [Enzymatic activity/volume] in Serum or Plasma 69 U/L 38 - 126 [facility] Aspartate aminotransferase [Enzymatic activity/volume] in Serum or Plasma 12 U/L 5 - 40 [facility] Alanine aminotransferase [Enzymatic activity/volume] in Seru m or Plasma 11 U/L 7 - 56 [facility] Anion gap 3 in Serum or Plasma 7.0 mmol/L 8.0 - 16.0 L [facility] AGE 20 yrs [facility] al NON-AA GFR >60 mL/min [facility] ital AFR AMER GFR >60 mL/min [facility] Male GFR In terprentation 20-49 [...] >32 mL/min Normal ID Date Data Source [id number] 10/26/2020 04:29:00 PM [facility] Name Value Range Interpretation Code Description Data Tasha rce(s) Supporting Document(s) HCG SERUM QUAL NEGATIVE NORMAL: NEGATIVE [facility] HCG SERUM QL REENTER NEGATIVE NORMAL: NEGATIVE [facility] { KIT LOT # [id number] ){ KIT EXP DATE 08.22.21 ){ PROCEDURAL CONTROL VALID ) ID Date Data Source [id number] 10/26/2020 04:29:00 PM [facility] Name Value Range Interpretation Code Description Data Tasha rce(s) Supporting Document(s) TROPONIN T <0.01 NG/ML 0.00 - 0.10 [facility] ospital TROPONIN T0.1 ng/ml Recommended as the c linical threshold value forTroponin T. ID Date Data Source [id number] 10/26/2020 03:57:00 PM [facility] Name Value Range Interpretation Code Description Data Tasha rce(s) Supporting Document(s) Fibrin D-dimer FEU [Mass/volume] in Platelet poor plasma 0.43 ug /mL 0.27 - 0.50 [facility] ID Date Data Source [id number] 10/26/2020 03:57:00 PM [facility] Name Value Range Interpretation Code Description Data Tasha rce(s) Supporting Document(s) CBC W/AUTOMATED DIFF [facility] COMPLETE BLOOD COUNT Leukocytes [#/volume] in Blood by Automated count 8.8 10^3/uL 4.2 - 1 1.0 [facility] Erythrocytes [#/volume] in Blood by Automated count 4.60 10^6/uL 4. 20 - 5.40 [facility] Hemoglobin [Mass/volume] in Blood 14.1 g/dL 12.0 - 16.0 [facility] Hematocrit [Volume Fraction] of Blood by Automated count 41.1 % 3 7.0 - 47.0 [facility] Erythrocyte mean corpuscular volume [Entitic volume] by Auto mated count 89.3 fL 81.0 - 101 [facility] Erythrocyte mean corpuscular hemoglobin [Entitic mass] by Automated count 30.7 pg 27.0 - 34.0 [facility] Erythrocyte mean corpuscular hemoglobin concentration [Mass/volume] by Automated count 34.3 g/dL 31.0 - 36.0 [facility] Erythrocyte distribution width [Ratio] by Automated count 12.4 % 11.5 - 14.5 [facility] Platelets [#/volume] in Blood by Automated count 332 10^3/uL 150 - 45 0 [facility] Platelet mean volume [Entitic volume] in Blood by Automated count 9.4 fL 7.4 - 10.4 [facility] Neutrophils/100 leukocytes in Blood by Automated count 52.1 % 37. 0 - 80.0 [facility] Lymphocytes/100 leukocytes in Blood by Manual count 39.0 % 25.0 - 40.0 [facility] Monocytes/100 leukocytes in Blood by Automated count 7.1 % 3.0 - 8.0 [facility] Eosinophils/100 leukocytes in Blood by Automated count 1.1 % 0.0 - 7.0 [facility] Basophils/100 leukocytes in Blood by Automated count 0.5 % 0.0 - 2.5 [facility] %IG 0.2 % 0.0 - 0.[address] [facility] %NRBC 0.0 % 0.0 - 0.0 [facility] al Neutrophils [#/volume] in Blood by Automated count 4.56 10^3/uL 2.00 - 6.90 [facility] Lymphocytes [#/volume] in Blood by Automated count 3.42 10^3/uL 0.60 - 3.40 H [facility] Monocytes [#/volume] in Blood by Automated count 0.62 10^3/uL 0.00 - 0.90 [facility] Eosinophils [#/volume] in Blood by Automated count 0.10 10^3/uL 0.00 - 0.70 [facility] Basophils [#/volume] in Blood by Automated count 0.04 10^3/uL 0.00 - 0.20 [facility] #IG 0.02 10^3/uL 0.00 - 0.10 [facility] ospital #NRBC 0.00 10^3/uL 0.00 - 0.00 [facility] MANUAL DIFF NOT INDICATED [facility] RBC MORPH NOT INDICATED [facility] ID Date Data Source [id number] 10/26/2020 03:56:00 PM [facility] Name Value Range Interpretation Code Description Data Tasha rce(s) Supporting Document(s) Prothrombin time (PT) 13.7 SECONDS 11.0 - 15.5 [facility] INR in Platelet poor plasma by Coagulation assay 1.00 0.93 - 1. 23 [facility] aPTT in Blood by Coagulation assay 29.8 SECONDS 24.8 - 36.7 [facility] \\BLDo\\INR INTERPRETATION\\BLDx\\ Therapeutic range for Coumadin and related oral anticoagulants. - International Normalized Ratio (INR): 2.0 - 3.0 for Venous Thrombosis, Pulmonary Embolus, Tissue heart valves, Acute IN Atrial Fibrillation, Valvular heart disease and recurrent Systemic Embolism. - International Normalized Ratio (INR): 2.5 - 3.5 for Mechanical Prosthetic valve. ID Date Data Source [id number] 10/26/2020 03:54:00 PM EST [facility] Name Value Range Interpretation Code Description Data [facility] rce(s) Supporting Document(s) UR[facility]ALYSIS [facility] URINALYSIS SOURCE R [facility] COLOR yellow NORMAL: Yellow [facility] CLARITY clear NORMAL: Clear [facility] Specific gravity of Urine by Test strip 1.010 1.001 - 1.030 [facility] pH 7 5 - 9 [facility] al Glucose [Mass/volume] in Urine by Test strip NORM NORMAL: Negat [facility] Bilirubin.total [Presence] in Urine by Test strip NEG NORMAL: Negative [facility] Ketones [Presence] in Urine by Test strip NEG NORMAL: Negative [facility] Protein [Mass/volume] in Urine by Test strip NEG NORMAL: Negat [facility] Nitrite [Presence] in Urine by Test strip NEG NORMAL: Negative [facility] BLOOD NEG NORMAL: Negative [facility] Leukocyte esterase [Presence] in Urine by Test strip NEG SERGEY L: Negative [facility] Urobilinogen [Mass/volume] in Urine by Test strip NOR less donis n 1.0 mg/dL [facility] MICROSCOPIC Not Indicate [facility] ospital ID Date Data Source [id number] 09/26/2020 04:48:00 PM EST [facility] 1 OrderSheet [facility] Emergency Department [address] [place] [address] Phone #: ext- [phone] 09/26/2020 16:41 Patient: [...] STAT 16:54 09/26/2020 17:00 Juan Deng; [facility] aPulinoPT/PTT STAT 16:54 09/26/2020 17:00 Juan Deng; [facility] [...] Juan JOE; [facility] Paulino(NOW x1) 2 OrderSheet [facility] Emergency Department [address] [place] [address] Phone #: ext- [phone] 09/26/2020 16:41 Patient: [...] Name Value Range Interpretation Code Description Data [facility](s) Supporting Document(s) ID Date Data Source [id number] 09/26/2020 04:48:00 PM [place] [address] Medication Reconciliation Report [facility] Emergency Department [address] [place] [address] Phone #: ext- [phone] 09/26/2020 16:41 Patient: [...] Name Value Range Interpretation Code Description Data [facility](s) Supporting Document(s) ID Date Data Source [id number] 09/26/2020 04:48:00 PM [place] [address] Medication Administration Record [facility] Emergency Department [address] [place] [address] Phone #: ext- [phone] 09/26/2020 16:41 Patient: JORJE FONSECA Sex: F : 2000 Age: 20yWeight: 58.0 kgHeight/Length: 62 inBMI: 23.4ALLERGIES: Bee venom, "numbing solution", Ceclor Date/Time Medication Administered Medication OrderedStart NS [IV] NS IV : Bolus 500 mL, then 61818:20 09/26/2020 Dose: IV Fluids mL/hr (NOW x1)[facility] [...] rce(s) Supporting Document(s) ID Date Data Source [id number] 09/26/2020 04:48:00 PM EST [facility] 1 General Instructions [facility] Emergency Department [address] [place] [address] Phone #: ext- [phone] 09/26/2020 16:41 Patient: [...] available appointment.Reason for referral: evaluation and 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 Summary of care providedto patient via paper.Understanding of the discharge instructions verbalized by patient. Expected course of illness, dischargeinstructions, a ctivity level, follow-up appointment and risks and benefits of treatment reviewed with patientand understanding verbalized. Agrees to plan of care. ADDITIONAL INFORMATIONPainful Menstrual Periods (Dysmenorrhea) 2 General Instructions [facility] Emergency Department [address] [place] [address] Phone #: ext- [phone] 09/26/2020 16:41 Patient: [...] the "Home care" section). 3 General Instructions [facility] Emergency Department [address] [place] [address] Phone #: ext- [phone] 09/26/2020 16:41 Patient: [...] tissue from the vagina 4 General Instructions [facility] Emergency Department [address] [place] [address] Phone #: ext- [phone] 09/26/2020 16:41 Patient: JORJE FONSECA Sex: F : 2000 Age: 20y [id number] [employer] [place] [address]. All rights reserved. This information is not [...] rce(s) Supporting Document(s) ID Date Data Source [id number] 09/26/2020 04:48:00 PM EST [facility] 1 Clinical Report - Nurses [facility] Emergency Department [address] [place] [address] Phone #: ext- [phone] 09/26/2020 16:41 Patient: [...] or confirmed signs ofinfection present. --16:52 09/26/20 Frida Melgar6:44 09/26/20. BP: 135/75. MAP: 95. HR: [...] Melgar.ADDITIONAL SURGERIES: 2 Clinical Report - Nurses [facility] Emergency Department [address] [place] [address] Phone #: ext- [phone] 09/26/2020 16:41 [id number] Sex: F : 2000 Age: 20y Biopsy [...] To treatment room. --16:52 09/26/20 Gabo Melgar.PHYSICAL [id number] 09/26/20. Ambulatory to room. Patient gowned.GENERAL / [...] PROGRESS NOTES 3 Clinical Report - Nurses [facility] Emergency Department [address] [place] [address] Phone #: ext- [phone] 09/26/2020 16:41 Patient: [...] 26. O2 saturation: 99%. --17:11 09/26/20 [facility] 17:12 09/26/2020 Site #1 started [...] So Duke simms R.N. Patient [facility] by wheelchair with care tech. --17:39 09/26/20 Ny Delgado RN 18:12 09/26/20. BP: 116/63. MAP: 80. HR: 58. RR: 24. O2 saturation: 99%. --18:13 09/26/20 [place] estimator and drafter, Flory, Tech1 18:40 09/26/2020 IV Fluids NS [...] verbalized understanding. Written instruction s provided in Icelandic. The patient was discharged by the physician cardiology physician assistant. She was discharged home. She left ambulatory and via private vehicle. Patient driving. --18:48 09/26/20 Duke Deng R.N. 18:47 09/26/2020 Site #1 removed upon discharge. Catheter intact. Bandage applied. --18:47 09/26/20 Duke Deng R.N. 4 Clinical Report - Nurses [facility] Emergency Department [address] [place] [address] Phone #: ext- [phone] 09/26/2020 16:41 Patient: JORJE FONSECA Sex: F : 2000 Age: 20y 18:40 09/26/20. BP: 124/74. MAP: 90. HR: 78. RR: 26. O2 saturation: 100%. Temp: 98.5 F. Pain level now: 0/10. --18:48 09/26/20 Duke Deng R.N.Locked/Released at 09/26/2020 21:02 by Duke Deng R.N. Name Value Range Interpretation Code Description Data Tasha rce(s) Supporting Document(s) ID Date Data Source [id number] 09/26/2020 04:48:00 PM EST [facility] 1 Clinical Report - Physicians/Mid Levels [facility] Emergency Department [address] [place] [address] Phone #: ext- [phone] 09/26/2020 16:41 Patient: [...] Biopsy. 2 Clinical Report - Physicians/Mid Levels [facility] Emergency Department [address] [place] [address] Phone #: ext- [phone] 09/26/2020 16:41 Patient: [...] NEGATIVE (NORMAL: NEGAT { KIT LOT # [id number] ){ KIT EXP DATE 3 Clinical Report - Physicians/Mid Levels [facility] Emergency Department [address] [place] [address], [place] [address] Phone #: ext- [phone] 09/26/2020 16:41 Patient: JORJE FONSECA Sex: F : 2000 Age: 84c08-26-08 ){ PROCEDURAL CONTROL VALID)CBC w Diff: (LESLIE: [...] yrs 4 Clinical Report - Physicians/Mid Levels [facility] Emergency Department [address] [place] [address] Phone #: ext- [phone] 09/26/2020 16:41 Patient: [...] Thrombosis, Pulmonary Embolus, Tissue heart valves, Acute IN Atrial Fibrillation, Valvular heart disease and recurrent [...] results. 5 Clinical Report - Physicians/Mid Levels [facility] Emergency Department [address] [place] [address] Phone #: ext- [phone] 09/26/2020 16:41 Patient: [id number] Sex: F : 2000 Age: 20y Disposition: [...] appointment. 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 Summary of care provided to patient via paper. Understanding of the discharge instructions verbalized by patient. Expected course of illness, discharge instructions, activity level, follow-up appointment and risks and benefits of treatment reviewed with patient and understanding verbalized. Agrees to plan of care.(Electronically signed by HEATH Castro 09/29/2020 10:16) 6Clinical Report - Physicians/Mid Levels [facility] Emergency Department [address] [place] [address] Phone #: ext- [phone] 09/26/2020 16:41 Patient: JORJE FONSECA Sex: F : 2000 Age: 20y Name Value Range Interpretation Code Description Data Tasha rce(s) Supporting Document(s) ID Date Data Source [id number] 09/27/2020 02:10:00 [place] [address] PHONE: [phone] FAX: [phone] Name .................. : RAYMUNDO RECINOS Acct Number.................. : [id number] ROOM. ................. : TR-05 MR Number ................... : [id number] Stay type ............. : E/R Discharge Date......... ... : 09/26/20 Admit Date ......... : 09/26/20 Admit Phys .................... : KENDRICK WILIAN Date of ....... : 2000 Family Phys ................... : ROSALINO GARCIA Phone .................. : [phone] Age ................................ : 20 Film# .................. .:[id number] Sex ................................. : F Unsigned transcriptions are preliminary reports and do not represent a medical or legal document TRANSVAGINAL(NON OB) [id number] COMPLETE:09/26/20 19:50 ADB 60136 Reason(s): Pelvic Pain TRANSVAGINAL PELVIC ULTRASOUND: INDICATION: [...] rce(s) Supporting Document(s) ID Date Data Source [id number] 09/27/2020 02:09:00 PM EST [facility] [address] [place] [address] PHONE: [phone] FAX: [phone] Name .................. : RAYMUNDO RECINOS Acct Number.................. : [id number] ROOM. ................. : TR-05 MR Number ................... : [id number] Stay type ............. : E/R Discharge Date......... ... : 09/26/20 Admit Date ......... : 09/26/20 Admit Phys .................... : KENDRICK WILIAN Date of ....... : 2000 Family Phys ................... : [employer] Phone .................. : [phone] Age ................................ : 20 Film# .................. .:[id number] Sex ................................. : F Unsigned transcriptions are preliminary reports and do not represent a medical or legal document PELVIC [id number] COMPLETE:09/26/20 19:50 ADB 24841 Reason(s): Abnormal Bleeding PELVIC ULTRASOUND: INDICATION: Abnormal [...] rce(s) Supporting Document(s) ID Date Data Source [id number] 09/26/2020 06:13:00 PM [facility] Name Value Range Interpretation Code Description Data Tasha rce(s) Supporting Document(s) Lipase [Enzymatic activity/volume] in Serum or Plasma 23 U/L 13 - 60 [facility] ID Date Data Source [id number] 09/26/2020 06:13:00 PM [facility] Name Value Range Interpretation Code Description Data [facility] Supporting Document(s) COMPREHENSIVE METABOLIC PANEL [facility] COMPREHENSIVE METABOLIC PANEL Sodium [Moles/volume] in Serum or Plasma 140 mEq/L 134 - 153 [facility] Potassium [Moles/volume] in Serum or Plasma 3.8 mEq/L 3.6 - 5.0 [facility] Chloride [Moles/volume] in Serum or Plasma 106 mEq/L 98 - 107 [facility] Carbon dioxide, total [Moles/volume] in Serum or Plasma 25 MEQ/L 22 - 30 [facility] Glucose [Mass/volume] in Serum or Plasma 82 MG/DL 65 - 110 [facility] BUN 9 MG/DL 7 - 21 [facility] Creatinine [Mass/volume] in Serum or Plasma 0.7 MG/DL 0.7 - 1.5 [facility] BUN/CREAT 13 8 - 27 [facility] al Protein [Mass/volume] in Serum or Plasma 7.2 G/DL 6.3 - 8.2 [facility] Albumin [Mass/volume] in Serum or Plasma 4.5 G/DL 3.9 - 5.0 [facility] Globulin [Mass/volume] in Serum by calculation 2.7 GM/DL 2.4 - 3.2 [facility] A/G RATIO 1.7 0.8 - 2.0 [facility] Calcium [Mass/volume] in Serum or Plasma 9.5 MG/DL 8.4 - 10.2 [facility] Bilirubin.total [Mass/volume] in Serum or Plasma <0.7 MG/DL 0.2 - 1.3 [facility] Alkaline phosphatase [Enzymatic activity/volume] in Serum or Plasma 78 U/L 38 - 126 [facility] Aspartate aminotransferase [Enzymatic activity/volume] in Serum or Plasma 13 U/L 5 - 40 [facility] Alanine aminotransferase [Enzymatic activity/volume] in Seru m or Plasma 11 U/L 7 - 56 [facility] Anion gap 3 in Serum or Plasma 9.0 mmol/L 8.0 - 16.0 [facility] AGE 20 yrs [facility] NON-AA GFR >60 mL/min [facility] AFR AMER GFR >60 mL/min [facility] Male GFR In terprentation 20-49 [...] >32 mL/min Normal ID Date Data Source [id number] 09/26/2020 06:09:00 PM EST [facility] Name Value Range Interpretation Code Description Data Tasha rce(s) Supporting Document(s) Prothrombin time (PT) 13.3 SECONDS 11.0 - 15.5 [facility] INR in Platelet poor plasma by Coagulation assay 1.00 0.93 - 1. 23 [facility] aPTT in Blood by Coagulation assay 28.3 SECONDS 24.8 - 36.7 [facility] \\BLDo\\INR INTERPRETATION\\BLDx\\ Therapeutic range for Coumadin and related oral anticoagulants. - International Normalized Ratio (INR): 2.0 - 3.0 for Venous Thrombosis, Pulmonary Embolus, Tissue heart valves, Acute IN Atrial Fibrillation, Valvular heart disease and recurrent Systemic Embolism. - International Normalized Ratio (INR): 2.5 - 3.5 for Mechanical Prosthetic valve. ID Date Data Source [id number] 09/26/2020 05:35:00 PM EST [facility] Name Value Range Interpretation Code Description Data Tasha rce(s) Supporting Document(s) Lactate [Moles/volume] in Serum or Plasma 1.0 MMOL/L 0.2 - 2.2 [facility] ID Date Data Source [id number] 09/26/2020 05:33:00 PM EST [facility] Name Value Range Interpretation Code Description Data Tasha rce(s) Supporting Document(s) CBC W/AUTOMATED DIFF [facility] COMPLETE BLOOD COUNT Leukocytes [#/volume] in Blood by Automated count 8.9 10^3/uL 4.2 - 1 1.0 [facility] Erythrocytes [#/volume] in Blood by Automated count 4.54 10^6/uL 4. 20 - 5.40 [facility] Hemoglobin [Mass/volume] in Blood 14.0 g/dL 12.0 - 16.0 [facility] Hematocrit [Volume Fraction] of Blood by Automated count 41.0 % 3 7.0 - 47.0 [facility] Erythrocyte mean corpuscular volume [Entitic volume] by Auto mated count 90.3 fL 81.0 - 101 [facility] Erythrocyte mean corpuscular hemoglobin [Entitic mass] by Automated count 30.8 pg 27.0 - 34.0 [facility] Erythrocyte mean corpuscular hemoglobin concentration [Mass/volume] by Automated count 34.1 g/dL 31.0 - 36.0 [facility] Erythrocyte distribution width [Ratio] by Automated count 12.2 % 11.5 - 14.5 [facility] Platelets [#/volume] in Blood by Automated count 354 10^3/uL 150 - 45 0 [facility] Platelet mean volume [Entitic volume] in Blood by Automated count 9.2 fL 7.4 - 10.4 [facility] Neutrophils/100 leukocytes in Blood by Automated count 53.7 % 37. 0 - 80.0 [facility] Lymphocytes/100 leukocytes in Blood by Manual count 38.4 % 25.0 - 40.0 [facility] Monocytes/100 leukocytes in Blood by Automated count 5.7 % 3.0 - 8.0 [facility] Eosinophils/100 leukocytes in Blood by Automated count 1.5 % 0.0 - 7.0 [facility] Basophils/100 leukocytes in Blood by Automated count 0.5 % 0.0 - 2.5 [facility] %IG 0.2 % 0.0 - 0.0 [facility] al %NRBC 0.0 % 0.0 - 0.0 [facility] al Neutrophils [#/volume] in Blood by Automated count 4.76 10^3/uL 2.00 - 6.90 [facility] Lymphocytes [#/volume] in Blood by Automated count 3.41 10^3/uL 0.60 - 3.40 H [facility] Monocytes [#/volume] in Blood by Automated count 0.51 10^3/uL 0.00 - 0.90 [facility] Eosinophils [#/volume] in Blood by Automated count 0.13 10^3/uL 0.00 - 0.70 [facility] Basophils [#/volume] in Blood by Automated count 0.04 10^3/uL 0.00 - 0.20 [facility] #IG 0.02 10^3/uL 0.00 - 0.10 [facility] #NRBC 0.00 10^3/uL 0.00 - 0.00 [facility] ospital MANUAL DIFF NOT INDICATED [facility] RBC MORPH NOT INDICATED [facility] spital ID Date Data Source [id number] 09/26/2020 05:27:00 PM EST [facility] Name Value Range Interpretation Code Description Data Tasha rce(s) Supporting Document(s) [facility]IS [facility] URINALYSIS SOURCE Clean Catch [facility] ital COLOR yellow NORMAL: Yellow [facility] CLARITY clear NORMAL: Clear [facility] Specific gravity of Urine by Test strip 1.015 1.001 - 1.030 [facility] pH 6 5 - 9 [facility] al Glucose [Mass/volume] in Urine by Test strip NORM NORMAL: Negat tej [facility] Bilirubin.total [Presence] in Urine by Test strip NEG NORMAL: Negative [facility] Ketones [Presence] in Urine by Test strip 5 NORMAL: Negative A [facility] Protein [Mass/volume] in Urine by Test strip 15 NORMAL: Negat tej [facility] Nitrite [Presence] in Urine by Test strip NEG NORMAL: Negative [facility] BLOOD 250 NORMAL: Negative [facility] Leukocyte esterase [Presence] in Urine by Test strip NEG SERGEY L: Negative [facility] Urobilinogen [Mass/volume] in Urine by Test strip NOR less donis n 1.0 mg/dL [facility] MICROSCOPIC See Below [facility] ital Erythrocytes [#/volume] in Urine by Test strip 5 - 7 NORMAL: NON E SEEN A [facility] EPITHELIAL FEW NORMAL: NONE SEEN [facility] ID Date Data Source [id number] 09/26/2020 05:21:00 PM EST [facility] Name Value Range Interpretation Code Description Data Tasha rce(s) Supporting Document(s) HCG URINE QUAL NEGATIVE NORMAL: NEGATIVE [facility] HCG URINE QL REENTER NEGATIVE NORMAL: NEGATIVE [facility] { KIT LOT # [id number] ){ KIT EXP DATE 08-22-21 ){ PROCEDURAL CONTROL VALID ) ID Date Data Source [id number] 07/03/2020 11:54:00 PM EDT [facility] 1 OrderSheet [facility] Emergency Department [address] [place] [address] Phone #: ext- [phone] 07/03/2020 23:28 Patient: [...] Maggy Delmis Naylor R.N. M.D.; 2 OrderSheet [facility] Emergency Department [address] [place] [address] Phone #: ext- [phone] 07/03/2020 23:28 Patient: JORJE FONSECA Sex: F : 2000 Age: 19yDIAGNOSTIC [...] BlairBolus: : Bolus 1000 Turrin, R iccardo aWrd Estrada R.N. Natalie R.N.mL (X1) M.D.;Toradol 15 [...] rce(s) Supporting Document(s) ID Date Data Source [id number] 07/03/2020 11:54:00 PM EDT [facility] 1 Medication Reconciliation Report [facility] Emergency Department [address] [place] [address] Phone #: ext- [phone] 07/03/2020 23:28 [facility]: [id number] Sex: F : 2000 Age: 19yWeight: 54.4 [...] rce(s) Supporting Document(s) ID Date Data Source [id number] 07/03/2020 11:54:00 PM EDT [facility] 1 Medication Administration Record [facility] Emergency Department [address] [place] [address] Phone #: ext- [phone] 07/03/2020 23:28 Patient: JORJE FONSECA Sex: F : 2000 Age: 19yWeight: 54.4 kgHeight/Length: 62 inBMI: 22ALLERGIES: "numbing solution"Tiago Date/Time Medication Administered Medication OrderedStart NS [IV] NS IV 1000 mL Bolus: : Bolus [id number] 07/04/2020 Dose: IV Fluids mL (X1)Maggy Estrada R.N. Rate: 999 mL/hr---- Dispensed: 1000 mL bagStop Site: #1 right AC01:30 07/04/2020Maggy Estrada R.N.Given TORADOL [IVP] (KETOROLAC Toradol 15 mg IVP X1 dose: 15 mg00:32 07/04/2020 TROMETHAMINE) (NOW x1)Maggy Ward Estrada R.N. Dose: 15 mg IVP Site: #1 right AC Name Value Range Interpretation Code Description Data Tasha rce(s) Supporting Document(s) ID Date Data Source [id number] 07/03/2020 11:54:00 PM EDT [facility] 1 General Instructions [facility] Emergency Department [address] [place] [address] Phone #: ext- [phone] 07/03/2020 23:28 Patient: JORJE FONSECA Sex: F : 2000 Age: 19yAcute pelvic pain. (Resolved).INSTRUCTIONS Drink plenty of fluids. No sexual contact. Do not smoke. No alcohol. (PLEASE FOLLOW UP WITH YOUR PHOTOENGRAVER APPRENTICE IN NEXT 2 DAYS FOR FURTHER WORKUP OF YOUR PELVIC PAIN NEEDED).Warnings: Further evaluation is necessary in order to conduct further tests (your PHOTOENGRAVER APPRENTICE). It is veryimportant to follow up with [...] department as needed. Follow up with a overhead crane truck loader in two days even if well.Call for an appointment. Reason for referral: evaluation and treatment. Summary of care provided topatient via paper.Understanding of the discharge instructions verbalized by patient. Expected course of illness, dischargeinstructions, activity level, diet, follow-up appointment and risks and benefits of treatment reviewed withpatient and understanding verbalized. Agrees to plan of care. ADDITIONAL INFORMATIONPelvic Pain, Uncertain Cause 2 General Instructions [facility] Emergency Department [address] [place] [address] Phone #: ext- [phone] 07/03/2020 23:28 Patient: [...] manage your pain. These can include: Taking osmj-omu-hmbyrjz pain medicine. Stronger pain medicine may also [...] pain with you.Follow-up care 3 General Instructions [facility] Emergency Department [address] [place] [address] Phone #: ext- [phone] 07/03/2020 23:28 Patient: JORJE FONSECA Sex: F [...] Abnormal vaginal bleeding (especially bleeding after menopause) [id number] [employer] [address] [place] [address]. All rights reserved. This information is not intended as asubstitute for professional medical care. Always follow your healthcare professional's instructions. You have been given the following additional information: Pelvic Pain, Unknown Cause(Electronically signed by Delmis Kwon M.D. 07/04/2020 06:17) Name Value Range Interpretation Code Description Data Tasha rce(s) Supporting Document(s) ID Date Data Source [id number] 07/03/2020 11:54:00 PM EDT [facility] 1 Clinical Report - Nurses [facility] Emergency Department [address] [place] [address] Phone #: ext [phone] 07/03/2020 23:28 Patient: JORJE FONSECA Sex: F : 2000 Age: 19yTRIAGEArrived by private vehicle. Historian: patient.Triage time: 23:29 07/03/2020.Chief Complaint: PELVIC PAIN and VAGINAL DISCHARGE and URGENCY.The patient has had spotting ( - ).Treatment TOURIST GUIDE:(Has not taken anything because she knew she [...] disorder.Bipolar Disorder. 2 Clinical Report - Nurses [facility] Emergency Department [address] [place] [address] Phone #: ext- [phone] 07/03/2020 23:28 Patient: JORJE FONSECA Sex: F [...] Estrada R.N. 3 Clinical Report - Nurses [facility] Emergency Department [address] [place] [address] Phone #: ext- [phone] 07/03/2020 23:28 Patient: [...] Patient returned from sonogram by wheelchair with care tech. --02:46 07/04/20 Maggy Estrada R.N. 03:15 07/04/20. [...] Patient verbalized understanding. Written instructions provided in Icelandic. The patient was discharged by the physician. She was discharged home. She left ambulatory and via private vehicle. 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 --03:51 07/04/20 Maggy Estrada R.N. 4 Clinical Report - Nurses [facility] Emergency Department [address] [place] [address] Phone #: ext- [phone] 07/03/2020 23:28 Patient: JORJE FONSECA Sex: F : 2000 Age: 19y 03:50 07/04/20. BP: deferred. HR: deferred. RR: 16. O2 saturation: 99%. Temp: 98.9 F. Pain level now: 01/24. --03:51 07/04/20 Maggy Estrada R.N.Locked/Released at 07/04/2020 03:54 by Maggy Estrada R.N. Name Value Range Interpretation Code Description Data Tasha rce(s) Supporting Document(s) ID Date Data Source [id number] 07/03/2020 11:54:00 PM EDT [facility] 1 Clinical Report - Physicians/Mid Levels [facility] Emergency Department [address] [place] [address] Phone #: ext- [phone] 07/03/2020 23:28 Patient: JORJE FONSECA Sex: F [...] Medications: 2 Clinical Report - Physicians/Mid Levels [facility] Emergency Department [address] [place] [address] Phone #: ext- [phone] 07/03/2020 23:28 Patient: JORJE FONSECA Sex: F [...] US\\SR 3 Clinical Report - Physicians/Mid Levels [facility] Emergency Department [address] [place] [address] Phone #: ext- [phone] 07/03/2020 23:28 Patient: JORJE FONSECA Sex: F : 2000 Age: 19yDOB: [birth year] DESCRIPTION: US TRANSVAGINAL(NON OB)INSTITUTION: [facility] ORDERING PHYSICIAN: Delmis BeltranION #: [id number] HISTORY:ULTRASOUND PELVIS TRANSVAGINALCOMPARISON: NoneHISTORY: US TRASNVAGINAL PELVIC [...] 04, 2020 3:29:59 AM EDT by:Ambika Gilliam, [place] [employer]. Study type: transvaginal evaluation. The study was interpretedby the radiologist.Laboratory Tests: Laboratory tests have been ordered, with results reviewed and considered in themedical decision making process.US TRANSVAGINAL (NON OB): (LESLIE: 07/04/2020 01:37) ( MsgRcvd 07/04/2020 03:30) Final resultsUS TRANSVAGINAL(NON OB)Reason(s): Left sided pelvic pain w spotting, not TRANSPORTATION: WC IV? O2? Oxygen?(No) Room: ED Exam US TRANSVAGINAL(NON OB) [place] [address] ---------NAME--------- NUMBER SEX AGE ADMIT DISC. XRAY# F/C TYPE RAYMUNDO RECINOS [id number] F 19 07/03/20 [id number] NA E/R DATE OF : 2000 M/R# [id number] #: [id number] TR-04 LOCATION: EMERGENCY DEPT TRANSCRIBED: 07/04/20 3:29 IF US TRANSVAGINAL(NON OB) [id number] COMPLETED:07/04/20 3:30 holly [id number] Reason(s): Left sided pelvic pain w spotting, not 4 Clinical Report - Physicians/Mid Levels [facility] Emergency Department [address] [place] [address] Phone #: ext- [phone] 07/03/2020 23:28 Patient: [...] 0.70) 5 Clinical Report - Physicians/Mid Levels [facility] Emergency Department [address] [place] [address] Phone #: ext- [phone] 07/03/2020 23:28 [facility]: [id number] Sex: [facility] : 2000 Age: 19y #BASO [...] Male GFR Interprentation 20-49 yrs >60 mL/min Pplxyg77-77 yrs >56 mL/min Normal 60-69 yrs >49 mL/min Normal 70-79yrs>42 mL/min Normal 80 and above >35 mL/min Normal Female GFRInterpretation 20-39 yrs >60 mL/min Normal 40-49 yrs >58 mL/minNormal 50-59 yrs >51 mL/min Normal 60-69 yrs >45 mL/min Bdeuqz21-30 yrs >39 mL/min Normal 80 and above >32 mL/min NormalBeta-HCG, Qual Serum: (LESLIE: 07/04/2020 00:10) ( HigRcvd 07/04/2020 00:26) Final results Test Result Flag Units (Reference) HCG SERUM QUAL NEGATIVE (NORMAL: NEGAT HCG SERUM QL REENTER NEGATIVE (NORMAL: NEGAT { KIT LOT # [id number] ){ KIT EXP [id number] ){ PROCEDURAL CONTROL VALID)Type Rh: (LESLIE: 07/04/2020 00:10) ( [facility] 07/04/2020 01:08) Final results Test Result Flag Units (Reference) ABO GROUP A RH TYPE POSITIVE { ABO/RH REENTER A POSITIVEUrinalysis: (LESLIE: 07/03/2020 23:50) ( [facility] 07/04/2020 00:16) Final results Test Result Flag Units (Reference) 6 Clinical Report - Physicians/Mid Levels [facility] Emergency Department [address] [place] [address] Phone #: ext- [phone] 07/03/2020 23:28 Patient: [...] home w instructions to f/u w her PHOTOENGRAVER APPRENTICE in next few days; she agrees. Critical [...] IMPRESSION 7 Clinical Report - Physicians/Mid Levels [facility] Emergency Department [address] [place] [address] Phone #: ext- [phone] 07/03/2020 23:28 Patient: JORJE FONSECA Sex: F : 2000 Age: 19y Acute pelvic pain. (Resolved).INSTRUCTIONS Drink plenty of fluids. No sexual contact. Do not smoke. No alcohol. (PLEASE FOLLOW UP WITH YOUR PHOTOENGRAVER APPRENTICE IN NEXT 2 DAYS FOR FURTHER WORKUP OF YOUR PELVIC PAIN NEEDED). Warnings: Further evaluation is necessary in order to conduct further tests (your PHOTOENGRAVER APPRENTICE). It is very important to follow up [...] department as needed. Follow up with a overhead crane truck loader in two days even if well. Call [...] rce(s) Supporting Document(s) ID Date Data Source [id number] 07/04/2020 03:29:00 AM EDT [address] [address] ---------NAME--------- NUMBER SEX AGE ADMIT DISC. XRAY# F/C TYPE RAYMUNDO RECINOS [id number] 07/03/20 [id number] NA E/R DATE OF : 2000 M/R# [id number] #: [id number] TR-04 LOCATION: EMERGENCY DEPT TRANSCRIBED: 07/04/20 3:29 IF US TRANSVAGINAL(NON OB) 34036 COMPLETED:07/04/20 3:30 holly 50412 Reason(s): Left sided pelvic pain w spotting, [...] rce(s) Supporting Document(s) ID Date Data Source [id number] 07/08/2020 10:29:00 AM EDT [facility] Name Value Range Interpretation Code Description Data Tasha rce(s) Supporting Document(s) CULTURE GENITAL [facility] _GENITAL CULTURE_$$[id number]$$[id number]$$ [id number]$$[id number]$$[id number]$$[id number] DATE/TIME: 07/08/2020 10:06Culture: CULTURE GENITAL Status: FinalGenital Culture, Routine: T6Anisqis genital cait.Heavy growthIsolate 1 Yeast Flag: A . . . . . . .6isolatedScant growthRequest for further identification must be madewithin 1 week.Yeast Flag: AP1 Test performed by: [facility] #: [id number] [address] [id number] [facility] [id number] [id number] Director : Tha Still MD NPI #: -- Continued on next page --Patient: RAYMUNDO RECINOS Order: [id number] Page 2Culture: CULTURE GENITAL Status: Final ====Auto Hauler : 07/08/[email or web address].SENT REF ID Date Data Source [id number] 07/06/2020 06:23:00 AM EDT [facility] Name Value Range Interpretation Code Description Data Tasha rce(s) Supporting Document(s) Chlamydia trachomatis rRNA [Presence] in Unspecified specimen by Probe and target amplification method Negative Negative [facility] Neisseria gonorrhoeae rRNA [Presence] in Unspecified specimen by Probe and target amplification method Negative Negative [facility] ID Date Data Source [id number] 07/06/2020 06:18:00 AM EDT [facility] Name Value Range Interpretation Code Description Data Tasha rce(s) Supporting Document(s) Maritza sp rRNA [Presence] in Vaginal fluid by DNA probe Negative N egative [facility] Gardnerella vaginalis rRNA [Presence] in Genital specimen by DNA probe Negative Negative [facility] Trichomonas vaginalis rRNA [Presence] in Genital specimen by DNA probe Negative Negative [facility] ID Date Data Source [id number] 07/04/2020 01:08:00 AM EDT [facility] Name Value Range Interpretation Code Description Data Tasha rce(s) Supporting Document(s) ABO group [Type] in Blood A [facility] Rh [Type] in Blood POSITIVE [facility] { ABO/RH REENTER A POSITIVE ID Date Data Source [id number] 07/04/2020 12:45:00 AM EDT [facility] Name Value Range Interpretation Code Description Data Tasha rce(s) Supporting Document(s) COMPREHENSIVE METABOLIC PANEL [facility] COMPREHENSIVE METABOLIC PANEL Sodium [Moles/volume] in Serum or Plasma 140 mEq/L 134 - 153 [facility] Potassium [Moles/volume] in Serum or Plasma 3.8 mEq/L 3.6 - 5.0 [facility] Chloride [Moles/volume] in Serum or Plasma 105 mEq/L 98 - 107 [facility] Carbon dioxide, total [Moles/volume] in Serum or Plasma 25 MEQ/L 22 - 30 [facility] Glucose [Mass/volume] in Serum or Plasma 93 MG/DL 65 - 110 [facility] BUN 14 MG/DL 7 - 21 [facility] al Creatinine [Mass/volume] in Serum or Plasma 0.8 MG/DL 0.7 - 1.5 [facility] BUN/CREAT 18 8 - 27 [facility] Protein [Mass/volume] in Serum or Plasma 6.9 G/DL 6.3 - 8.2 [facility] Albumin [Mass/volume] in Serum or Plasma 4.6 G/DL 3.9 - 5.0 [facility] Globulin [Mass/volume] in Serum by calculation 2.3 GM/DL 2.4 - 3.2 L [facility] A/G RATIO 2.0 0.8 - 2.0 [facility] Calcium [Mass/volume] in Serum or Plasma 9.3 MG/DL 8.4 - 10.2 [facility] Bilirubin.total [Mass/volume] in Serum or Plasma <0.7 MG/DL 0.2 - 1.3 [facility] Alkaline phosphatase [Enzymatic activity/volume] in Serum or Plasma 80 U/L 38 - 126 [facility] Aspartate aminotransferase [Enzymatic activity/volume] in Serum or Plasma 14 U/L 5 - 40 [facility] Alanine aminotransferase [Enzymatic activity/volume] in Seru m or Plasma 13 U/L 7 - 56 [facility] Anion gap 3 in Serum or Plasma 10.0 mmol/L 8.0 - 16.0 [facility] AGE 19 yrs [facility] NON-AA GFR >60 mL/min [facility] AFR AMER GFR >60 mL/min [facility] Male GFR In terprentation 20-49 [...] >32 mL/min Normal ID Date Data Source [id number] 07/04/2020 12:35:00 AM EDT [facility] Name Value Range Interpretation Code Description Data Tasha rce(s) Supporting Document(s) C reactive protein [Mass/volume] in Serum or Plasma by High sensitivity method 1.26 MG/L 1.00 - 3.00 [facility] CDC/S HS-CRP CUT-OFF: RELATIVE RISK: <1.0 mg/L Low 1.0 - 3.0 mg/L Average >3.0 mg/L High Optimally, the average of HS-CRP results repeated two weeks apart should be used for risk assessment. ID Date Data Source [id number] 07/04/2020 12:26:00 AM EDT [facility] Name Value Range Interpretation Code Description Data Tasha rce(s) Supporting Document(s) HCG SERUM QUAL NEGATIVE NORMAL: NEGATIVE [facility] HCG SERUM QL REENTER NEGATIVE NORMAL: NEGATIVE [facility] { KIT LOT # [id number] ){ KIT EXP DATE 08-29-21 ){ PROCEDURAL CONTROL VALID ) ID Date Data Source [id number] 07/04/2020 12:18:00 AM EDT [facility] Name Value Range Interpretation Code Description Data Tasha rce(s) Supporting Document(s) CBC W/AUTOMATED DIFF [facility] COMPLETE BLOOD COUNT Leukocytes [#/volume] in Blood by Automated count 9.1 10^3/uL 4.2 - 1 1.0 [facility] Erythrocytes [#/volume] in Blood by Automated count 4.29 10^6/uL 4. 20 - 5.40 [facility] Hemoglobin [Mass/volume] in Blood 13.0 g/dL 12.0 - 16.0 [facility] Hematocrit [Volume Fraction] of Blood by Automated count 38.3 % 3 7.0 - 47.0 [facility] Erythrocyte mean corpuscular volume [Entitic volume] by Auto mated count 89.3 fL 81.0 - 101 [facility] Erythrocyte mean corpuscular hemoglobin [Entitic mass] by Automated count 30.3 pg 27.0 - 34.0 [facility] Erythrocyte mean corpuscular hemoglobin concentration [Mass/volume] by Automated count 33.9 g/dL 31.0 - 36.0 [facility] Erythrocyte distribution width [Ratio] by Automated count 12.7 % 11.5 - 14.5 [facility] Platelets [#/volume] in Blood by Automated count 327 10^3/uL 150 - 45 0 [facility] Platelet mean volume [Entitic volume] in Blood by Automated count 9.1 fL 7.4 - 10.4 [facility] Neutrophils/100 leukocytes in Blood by Automated count 51.9 % 37. 0 - 80.0 [facility] Lymphocytes/100 leukocytes in Blood by Manual count 40.8 % 25.0 - 40.0 H [facility] Monocytes/100 leukocytes in Blood by Automated count 5.5 % 3.0 - 8.0 [facility] Eosinophils/100 leukocytes in Blood by Automated count 1.2 % 0.0 - 7.0 [facility] Basophils/100 leukocytes in Blood by Automated count 0.4 % 0.0 - 2.5 [facility] %IG 0.2 % 0.0 - 0.[address] [facility] %NRBC 0.0 % 0.0 - 0.0 [facility] al Neutrophils [#/volume] in Blood by Automated count 4.71 10^3/uL 2.00 - 6.90 [facility] Lymphocytes [#/volume] in Blood by Automated count 3.71 10^3/uL 0.60 - 3.40 H [facility] Monocytes [#/volume] in Blood by Automated count 0.50 10^3/uL 0.00 - 0.90 [facility] Eosinophils [#/volume] in Blood by Automated count 0.11 10^3/uL 0.00 - 0.70 [facility] Basophils [#/volume] in Blood by Automated count 0.04 10^3/uL 0.00 - 0.20 [facility] #IG 0.02 10^3/uL 0.00 - 0.10 [facility] #NRBC 0.00 10^3/uL 0.00 - 0.00 [facility] ospital MANUAL DIFF NOT INDICATED [facility] RBC MORPH NOT INDICATED [facility] spital ID Date Data Source [id number] 07/07/2020 12:10:00 PM EDT [facility] Name Value Range Interpretation Code Description Data Tasha rce(s) Supporting Document(s) CULTURE URINE [facility] _CULTURE URINE_$$[id number]$$[id number]$$[id number]$$[id number]$$[id number]$$[id number]$$[id number]$$[id number]$$[id number]$$ [id number]$$[id number]$$[id number]$$[id number]$$[id number]$$[id number]$$[id number]$$946803$$[id number]$$[id number]$$ [id number]$$[id number]$$[id number]$$[id number]$$[id number]$$[id number]$$[id number]$$[id number] -- Continued on next page --Patient: RAYMUNDO RECINOS Order: [id number] Page 2Culture: CULTURE URINE Status: Final ==== -- Continued on next page --Patient: RAYMUNDO RECINOS Order: [id number] Page 2Culture: CULTURE URINE Status: Prelim =====$$[id number]$$[id number] DATE/TIME: 07/07/2020 12:06Culture: CULTURE URINE Status: FinalIsolate [...] on 07/06/2020 01:13 ET Escherichia coliUrine Culture,Comprehensive: [id number] coli Flag: APatient: RAYMUNDO RECINOS Order: [id number] Page 3Culture: CULTURE URINE Status: Final ISOLATE [...] S S . . . . . .20315-9Rrfzqwludp S S . . . . . .267-5Imipenem S S . . . . . .279-0Levofloxacin S S . . . . . .89849-3Okfsrrfco S S . . . . . .6652-2Nitrofurantoin S S . . . . . .363-2Piperacillin/Tazobactam S S . . . . . .412-7Tetracycline S S . . . . . .496-0Tobramycin S S . . . . . .508-2Trimethoprim/Sulfa S S . . . . . .516-5P1 Test performed by: [facility] #: [id number] [address] [place] [id number] [facility] [id number] Director : Tha Still MD NPI #:Auto Hauler : 07/06/[email or web address] REF 07/07/20.1210.XMT.SENT REF ID Date Data Source [id number] 07/04/2020 12:16:00 AM EDT [facility] Name Value Range Interpretation Code Description Data Tasha rce(s) Supporting Document(s) URINALYSIS [facility] URINALYSIS SOURCE R [facility] COLOR yellow NORMAL: Yellow [facility] CLARITY cloudy NORMAL: Clear [facility] Specific gravity of Urine by Test strip 1.015 1.001 - 1.030 [facility] pH 8 5 - 9 [facility] Glucose [Mass/volume] in Urine by Test strip NORM NORMAL: Negat tej [facility] Bilirubin.total [Presence] in Urine by Test strip NEG NORMAL: Negative [facility] Ketones [Presence] in Urine by Test strip NEG NORMAL: Negative [facility] Protein [Mass/volume] in Urine by Test strip NEG NORMAL: Negat tej [facility] Nitrite [Presence] in Urine by Test strip NEG NORMAL: Negative [facility] BLOOD NEG NORMAL: Negative [facility] Leukocyte esterase [Presence] in Urine by Test strip NEG SERGEY L: Negative [facility] Urobilinogen [Mass/volume] in Urine by Test strip NOR less donis n 1.0 mg/dL [facility] MICROSCOPIC Not Indicate [facility] Procedure Social History Code Duration Value Status Description Data Source(s ) Smoking 11/24/2020 12:00:00 AM EST Former Smoker completed Former Smoker eCW1 ([facility]) Smoking 11/20/2020 12:00:00 AM EST Former Smoker completed Former Smoker eCW1 ([facility]) Smoking 10/27/2020 12:00:00 AM EST Former Smoker completed Former Smoker eCW1 ([facility]) Smoking 10/27/2020 12:00:00 AM EST Former Smoker completed Former Smoker eCW1 ([facility]) Smoking 10/27/2020 12:00:00 AM EST Former Smoker completed Former Smoker eCW1 ([facility]) Smoking 10/27/2020 12:00:00 AM EST Former Smoker completed Former Smoker eCW1 ([facility]) Smoking 10/27/2020 12:00:00 AM EST Former Smoker completed Former Smoker eCW1 ([facility]) Smoking 10/27/2020 12:00:00 AM EST Former Smoker completed Former Smoker eCW1 ([facility]) Smoking 09/29/2020 12:00:00 AM EST Current Smoker completed Curre nt Smoker eCW1 ([facility]) Smoking 09/29/2020 12:00:00 AM EST Current Smoker completed Curre nt Smoker eCW1 ([facility]) Smoking 03/22/2020 12:00:00 AM EDT Current Smoker completed Curre nt Smoker eCW1 ([facility]) Smoking 03/22/2020 12:00:00 AM EDT Current Smoker completed Curre nt Smoker eCW1 ([facility]) Smoking 03/22/2020 12:00:00 AM EDT Current Smoker completed Curre nt Smoker eCW1 ([facility]) Smoking 03/22/2020 12:00:00 AM EDT Current Smoker completed Curre nt Smoker eCW1 ([facility]) Vital Signs ID Date Data Source UNK Name Value Range Interpretation Code Description Data Source(s) [place] body weight 110 [lb_av] 110 [lb_av] MEDEN T ([facility], ) Body mass index (BMI) [Ratio] 23.8 kg/m2 23.8 k g/m2 MEDENT ([facility]) Body weight 130.00 [lb_av] 130.00 [lb_av] MEDEN T ([facility]) Body height 62 [in_i] 62 [in_i] MEDENT ([facility]) 5'2" Respiratory rate 12 /min 12 /min MEDENT ( [facility]) Diastolic blood pressure 67 mm[Hg] 67 mm[Hg] eCW1 ([facility]) Systolic blood pressure 104 mm[Hg] 104 mm[Hg] e CW1 ([facility]) Body temperature 98.6 [degF] 98.6 [degF] eCW1 ( [facility]) Respiratory rate 17 /min 17 /min eCW1 ([facility]) Heart rate 85 /min 85 /min eCW1 ([facility]) Body mass index (BMI) [Ratio] 24.56 kg/m2 24.56 kg/m2 eCW1 ([facility]) Body height 61 [in_i] 61 [in_i] eCW1 ([facility]) Body weight 130 [lb_av] 130 [lb_av] eCW1 ([facility], [facility]) Diastolic blood pressure 56 mm[Hg] 56 mm[Hg] eCW1 ([facility]) Systolic blood pressure 127 mm[Hg] 127 mm[Hg] e CW1 ([facility]) Body temperature 98.6 [degF] 98.6 [degF] eCW1 ( [facility]) Respiratory rate 17 /min 17 /min eCW1 ([facility]) Heart rate 78 /min 78 /min eCW1 ([facility]) Body mass index (BMI) [Ratio] 24.37 kg/m2 24.37 kg/m2 eCW1 ([facility]) Body height 61 [in_i] 61 [in_i] eCW1 ([facility]) Body weight 129 [lb_av] 129 [lb_av] eCW1 ([facility], [facility]) Diastolic blood pressure 55 mm[Hg] 55 mm[Hg] eCW1 ([facility]) Systolic blood pressure 94 mm[Hg] 94 mm[Hg] e CW1 ([facility]) Body temperature 99.6 [degF] 99.6 [degF] eCW1 ( [facility]) Respiratory rate 17 /min 17 /min eCW1 ([facility]) Heart rate 72 /min 72 /min eCW1 ([facility]) Body mass index (BMI) [Ratio] 24.33 kg/m2 24.33 kg/m2 eCW1 ([facility]) Body height 61 [in_i] 61 [in_i] eCW1 ([facility]) Body weight 128.8 [lb_av] 128.8 [lb_av] eCW1 ([facility]) Body mass index (BMI) [Ratio] 25.13 kg/m2 25.13 kg/m2 eCW1 ([facility]) Body height 61 [in_us] 61 [in_us] eCW1 ([facility]) Body weight Measured 133 [lb_av] 133 [lb_av] eC W1 ([facility]) Body surface area 1.60 m2 1.60 m2 MEDENT ([facility] [employer]) Body mass index (BMI) [Ratio] 23.6 kg/m2 23.6 k g/m2 MEDENT ([facility] [employer]) Body weight 130.00 [lb_av] 130.00 [lb_av] MEDEN T ([facility] [employer]) Body height 62.25 [in_i] 62.25 [in_i] MEDENT ([facility] [employer]) 5'2.25" Diastolic blood pressure 62 mm[Hg] 62 mm[Hg] MEDENT ([facility] [facility] [employer]) Systolic blood pressure 106 mm[Hg] 106 mm[Hg] M EDENT ([facility] [employer]) Body mass index (BMI) [Ratio] 25.51 kg/m2 25.51 kg/m2 eCW1 ([facility]) Body height 61 [in_us] 61 [in_us] eCW1 ([facility]) Body weight Measured 135 [lb_av] 135 [lb_av] eC W1 ([facility]) Diastolic blood pressure 62 mm[Hg] 62 mm[Hg] eCW1 ([facility]) Systolic blood pressure 108 mm[Hg] 108 mm[Hg] e CW1 ([facility]) Body temperature 98.4 [degF] 98.4 [degF] eCW1 ( [facility]) Respiratory rate 16 /min 16 /min eCW1 ([facility]) Heart rate 79 /min 79 /min eCW1 ([facility]) Diastolic blood pressure 55 mm[Hg] 55 mm[Hg] eCW1 ([facility]) Systolic blood pressure 116 mm[Hg] 116 mm[Hg] e CW1 ([facility]) Body temperature 98.9 [degF] 98.9 [degF] eCW1 ( [facility]) Respiratory rate 18 /min 18 /min eCW1 ([facility]) Heart rate 79 /min 79 /min eCW1 ([facility]) Body mass index (BMI) [Ratio] 25.51 kg/m2 25.51 kg/m2 eCW1 ([facility]) Body height 61 [in_us] 61 [in_us] eCW1 ([facility]) Body weight Measured 135 [lb_av] 135 [lb_av] eC W1 ([facility]) Diastolic blood pressure 54 mm[Hg] 54 mm[Hg] eCW1 ([facility]) Systolic blood pressure 100 mm[Hg] 100 mm[Hg] e CW1 ([facility]) Body temperature 97.5 [degF] 97.5 [degF] eCW1 ( [facility]) Respiratory rate 18 /min 18 /min eCW1 ([facility]) Heart rate 79 /min 79 /min eCW1 ([facility]) Body mass index (BMI) [Ratio] 26.07 kg/m2 26.07 kg/m2 eCW1 ([facility]) Body height 61 [in_us] 61 [in_us] eCW1 ([facility]) Body weight Measured 138 [lb_av] 138 [lb_av] eC W1 ([facility]) Diastolic blood pressure 56 mm[Hg] 56 mm[Hg] eCW1 ([facility]) Systolic blood pressure 110 mm[Hg] 110 mm[Hg] e CW1 ([facility]) Body temperature 98.1 [degF] 98.1 [degF] eCW1 ( [facility]) Respiratory rate 18 /min 18 /min eCW1 ([facility]) Heart rate 82 /min 82 /min eCW1 ([facility] to [facility]) Body mass index (BMI) [Ratio] 26.45 kg/m2 26.45 kg/m2 eCW1 ([facility]) Body height 61 [in_us] 61 [in_us] eCW1 ([facility]) Body weight Measured 140 [lb_av] 140 [lb_av] eC W1 ([facility]) ID Date Data Source [id number] 07/18/2020 12:50:00 PM EDT [facility] Name Value Range Interpretation Code Description Data Source(s) WEIGHT 58.8 kilos 58.8 kilos [facility] al HEIGHT 154.94 centimeters 154.94 centimeter [facility] WEIGHT 59.0909 kilos 59.0909 kilos [facility] HEIGHT 154.94 centimeters 154.94 centimeter [facility] Patient Treatment Plan of Care Planned Activity Planned Date Details Description Data Source (s) Triamcinolone Acetonide 1 MG/ML Topical Cream 11/24/2020 12:00:00 A M EST eCW1 ([facility]) valacyclovir 1000 MG Oral Tablet 09/29/2020 12:00:00 AM EST eCW1 ([facility]) valacyclovir 1000 MG Oral Tablet 09/29/2020 12:00:00 AM EST eCW1 ([facility]) NITROFURANTOIN, MACROCRYSTALS 25 MG / Ni trofurantoin, Monohydrate 75 MG Oral Capsule [Macrobid] 02/17/2020 12:00:00 AM EDT eC W1 ([facility]) valacyclovir 1000 MG Oral Tablet 02/01/2020 12:00:00 AM EDT eCW1 ([facility]) valacyclovir 1000 MG Oral Tablet 02/01/2020 12:00:00 AM EDT eCW1 ([facility]) Azithromycin 250 MG Oral Tablet 10/19/2019 12:00:00 AM EST eCW1 ([facility]) Prednisone 20 MG Oral Tablet 10/19/2019 12:00:00 AM EST eCW1 ([facility])
[2020-12-07] MEDS ORDERED: NS 1,000 ML IV ONE (21:30)
[2020-12-07 21:46] LABS: BASO % 0.5 % (0.0-1.0); EOS # 0.1 10^3/uL (0.0-0.5); EOS % 0.8 % (0.0-3.0); HEMATOCRIT 41.7 % (36.0-47.0); LYMPH # 3.2 10^3/uL (1.5-5.0); LYMPH % 35.9 % (24.0-44.0); MEAN CORPUSCULAR HEMOGLOBIN 30.6 pg (27.0-33.0); MEAN CORPUSCULAR HGB CONC 33.6 g/dl (32.0-36.5); MONO # 0.5 10^3/uL (0.0-0.8); MONO % 5.7 % (0.0-5.0); PLATELET COUNT, AUTOMATED 338 10^3/uL (150-450); RED BLOOD COUNT 4.58 10^6/uL (4.00-5.40); WHITE BLOOD COUNT 8.8 10^3/uL (4.0-10.0)
[2020-12-07] MEDS ORDERED: ISOVUE-370 76% 100ML VIAL As Ordered ONE (22:09)
[2020-12-07 22:15] LABS: ALBUMIN 4.5 GM/DL (3.2-5.2); BILIRUBIN,DIRECT 0.1 MG/DL (0.0-0.2); BILIRUBIN,TOTAL 0.4 MG/DL (0.2-1.0); TOTAL PROTEIN 7.9 GM/DL (6.4-8.2)
--- NOTE | 2020-12-07 22:56 | REPVR ---
PROCEDURE INFORMATION: Exam: CT Abdomen And Pelvis With Contrast Exam date and time: 12/07/2020 10:25 PM Age: 20 years old Clinical indication: Abdominal pain; Localized; Right lower quadrant (rlq); Additional info: Rlq pain TECHNIQUE: Imaging protocol: Computed tomography of the abdomen and pelvis with intravenous contrast. Axial, coronal and sagittal reformatted images were created and reviewed. Radiation optimization: All CT scans at this facility use at least one of these dose optimization techniques: automated exposure control; mA and/or kV adjustment per patient size (includes targeted exams where dose is matched to clinical indication); or iterative reconstruction. Contrast material: ISOVUE 370; Contrast volume: 100 ml; Contrast route: INTRAVENOUS (IV); COMPARISON: US PELVIC NON-OB COMPLETE 02/28/2020 3:18 PM FINDINGS: Liver: Unremarkable. Gallbladder and bile ducts: No radiodense gallstones. No biliary ductal dilatation. Pancreas: Unremarkable. Spleen: Unremarkable. Adrenal glands: Normal. No mass. Kidneys and ureters: No mass. No radiodense calculi. No hydronephrosis. Stomach and bowel: No bowel wall thickening. No obstruction. No pneumatosis. Appendix: Normal. Intraperitoneal space: Trace nonspecific free pelvic fluid, likely physiologic. No organized fluid collection. No free air. Vasculature: Unremarkable. No aneurysm. Lymph nodes: No pathologically enlarged lymph nodes. Urinary bladder: Unremarkable as visualized. Reproductive: Unremarkable. Bones/joints: No acute osseous abnormality. Soft tissues: Unremarkable. IMPRESSION: 1. No CT evidence of acute intra-abdominal or pelvic pathology. 2. Additional findings, as above. Electronically signed by: Paul Liazrraga On 12/07/2020 22:56:16 PM
[2020-12-07 23:35] VITALS: BP 119/67
== END 2020-12-07 23:38 | disposition home or self-care (01) ==
LOC: M ED 18:31
DX: R19.7 Diarrhea, unspecified (principal); R10.9 Unspecified abdominal pain; F31.9 Bipolar disorder, unspecified; F43.10 Post-traumatic stress disorder, unspecified; F60.3 Borderline personality disorder; Z88.1 Allergy status to other antibiotic agents; Z88.8 Allergy status to other drugs, medicaments and biological substances; Z91.030 Bee allergy status; F12.20 Cannabis dependence, uncomplicated; F17.210 Nicotine dependence, cigarettes, uncomplicated
CPT/HCPCS: 74177; 80047; 80076; 81001; 83690; 84702; 85025; 96360; 96361; 99284; Q9967

== ENCOUNTER → 2020-12-26 | Outpatient (CLI) | payer OTHER ==
[~2020-12-26] MED LIST changes: +QUET50TA3; +VALA1TAB5
[2020-12-26 10:36] LABS: BLOOD UREA NITROGEN 13 MG/DL (7-18); GLUCOSE, FASTING 107 MG/DL (70-100)
[2020-12-26 10:37] LABS: ALT/SGPT 23 U/L (12-78); BILIRUBIN,TOTAL 0.1 MG/DL (0.2-1.0); CALCIUM LEVEL 8.5 MG/DL (8.5-10.1); CARBON DIOXIDE LEVEL 26 MEQ/L (21-32); CHLORIDE LEVEL 107 MEQ/L (98-107); GLOMERULAR FILTRATION RATE > 60.0 (>60); POTASSIUM SERUM 4.2 MEQ/L (3.5-5.1); SODIUM LEVEL 140 MEQ/L (136-145); TOTAL PROTEIN 7.2 GM/DL (6.4-8.2)
[2020-12-26 10:45] LABS: PTH INTACT 35.7 PG/ML (18.5-88.0)
== END ==
LOC: M LAB 09:34
PROVIDERS: ATTEND Nurse Practitioner Family
DX: G93.89 Other specified disorders of brain (principal)

== ENCOUNTER → 2021-05-11 | Outpatient (REF) | payer OTHER | LOC: M SFHCLERA 17:21 | PROVIDERS: ATTEND Nurse Practitioner Family | DX: N89.8 Other specified noninflammatory disorders of vagina (principal) | CPT/HCPCS: 87070; G0463 ==

== ENCOUNTER 2021-06-27 08:38 | Emergency (ER) | payer OTHER ==
[~2021-06-27] VITALS: Ht 157.5 cm; Wt 51.7 kg
[~2021-06-27 08:38] MED LIST changes: -QUET50TA3; +QUET50TA4
[2021-06-27 10:13] VITALS: BP 105/55
== END 2021-06-27 10:17 | disposition home or self-care (01) ==
LOC: M ED 08:38
DX: S03.42XA Sprain of jaw, left side, initial encounter (principal); X58.XXXA Exposure to other specified factors, initial encounter; Y92.89 Other specified places as the place of occurrence of the external cause; F43.10 Post-traumatic stress disorder, unspecified; F41.9 Anxiety disorder, unspecified; F60.3 Borderline personality disorder; G43.909 Migraine, unspecified, not intractable, without status migrainosus; Z79.899 Other long term (current) drug therapy; Z88.1 Allergy status to other antibiotic agents; Z88.4 Allergy status to anesthetic agent; Z88.8 Allergy status to other drugs, medicaments and biological substances; Z91.030 Bee allergy status; F17.210 Nicotine dependence, cigarettes, uncomplicated

== ENCOUNTER → 2021-08-03 | Outpatient (REF) | payer OTHER ==
[2021-08-03 19:45] LABS: GC DNA AMPLIFICATION NEGATIVE (NEGATIVE)
== END ==
LOC: M SFHCLERA 16:13
PROVIDERS: ATTEND Nurse Practitioner Family
DX: N89.8 Other specified noninflammatory disorders of vagina (principal)
CPT/HCPCS: 81002; 87070; 87661; G0463

== ENCOUNTER 2021-09-13 14:08 | Emergency (ER) | payer OTHER ==
[~2021-09-13] VITALS: Ht 157.5 cm; Wt 47.1 kg
--- OUTSIDE RECORDS SUMMARY | 2021-09-13 14:22 | CCD ---
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 confirmed 799282208 Problem Missed menses N92.6 Active confirmed 630043 00 Problem Allergy to bee sting Z91.030 Active confirmed 633627095 Problem Intrinsic eczema L20.84 Active confirmed 240 66230 Problem Bipolar disorder, current episode depressed, mild F31.31 Active confirmed 163079284 Problem 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 Active confirmed 85625324 Problem Exercise-induced asthma J45.990 Active confirmed 04873966 Problem 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 Active confirmed 143449980 Problem Abnormal findings on imaging test R93.89 Active confirmed 004093543 Problem Bipolar disorder, current episode mixed, moderate F31.62 Active confirmed 390443786 Problem Atopic dermatitis, mild L20.9 Active confirmed 72334753 ALLERGIES Allergen (clinical drug ingredient) Drug/Non Drug Allergy do cumented on EMR Reaction Allergy Type Onset Date Status ceclor Anaphylaxis Drug Allergy Active Bees, hornets and wasp Anaphylaxis Non Drug Allergy Active Clindamycin Phos & Cleanser peeling skin Drug Allergy Active benzethonium / benzocaine Benzocaine Angioedema Drug Allergy Active ENCOUNTERS from 1999 to 2021-07-17 Encounter Location Date Provider Diagnosis [facility] [address] [facility] [phone] [place] [address] Jun, Shawna Mosquera IMMUNIZATIONS No Information SOCIAL HISTORY Tobacco Use: Social History Observation Description Date Details (start date - stop date) Current Smoker Sex Assigned At : Social History Observation Description Sex Assigned At Unknown Education: Question Answer Notes Level of Education: Finished High School Audit Question Answer Notes Total Score: 0 Interpretation: Alcohol Education Language: Question Answer Notes Languages spoken: Citizen Of [place] Roman Catholic: Question Answer Notes Roman Catholic 33 None Sexual Hx: Question Answer Notes [...] Answer Notes Are you a: current smoker Smoking Cessation Information Given 07/05/2021 How many cigarettes a day do you smoke? 5 or less Are you interested in quitting? Not ready to quit REASON FOR REFERRAL No Information VITAL SIGNS No information MEDICATIONS Medication SIG (Take, Route, Frequency, Duration) Notes Start Da te End Date Status Multivitamins - 1 tablet Orally Once a day for 30 day(s) Not-Taking SEROquel 100 MG 1 tablet at bedtime Orally Once a day Not-Taking predniSONE 20 MG 2 tablets Orally Once a day for 5 day(s) Oct, Not-Taking levoFLOXacin 500 MG 1 tablet Orally Once a day for 7 day(s) Apr, Active EpiPen Active metroNIDAZOLE 0.75 % 1 applicator full at bedtime Vaginal Once a day for 5 day(s) dispense vaginal applicators Aug, Not -Taking - 1 tablet Orally Once a day for 30 day(s) Not-Taking BuSpar 10 MG 1 tablet Orally Twice a day Not-Taking valACYclovir HCl 1 GM 1 tablet Orally bid for 10 day(s) Jan, Not-Taking valACYclovir HCl 1 GM 1 tablet Orally Once a day for 90 day(s) Sep, Active Melatonin 5 MG 2 tablet in the evening Orally Once a day Not-Taking Nicotine Step 3 7 MG/24HR 1 patch to skin Transdermal Once a day for 30 day(s) May, Not-Taking Ibuprofen 800 MG 1 tablet with food or milk as needed Ora lly Three times a day Active Penicillin V Potassium 500 MG 1 tablet Orally Four times a day for 10 days Active Macrobid 100 MG 1 capsule Orally twice daily for 5 day(s) Feb, Not-Taking EpiPen 2-Jay 0.3 MG/0.3ML as directed Injection as nee ded for allergic rxn for 1 days May, Active ARIPiprazole 5 MG TAKE 1 TABLET BY MOUTH ONCE DAILY Oral for 30 Not-Taking Rexulti 1 MG 1 tablet Orally Once a day for 30 day(s) Not-Taking AZO Cranberry 250-30 MG as directed Orally Not-Taking One-A-Day Womens 1 28-0.8-235 MG 1 capsule Or ally Once a day for 30 day(s) Oct, Not-Taking Azithromycin 250 MG 2 tablets on day 1 then 1 ta blet x 4 days Orally Daily for 5 day(s) Oct, Not-Taking Triamcinolone Acetonide 0.1 % 1 application Externally Once a da y for 14 days Nov, Active Nicotine Step 2 14 MG/24HR 1 patch to skin Transdermal Once a day for 30 day(s) May, Not-Taking Abilify 5 MG 1 tablet Orally Once a day for 30 day(s) Not-Taking Albuterol 90 MCG/ACT 1 Inhalation every 4 hours as needed for 30 days Active Ventolin HFA 108 (90 Base) MCG/ACT 2 puffs as needed I nhalation every 6 hrs for 30 days Not-Taking Prazosin HCl 1 MG 1 capsule at bedtime Orally Once a day for 30 day(s ) Not-Taking PROCEDURES No Information RESULTS No Results REASON FOR VISIT Reaction to LevoFLOXacin MEDICAL (GENERAL) HISTORY Type Description Date Medical History Bipolar disorder Medical History Borderline personality disorder Medical History PDSD Medical History Anxiety/depression Medical History Asthma Surgical History root canal 2013 Hospitalization History [facility] Health 08/2019 Goals Section No Information Health Concerns No Information MEDICAL EQUIPMENT No Information MENTAL STATUS No Information FUNCTIONAL STATUS No Information ASSESSMENTS No Information PLAN OF TREATMENT Medication Medication Name Sig Start Date Stop Date levoFLOXacin 500 MG 1 tablet Orally Once a day for 7 day(s) 28 J 2020 Insurance Providers Payer Name Payer Address Payer Phone Insured Name Patient Relati onship to Insured Coverage Start Date Coverage End Date [facility] [address] [facility] [id number] [address] F[address]SE[place]
--- OUTSIDE RECORDS SUMMARY | 2021-09-13 14:22 | CCD ---
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 confirmed 388611303 Problem Missed menses N92.6 Active confirmed 605496 00 Problem Allergy to bee sting Z91.030 Active confirmed 083733813 Problem Intrinsic eczema L20.84 Active confirmed 240 99178 Problem Bipolar disorder, current episode depressed, mild F31.31 Active confirmed 127089835 Problem 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 Active confirmed 93708917 Problem Exercise-induced asthma J45.990 Active confirmed 45169110 Problem 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 Active confirmed 858857582 Problem Abnormal findings on imaging test R93.89 Active confirmed 423464484 Problem Bipolar disorder, current episode mixed, moderate F31.62 Active confirmed 470830102 Problem Atopic dermatitis, mild L20.9 Active confirmed 98928035 ALLERGIES Allergen (clinical drug ingredient) Drug/Non Drug Allergy do cumented on EMR Reaction Allergy Type Onset Date Status ceclor Anaphylaxis Drug Allergy Active Bees, hornets and wasp Anaphylaxis Non Drug Allergy Active Clindamycin Phos & Cleanser peeling skin Drug Allergy Active benzethonium / benzocaine Benzocaine Angioedema Drug Allergy Active ENCOUNTERS from 1999 to 2021-07-27 Encounter Location Date Provider Diagnosis [facility] [address] [facility] [phone] [place] [address] Jul, Shawna Mosquera IMMUNIZATIONS No Information SOCIAL HISTORY Tobacco Use: Social History Observation Description Date Details (start date - stop date) Current Smoker Sex Assigned At : Social History Observation Description Sex Assigned At Unknown Education: Question Answer Notes Level of Education: Finished High School Audit Question Answer Notes Total Score: 0 Interpretation: Alcohol Education Language: Question Answer Notes Languages spoken: Peruvian Spiritism: Question Answer Notes Spiritism 33 None Sexual Hx: Question Answer Notes [...] Information RESULTS No Results REASON FOR VISIT OBGYN MEDICAL (GENERAL) HISTORY Type Description Date Medical History Bipolar disorder Medical History Borderline personality disorder Medical History PDSD Medical History Anxiety/depression Medical History Asthma Surgical History root canal 2013 Hospitalization History [facility] 08/2019 Goals Section No Information Health Concerns No Information MEDICAL EQUIPMENT No Information MENTAL STATUS No Information FUNCTIONAL STATUS No Information ASSESSMENTS No Information PLAN OF TREATMENT Medication Medication Name Sig Start Date Stop Date levoFLOXacin 500 MG 1 tablet Orally Once a day for 7 day(s) 28 J 2020 Next Appt Details Provider Name:Shawna Mosquera, 09:00:00 AM, [address], , [place], [address], Insurance Providers Payer Name Payer Address Payer Phone Insured Name Patient Relati onship to Insured Coverage Start Date Coverage End Date [facility] [address] [facility] [id number] [address] [place]SE[place]
--- OUTSIDE RECORDS SUMMARY | 2021-09-13 14:22 | CCD ---
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 confirmed 793281967 Problem Missed menses N92.6 Active confirmed 019907 00 Problem Allergy to bee sting Z91.030 Active confirmed 356780212 Problem Intrinsic eczema L20.84 Active confirmed 240 86370 Problem Bipolar disorder, current episode depressed, mild F31.31 Active confirmed 100190651 Problem 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 Active confirmed 08420921 Problem Exercise-induced asthma J45.990 Active confirmed 68879121 Problem 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 Active confirmed 627561502 Problem Abnormal findings on imaging test R93.89 Active confirmed 786744420 Problem Bipolar disorder, current episode mixed, moderate F31.62 Active confirmed 637670604 Problem Atopic dermatitis, mild L20.9 Active confirmed 81573232 ALLERGIES Allergen (clinical drug ingredient) Drug/Non Drug Allergy do cumented on EMR Reaction Allergy Type Onset Date Status ceclor Anaphylaxis Drug Allergy Active Bees, hornets and wasp Anaphylaxis Non Drug Allergy Active Clindamycin Phos & Cleanser peeling skin Drug Allergy Active benzethonium / benzocaine Benzocaine Angioedema Drug Allergy Active ENCOUNTERS from 1999 to 2021-08-08 Encounter Location Date Provider Diagnosis [facility] [address] [facility] [phone] [place] [address] Jul, Pamela Osorio IMMUNIZATIONS No Information SOCIAL HISTORY Tobacco Use: Social History Observation Description Date Details (start date - stop date) Current Smoker Sex Assigned At : Social History Observation Description Sex Assigned At Unknown Education: Question Answer Notes Level of Education: Finished High School Audit Question Answer Notes Total Score: 0 Interpretation: Alcohol Education Language: Question Answer Notes Languages spoken: Yi Presybeterian: Question Answer Notes Presybeterian 33 None Sexual Hx: Question Answer Notes [...] a: current smoker Smoking Cessation Information Given 08/03/2021 How many cigarettes a day do you smoke? 5 or less Are you interested in quitting? Not ready to quit REASON FOR REFERRAL No Information VITAL SIGNS No information MEDICATIONS Medication SIG (Take, Route, Frequency, Duration) Notes Start Da te End Date Status Ventolin HFA 108 (90 Base) MCG/ACT 2 puffs as needed I nhalation every 6 hrs for 30 days Not-Taking BuSpar 10 MG 1 tablet Orally Twice a day Not-Taking Abilify 5 MG 1 tablet Orally Once a day for 30 day(s) Not-Taking metroNIDAZOLE 0.75 % 1 applicator full at bedtime Vaginal Once a day for 5 day(s) dispense vaginal applicators Aug, Not -Taking valACYclovir HCl 1 GM 1 tablet Orally bid for 10 day(s) Jan, Not-Taking EpiPen Not-Taking Rexulti 1 MG 1 tablet Orally Once a day for 30 day(s) Not-Taking Multivitamins - 1 tablet Orally Once a day for 30 day(s) Not-Taking AZO Cranberry 250-30 MG as directed Orally Not-Taking levoFLOXacin 500 MG 1 tablet Orally Once a day for 7 day(s) Apr, Not-Taking predniSONE 20 MG 2 tablets Orally Once a day for 5 day(s) Oct, Not-Taking Melatonin 5 MG 2 tablet in the evening Orally Once a day Not-Taking Triamcinolone Acetonide 0.1 % 1 application Externally Once a da y for 14 days Nov, Not-Taking Azithromycin 250 MG 2 tablets on day 1 then 1 ta blet x 4 days Orally Daily for 5 day(s) Oct, Not-Taking - 1 tablet Orally Once a day for 30 day(s) Not-Taking EpiPen 2-Jay 0.3 MG/0.3ML as directed Injection as nee ded for allergic rxn for 1 days May, Active Penicillin V Potassium 500 MG 1 tablet Orally Four times a day for 10 days Not-Taking Macrobid 100 MG 1 capsule Orally twice daily for 5 day(s) Feb, Not-Taking SEROquel 100 MG 1 tablet at bedtime Orally Once a day Not-Taking Nicotine Step 3 7 MG/24HR 1 patch to skin Transdermal Once a day for 30 day(s) May, Not-Taking Prazosin HCl 1 MG 1 capsule at bedtime Orally Once a day for 30 day(s ) Not-Taking ARIPiprazole 5 MG TAKE 1 TABLET BY MOUTH ONCE DAILY Oral for 30 Not-Taking Nicotine Step 2 14 MG/24HR 1 patch to skin Transdermal Once a day for 30 day(s) May, Not-Taking One-A-Day Womens 1 28-0.8-235 MG 1 capsule Or ally Once a day for 30 day(s) Oct, Not-Taking Albuterol 90 MCG/ACT 1 Inhalation every 4 hours as needed for 30 days Active Ibuprofen 800 MG 1 tablet with food or milk as needed Ora lly Three times a day Active valACYclovir HCl 1 GM 1 tablet Orally Once a day for 90 day(s) Sep, Not-Taking PROCEDURES No Information RESULTS No Results REASON FOR VISIT tooth pain and swelling MEDICAL (GENERAL) HISTORY Type Description Date Medical History Bipolar disorder Medical History Borderline personality disorder Medical History PDSD Medical History Anxiety/depression Medical History Asthma Surgical History root canal 2013 Hospitalization History [facility] 08/2019 Goals Section No Information Health Concerns No Information MEDICAL EQUIPMENT No Information MENTAL STATUS No Information FUNCTIONAL STATUS No Information ASSESSMENTS No Information PLAN OF TREATMENT No Information Insurance Providers Payer Name Payer Address Payer Phone Insured Name Patient Relati onship to Insured Coverage Start Date Coverage End Date [facility] INS[facility] [address] [place] [id number] [address] FONSECA
--- OUTSIDE RECORDS SUMMARY | 2021-09-13 14:22 | CCD ---
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 confirmed 113488867 Problem Missed menses N92.6 Active confirmed 790532 00 Problem Allergy to bee sting Z91.030 Active confirmed 275343253 Problem Intrinsic eczema L20.84 Active confirmed 240 00285 Problem Bipolar disorder, current episode depressed, mild F31.31 Active confirmed 012467773 Problem 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 Active confirmed 36671088 Problem Exercise-induced asthma J45.990 Active confirmed 08365469 Problem 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 Active confirmed 265736061 Problem Abnormal findings on imaging test R93.89 Active confirmed 608640071 Problem Bipolar disorder, current episode mixed, moderate F31.62 Active confirmed 788205667 Problem Atopic dermatitis, mild L20.9 Active confirmed 84206662 ALLERGIES Allergen (clinical drug ingredient) Drug/Non Drug Allergy do cumented on EMR Reaction Allergy Type Onset Date Status ceclor Anaphylaxis Drug Allergy Active Bees, hornets and wasp Anaphylaxis Non Drug Allergy Active Clindamycin Phos & Cleanser peeling skin Drug Allergy Active benzethonium / benzocaine Benzocaine Angioedema Drug Allergy Active ENCOUNTERS from 1999 to 2021-08-07 Encounter Location Date Provider [facility] [address] [facility] [phone] [place] [address] Jul, Shawna Mosquera Abnormal urine odor R82.90 ; Screening for STD (sexually transmitted disease) Z11.3 and Vaginal discharge N89.8 IMMUNIZATIONS No Information SOCIAL HISTORY Tobacco Use: Social History Observation Description Date Details (start date - stop date) Current Smoker Sex Assigned At : Social History Observation Description Sex Assigned At Unknown Education: Question Answer Notes Level of Education: Finished High School Audit Question Answer Notes Total Score: 0 Interpretation: Alcohol Education Language: Question Answer Notes Languages spoken: Swedish Oriental Orthodox: Question Answer Notes Oriental Orthodox 33 None Sexual Hx: Question Answer Notes [...] FOR REFERRAL No Information VITAL SIGNS Weight 111.2 lbs Jul, Weight-kg 50.44 kg Jul, Height 61 in Jul, BMI 21.01 kg/m2 Jul, Heart Rate 68 /min Jul, Respiratory Rate 17 /min Jul, Temperature 98.6 degrees Fahrenheit Jul, Oximetry 99 Jul, Blood pressure systolic 10 mm Hg Jul, Blood pressure diastolic 65 mm Hg Jul, MEDICATIONS Medication SIG (Take, Route, Frequency, Duration) [...] Information RESULTS No Results REASON FOR VISIT VAGINAL CULTURE/VAGINAL INFECTION MEDICAL (GENERAL) HISTORY Type Description Date Medical History Bipolar disorder Medical History Borderline personality disorder Medical History PDSD Medical History Anxiety/depression Medical History Asthma Surgical History root canal 2013 Hospitalization History [facility] 08/2019 Goals Section No Information Health Concerns No Information MEDICAL EQUIPMENT No Information MENTAL STATUS No Information FUNCTIONAL STATUS No Information ASSESSMENTS Encounter Date Diagnosis Assessment Notes Treatment Notes Treatm ent Clinical Notes Jul, Abnormal urine odor (ICD-10 - R82.90) UA negative, suspect irritation secondary to vaginal inflammation. Jul, Screening for STD (sexually transmitted disease) (ICD-10 - Z11.3) ORdered, pending disposition. STRONGLY advised protected intercourse on every occasion. Jul, Vaginal discharge (ICD-10 - N89.8) Genital culture performed, pending disposition. PLAN OF TREATMENT Treatment Notes Assessment Notes Clinical Notes Abnormal urine odor UA negative, suspect irritation secondary to vaginal inflammation. Screening for STD (sexually transmitted disease) ORdered, pending disposition. STRONGLY advised protected intercourse on every occasion. Vaginal discharge Genital culture perf ormed, pending disposition. Treatment Notes Test Name Order Date Urinalysis, no Micro 2021-08-03 GENITAL CULTURE 2021-08-03 CHLAMYDIA, GC and TRICH AMP 2021-08-03 Future Test Test Name Order Date HIV 1and2 ANTIBODY SCREEN [id number] SYPHILIS ANTIBODY (RPR SCREEN) [id number] HEPATITIS B SURFACE ANTIGEN [id number] HEPATITIS C ANTIBODY INDEX [id number] Next Appt Details pending labs/cx Reason: Insurance Providers Payer Name Payer Address Payer Phone Insured Name Patient Relati onship to Insured Coverage Start Date Coverage End Date [facility] [address] [place] [id number] [place] FONSE[place]
--- OUTSIDE RECORDS SUMMARY | 2021-09-13 14:22 | CCD ---
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 confirmed 713412138 Problem Missed menses N92.6 Active confirmed 848649 00 Problem Allergy to bee sting Z91.030 Active confirmed 845174933 Problem Intrinsic eczema L20.84 Active confirmed 240 30144 Problem Bipolar disorder, current episode depressed, mild F31.31 Active confirmed 110568224 Problem 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 Active confirmed 79092648 Problem Exercise-induced asthma J45.990 Active confirmed 71280151 Problem 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 Active confirmed 823589934 Problem Abnormal findings on imaging test R93.89 Active confirmed 997232680 Problem Bipolar disorder, current episode mixed, moderate F31.62 Active confirmed 421086630 Problem Atopic dermatitis, mild L20.9 Active confirmed 19501782 ALLERGIES Allergen (clinical drug ingredient) Drug/Non Drug Allergy do cumented on EMR Reaction Allergy Type Onset Date Status ceclor Anaphylaxis Drug Allergy Active Bees, hornets and wasp Anaphylaxis Non Drug Allergy Active Clindamycin Phos & Cleanser peeling skin Drug Allergy Active benzethonium / benzocaine Benzocaine Angioedema Drug Allergy Active ENCOUNTERS from 1999 to 2021-08-31 Encounter [facility] [address] [facility] [phone] [place] [address] Aug, Shawna Mosquera IMMUNIZATIONS No Information SOCIAL HISTORY Tobacco Use: Social History Observation Description Date Details (start date - stop date) Current Smoker Sex Assigned At : Social History Observation Description Sex Assigned At Unknown Education: Question Answer Notes Level of Education: Finished High School Audit Question Answer Notes Total Score: 0 Interpretation: Alcohol Education Language: Question Answer Notes Languages spoken: Turkish Jehovah'S Witness: Question Answer Notes Jehovah'S Witness 33 None Sexual Hx: Question Answer Notes [...] Notes Start Da te End Date Status Abilify 5 MG 1 tablet Orally Once a day for 30 day(s) Not-Taking metroNIDAZOLE 0.75 % 1 applicator full at bedtime Vaginal Once a day for 5 day(s) dispense vaginal applicators Aug, Not -Taking Prazosin HCl 1 MG 1 capsule at bedtime Orally Once a day for 30 day(s ) Not-Taking SEROquel 100 MG 1 tablet at bedtime Orally Once a day Not-Taking Rexulti 1 MG 1 tablet Orally Once a day for 30 day(s) Not-Taking Multivitamins - 1 tablet Orally Once a day for 30 day(s) Not-Taking Ventolin HFA 108 (90 Base) MCG/ACT 2 puffs as needed I nhalation every 6 hrs for 30 days Not-Taking BuSpar 10 MG 1 tablet Orally Twice a day Not-Taking levoFLOXacin 500 MG 1 tablet Orally Once a day for 7 day(s) Apr, Not-Taking valACYclovir HCl 1 GM 1 tablet Orally bid for 10 day(s) Jan, Not-Taking EpiPen Not-Taking Melatonin 5 MG 2 tablet in the evening Orally Once a day Not-Taking ARIPiprazole 5 MG TAKE 1 TABLET BY MOUTH ONCE DAILY Oral for 30 Not-Taking Nicotine Step 2 14 MG/24HR 1 patch to skin Transdermal Once a day for 30 day(s) May, Not-Taking Penicillin V Potassium 500 MG 1 tablet Orally Four times a day for 10 days Not-Taking Macrobid 100 MG 1 capsule Orally twice daily for 5 day(s) Feb, Not-Taking Nicotine Step 3 7 MG/24HR 1 patch to skin Transdermal Once a day for 30 day(s) May, Not-Taking predniSONE 20 MG 2 tablets Orally Once a day for 5 day(s) Oct, Not-Taking AZO Cranberry 250-30 MG as directed Orally Not-Taking - 1 tablet Orally Once a day for 30 day(s) Not-Taking Triamcinolone Acetonide 0.1 % 1 application Externally Once a da y for 14 days Nov, Not-Taking Azithromycin 250 MG 2 tablets on day 1 then 1 ta blet x 4 days Orally Daily for 5 day(s) Oct, Not-Taking EpiPen 2-Jay 0.3 MG/0.3ML as directed Injection as nee ded for allergic rxn for 1 days May, Active Albuterol 90 MCG/ACT 1 Inhalation every 4 hours as needed for 30 days Active Ibuprofen 800 MG 1 tablet with food or milk as needed Ora lly Three times a day Active One-A-Day Womens 1 28-0.8-235 MG 1 capsule Or ally Once a day for 30 day(s) Oct, Not-Taking valACYclovir HCl 1 GM 1 tablet Orally Once a day for 90 day(s) Sep, Not-Taking Diflucan 150 MG 1 tablet Orally 1 dose, repeat in 72 hours for 4 days Aug, Active PROCEDURES No Information RESULTS No Results REASON FOR VISIT yeast infection MEDICAL (GENERAL) HISTORY Type Description Date Medical History Bipolar disorder Medical History Borderline personality disorder Medical History PDSD Medical History Anxiety/depression Medical History Asthma Surgical History root canal 2013 Hospitalization History [facility] 08/2019 Goals Section No Information Health Concerns No Information MEDICAL EQUIPMENT No Information MENTAL STATUS No Information FUNCTIONAL STATUS No Information ASSESSMENTS No Information PLAN OF TREATMENT Medication Medication Name Sig Start Date Stop Date Diflucan 150 MG 1 tablet Orally 1 dose, repeat in 72 zuleyma rs for 4 days 15 Aug, 2021 Insurance Providers Payer Name Payer Address Payer Phone Insured Name Patient Relati onship to Insured Coverage Start Date Coverage End Date [facility] [address] [place] [id number] JOHNATHAN FONSECA
--- OUTSIDE RECORDS SUMMARY | 2021-09-13 14:22 | CCD ---
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 confirmed 234103033 Problem Missed menses N92.6 Active confirmed 661350 00 Problem Allergy to bee sting Z91.030 Active confirmed 437613346 Problem Intrinsic eczema L20.84 Active confirmed 240 86759 Problem Bipolar disorder, current episode depressed, mild F31.31 Active confirmed 012625120 Problem 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 Active confirmed 81131861 Problem Exercise-induced asthma J45.990 Active confirmed 92448170 Problem 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 Active confirmed 039193258 Problem Abnormal findings on imaging test R93.89 Active confirmed 509868314 Problem Bipolar disorder, current episode mixed, moderate F31.62 Active confirmed 597634566 Problem Atopic dermatitis, mild L20.9 Active confirmed 23309621 ALLERGIES Allergen (clinical drug ingredient) Drug/Non Drug Allergy do cumented on EMR Reaction Allergy Type Onset Date Status ceclor Anaphylaxis Drug Allergy Active Bees, hornets and wasp Anaphylaxis Non Drug Allergy Active Clindamycin Phos & Cleanser peeling skin Drug Allergy Active benzethonium / benzocaine Benzocaine Angioedema Drug Allergy Active ENCOUNTERS from 1999 to 2021-08-31 Encounter [facility] Date [facility] [address] [facility] [phone] [place] [address] Aug, Shawna Mosquera IMMUNIZATIONS No Information SOCIAL HISTORY Tobacco Use: Social History Observation Description Date Details (start date - stop date) Current Smoker Sex Assigned At : Social History Observation Description Sex Assigned At Unknown Education: Question Answer Notes Level of Education: Finished High School Audit Question Answer Notes Total Score: 0 Interpretation: Alcohol Education Language: Question Answer Notes Languages spoken: New Zealander Buddhism: Question Answer Notes Buddhism 33 None Sexual Hx: Question Answer Notes [...] Information RESULTS No Results REASON FOR VISIT Antibiotic use MEDICAL (GENERAL) HISTORY Type Description Date Medical History Bipolar disorder Medical History Borderline personality disorder Medical History PDSD Medical History Anxiety/depression Medical History Asthma Surgical History root canal 2013 Hospitalization History [facility] 08/2019 Goals Section No Information [...] Insured Coverage Start Date Coverage End Date [facility] [address] [place] [id number] JOHNATHAN FONSECA
--- OUTSIDE RECORDS SUMMARY | 2021-09-13 14:22 | CCD ---
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 confirmed 447219958 Problem Missed menses N92.6 Active confirmed 477103 00 Problem Allergy to bee sting Z91.030 Active confirmed 997432838 Problem Intrinsic eczema L20.84 Active confirmed 240 72910 Problem Bipolar disorder, current episode depressed, mild F31.31 Active confirmed 446002966 Problem 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 Active confirmed 91538496 Problem Exercise-induced asthma J45.990 Active confirmed 39360515 Problem 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 Active confirmed 692468352 Problem Abnormal findings on imaging test R93.89 Active confirmed 347221049 Problem Bipolar disorder, current episode mixed, moderate F31.62 Active confirmed 754759919 Problem Atopic dermatitis, mild L20.9 Active confirmed 67791902 ALLERGIES Allergen (clinical drug ingredient) Drug/Non Drug Allergy do cumented on EMR Reaction Allergy Type Onset Date Status ceclor Anaphylaxis Drug Allergy Active Bees, hornets and wasp Anaphylaxis Non Drug Allergy Active Clindamycin Phos & Cleanser peeling skin Drug Allergy Active benzethonium / benzocaine Benzocaine Angioedema Drug Allergy Active ENCOUNTERS from 1999 to 2021-07-25 Encounter Location Date Provider Diagnosis [facility] [address] [facility] [phone] [place] [address] Jul, Shawna Mosquera IMMUNIZATIONS No Information SOCIAL HISTORY Tobacco Use: Social History Observation Description Date Details (start date - stop date) Current Smoker Sex Assigned At : Social History Observation Description Sex Assigned At Unknown Education: Question Answer Notes Level of Education: Finished High School Audit Question Answer Notes Total Score: 0 Interpretation: Alcohol Education Language: Question Answer Notes Languages spoken: Slovak Synagogue: Question Answer Notes Synagogue 33 None Sexual Hx: Question Answer Notes [...] Information RESULTS No Results REASON FOR VISIT Vaginal Infection MEDICAL (GENERAL) HISTORY Type Description Date Medical History Bipolar disorder Medical History Borderline personality disorder Medical History PDSD Medical History Anxiety/depression Medical History Asthma Surgical History root canal 2013 Hospitalization History [facility] 08/2019 Goals Section No Information [...] [facility] [address] [facility] [id number] JOHNATHAN FONSECA
--- OUTSIDE RECORDS SUMMARY | 2021-09-13 14:22 | CCD ---
Author Author [facility] Organization 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 confirmed 887168527 Problem Missed menses N92.6 Active confirmed 943910 00 Problem Allergy to bee sting Z91.030 Active confirmed 533452347 Problem Intrinsic eczema L20.84 Active confirmed 240 04717 Problem Bipolar disorder, current episode depressed, mild F31.31 Active confirmed 261989679 Problem 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 Active confirmed 96341727 Problem Exercise-induced asthma J45.990 Active confirmed 67559186 Problem 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 Active confirmed 593192020 Problem Abnormal findings on imaging test R93.89 Active confirmed 840932037 Problem Bipolar disorder, current episode mixed, moderate F31.62 Active confirmed 252927635 Problem Atopic dermatitis, mild L20.9 Active confirmed 82137781 ALLERGIES Allergen (clinical drug ingredient) Drug/Non Drug Allergy do cumented on EMR Reaction Allergy Type Onset Date Status ceclor Anaphylaxis Drug Allergy Active Bees, hornets and wasp Anaphylaxis Non Drug Allergy Active Clindamycin Phos & Cleanser peeling skin Drug Allergy Active benzethonium / benzocaine Benzocaine Angioedema Drug Allergy Active ENCOUNTERS from 1999 to 2021-07-12 Encounter Location Date Provider Diagnosis [facility] [address] [facility] [phone] [place] [address] Jun, Shawna Mosquera IMMUNIZATIONS No Information SOCIAL HISTORY Tobacco Use: Social History Observation Description Date Details (start date - stop date) Current Smoker Sex Assigned At : Social History Observation Description Sex Assigned At Unknown Education: Question Answer Notes Level of Education: Finished High School Audit Question Answer Notes Total Score: 0 Interpretation: Alcohol Education Language: Question Answer Notes Languages spoken: Algerian Episcopalian: Question Answer Notes Episcopalian 33 None Sexual Hx: Question Answer Notes [...] RESULTS No Results REASON FOR VISIT Antibiotic MEDICAL (GENERAL) HISTORY Type Description Date Medical History Bipolar disorder Medical History Borderline personality disorder Medical History PDSD Medical History Anxiety/depression Medical History Asthma Surgical History root canal 2013 Hospitalization History [facility] 08/2019 Goals Section No Information [...] Coverage Start Date Coverage End Date [facility] [employer] [address] [place] [id number] JOHNATHAN FONSECA
--- OUTSIDE RECORDS SUMMARY | 2021-09-13 14:23 | CCD ---
Author Author [facility] Organization [facility] Address Unknown Phone Unavailable Care Team Providers Care Retail Marketing Executive Name Role Phone CATHERINE, B LARRY FINGER GRIP MACHINE OPERATOR Unavailable Unavailable CATHERINE, B LARRY FINGER GRIP MACHINE OPERATOR Unavailable Unavailable CATHERINE, B LARRY FINGER GRIP MACHINE OPERATOR Unavailable Unavailable CATHERINE, B LARRY FINGER GRIP MACHINE OPERATOR Unavailable Unavailable CATHERINE, B LARRY FINGER GRIP MACHINE OPERATOR Unavailable Unavailable CATHERINE, B LARRY FINGER GRIP MACHINE OPERATOR Unavailable Unavailable CATHERINE, B LARRY FINGER GRIP MACHINE OPERATOR Unavailable Unavailable CATHERINE, B LARRY FINGER GRIP MACHINE OPERATOR Unavailable Unavailable CATHERINE, B LARRY FINGER GRIP MACHINE OPERATOR Unavailable Unavailable CATHERINE, B LARRY FINGER GRIP MACHINE OPERATOR Unavailable Unavailable CATHERINE, B LARRY FINGER GRIP MACHINE OPERATOR Unavailable Unavailable CATHERINE, B LARRY FINGER GRIP MACHINE OPERATOR Unavailable Unavailable CATHERINE, B LARRY FINGER GRIP MACHINE OPERATOR Unavailable Unavailable CATHERINE, B LARRY FINGER GRIP MACHINE OPERATOR Unavailable Unavailable CATHERINE, B LARRY FINGER GRIP MACHINE OPERATOR Unavailable Unavailable CATHERINE, B LARRY FINGER GRIP MACHINE OPERATOR Unavailable Unavailable CATHERINE, B LARRY FINGER GRIP MACHINE OPERATOR Unavailable Unavailable CATHERINE, B LARRY FINGER GRIP MACHINE OPERATOR Unavailable Unavailable CATHERINE, B LARRY FINGER GRIP MACHINE OPERATOR Unavailable Unavailable CATHERINE, B LARRY FINGER GRIP MACHINE OPERATOR Unavailable Unavailable CATHERINE, B LARRY FINGER GRIP MACHINE OPERATOR Unavailable Unavailable CATHERINE, B LARRY FINGER GRIP MACHINE OPERATOR Unavailable Unavailable CATHERINE, B LARRY FINGER GRIP MACHINE OPERATOR Unavailable Unavailable CATHERINE, B LARRY FINGER GRIP MACHINE OPERATOR Unavailable Unavailable CATHERINE, B LARRY FINGER GRIP MACHINE OPERATOR Unavailable Unavailable CATHERINE, B LARRY FINGER GRIP MACHINE OPERATOR Unavailable Unavailable CATHERINE, B LARRY FINGER GRIP MACHINE OPERATOR Unavailable Unavailable CATHERINE, B LARRY FINGER GRIP MACHINE OPERATOR Unavailable Unavailable CATHERINE, B LARRY FINGER GRIP MACHINE OPERATOR Unavailable Unavailable CATHERINE, B LARRY FINGER GRIP MACHINE OPERATOR Unavailable Unavailable CATHERINE, B LARRY FINGER GRIP MACHINE OPERATOR Unavailable Unavailable CATHERINE, B LARRY FINGER GRIP MACHINE OPERATOR Unavailable Unavailable CATHERINE, B LARRY FINGER GRIP MACHINE OPERATOR Unavailable Unavailable CATHERINE, B LARRY FINGER GRIP MACHINE OPERATOR Unavailable Unavailable CATHERINE, B LARRY FINGER GRIP MACHINE OPERATOR Unavailable Unavailable CATEHRINE, B LARRY FINGER GRIP MACHINE OPERATOR Unavailable Unavailable CATHERINE, B LARRY FINGER GRIP MACHINE OPERATOR Unavailable Unavailable CATHERINE, B LARRY FINGER GRIP MACHINE OPERATOR Unavailable Unavailable CATHERINE, B LARRY FINGER GRIP MACHINE OPERATOR Unavailable Unavailable CATHERINE, B LARRY FINGER GRIP MACHINE OPERATOR Unavailable Unavailable CATHERINE, B LARRY FINGER GRIP MACHINE OPERATOR Unavailable Unavailable CATHERINE, B LARRY FINGER GRIP MACHINE OPERATOR Unavailable Unavailable CATHERINE, B LARRY FINGER GRIP MACHINE OPERATOR Unavailable Unavailable CATHERINE, B LARRY FINGER GRIP MACHINE OPERATOR Unavailable Unavailable CATHERINE, B LARRY FINGER GRIP MACHINE OPERATOR Unavailable Unavailable CATHERINE, B LARRY FINGER GRIP MACHINE OPERATOR Unavailable Unavailable CATHERINE, B LARRY FINGER GRIP MACHINE OPERATOR Unavailable Unavailable CATHERINE, B LARRY FINGER GRIP MACHINE OPERATOR Unavailable Unavailable CATHERINE, B LARRY FINGER GRIP MACHINE OPERATOR Unavailable Unavailable CATHERINE, B LARRY FINGER GRIP MACHINE OPERATOR Unavailable Unavailable CATHERINE, B LARRY FINGER GRIP MACHINE OPERATOR Unavailable Unavailable CATHERINE, B LARRY FINGER GRIP MACHINE OPERATOR Unavailable Unavailable CATHERINE, B LARRY FINGER GRIP MACHINE OPERATOR Unavailable Unavailable CATHERINE, B LARRY FINGER GRIP MACHINE OPERATOR Unavailable Unavailable CATHERINE, B LARRY FINGER GRIP MACHINE OPERATOR Unavailable Unavailable CATHERINE, B LARRY FINGER GRIP MACHINE OPERATOR Unavailable Unavailable CATHERINE, B LARRY FINGER GRIP MACHINE OPERATOR Unavailable Unavailable CATHERINE, B LARRY FINGER GRIP MACHINE OPERATOR Unavailable Unavailable CATHERINE, B LARRY FINGER GRIP MACHINE OPERATOR Unavailable Unavailable CATHERINE, B LARRY FINGER GRIP MACHINE OPERATOR Unavailable Unavailable CATHERINE, B LARRY FINGER GRIP MACHINE OPERATOR Unavailable Unavailable CATHERINE, B LARRY FINGER GRIP MACHINE OPERATOR Unavailable Unavailable SAMANTAJAYNA Jaffe MD Unavailable Unavailable SAMANTAJAYNA MD Unavailable Unavailable SAMANTAJAYNA MD Unavailable Unavailable SAMANTAJAYNA Jaffe MD Unavailable Unavailable SAMANTAJAYNA Jaffe MD Unavailable Unavailable XIAO POWELL MD Unavailable Unavailable XIAO POWELL MD Unavailable Unavailable XIAO POWELL MD Unavailable Unavailable XIAO POWELL MD Unavailable Unavailable XIAO POWELL MD Unavailable Unavailable XIAO POWELL MD Unavailable Unavailable XIAO POWELL MD Unavailable Unavailable Ty Dodge MD Unavailable [...] Unavailable Unavailable Ty Dodge MD Unavailable Unavailable yT Dodge MD Unavailable Unavailable Ty Dodge MD Unavailable Unavailable Ty Dodge MD Unavailable Unavailable Ty Dodge MD Unavailable Unavailable Ty Dodge MD Unavailable Unavailable Ty Dodge MD Unavailable Unavailable Ty Dodge MD Unavailable Unavailable Ty Dodge MD Unavailable Unavailable Ty Dodeg MD Unavailable Unavailable Ty Dodge MD Unavailable Unavailable Ty Dodge MD Unavailable Unavailable Ty Dodge MD Unavailable Unavailable Ty Dodge MD Unavailable Unavailable Ty Dodge MD Unavailable Unavailable Ty Dodge MD Unavailable Unavailable Ty Dodge MD Unavailable Unavailable Ty Dodge MD Unavailable Unavailable Ty Dodge MD Unavailable Unavailable KendrickIsabelle Juan PA-C Unavailable Unavailable KendrickIsabelle Juan PA-C Unavailable Unavailable Kendrick, J Juan PA-C Unavailable Unavailable KendrickIsabelle Juan PA-C Unavailable Unavailable Kendrick, J Juan PA-C Unavailable Unavailable Kendrick, Isabelle Juan PA-C Unavailable Unavailable Kendrick, Isabelle Martinez PA-C Unavailable Unavailable KendrickIsabelle Juan PA-C Unavailable Unavailable Kendrick, J Juan PA-C Unavailable Unavailable Kendrick, Isabelle Juan PA-C Unavailable Unavailable ALPA MOTA MD Unavailable Unavailable ALPA MOTA MD Unavailable Unavailable ALPA MOTA MD Unavailable Unavailable ALPA MOTA MD Unavailable Unavailable ALPA MOTA MD Unavailable Unavailable ALPA MOTA MD Unavailable Unavailable Rosalino, R Shawna SHIP YARD ELECTRICAL PERSON Unavailable Unavailable Rosalino, R Shawna SHIP YARD ELECTRICAL PERSON Unavailable Unavailable Rosalino, R Shawna SHIP YARD ELECTRICAL PERSON Unavailable Unavailable Rosalino, R Shawna SHIP YARD ELECTRICAL PERSON Unavailable Unavailable Rosalino, R Shawna SHIP YARD ELECTRICAL PERSON Unavailable Unavailable Rosalino, R Shawna SHIP YARD ELECTRICAL PERSON Unavailable Unavailable Rosalino, R Shawna SHIP YARD ELECTRICAL PERSON Unavailable Unavailable Rosalino, R Shawna SHIP YARD ELECTRICAL PERSON Unavailable Unavailable Rosalino, R Sahwna SHIP YARD ELECTRICAL PERSON Unavailable Unavailable Rosalino, R Shawna SHIP YARD ELECTRICAL PERSON Unavailable Unavailable Rosalino, R Shawna SHIP YARD ELECTRICAL PERSON Unavailable Unavailable Rosalino, R Shawna SHIP YARD ELECTRICAL PERSON Unavailable Unavailable Rosalino, R Shawna SHIP YARD ELECTRICAL PERSON Unavailable Unavailable Rosalino, R Shawna SHIP YARD ELECTRICAL PERSON Unavailable Unavailable Rosalino, R Shawna SHIP YARD ELECTRICAL PERSON Unavailable Unavailable Rosalino, R Shawna SHIP YARD ELECTRICAL PERSON Unavailable Unavailable Rosalino, R Shawna SHIP YARD ELECTRICAL PERSON Unavailable Unavailable Rosalino, R Shawna SHIP YARD ELECTRICAL PERSON Unavailable Unavailable Rosalino, R Shawna SHIP YARD ELECTRICAL PERSON Unavailable Unavailable Rosalino, R Shawna SHIP YARD ELECTRICAL PERSON Unavailable Unavailable Rosalino, R Shawna SHIP YARD ELECTRICAL PERSON Unavailable Unavailable Rosalino, R Shawna SHIP YARD ELECTRICAL PERSON Unavailable Unavailable Rosalino, R Shawna SHIP YARD ELECTRICAL PERSON Unavailable Unavailable Rosalino, R Shawna SHIP YARD ELECTRICAL PERSON Unavailable Unavailable Rosalino, R Shawna SHIP YARD ELECTRICAL PERSON Unavailable Unavailable Rosalino, R Shawna SHIP YARD ELECTRICAL PERSON Unavailable Unavailable Rosalino, R Shawna SHIP YARD ELECTRICAL PERSON Unavailable Unavailable Rosalino, R Shawna SHIP YARD ELECTRICAL PERSON Unavailable Unavailable Rosalino, R Shawna SHIP YARD ELECTRICAL PERSON Unavailable Unavailable Rosalino, R Shawna SHIP YARD ELECTRICAL PERSON Unavailable Unavailable Rosalino, R Shawna SHIP YARD ELECTRICAL PERSON Unavailable Unavailable Rosalino, R Shawna SHIP YARD ELECTRICAL PERSON Unavailable Unavailable Rosalino, R Shawna SHIP YARD ELECTRICAL PERSON Unavailable Unavailable Rosalino, R Shawna SHIP YARD ELECTRICAL PERSON Unavailable Unavailable Rosalino, R Shawna SHIP YARD ELECTRICAL PERSON Unavailable Unavailable Rosalino, R Shawna SHIP YARD ELECTRICAL PERSON Unavailable Unavailable Rosalino, R Shawna SHIP YARD ELECTRICAL PERSON Unavailable Unavailable Rosalino, R Shawna SHIP YARD ELECTRICAL PERSON Unavailable Unavailable Rosalino, R Shawna SHIP YARD ELECTRICAL PERSON Unavailable Unavailable Rosalino, R Shawna SHIP YARD ELECTRICAL PERSON Unavailable Unavailable JACKY, Ranjith RINCON MD Unavailable Unavailable JACKY, Ranjith RINCON MD Unavailable Unavailable JACKYRanjith BELTRAN MD Unavailable Unavailable JACKY, Ranjith RINCON MD Unavailable Unavailable JACKYRanjith BELTRAN MD Unavailable [...] Unavailable Unavailable JACKYRanjith BELTRAN MD Unavailable Unavailable Mingo STYLES MD Unavailable Unavailable Mingo STYLES MD Unavailable Unavailable CHANLIECCO, C ELIZABETH MD Unavailable Unavailable CHANLIECCO, C ELIZABETH MD Unavailable Unavailable CHANLIECCO, C ELIZABETH MD Unavailable Unavailable CHANLIECCO, C ELIZABETH MD Unavailable Unavailable CHANLIECCO, C ELIZABETH MD Unavailable Unavailable CHANLIECCO, C ELIZABETH MD Unavailable Unavailable CHANLIECCO, C ELIZABETH MD Unavailable Unavailable CHANLIECCO, C ELIZABETH MD Unavailable Unavailable CHANLIECCO, C ELIZABETH MD Unavailable Unavailable Re-disclosure Warning The records [...] is protected by Article 27-F of the [facility] Public Health law. If you continue you may have access to information: Regarding HIV / AIDS; Provided by facilities licensed or operated by the [facility] Office of Mental Health; or Provided by the [facility] Office for People With Developmental Disabilities. If such information is present, then the following [facility] mandated warning applies: This information has [...] law may result in a fine or custodial sentence or both. A general authorization for the release of medical or other information is NOT sufficient authorization for further disc losure. Encounters Encounter Providers Location Date Indications Data Source(s ) [place] [address] [facility] [address] 08/31/2021 12:00:00 AM EDT eCW1 ([facility]) [place] [address] [facility] [address] 08/31/2021 12:00:00 AM EDT eCW1 ([facility]) [place] [address] [facility] [address] 08/07/2021 12:00:00 AM EDT eCW1 ([facility]) [place] [address] [facility] [address] 08/03/2021 12:00:00 AM EDT eCW1 ([facility]) [place] [address] [facility] [address] 07/26/2021 12:00:00 AM EDT eCW1 ([facility]) [place] [address] [facility] [address] 07/20/2021 12:00:00 AM EDT eCW1 ([facility]) [place] [address] [address] 07/17/2021 12:00:00 AM EDT eCW1 ([facility]) [place] [address] [facility] [address] 07/12/2021 12:00:00 AM EDT eCW1 ([facility]) [place] [address] [facility] [address] 07/05/2021 12:00:00 AM EDT eCW1 ([facility]) Emergency Attender: ELIZABETH STYLES MDConsultant: Dick Mosquera SHIP YARD ELECTRICAL PERSON 07/02/2021 08:59:00 PM EDT - 07/03/2021 03:03:00 AM EDT [facility] Patient discharged. [place] [address] [facility] [address] 06/25/2021 12:00:00 AM EDT eCW1 ([facility]) Outpatient Attender: Liane Dodge MD Main office - [facility] 06/11/2021 01:00:00 PM EDT MEDENT ([facility]) [place] [address] [address] 05/25/2021 12:00:00 AM EDT eCW1 ([facility]) [place] [address] [facility] [address] 05/14/2021 12:00:00 AM EDT eCW1 ([facility]) [place] [address] [facility] [address] 05/11/2021 12:00:00 AM EDT eCW1 ([facility]) [place] [address] [address] 04/05/2021 12:00:00 AM EDT eCW1 ([facility]) Outpatient Attender: Liane Dodge MD [facility] 02/26/2021 11:00:00 AM EDT MEDENT ([facility]) Outpatient Attender: LARRY ALEXANDER NP Physical Therapy 01:45:00 PM EST MEDENT ([facility]) [place] [address] [address] 12/28/2020 12:00:00 AM EST eCW1 ([facility]) [place] [address] [facility] [address] 12/22/2020 12:00:00 AM EST eCW1 ([facility]) [place] [address] [facility] [address] 12/08/2020 12:00:00 AM EST eCW1 ([facility]) [place] [address] [facility] [address] 12/07/2020 12:00:00 AM EST eCW1 ([facility]) [place] [address] [facility] [address] 12/07/2020 12:00:00 AM EST eCW1 ([facility]) Outpatient Attender: Liane Dodge MD [facility] 11/27/2020 08:00:00 AM EST MEDENT ([facility]) TeleMedicine Phone E/M by Phys 11-20 Min [address] [place] [address] 11/24/2020 12:00:00 AM EST eCW1 ([facility]) Unknown [address] [facility] [place] [address] 11/22/2020 12:00:00 AM EST eCW1 ([facility]) Outpatient [address] [facility] [place] [address] 11/20/2020 12:00:00 AM EST eCW1 ([facility]) Unknown [address] [facility] [place] [address] 11/13/2020 12:00:00 AM EST eCW1 ([facility]) Unknown [address] [facility] [address] 11/02/2020 12:00:00 AM EST [facility]CW1 ([facility]) Unknown [address] [facility] [address] 11/01/2020 12:00:00 AM EST [facility]CW1 [facility] Outpatient [address] [facility] [address] 10/27/2020 12:00:00 AM EST [facility]CW[facility] Emergency Attender: SERGEY RICO MDConsultant: Shawna gaspar SHIP YARD ELECTRICAL PERSON 10/26/2020 03:02:00 PM EST - 10/26/2020 08:33:00 PM EST [facility] Patient discharged. Unknown [address] [facility] [place] [address] 10/26/2020 12:00:00 AM EST eCW1 ([facility]) Unknown [address] [facility] [place] [address] 10/24/2020 12:00:00 AM EST eCW1 ([facility]) Unknown [address] [facility] [place] [address] 10/06/2020 12:00:00 AM EST [facility]CW[facility] Outpatient [address] [facility] [address] 09/29/2020 12:00:00 AM EST eCW1 ([facility]) Emergency Attender: Juan BESTCConsultant: Shawna PULIDO 09/26/2020 04:48:00 PM EST - 09/26/2020 07:19:00 PM EST [facility] Patient discharged. [place] [address] [facility] [address] 09/12/2020 12:00:00 AM EDT eCW1 ([facility]) Inpatient Attender: JAYNA ENGLAND MDAtten paolo: XIAO POWELL MDAttender: ALPA MOTA MDAdmitter: JAYNA ENGLAND MD ER-3RD 08/19/2019 09:03: 00 PM EDT - 08/24/2019 01:40:00 AM EDT [facility] Patient discharged. Immunizations Vaccine Date Status Description Data Source(s) COVID-19 VACCINE Moderna 04/28/2021 12:00:00 AM EDT completed [facility] Vaccine Series Complete: NOThis Data was Submitted to [facility]. Medications Medication Brand Name Start Date Product Form Dose Route Admi nistrative Instructions Pharmacy Instructions Status Indications Reaction Description Data Source(s) Fluconazole 150 MG Oral Tablet [Diflucan] Diflucan 150 MG Di flucan 150 MG 08/31/2021 12:00:00 AM EDT 1.0 {tablet} active Diflucan 150 MG eCW1 ([facility]) Fluconazole 150 MG Oral Tablet [Diflucan] Diflucan 150 MG Di flucan 150 MG 08/31/2021 12:00:00 AM EDT 1.0 {tablet} active Diflucan 150 MG eCW1 ([facility]) Levofloxacin 500 MG Oral Tablet levoFLOXacin 500 MG levoFLOX acin 500 MG 05/14/2021 12:00:00 AM EDT 1.0 {tablet} suspende d levoFLOXacin 500 MG eCW1 ([facility]) Levofloxacin 500 MG Oral Tablet levoFLOXacin 500 MG levoFLOX acin 500 MG 05/14/2021 12:00:00 AM EDT 1.0 {tablet} active levoFLOXacin 500 MG eCW1 ([facility]) Levofloxacin 500 MG Oral Tablet levoFLOXacin 500 MG levoFLOX acin 500 MG 05/14/2021 12:00:00 AM EDT 1.0 {tablet} active levoFLOXacin 500 MG eCW1 ([facility]) Levofloxacin 500 MG Oral Tablet levoFLOXacin 500 MG levoFLOX acin 500 MG 05/14/2021 12:00:00 AM EDT 1.0 {tablet} suspende d levoFLOXacin 500 MG eCW1 ([facility]) Levofloxacin 500 MG Oral Tablet levoFLOXacin 500 MG levoFLOX acin 500 MG 05/14/2021 12:00:00 AM EDT 1.0 {tablet} suspende d levoFLOXacin 500 MG eCW1 ([facility]) Levofloxacin 500 MG Oral Tablet levoFLOXacin 500 MG levoFLOX acin 500 MG 05/14/2021 12:00:00 AM EDT 1.0 {tablet} active levoFLOXacin 500 MG eCW1 ([facility]) Levofloxacin 500 MG Oral Tablet levoFLOXacin 500 MG levoFLOX acin 500 MG 05/14/2021 12:00:00 AM EDT 1.0 {tablet} suspende d levoFLOXacin 500 MG eCW1 ([facility]) Levofloxacin 500 MG Oral Tablet levoFLOXacin 500 MG levoFLOX acin 500 MG 05/14/2021 12:00:00 AM EDT 1.0 {tablet} active levoFLOXacin 500 MG eCW1 ([facility]) Levofloxacin 500 MG Oral Tablet levoFLOXacin 500 MG levoFLOX acin 500 MG 05/14/2021 12:00:00 AM EDT 1.0 {tablet} active levoFLOXacin 500 MG eCW1 ([facility]) Levofloxacin 500 MG Oral Tablet levoFLOXacin 500 MG levoFLOX acin 500 MG 05/14/2021 12:00:00 AM EDT 1.0 {tablet} active levoFLOXacin 500 MG eCW1 ([facility]) Levofloxacin 500 MG Oral Tablet levoFLOXacin 500 MG levoFLOX acin 500 MG 05/14/2021 12:00:00 AM EDT 1.0 {tablet} suspende d levoFLOXacin 500 MG eCW1 ([facility]) Levofloxacin 500 MG Oral Tablet levoFLOXacin 500 MG levoFLOX acin 500 MG 05/14/2021 12:00:00 AM EDT 1.0 {tablet} active levoFLOXacin 500 MG eCW1 ([facility]) Levofloxacin 500 MG Oral Tablet levoFLOXacin 500 MG levoFLOX acin 500 MG 05/14/2021 12:00:00 AM EDT 1.0 {tablet} active levoFLOXacin 500 MG eCW1 ([facility]) onabotulinumtoxinA 200 UNT/ML Injectable Solution [Botox] Samy tox 01/01/2021 12:00:00 AM EST active M EDXIOMY ([facility] ) Triamcinolone Acetonide 1 MG/ML Topical Cream Triamcin olone Acetonide 0.1 % Triamcinolone Acetonide 0.1 % 11/24/2020 12:00:00 AM EST 1.0 {appli cation} active Triamcinolone Acetonide 0 .1 % eCW1 ([facility]) Triamcinolone Acetonide 1 MG/ML Topical Cream Triamcin olone Acetonide 0.1 % Triamcinolone Acetonide 0.1 % 11/24/2020 12:00:00 AM EST 1.0 {appli cation} active Triamcinolone Acetonide 0 .1 % eCW1 ([facility]) Triamcinolone Acetonide 1 MG/ML Topical Cream Triamcin olone Acetonide 0.1 % Triamcinolone Acetonide 0.1 % 11/24/2020 12:00:00 AM EST 1.0 {appli cation} active Triamcinolone Acetonide 0 .1 % eCW1 ([facility]) Triamcinolone Acetonide 1 MG/ML Topical Cream Triamcin olone Acetonide 0.1 % Triamcinolone Acetonide 0.1 % 11/24/2020 12:00:00 AM EST 1.0 {appli cation} active Triamcinolone Acetonide 0 .1 % eCW1 ([facility]) Triamcinolone Acetonide 1 MG/ML Topical Cream Triamcin olone Acetonide 0.1 % Triamcinolone Acetonide 0.1 % 11/24/2020 12:00:00 AM EST 1.0 {appli cation} active Triamcinolone Acetonide 0 .1 % eCW1 ([facility]) Triamcinolone Acetonide 1 MG/ML Topical Cream Triamcin olone Acetonide 0.1 % Triamcinolone Acetonide 0.1 % 11/24/2020 12:00:00 AM EST 1.0 {appli cation} suspended Triamcinolone Acetonide 0 .1 % eCW1 ([facility]) Triamcinolone Acetonide 1 MG/ML Topical Cream Triamcin olone Acetonide 0.1 % Triamcinolone Acetonide 0.1 % 11/24/2020 12:00:00 AM EST 1.0 {appli cation} suspended Triamcinolone Acetonide 0 .1 % eCW1 ([facility]) Triamcinolone Acetonide 1 MG/ML Topical Cream Triamcin olone Acetonide 0.1 % Triamcinolone Acetonide 0.1 % 11/24/2020 12:00:00 AM EST 1.0 {appli cation} active Triamcinolone Acetonide 0 .1 % eCW1 ([facility]) Triamcinolone Acetonide 1 MG/ML Topical Cream Triamcin olone Acetonide 0.1 % Triamcinolone Acetonide 0.1 % 11/24/2020 12:00:00 AM EST 1.0 {appli cation} active Triamcinolone Acetonide 0 .1 % eCW1 ([facility]) Triamcinolone Acetonide 1 MG/ML Topical Cream Triamcin olone Acetonide 0.1 % Triamcinolone Acetonide 0.1 % 11/24/2020 12:00:00 AM EST 1.0 {appli cation} active Triamcinolone Acetonide 0 .1 % eCW1 ([facility]) Triamcinolone Acetonide 1 MG/ML Topical Cream Triamcin olone Acetonide 0.1 % Triamcinolone Acetonide 0.1 % 11/24/2020 12:00:00 AM EST 1.0 {appli cation} active Triamcinolone Acetonide 0 .1 % eCW1 ([facility]) Triamcinolone Acetonide 1 MG/ML Topical Cream Triamcin olone Acetonide 0.1 % Triamcinolone Acetonide 0.1 % 11/24/2020 12:00:00 AM EST 1.0 {appli cation} active Triamcinolone Acetonide 0 .1 % eCW1 ([facility]) Triamcinolone Acetonide 1 MG/ML Topical Cream Triamcin olone Acetonide 0.1 % Triamcinolone Acetonide 0.1 % 11/24/2020 12:00:00 AM EST 1.0 {appli cation} active Triamcinolone Acetonide 0 .1 % eCW1 ([facility]) Triamcinolone Acetonide 1 MG/ML Topical Cream Triamcin olone Acetonide 0.1 % Triamcinolone Acetonide 0.1 % 11/24/2020 12:00:00 AM EST 1.0 {appli cation} active Triamcinolone Acetonide 0 .1 % eCW1 ([facility]) Triamcinolone Acetonide 1 MG/ML Topical Cream Triamcin olone Acetonide 0.1 % Triamcinolone Acetonide 0.1 % 11/24/2020 12:00:00 AM EST 1.0 {appli cation} suspended Triamcinolone Acetonide 0 .1 % eCW1 ([facility]) Triamcinolone Acetonide 1 MG/ML Topical Cream Triamcin olone Acetonide 0.1 % Triamcinolone Acetonide 0.1 % 11/24/2020 12:00:00 AM EST 1.0 {appli cation} active Triamcinolone Acetonide 0 .1 % eCW1 ([facility]) Triamcinolone Acetonide 1 MG/ML Topical Cream Triamcin olone Acetonide 0.1 % Triamcinolone Acetonide 0.1 % 11/24/2020 12:00:00 AM EST 1.0 {appli cation} active Triamcinolone Acetonide 0 .1 % eCW1 ([facility]) Triamcinolone Acetonide 1 MG/ML Topical Cream Triamcin olone Acetonide 0.1 % Triamcinolone Acetonide 0.1 % 11/24/2020 12:00:00 AM EST 1.0 {appli cation} active Triamcinolone Acetonide 0 .1 % eCW1 ([facility]) Triamcinolone Acetonide 1 MG/ML Topical Cream Triamcin olone Acetonide 0.1 % Triamcinolone Acetonide 0.1 % 11/24/2020 12:00:00 AM EST 1.0 {appli cation} active Triamcinolone Acetonide 0 .1 % eCW1 ([facility]) Triamcinolone Acetonide 1 MG/ML Topical Cream Triamcin olone Acetonide 0.1 % Triamcinolone Acetonide 0.1 % 11/24/2020 12:00:00 AM EST 1.0 {appli cation} active Triamcinolone Acetonide 0 .1 % eCW1 ([facility]) Triamcinolone Acetonide 1 MG/ML Topical Cream Triamcin olone Acetonide 0.1 % Triamcinolone Acetonide 0.1 % 11/24/2020 12:00:00 AM EST 1.0 {appli cation} suspended Triamcinolone Acetonide 0 .1 % eCW1 ([facility]) valacyclovir 1000 MG Oral Tablet Valacyclovir HCl 1 GM Valac yclovir HCl 1 GM 09/29/2020 12:00:00 AM EST 1.0 {tablet} active Valacyclovir HCl 1 GM eCW1 ([facility]) valacyclovir 1000 MG Oral Tablet Valacyclovir HCl 1 GM Valac yclovir HCl 1 GM 09/29/2020 12:00:00 AM EST 1.0 {tablet} active Valacyclovir HCl 1 GM eCW1 ([facility]) valacyclovir 1000 MG Oral Tablet Valacyclovir HCL 09/29/2020 12:00: 00 AM EST active MEDENT ([facility], ) valacyclovir 1000 MG Oral Tablet valACYclovir HCl 1 GM valAC Yclovir HCl 1 GM 09/29/2020 12:00:00 AM EST 1.0 {tablet} suspende d valACYclovir HCl 1 GM eCW1 ([facility]) valacyclovir 1000 MG Oral Tablet Valacyclovir HCl 1 GM Valac yclovir HCl 1 GM 09/29/2020 12:00:00 AM EST 1.0 {tablet} active Valacyclovir HCl 1 GM eCW1 ([facility]) valacyclovir 1000 MG Oral Tablet Valacyclovir HCl 1 GM Valac yclovir HCl 1 GM 09/29/2020 12:00:00 AM EST 1.0 {tablet} active Valacyclovir HCl 1 GM eCW1 ([facility]) valacyclovir 1000 MG Oral Tablet valACYclovir HCl 1 GM valAC Yclovir HCl 1 GM 09/29/2020 12:00:00 AM EST 1.0 {tablet} active valACYclovir HCl 1 GM eCW1 ([facility]) valacyclovir 1000 MG Oral Tablet valACYclovir HCl 1 GM valAC Yclovir HCl 1 GM 09/29/2020 12:00:00 AM EST 1.0 {tablet} active valACYclovir HCl 1 GM eCW1 ([facility]) valacyclovir 1000 MG Oral Tablet Valacyclovir HCl 1 GM Valac yclovir HCl 1 GM 09/29/2020 12:00:00 AM EST 1.0 {tablet} active Valacyclovir HCl 1 GM eCW1 ([facility]) valacyclovir 1000 MG Oral Tablet Valacyclovir HCl 1 GM Valac yclovir HCl 1 GM 09/29/2020 12:00:00 AM EST 1.0 {tablet} active Valacyclovir HCl 1 GM eCW1 ([facility]) valacyclovir 1000 MG Oral Tablet valACYclovir HCl 1 GM valAC Yclovir HCl 1 GM 09/29/2020 12:00:00 AM EST 1.0 {tablet} suspende d valACYclovir HCl 1 GM eCW1 ([facility]) valacyclovir 1000 MG Oral Tablet valACYclovir HCl 1 GM valAC Yclovir HCl 1 GM 09/29/2020 12:00:00 AM EST 1.0 {tablet} suspende d valACYclovir HCl 1 GM eCW1 ([facility]) valacyclovir 1000 MG Oral Tablet Valacyclovir HCl 1 GM Valac yclovir HCl 1 GM 09/29/2020 12:00:00 AM EST 1.0 {tablet} active Valacyclovir HCl 1 GM eCW1 ([facility]) valacyclovir 1000 MG Oral Tablet valACYclovir HCl 1 GM valAC Yclovir HCl 1 GM 09/29/2020 12:00:00 AM EST 1.0 {tablet} active valACYclovir HCl 1 GM eCW1 ([facility]) valacyclovir 1000 MG Oral Tablet valACYclovir HCl 1 GM valAC Yclovir HCl 1 GM 09/29/2020 12:00:00 AM EST 1.0 {tablet} active valACYclovir HCl 1 GM eCW1 ([facility]) valacyclovir 1000 MG Oral Tablet valACYclovir HCl 1 GM valAC Yclovir HCl 1 GM 09/29/2020 12:00:00 AM EST 1.0 {tablet} active valACYclovir HCl 1 GM eCW1 ([facility]) valacyclovir 1000 MG Oral Tablet valACYclovir HCl 1 GM valAC Yclovir HCl 1 GM 09/29/2020 12:00:00 AM EST 1.0 {tablet} active valACYclovir HCl 1 GM eCW1 ([facility]) valacyclovir 1000 MG Oral Tablet Valacyclovir HCl 1 GM Valac yclovir HCl 1 GM 09/29/2020 12:00:00 AM EST 1.0 {tablet} active Valacyclovir HCl 1 GM eCW1 ([facility]) valacyclovir 1000 MG Oral Tablet valACYclovir HCl 1 GM valAC Yclovir HCl 1 GM 09/29/2020 12:00:00 AM EST 1.0 {tablet} active valACYclovir HCl 1 GM eCW1 ([facility]) valacyclovir 1000 MG Oral Tablet Valacyclovir HCl 1 GM Valac yclovir HCl 1 GM 09/29/2020 12:00:00 AM EST 1.0 {tablet} active Valacyclovir HCl 1 GM eCW1 ([facility]) valacyclovir 1000 MG Oral Tablet valACYclovir HCl 1 GM valAC Yclovir HCl 1 GM 09/29/2020 12:00:00 AM EST 1.0 {tablet} active valACYclovir HCl 1 GM eCW1 ([facility]) valacyclovir 1000 MG Oral Tablet Valacyclovir HCl 1 GM Valac yclovir HCl 1 GM 09/29/2020 12:00:00 AM EST 1.0 {tablet} active Valacyclovir HCl 1 GM eCW1 ([facility]) valacyclovir 1000 MG Oral Tablet Valacyclovir HCl 1 GM Valac yclovir HCl 1 GM 09/29/2020 12:00:00 AM EST 1.0 {tablet} active Valacyclovir HCl 1 GM eCW1 ([facility]) valacyclovir 1000 MG Oral Tablet Valacyclovir HCl 1 GM Valac yclovir HCl 1 GM 09/29/2020 12:00:00 AM EST 1.0 {tablet} active Valacyclovir HCl 1 GM eCW1 ([facility]) valacyclovir 1000 MG Oral Tablet Valacyclovir HCl 1 GM Valac yclovir HCl 1 GM 09/29/2020 12:00:00 AM EST 1.0 {tablet} active Valacyclovir HCl 1 GM eCW1 ([facility]) valacyclovir 1000 MG Oral Tablet Valacyclovir HCl 1 GM Valac yclovir HCl 1 GM 09/29/2020 12:00:00 AM EST 1.0 {tablet} active Valacyclovir HCl 1 GM eCW1 ([facility]) valacyclovir 1000 MG Oral Tablet valACYclovir HCl 1 GM valAC Yclovir HCl 1 GM 09/29/2020 12:00:00 AM EST 1.0 {tablet} suspende d valACYclovir HCl 1 GM eCW1 ([facility]) valacyclovir 1000 MG Oral Tablet Valacyclovir HCl 1 GM Valac yclovir HCl 1 GM 09/29/2020 12:00:00 AM EST 1.0 {tablet} active Valacyclovir HCl 1 GM eCW1 ([facility]) valacyclovir 1000 MG Oral Tablet Valacyclovir HCl 1 GM Valac yclovir HCl 1 GM 09/29/2020 12:00:00 AM EST 1.0 {tablet} active Valacyclovir HCl 1 GM eCW1 ([facility]) valacyclovir 1000 MG Oral Tablet Valacyclovir HCl 1 GM Valac yclovir HCl 1 GM 09/29/2020 12:00:00 AM EST 1.0 {tablet} active Valacyclovir HCl 1 GM eCW1 ([facility]) valacyclovir 1000 MG Oral Tablet valACYclovir HCl 1 GM valAC Yclovir HCl 1 GM 09/29/2020 12:00:00 AM EST 1.0 {tablet} active valACYclovir HCl 1 GM eCW1 ([facility]) Insurance Providers Payer name Policy type / Coverage type Policy ID Covered alliance party ID Covered alliance party's relationship to yousif Policy Yousif Plan Information Medicaid Dental P [id number] S [id number] [facility] - O/P [id number] 01 [id number] [facility] O/P [id number] 18 [id number] [facility] [id number] [facility] [id number] SELF PAY ONLY [id number] [id number] S [id number] [facility] - O/P [id number] 01 [id number] [facility] [id number] [facility] [id number] ANSI-Not a Secondary Insurance [id number] ANSI-Not a Secondary Insurance [id number] MEDICAID [id number] ANSI-Not a Secondary Insurance [id number] ANSI-Medicaid [id number] MEDICAID [id number] S [id number] [facility] [id number] [facility] [id number] ANSI-Medicaid [id number] Problems, Conditions, and Diagnoses Code Display Name Description Problem Type Effective Dates Data Source(s) Z50134 Unspecified asthma, uncomplicated Unspecified as thma, uncomplicated Diagnosis 07/02/2021 08:59:00 PM EDT [facility] Q06865 Nicotine dependence, cigarettes, uncompl icated Nicotine dependence, cigarettes, uncomplicated Diagnosis 07/02/2021 08:59:00 PM EDT [facility] R6884 Jaw pain Jaw pain Diagnosis 07/02/2021 08:59:00 PM ED T [facility] 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 Diagnosis 10/26/2020 03:02:00 P M [facility] B9689 Other specified bacterial ag ents as the cause of diseases classified elsewhere Other specified bacterial agents as the cause of diseases classified elsewhere Diagnosis 10/26/2020 03:02:00 PM [facility] J208 Acute bronchitis due to other specified organisms Acute bronchitis due to other specified organisms Diagnosis 10/26/2020 03:02:00 PM [facility] R0789 Other chest pain Other chest pain Diagnosis 10/26/2020 03 :02:00 PM [facility] N939 Abnormal uterine and vaginal bleeding, u nspecified Abnormal uterine and vaginal bleeding, unspecified Diagnosis 09/26/2020 04:48:00 PM [facility] R102 Pelvic and perineal pain Pelvic and perineal pain Diag nosis 09/26/2020 04:48:00 PM [facility] G93.89 [id number] Calcium deposits of brain Problem 12/22/2020 12:00:00 AM EST eCW1 ([facility]) [id number] Dizziness Dizziness Problem 11/27/2020 12:00:00 AM ES T MEDENT ([facility] ) [id number] Headache Headache Problem 11/27/2020 12:00:00 AM ES T MEDENT ([facility] ) [id number] MRI scan abnormal MRI scan abnormal Problem 11/27 12:00:00 AM EST MEDENT ([facility]) L20.9 [id number] Atopic dermatitis, mild Problem 11/24/2020 1 2:00:00 AM EST eCW1 ([facility]) L20.84 71151447 Intrinsic eczema Problem 11/24/2020 12:00:00 AM EST eCW1 ([facility]) F31.62 031295083 Bipolar disorder, current episode mixed, moderate Problem 10/27/2020 12:00:00 AM EST eCW1 ([facility]) R93.89 [id number] Abnormal findings on imaging test Problem 10/27/2020 12:00:00 AM EST eCW1 ([facility]) A60.04 [id number] Herpes simplex virus (HSV) infection of v agina Problem 09/29/2020 12:00:00 AM EST eCW1 ([facility]) Surgeries/Procedures Procedure Description Date Indications Data Source(s) CHEMODNRVTJ [facility] INNERVATED FACIAL NRV 07/05/2021 12:00:00 AM EDT MEDENT ([facility]) OFFICE OUTPATIENT VISIT 25 MINUTES 06/11/2021 12:00:00 AM EDT MEDENT ([facility]) OFFICE OUTPATIENT VISIT 25 MINUTES 02/26/2021 12:00:00 AM EDT MEDENT ([facility]) CHEMODNRVKAISER HAYWARD INNERVATED FACIAL NRV 02/21/2021 12:00:00 AM EDT MEDENT ([facility]) Magnetic Resonance Angiogtaphy Head W/O Contrast Material(S) 12/15/2020 12:00:00 AM EST MEDENT ([facility]) Magnetic Resonance Angiogtaphy Head W/O Contrast Material(S) 12/15/2020 12:00:00 AM EST MEDENT ([facility]) Magnetic Resonance Angiography Neck W/O Contrast Materials 12/15/2020 12:00:00 AM EST MEDENT ([facility]) Magnetic Resonance Angiography Neck W/O Contrast Materials 12/15/2020 12:00:00 AM EST [facility] ([facility]) MRI BRAIN BRAIN STEM W/O CONTRAST MATERIAL 12/15/2020 12:00:00 AM EST MEDENT ([facility]) MRI BRAIN BRAIN STEM W/O CONTRAST MATERIAL 12/15/2020 12:00:00 AM EST [facility] ([facility]) ELECTROENCEPHALOGRAM W/REC AWAKE&ASLEEP 12/01/2020 12: 00:00 AM EST MEDENT ([facility]) ELECTROENCEPHALOGRAM W/REC AWAKE&ASLEEP 12/01/2020 12: 00:00 AM EST MEDENT ([facility]) Results ID Date Data Source [id number] 07/03/2021 07:31:00 PM EDT [facility] [place] [address] PHONE: [phone] FAX: [phone] Name .................. : RAYMUNDO RECINOS Acct Number.................. : [id number] ROOM. ................. : [address] Number ................... : [id number] Stay type ............. : E/R Discharge Date......... ... : 07/03/21 Admit Date ......... : 07/02/21 Admit Phys .................... : MIRIAMNC Date of ....... : 2000 Family Phys ................... : ROSALINO GARCIA Phone .................. : [phone] Age ................................ : 20 Film# .................. .:[id number] Sex ................................. : F Unsigned transcriptions are preliminary reports and do not represent a medical or legal document MANDIBLE COMP-4 OR MORE VIEWS 07717 COMPLETE:07/03/21 01:49 DLA 17621 Reason(s): pain on the left mandible possible injury Study: Mandible Number of views: 4 Indication: Pain in left mandible. Possible injury. Findings: No mandible fracture or dislocation. Impression: Unremarkable. Electronically Reviewed and Signed By Onur Joseph MD , 07/03/21 19:31, LAURENT Transcribe Initials: SSR, Transcribe Date: 07/03/21 08:49, Dictation Date: Copy for: EMERGENCY DEPT via modem Copy for: 710 MED REC DISCHARGED Page 1 of 1 Name Value Range Interpretation Code Description Data Tasha rce(s) Supporting Document(s) ID Date Data Source [id number] 07/03/2021 07:13:00 PM EDT [facility] [address] [place] [address] PHONE: [phone] FAX: [phone] Name .................. : RAYMUNDO RECINOS Acct Number.................. : [id number] ROOM. ................. : [address] Number ................... : [id number] Stay type ............. : E/R Discharge Date......... ... : 07/03/21 Admit Date ......... : 07/02/21 Admit Phys .................... : [facility] Date of ....... : 2000 Family Phys ................... : ROSALINO GARCIA Phone . ................. : [phone] Age ................................ : 20 Film# .................. .:[id number] Sex ................................. : F Unsigned transcriptions are preliminary reports and do not represent a medical or legal document TMJ BILAT 21385 COMPLETE:07/03/21 02:57 DLA 06592 Reason(s): Pain Study: TMJ Number of views: 3 views in closed mouth position Indication: Pain. Findings: TMJs are normally seated in closed position. No mandibular head sclerosis. Impression: Normal TMJ closed mouth position. Electronically Reviewed and Signed By Onur Joseph MD , 07/03/21 19:13, LAURENT Transcribe Initials: SSR, Transcribe Date: 07/03/21 08:48, Dictation Date: Copy for: EMERGENCY DEPT via modem Copy for: 710 MED REC DISCHARGED Page 1 of 1 Name Value Range Interpretation Code Description Data Tasha rce(s) Supporting Document(s) ID Date Data Source [id number] 07/02/2021 08:59:00 PM EDT [facility] 1 OrderSheet [facility] Emergency Department [address] [place] [address] Phone #: ext- [phone] 07/02/2021 20:49 Patient: JORJE FONSECA Sex: F : 2000 Age: 20yWEIGHT:50.8 kg (S) HEIGHT:62 inches (S) BMI:20.5ALLERGIES: Cefaclor, Clindamycin HCl, LidocaineCHIEF COMPLAINT: jaw painDIAGNOSIS: Jaw painLAB ORDERSOrder Description Priority Entered Acknowledged InitialedDIAGNOSTIC STUDY ORDERSOrder De scription Priority Entered Acknowledged InitialedMandible 01:08 07/03/2021 01:14 Robert,Complete-4 or more Elizabeth Styles R.N.views ;(Oxygen?(No))(IV?(No)) Reason for Study: pain on the left mandible possible injuryTMJ Bilateral STAT 02:34 07/03/2021 05:10 Maggy Hopper(Oxygen?(No)) Elizabeth Styles R.N. ; Reason for Study: PainMEDICATION/IV/DRIP/FLUID ORDERSOrder Description Priority Entered Acknowledged InitialedGENERAL ORDERSOrder Description Priority Entered Acknowledged Initialed[Electronically signed by Elizabeth Styles (03:45 07/03/2021)][Electronically signed by Maggy Mistry R.N. (05:11 07/03/2021)][Electronically locked by Maggy Mistry R.N. (05:11 07/03/2021)] Name Value Range Interpretation Code Description Data Tasha rce(s) Supporting Document(s) ID Date Data Source [id number] 07/02/2021 08:59:00 PM EDT [place] [address] Medication Reconciliation Report [facility] Emergency Department [address] [place] [address] Phone #: [facility]- [phone] 07/02/2021 20:49 [id number] Sex[facility] F : 2000 Age: 20yWeight: 50.8 kgHeight/Length: 62 in.BMI: 20.5ALLERGIES: Cefaclor, Clindamycin HCl, LidocaineThe patient's Home Medications are listed below:CONTINUE TAKING THE FOLLOWING MEDICATIONS: Valtrex Oral (500 mg), dailyThe source(s) of the original Home Medication information:Not obtained.The following Medications were given to the patient in the Emergency Department:None.The following Medications were prescribed to the patient:None. Name Value Range Interpretation Code Description Data Tasha rce(s) Supporting Document(s) ID Date Data Source [id number] 07/02/2021 08:59:00 PM EDT [facility] 1 Medication Administration Record [facility] Emergency Department [address] [place] [address] Phone #: ext- [phone] 07/02/2021 20:49 Patient: JORJE FONSECA Sex: F : 2000 Age: 20yWeight: 50.8 kgHeight/Length: 62 inBMI: 20.5ALLERGIES: Lidocaine, Cefaclor, Clindamycin HClDate/Time Medication Administered Medication Ordered Name Value Range Interpretation Code Description Data Tasha rce(s) Supporting Document(s) ID Date Data Source [id number] 07/02/2021 08:59:00 PM EDT [facility] 1 General Instructions [facility] Emergency Department [address] [place] [address] Phone #: ext- [phone] 07/02/2021 20:49 Patient: JORJE FONSECA Sex: F : 2000 Age: 20yJaw painINSTRUCTIONS(take motrin for pain. there is no fracture or dislocation of the mandible).Your Current Medications: Your current home medications have been reviewed.CONTINUE TAKING THE FOLLOWING MEDICATIONS:Valtrex Oral : Tablet 500 mg, daily.Follow-up:Follow up with your healthcare provider in seven. Reason for referral: evaluation. Summary of careprovided to patient via paper. ADDITIONAL INFORMATIONAcute Pain, Uncertain CausePain can be caused by many conditions that range from very minor to very serious. In some cases,though, pain comes and goes with no apparent cause.We were not able to find the exact cause for your pain. At this time there is no sign of any seriousillness causing your pain. More tests may be needed to determine the cause. In many cases, pain likethis goes away by itself.Home careTake any medicines as prescribed. If another medicine was not prescribed for pain, you can take ubfnex-sgx-dbagiww pain medicine such as ibuprofen or acetaminophen. Use these as directed on thelabel.Follow-up careFollow up with your healthcare provider or our staff as directed.When to seek medical adviceCall your healthcare provider for any of the followin General Instructions [facility] Emergency Department [address] [place] [address] Phone #: ext- [phone] 07/02/2021 20:49 Patient: JORJE FONSECA Sex: F : 2000 Age: 20y Pain changes in pattern Pain doesn't lessen or gets worse New symptoms appear Fever of 100.4F (38C) or higher, or as directed by your healthcare provider [id number] [employer] [place] [address]. All rights reserved. This information is not intended as asubstitute for professional medical care. Always follow your healthcare professional's instructions.TMJ SyndromeThe temporomandibular joint (TMJ) is the joint that connects your lower jaw to your head. You canfeel it in front of your ears when you open and close your mouth. TMJ disorders involve chronic orrecurrent pain in the joint. When treated, symptoms of TMJ disorders usually go away within a fewmonths.CausesThere is no widely agreed-on cause of TMJ disorders. They have been linked to injury, arthritis,chronic fatigue syndrome, and fibromyalgia. A definite connection has not been shown, though.Symptoms Pain in the face, jaw, or neck Pain with jaw movement or chewing Locking or catching sensation of the jaw Clicking, popping, or grinding sounds with movement of the TMJ Headache Ear painHome careModest, nonsurgical treatments are a good first step toward relieving symptoms. Try the approachesdescribed below. Rest the jaw by avoiding crunchy or sqcs-ps-ftsh foods. Don't eat hard or sticky candies. Soft foods and liquids are easier on the jaw. Protect your jaw while yawning. If you need to yawn, put your fist under your chin to prevent your mouth from opening up too wide. 3 [facility] [address] [place] [address] Phone #: ext- [phone] 07/02/2021 20:49 Patient: JORJE FONSECA Sex: F : 2000 Age: 20y To help relieve pain, try applying hot or cold packs to the painful area. Try both hot and cold to find out which works best for you. To make a cold pack, put ice cubes in a plastic bag that seals at the top. Wrap the bag in a clean, thin towel or cloth. Never put ice or an ice pack directly on the skin. If you use hot packs (small towels soaked in hot water), be careful not to burn yourself. You may take acetaminophen or ibuprofen for pain, unless you were given a different pain medicine. (Note: If you have chronic liver or kidney disease or have ever had a stomach ulcer or gastrointestinal bleeding, talk with your healthcare provider before using these medicines. Also talk to your provider if you are taking medicine to prevent blood clots.) Don't give aspirin to a child younger than age 19 unless directed by the child's provider. Taking aspirin can put a child at risk for Sayda syndrome. This is a rare but very serious disorder that most often affects the brain and the liver.Reducing stressIf stress seems to be contributing to your symptoms, try to identify the sources of stress in your life.These aren't always obvious. Common stressors include: Everyday hassles. These include things such as traffic jams, missed appointments, or car trouble. Major life changes. These can be good, such as a new baby or job promotion. And they can be bad, such as losing a job or losing a loved one. Overload. The feeling that you have too many responsibilities and can't take care of everything at once. Helplessness. Feeling like your problems are more than you can solve.When possible, do something about your sources of stress. See if you can avoid hassles, limit theamount of change in your life at one time, and take breaks when you feel overloaded.Unfortunately, many stressful situations cannot be avoided. So learning how to manage stress betteris very important. Getting regular exercise, eating nutritious, balanced meals, and getting adequaterest all help to make everyday stress more manageable. Certain techniques are also helpful:relaxation and breathing exercises, visualization, biofeedback, meditation, or simply taking some timeout to clear your mind. For more information, talk with your healthcare provider.Follow-up careFollow up with your healthcare provider, or as advised. Further testing and additional treatment maybe required. If changes to your lifestyle do not improve your symptoms, talk with your healthcareprovider about other available therapies. These include bite guards for help with teeth grinding, stressmanagement techniques, and more. If stress is an important factor and does not respond to the 4 General Instructions [facility] Emergency Department [address] [place] [address] Phone #: pad- [phone] 07/02/2021 20:49 Patient: JORJE FONSECA Sex: F : 2000 Age: 20yabove simple measures, talk with your healthcare provider about a referral for stress management.If X-rays were done, they will be reviewed by a specialist. You will be notified of the results, especiallyif they affect treatment.Call [phone] if any of these occur: Trouble breathing or swallowing, wheezing Confusion Extreme drowsiness or trouble awakening Fainting or loss of consciousness Rapid heart rateWhen to seek medical adviceCall your healthcare provider right away if any of these occur: Swollen or red face Pain gets worse Neck, mouth, tooth, or throat pain gets worse Fever of 100.4F (38C) or higher, or as directed by your healthcare provider [phone] [employer]. [address] [place] [address], [place] [address]. All rights reserved. This information is not intended as asubstitute for professional medical care. Always follow your healthcare professional's instructions. You have been given the following additional information: Pain, Acute, Uncertain Cause TMJ Syndrome(Electronically signed by Elizabeth Styles 07/03/2021 03:45) Name Value Range Interpretation Code Description Data Tasha rce(s) Supporting Document(s) ID Date Data Source [id number] 07/02/2021 08:59:00 PM EDT [facility] 1 Clinical Report - Nurses [facility] Emergency Department [address] [place] [address] Phone #: [phone]- [phone] 07/02/2021 20:49 Patient: JORJE FONSECA Sex: F : 2000 Age: 20yTRIAGEArrived by private vehicle. Historian: patient.Acuity: LEVEL 4.Alert. No acute distress.Location of injuries: left mandible. Occurred 23:50 06/27/2021. ( PT states Friday night she had aPTSD attack and woke up on the floor with left jaw pain. She went to [facility] and was told shehad TMJ. The pain is getting worse so she wanted to get a second opinion.).Treatment STONE PAVER:Seen within the last 30 days at another facility in the ED; seen for similar symptoms.SEPSIS SCREEN: SIRS SCREEN NEGATIVE. SEPSIS SCREEN NEGATIVE. No suspected or confirmedsigns of infection present.SUSAN COMA SCORE: 15- eyes open- spontaneous (4); best verbal response- oriented (5); bestmotor response- obeys commands (6). --20:57 07/02/21 Rosalina Dickey R.N.20:49 07/02/21. BP: 98/60. HR: 88. RR: 18. O2 saturation: 97%. Temp: 99.1 F. Pain level now 06/26.--20:57 07/02/21 Rosalina Dickey R.N.Chief Complaint: (Jaw problem).00:09 07/03/21. --02:11 07/03/21 Maggy Estrada R.N.Weight: 50.8 kg stated. Height/Length: 62 inches Per Patient. BMI: 20.5. --20:55 07/02/21 Rosalina Dickey R.N.MedicationsValtrex Oral (Tablet 500 mg), daily. --20:53 07/02/21 Rosalina Dickey R.N.AllergiesClindamycin HCl. --20:53 07/02/21 Rosalina Dickey R.N.Cefaclor. --20:53 07/02/21 Rosalina Dickey R.N.Lidocaine. --20:53 07/02/21 Rosalina Dickey R.N.PROBLEMS:Fahr's disease.PTSD. --20:54 07/02/21 Rosalina Dickey R.N.Bipolar Disorder.Borderline personality disorder. 2 Clinical Report - Nurses [facility] Emergency Department [address] [place] [address] Phone #: ext- [phone] 07/02/2021 20:49 Patient: JORJE FONSECA Sex: F : 2000 Age: 20y Anxiety Reaction. Asthma. Depression. STD - Sexually Transmitted Disease. --21:00 07/02/21 Rosalina Dickey R.N. ADDITIONAL SURGERIES: Biopsy. Dental Surgery. --20:54 07/02/21 Rosalina Dickey R.N. History PAST MEDICAL HX: Last normal menstrual period- Jun 24. Denies current . SOCIAL HX: Light tobacco smoker- less than 1/2 a pack per day. Occasional alcohol use. Drug use: marijuana. Recently used drugs yesterday. The patient was offered HIV testing but declined and hepatitis C testing but declined. The patient has not traveled outside the [place] Infectious disease exposure: The patient was not exposed to C- diff, MRSA, VRE, CRE or Coronavirus. SELF HARM ASSESSMENT: Self harm assessment was [...] assessment completed. No skin integrity risk identified. --20:57 07/02/21 Rosalina Dickey R.N. Interventions Identification and allergy band on patient. To waiting room. --20:57 07/02/21 Rosalina Dickey R.N.PHYSICAL VEVRMNEADF91:08 07/03/21. Ambulatory to room.GENERAL / NEURO / PSYCH: Alert.HEENT: No signs of head trauma. ( speech clear).RESPIRATORY: Respirations not labored. 3 Clinical Report - Nurses [facility] Emergency Department [address] [place] [address] Phone #: ext- [phone] 07/02/2021 20:49 Patient: JORJE FONSECA Sex: F : 2000 Age: 20y GI / : Abdomen soft. EXTREMITIES: Neuro-vascular status intact to the extremity. SKIN: Skin is warm and dry. --02:09 07/03/21 Maggy Estrada R.N.NURSING PROGRESS NOTES00:08 07/03/21. Call light placed in reach. Bed placed in lowest position. Brakes of bed on. --02: Maggy Estrada R.N. Patient transported to radiology. --02:45 07/03/21 Alyssa Jones R.N.DISPOSITION / DISCHARGE Departure time: 03:03 07/03/2021. Condition at departure: improved and stable. No learning barriers present. Follow up contact number. Patient verbalized understanding. Written instructions provided in [place]. The patient was discharged by the physician. She was discharged home. She left ambulatory and via private vehicle. Correctional Counselor/Case Manager driving. --03:03 07/03/21 Maggy Estrada R.N. 03:02 07/03/21. BP: 99/74. MAP: 82. HR: 72. RR: 18. O2 saturation: 99%. Temp: 99.1 F. Pain level now: 01/24. --03:03 07/03/21 Maggy Estrada R.N.Locked/Released at 07/03/2021 05:11 by Maggy Estrada R.N. Name Value Range Interpretation Code Description Data Tasha rce(s) Supporting Document(s) ID Date Data Source [id number] 07/02/2021 08:59:00 PM EDT [facility] 1 Clinical Report - Physicians/Mid Levels [facility] Emergency Department [address] [place] [address] Phone #: ext- [phone] 07/02/2021 20:49 Patient: JORJE FONSECA Sex: F : 2000 Age: 20y Time Seen: 00:58 07/03/2021; initial patient contact, initial documentation. Arrived- By private vehicle. Historian- patient. Disposition decision: 02:55 07/03/2021.HISTORY OF PRESENT ILLNESS Chief Complaint: JAW PAIN. This started 5 days ago and is still present (persistent). It was abrupt in onset and has been constant. Pain described as moderate. No sore throat, mouth sores, nasal discharge or congestion or ear pain. No toothache, swollen jaw or face or facial pain. She has had jaw pain. (patient states that she has PTSD and when she woke up she was on the floor and had pain on her jaw. she went to [facility] and was told that she has TMJ. she is able to take and open and close her mouth. she states that her left jaw is not the same as her right jaw. [facility] did not do an Xray on her jaw. is able to talk with put any difficulty. there is no dental malocclusion).REVIEW OF SYSTEMSNo fever, eye discomfort, cough, difficulty breathing or chest pain. No nausea, diarrhea, abdominal pain,difficulty with urination or headache. No fainting episodes, joint pain, skin rash, enlarged lymph nodes orvomiting. All other systems reviewed and are negative.PAST HISTORYSee nurses notes. Problems: Bipolar Disorder. Borderline personality disorder. Anxiety Reaction. Asthma. Depression. 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 PTSD. Additional Surgeries: Biopsy. Dental Surgery. Medications: Valtrex Oral (Tablet 500 mg), daily. Allergies: Cefaclor. 2 Clinical Report - Physicians/Mid Levels [facility] Emergency Department [address] [place] [address] Phone #: ext- [phone] 07/02/2021 20:49 Patient: JORJE FONSECA Sex: F : 2000 Age: 20y Clindamycin HCl. Lidocaine.SOCIAL HISTORYCurrent every day light tobacco smoker (cigarette)- less than 1/2 a pack per day. Occasional alcohol use.Drug use: marijuana.ADDITIONAL NOTESThe nursing notes have been reviewed.PHYSICAL EXAMVital Signs: 07/02/2021 20:49 BP: 98/60. MAP: 72. HR: 88. RR: 18. O2 saturation: 97%. Temp: 99.1 F.Have been reviewed. Oxygen saturation normal.Appearance: Alert. No acute distress.Head: Normal external inspection.Eyes: Pupils equal, round and reactive to light. Conjunctivae and eyelids normal.ENT: Ears normal. Nose normal. Pharynx normal. Lips normal. Gums normal. Uvula midline. Nodental decay or tenderness or trismus. (no dental malocclusion, no swelling , no deformity, able to openand close her mouth without difficulty).Neck: Normal inspection. Trachea midline. No adenopathy. Thyroid normal. Neck supple.CVS: Normal heart rate and rhythm. Heart sounds normal. Pulses normal.Respiratory: No respiratory distress. Painless inspiration. Breath sounds normal. Chest nontender.Abdomen: Soft and nontender. No organomegaly.Skin: Normal skin color. No rash. Normal skin turgor.Extremities: Extremities exhibit normal ROM. Extremities nontender.Neuro: Oriented X 3. No motor deficit. No sensory deficit.LABS, X-RAYS, AND EKGX-Rays: Mandible.Mandible X-rays: No fracture present. No foreign body. No air fluid levels present. Soft tissues normal.No bony lesion. Views: 5 view mandible series. Technique: good. The X-rays were independentlyviewed by me and interpreted contemporaneously by me. Prior films were not available for comparison.Interpretation time: 02:31 07/03/2021.PROGRESS AND PROCEDURESCourse of Care: 02:31 07/03/21. xr of the mandible and TMJ did not show any fracture or dislocation. Patient counseled in person regarding the patient's stable condition, test results, diagnosis and need for follow-up. Patient agrees with plan of care. 02:55. Disposition: Discharged home in good condition (02:55). Condition: good and stable. Discharge decision based on the following: patient's condition is stable; patient's exam is stable; no abnormal test results; social support is adequate; transportation is available; follow-up is available; clinical impression is consistent with outpatient treatment. 3 Clinical Report - Physicians/Mid Levels [facility] Emergency Department [address] [place] [address] Phone #: ext- [phone] 07/02/2021 20:49 Patient: JORJE FONSECA Sex: F : 2000 Age: 20yCLINICAL IMPRESSION Jaw painINSTRUCTIONS (take motrin for pain. there is no fracture or dislocation of the mandible). Your Current Medications: Your current home medications have been reviewed. CONTINUE TAKING THE FOLLOWING MEDICATIONS: Valtrex Oral : Tablet 500 mg, daily. Follow-up: Follow up with your healthcare provider in seven. Reason for referral: evaluation. Summary of care provided to patient via paper.(Electronically signed by Elizabeth Styles 07/03/2021 03:45) Name Value Range Interpretation Code Description Data Tasha rce(s) Supporting Document(s) ID Date Data Source GENITAL CULTURE 05/11/2021 12:00:00 AM EDT eCW1 ([facility]) Name Value Range Interpretation Code Description Data Tasha rce(s) Supporting Document(s) GENITAL CULTURE eCW1 ([facility]) ID Date Data Source [id number] 04/04/2021 12:00:00 AM [facility]T [facility] Name Value Range Interpretation Code Description Data Tasha rce(s) Supporting Document(s) SARS-CoV2 Rapid Antigen Negative [facility] This lab was ordered by [facility] and reported by [facility]. ID Date Data Source GASTROINTESTINAL GI PANEL (GIPANEL) 11/20/2020 12:00:00 AM EST eCW1 ([facility]) Name Value Range Interpretation Code Description Data Tasha rce(s) Supporting Document(s) This Gastrointestinal PCR Panel detects the following bacteria, GASTROINTESTINAL (GI) PANEL W1 ([facility]) ID Date Data Source [id number] 10/27/2020 03:09:00 PM EST [facility] [address] [place] [address] PHONE: [phone] FAX: [phone] Name .................. : RAYMUNDO RECINOS Acct Number.................. : [id number] ROOM. ................. : TR-06 Number ................... : [id number] Stay type ............. : E/R Discharge Date......... ... : 10/26/20 Admit Date .... ..... : 10/26/20 Admit Phys .................... : COONEYNORM Date of ....... : 2000 Family Phys ................... : ROSALINO GARCIA Phone .................. : [phone] Age ................................ : 20 Film# .................. .:[id number] Sex ................................. : F Unsigned transcriptions are preliminary reports and do not represent a medical or legal document CT HEAD W/O CONTRAST 54333 COMPLETE:10/26/20 17:08 [place] [id number] Reaso n(s): Dizziness CT OF THE HEAD [...] MD , 10/27/20 15:09, TDS Transcribe Initials: DZ , Transcribe Date: 10/27/20 00:10, Dictation Date: Page 1 of 2 [facility] [address] [place] [address] PHONE: [phone] FAX: [phone] Name .................. : RAYMUNDO RECINOS Acct Number.................. : [id number] ROOM. ................. : TR-06 MR Number ................... : [id number] Stay type ............. : E/R Discharge Date......... ... : 10/26/20 Admit Date ......... : 10/26/20 Admit Phys .................... : COONEYNORM Date of ....... : 2000 Family Phys ................... : ROSALINO JOSE Phone .................. : [phone] Age ................................ : 20 Film# .................. .:[id number] Sex ................................. : F Unsigned transcriptions are preliminary reports and do not represent a medical or legal document CT HEAD W/O CONTRAST 33102 COMPLE TE:10/26/20 17:08 [place] [address]672 Reason(s): Dizziness Copy for: LOUISE KATZ via fax Copy for: EMERGENCY DEPT via modem Copy for: Gavin MED REC DISCHARGED Page 2 of 2 Name Value Range Interpretation Code Description Data Tasha rce(s) Supporting Document(s) ID Date Data Source [id number] 10/27/2020 03:09:00 [place] [address] PHONE: [phone] FAX: [phone] Name .................. : RAYMUNDO RECINOS Acct Number.................. : [id number] ROOM. ................. : TR-06 MR Number ................... : [id number] Stay type ............. : E/R Discharge Date......... ... : 10/26/20 Admit Date ......... : 10/26/20 Admit Phys .................... : COONEYNORM Date of ....... : 2000 Family Phys ................... : ROSALINO JOSE Phone .................. : [phone] Age ................................ : 20 Film# .................. .:[id number] Sex ................................. : F Unsigned transcriptions are preliminary reports and do not represent a medical or legal document CHEST 2 VIEWS 80643 COMPLETE:10/26/20 17:08 [place] [address]72 Reason(s): Chest Pain CHEST X-RAY: PA AND [...] MD , 10/27/20 15:09, TDS Transcribe Initials: DZ , Transcribe Date: 10/27/20 00:09, Dictation Date: Copy for: LOUISE KATZ via fax Copy for: EMERGENCY DEPT via [facility] Copy for: 710 MED REC DISCHARGED Page 1 of 1 Name Value Range Interpretation Code Description Data Tasha rce(s) Supporting Document(s) ID Date Data Source [id number] 10/27/2020 02:41:[address] [facility] [address] [place] [address] PHONE: [phone] FAX: [phone] Name .................. : RAYMUNDO RECINOS Acct Number.................. : [id number] ROOM. ................. : TR-06 MR Number ................... : [id number] Stay type ............. : E/R Discharge Date......... ... : 10/26/20 Admit Date ......... : 10/26/20 Admit Phys .................... : COONEYNORM Date of ....... : 2000 Family Phys ................... : ROSALINO MA Phone .................. : [phone] Age ................................ : 20 Film# .................. .:[id number] Sex ................................. : F Unsigned transcriptions are preliminary reports and do not represent a medical or legal document [place] [address] COMPLETE:10/26/20 19:10 [facility] [address] Reason(s): chest pain w/ dizziness CTA OF [...] kV based on the patient's body size a nd/or the use of imperative reconstructive techniques. CT dose: 1047.8 mGycm Contrast agent in mL: 75 Isovue 370 Method of administration: Intravenous Electronically Reviewed and Signed By Naldo Brower MD , 10/27/20 14:41, KGG Transcribe Initials: DZ , Transcribe Date: 10/27/20 02:17, Dictation Date: Copy for: LOUISE PARDORAMIRO via fax Copy for: EMERGENCY DEPT via modem Copy for: 710 MED REC DISCHARGED Page 1 of 1 Name Value Range Interpretation Code Description Data Tasha rce(s) Supporting Document(s) ID Date Data Source [id number] 10/27/2020 02:41:00 PM EST [facility] [address] [place] [address] PHONE: [phone] FAX: [phone] Name .................. : RAYMUNDO RECINOS Acct Number.................. : [id number] ROOM. ................. : TR-06 Number ................... : [id number] Stay type ............. : E/R Discharge Date......... ... : 10/26/20 Admit Date ......... : 10/26/20 Admit Phys .................... : COONEYNORM Date of ....... : 2000 Family Phys ................... : ROSALINO GARCIA Phone .................. : [phone] Age ................................ : 20 Film# .................. .:[id number] Sex ................................. : F Unsigned transcriptions are preliminary reports and do not represent a medical or legal document [place] [address] COMPLETE:10/26/20 19:10 [place] [address] Reason(s): chest pain w/ dizziness CTA OF [...] EMERGENCY DEPT via modem Copy for: 710 [facility] REC Page 1 of 2 [place] [address] PHONE: [phone] FAX: [phone] Name .................. : RAYMUNDO RECINOS Acct Number.................. : [id number] ROOM. ................. : TR-06 MR Number ................... : [id number] Stay type ............. : E/R Discharge Date......... ... : 10/26/20 Admit Date ......... : 10/26/20 Admit Phys .................... : COONEYNORM Date of ....... : 2000 Family Phys ................... : ROSALINO MA Phone .................. : [phone] Age ................................ : 20 Film# .................. .:[id number] Sex ................................. : F Unsigned transcriptions are preliminary reports and do not represent a medical or legal document [place] [address] COMPLETE:10/26/20 19:10 [place] [address] Reason(s): chest pain w/ dizziness DISCHARGED Page 2 of 2 Name Value Range Interpretation Code Description Data Tasha rce(s) Supporting Document(s) ID Date Data Source [id number] 10/27/2020 01:27:00 [place] [address] RESPIRATORY CARE REPORT ==== ---------NAME------- NUMBER SEX AGE ADMIT DISC. XRAY# F/C XIMENAJOY RECINOS [id number] F 20 10/26/20 10/26/20 916110 SB4 E/R DATE OF : 2000 M/R# [id number] #: [id number] TR-06 LOCATION: EMERGENCY DEPT EKG 36690 COMPLE TE:10/27/20 07:27 M 69419 PHYSICIAN: SRINIVAS GIL CH Name Value Range Interpretation Code Description Data Tasha rce(s) Supporting Document(s) ID Date Data Source [id number] 10/26/2020 03:02:00 PM EST [facility] 1 OrderSheet [facility] Emergency Department [address] [place] [address] Phone #: ext- [phone] 10/26/2020 15:01 Patient: JORJE FONSECA Sex: F : 2000 Age: 20yWEIGHT:58.0 kg (S) HEIGHT:62 inches (S) BMI:23.4ALLERGIES: Cecor, LidocainesCHIEF COMPLAINT: discomfortDIAGNOSIS: Atypical chest pain, Problem, BronchitisLAB ORDERSOrder Description Priority Entered Acknowledged InitialedCBC w Diff STAT 15:39 10/26/2020 15:39 [facility], Michael ER P.A.-C; Nxto1OAJ STAT 15:39 10/26/2020 15:39 [facility] category consultant, Michael ER P.A.-C; Mfpb7Ihbstg STAT 15:39 10/26/2020 15:39 [facility] category consultant, Michael ER P.A.-C; Hvtd9IH/PTT STAT 15:39 10/26/2020 15:39 [facility] category consultant, Michael ER P.A.-C; Kpsp3Fwycurgg-K STAT 15:39 10/26/2020 15:39 [facility] category consultant, Michael ER P.A.-C; Xnwg5Y-Psovf STAT 15:39 10/26/2020 15:39 [facility] category consultant, Michael ER P.A.-C; Pksx9UPQ STAT 15:39 10/26/2020 15:39 [place] Jayminda Gil category consultant, Michael RUBIO P.A.-C; Kija0Lewihlonfn (Clean STAT 15:39 10/26/2020 15:39 [facility]) Vickey Gil category consultant, Michael RUBIO P.A.-C; Uqzz5UYD Serum Qual STAT 15:39 10/26/2020 15:39 [place] Vickey Gil category consultant, Michael RUBIO P.A.-C; [id number] STUDY ORDERSOrder Description Priority Entered Acknowledged InitialedChest 2 View STAT 16:47 10/26/2020 16:55 Peter 2 OrderSheet [facility] Emergency Department [address] [place] [address] Phone #: ext- [phone] 10/26/2020 15:01 Patient: JORJE FONSECA Sex: F : 2000 Age: 20y(Oxygen?(No)) Vickey Peña RN P.A.-C; Reason for Study: Chest PainCT Head W/O Cont STAT 16:47 10/26/2020 16:55 Peter(Oxygen?(No)) Vickey Peña RN P.A.-C; Reason for Study: [...] then 100 mL/hr Vickey Peña RN P.A.-C;GENERAL ORDERSOrder Description Priority Entered Acknowledged InitialedBlood Pressure 15:39 10/26/2020 15:39 [place] Vickey Gil category consultant, Michael ER P.A.-C; Jvnn8Anbhaii Monitor 15:39 10/26/2020 15:39 [place](continuous) Vickey Gil category consultant, Michael ER P.A.-C; Clkz4GFJ 15:39 10/26/2020 15:39 [place] Vickey Gil category consultant, Michael ER P.A.-C; Znlt4SAV 15:39 10/26/2020 15:39 [place] Arcenio Gil category consultant, Michael RAMIRO P.A.-C; Barf5Hiiuaa Old EKG 15:39 10/26/2020 15:39 [place] Vickey Gil category consultant, Michael RAMIRO P.A.-C; Viqw2Pvwafh Old Records 15:39 10/26/2020 15:39 [place] Vickey Gil category consultant, Michael ER 3 OrderSheet [facility] Emergency Department [address] [place] [address] Phone #: ext- [phone] 10/26/2020 15:01 Patient: JORJE FONSECA Sex: F : 2000 Age: 20y P.A.-C; Wfpz5Oxxqh oximeter 15:39 10/26/2020 15:39 [place](Continuous) Vickey Gil category consultant, Michael ER P.A.-C; Fyff7Mtyvin Lock 15:39 10/26/2020 15:49 Matt Peña RN P.A.-C;Vitals 15:39 10/26/2020 15:39 [place] Vickey Gil category consultant, Michael ER P.A.-C; Tech1-- (gait test) 18:40 10/26/2020 18:47 Matt Peña RN P.A.-[place];[Electronically signed by Matt Peña RN (20:33 12)][Electronically signed by Vickey Gil P.A.-C (21:53 10/26/2020)][Electronically locked by Matt Peña RN (20:33 10/26/2020)] Name Value Range Interpretation Code Description Data Tasha rce(s) Supporting Document(s) ID Date Data Source [id number] 10/26/2020 03:02:00 PM EST [facility] 1 Medication Reconciliation Report [facility] Emergency Department [address] [place] [address] Phone #: ext- [phone] 10/26/2020 15:01 Patient: [...] 6 tablet. Refills: 0. Substitution permitted.Pharmacy - [facility] [id number] ; [place] [address]. .Zyrtec 10 mg tablet Take 1 tablet once a day for 15 days -- Dispense 15 tablet. Refills: 0. Substitutionpermitted.Pharmacy - [facility] [id number] ; [place] [id number]. . -- Vickey Gil P.A.-C Name Value Range Interpretation Code Description Data Tasha rce(s) Supporting Document(s) ID Date Data Source [id number] 10/26/2020 03:02:00 PM [place] [address] Medication Administration Record [facility] Emergency Department [address] [place] [address] Phone #: ext- [phone] 10/26/2020 15:01 Patient: JORJE FONSECA Sex: F : 2000 Age: 20yWeight: 58.0 kgHeight/Length: 62 inBMI: 23.4ALLERGIES: Lidocaines, Cecor Date/Time Medication Administered Medication OrderedStart IV NS IV NS : Bolus 500 mL, then 17516:50 10/26/2020 Dose: IV Fluids mL/Yolanda Peña RN Rate: 100 mL/hr over 5 hour(s)---- Bolus: 500 mL over 20 minute(s)Stop Dispensed: 1000 mL bag20:26 10/26/2020 Site: #1 left Octavio Peña RN Name Value Range Interpretation Code Description Data Tasha rce(s) Supporting Document(s) ID Date Data Source [id number] 10/26/2020 03:02:00 PM [facility] 1 General Instructions [facility] Emergency Department [address] [place] [address] Phone #: ext- [phone] 10/26/2020 15:01 Patient: JORJE FONSECA [facility]#: [id number] Sex: F : 2000 Age: 20yAtypical chest [...] 6 tablet. Refills: 0. Substitution permitted.Pharmacy - [facility] [id number] ; [place] [address]. .Zyrtec 10 mg tablet Take 1 tablet once a day for 15 days -- Dispense 15 tablet. Refills: 0. Substitutionpermitted.[facility] [id number] ; [place] [address]. .Follow-up:Return to the emergency department as needed. Follow up with your healthcare provider in about twodays. Call for an appointment.Understanding of the discharge instructions verbalized by patient.Follow-up with: Jefry Morales MD, Cardiology, , [address] [place] [address], [address] Follow up. Call for the next available appointment. Reason for referral: evaluation and treatment.Follow-up with: NEUROLOGY [facility], , [id number], [address] [place] [address], [facility] 2 General Instructions [facility] Emergency Department [address] [place] [address] Phone #: ext- [phone] 10/26/2020 15:01 Patient: [...] Anxiety and panic disorders 3 General Instructions [facility] Emergency Department [address] [place] [address] Phone #: ext- [phone] 10/26/2020 15:01 Patient: [...] better within 24 hours, or as advised.Call [phone] if any of these occur: A change [...] Swelling, pain or redness in one leg [id number] [employer]. [address] [place] [address]. All rights reserved. This information is not intended as asubstitute for professional medical care. Always follow your healthcare professional's instructions.Bronchitis, Antibiotic Treatment (Adult) 4 General Instructions [facility] Emergency Department [address] [place] [address] Phone #: ext- [phone] 10/26/2020 15:01 Patient: JORJE FONSECA Becca cct#: [id number] Sex: F : 2000 Age: 20yBronchitis is [...] away from secondhand smoke. 5 General Instructions [facility] Emergency Department [address] [place] [address] Phone #: ext- [phone] 10/26/2020 15:01 Patient: JORJE FONSECA Sex: F : 2000 Age: 20y You may use jrph-ozh-sioegma medicines to control fever or pain, unless [...] loosen mucus in your nose and lungs. Pugm-xer-wiqseyg cough, cold, and sore- throat medicines will [...] or pain with breathing 6 General Instructions [facility] Emergency Department [address] [place] [address] Phone #: ext- [phone] 10/26/2020 15:01 Patient: JORJE FONSECA Sex: F : 2000 Age: 20y [id number] [employer] [place] [address]. All rights reserved. This information is not [...] rce(s) Supporting Document(s) ID Date Data Source [id number] 10/26/2020 03:02:00 PM EST [facility] 1 Clinical Report - Nurses [facility] Emergency Department [address] [place] [address] Phone #: [phone]- [phone] 10/26/2020 15:01 [id number] Sex: F : 2000 Age: 20yTRIAGEArrived by private vehicle. Historian: patient.Acuity: LEVEL 3.Chief Complaint: CHEST PAIN and DISCOMFORT and (dizziness, back spasms).Onset. (6 months ago). ( pt states she has had left chest pain for the past 6 months along with dizziness,she feels it may be related to her anxiety, she also reports back and neck spasms).Treatment STONE PAVER:None.SEPSIS SCREEN: SIRS SCREEN NEGATIVE. SEPSIS SCREEN NEGATIVE. No suspected or confirmedsigns of infection present.SUSAN COMA SCORE: 15- eyes open- spontaneous (4); best verbal response- oriented (5); bestmotor response- obeys commands (6). --15:10/26/20 Matt Peña RN15:04 10/26/20. BP: 123/71. MAP: 88. HR: 74. RR: 16. O2 saturation: 99%. Temp: 98.9 F. Pain level now:12/27. --15:10/26/20 Matt Peña RN.Weight: 58 kg stated. Height/Length: 62 inches Per Patient. BMI: 23.4. --15:10/26/20 Matt Peña RN.MedicationsPrenatal Vitamins Oral 1 pill, daily. --15:10/26/20 Matt Peña RN Acyclovir Oral 200 mg, daily. --15:10/26/20 Matt Peña RN Albuterol Sulfate HFA Inhalation 2 puffs, as needed. --15:09/05 Matt Peña RN Epinephrine Injection. --15:10/26/20 Matt Peña RN.AllergiesCecor. --15:10/26/20 Matt Peña RNLidocaines. --15:10/26/20 Matt Peña RN.HistoryPAST MEDICAL HX: Immunizations: up-to-date. [...] to Coronavirus. 2 Clinical Report - Nurses [facility] Emergency Department [address] [place] [address] Phone #: ext- [phone] 10/26/2020 15:01 Patient: [...] monitor and pulse oximeter placed on patient; monitoring engineer- Lead II; monitoralarms on. Patient gowned. Head of bed elevated. Reassurance given. Call light placed in reach.Side rails up x 2. Bed placed in lowest position. Patient ready for evaluation- ED physician notified.--15:17 10/26/20 Matt Peña RN EKG time: (15:08 10/26/2020). EKG was performed by a tech and shown to the PARichard Gil. 3 Clinical Report - Nurses [facility] Emergency Department [address] [place] [address] Phone #: ext- [phone] 10/26/2020 15:01 Patient: JORJE FONSECA Sex: F : 2000 Age: 20y --15:18 10/26/20 [place] category consultantMichael Gillis ER Tech1 15:32 10/26/2020 Site #1 [...] 16. O2 saturation: 100%. Pain level now: 0/10. --16:16 10/26/20 Matt Peña RN Patient transported to radiology and CT by wheelchair with mask and radiology aide. --16:57 10/26/20 Matt Peña RN Patient returned from radiology and CT by wheelchair with mask and radiology aide. --17:04 10/26/20 Matt Peña RN 17:10 10/26/20. BP: 116/54. MAP: 74. HR: 66. RR: 16. O2 saturation: 100%. Pain level now: 0/10. --17:10 10/26/20 Matt Peña RN ( Pt [...] 16. O2 saturation: 100%. Pain level now: 410. --20:17 10/26/20 Matt Peña RN 20:26 10/26/2020 [...] information. Prescription(s) 4 Clinical Report - Nurses [facility] Emergency Department [address] [place] [address] Phone #: ext- [phone] 10/26/2020 15:01 Patient: JORJE FONSECA Sex: F : 2000 Age: 20y sent electronically to pharmacy. Activity restrictions (rest) reviewed. Patient verbalized understanding. Written instructions provided in [place]. The patient was discharged by the physician assistant printer floor covering. She was discharged home and accompanied by wind instrument repairer. She left ambulatory and via private vehicle. Correctional Counselor/Case Manager driving. --20:33 10/26/20 Matt Peña RN 20:27 10/26/20. BP: 119/82. MAP: 94. HR: 62. RR: 16. O2 saturation: 100%. Temp: 98.7 F. Pain level now: 02/24. --20:33 10/26/20 Matt Peña RN.Locked/Released at 10/26/2020 20:33 by Matt Peña RN Name Value Range Interpretation Code Description Data Tasha rce(s) Supporting Document(s) ID Date Data Source [id number] 10/26/2020 03:02:00 PM EST [facility] 1 Clinical Report - Physicians/Mid Levels [facility] Emergency Department [address] [place] [address] Phone #: ext- [phone] 10/26/2020 15:01 Patient: [...] Medications: 2 Clinical Report - Physicians/Mid Levels [facility] Emergency Department [address] [place] [address] Phone #: ext- [phone] 10/26/2020 15:01 Patient: JORJE FONSECA Sex: F [...] attending. 3 Clinical Report - Physicians/Mid Levels [facility] Emergency Department [address] [place] [address] Phone #: ext- [phone] 10/26/2020 15:01 Patient: JORJE FONSECA Sex: F : 2000 Age: 20yChest X-ray: (Nelia mas Terence - 10/26/2020 5:37:31 PMNo acute disease). The X-rays were interpreted by the radiologist.CTA Head: Inocente goff Kirwin - 10/26/2020 8:04:49 PMNo acute disease. The study was interpreted by the radiologist.CT Head: (Nelia mas Terence - 10/26/2020 5:54:17 PMsevere dense calcofication bilat basxal ganglia; may be from Fahr dz, TORCH infection in utero,parathyroid d/o, carbon monoxide poisoning, hypoxia, mitochondraila disorders; nad). The study wasinterpreted by the radiologist.Note - Special Studies: CTA NeckmckinleyInocente ivey Kirwin - 10/26/2020 8:12:17 PMNega tive.Laboratory Tests:Chest 2 View: (LESLIE: 10/26/2020 16:47) ( MsgRcvd 10/26/2020 17:08) In ProgressCHEST 2 VIEWSReason(s): Chest PainTRANSPORTATION: WC IV? O2? Oxygen?(No) Room: EDCT Head W/O Cont: (LELSIE: 10/26/2020 16:47) ( MsgRcvd 10/26/2020 17:08) In ProgressCT HEAD W/O CONTRASTReason(s): DizzinessTRANSPORTATION: WC IV? O2? Oxygen?(No) Room: EDCBC w Diff: (LESLIE: 10/26/2020 15:11) ( MsgRcvd 10/26/2020 15:57) Final results Test Result Flag [...] 0.70) 4 Clinical Report - Physicians/Mid Levels [facility] Emergency Department [address] [place] [address] Phone #: ext- [phone] 10/26/2020 15:01 [id number] Sex: F : 2000 Age: 20y #BASO [...] Male GFR Interprentation 20-49 yrs >60 mL/min Mnglwy01-76 yrs >56 mL/min Normal 60-69 yrs >49 mL/min Normal 70-79yrs>42 mL/min Normal 80 and above >35 mL/min Normal Female GFRInterpretation 20-39 yrs >60 mL/min Normal 40-49 yrs >58 mL/minNormal 50-59 yrs >51 mL/min Normal 60-69 yrs >45 mL/min Gnzwtp51-25 yrs >39 mL/min Normal 80 and above >32 mL/min NormalLipase: (LESLIE: 10/26/2020 15:11) ( MsgRcvd 10/26/2020 16:42) Final results Test Result Flag Units (Reference) LIPASE 30 U/L (13 - 60)PT/PTT: (LESLIE: 10/26/2020 15:11) ( [facility] 10/[facility] 15[facility]56) Final results Test Result Flag Units (Reference) PROTIME 13.7 SECONDS (11.0 - 15.5) INR 1.00 (0.93 - 1.23) PTT 29.8 SECONDS (24.8 - 36.7) \\BLDo\\INR INTERPRETATION\\BLDx\\ Therapeutic range for Coumadin andrelated oral anticoagulants. -International Normalized Ratio (INR): 2.0 - 3.0 for VenousThrombosis, Pulmonary Embolus, Tissue heart valves, Acute MN Atrial Fibrillation, Valvular heart diseaseand recurrent Systemic Embolism. - International Normalized Ratio (INR): 2.5 - 3.5 forMechanical Prosthetic valve.Troponin-T: (LESLIE: 10/26/2020 15:11) ( [facility] 10/26/2020 16:29) Final results Test Result Flag Units (Reference) 5 Clinical Report - Physicians/Mid Levels [facility] Emergency Department [address] [place] [address] Phone #: ext- [phone] 10/26/2020 15:01 Patient: JORJE FONSECA Sex: F : 2000 Age: 20y TROPONIN T <0.01 NG/ML (0.00 - 0.10) TROPONIN T0.1 ng/ml Recommended as the clinical threshold value forTroponin T. D-Dimer: (LESLIE: 10/26/2020 15:11) ( [facility] 10/26/2020 15:57) Final results Test Result Flag Units (Reference) D-DIMER QUANT 0.43 ug/mL (0.27 - 0.50) TSH: (LESLIE: 10/26/2020 15:11) ( [facility] 10/26/2020 16:42) Final results Test Result Flag Units (Reference) TSH 1.35 uIU/mL (0.47 - 5.01) Urinalysis: (LESLIE: 10/26/2020 15:11) ( [facility] 10/26/2020 15:54) Final results Test Result Flag [...] Beta-HCG, Qual Serum: (LESLIE: 10/26/2020 15:11) ( [facility] 10/26/2020 16:30) Final results Test Result Flag Units (Reference) HCG SERUM QUAL NEGATIVE (NORMAL: NEGAT HCG SERUM QL REENTER NEGATIVE (NORMAL: NEGAT { KIT LOT # [id number] ){ KIT EXP DATE 08.22.21 ){ PROCEDURAL [...] resuts. 6 Clinical Report - Physicians/Mid Levels [facility] Emergency Department [address] [place] [address] Phone #: ext- [phone] 10/26/2020 15:01 Patient: JORJE FONSECA Sex: F [...] Pt agrees and undestands. Penidng resutls. Discussed [facility] nurse and indicates he has seen [...] ganglia). 7 Clinical Report - Physicians/Mid Levels [facility] Emergency Department [address] [place] [address] Phone #: ext- [phone] 10/26/2020 15:01 Patient: [...] Dispense 6 tablet. Refills: 0. Substitution permitted. [facility] 1977 - [id number] ; [place] [address]. . Zyrtec 10 mg tablet Take 1 tablet once a day for 15 days -- Dispense 15 tablet. Refills: 0. Substitution p ermitted. [facility] [id number] ; [place] [address]. . Follow-up: Return to the emergency department as needed. Follow up with your healthcare provider in about two days. Call for an appointment. Understanding of the discharge instructions verbalized by patient. Follow-up with: Jefry Morales MD, Cardiology, , [address] [place] [address], [phone] Follow up. Call for the next available appointment. Reason for referral: evaluation and treatment. Follow-up with: [facility], , [id number], [address] [place] [address], [phone] Follow up. Call for the next available appointment. Reason for referral: evaluation, treatment and Based on finding today on head CT. severe dense calcofication bilat basxal ganglia.(Electronically signed by Vickey Gil P.A.-C 10/26/2020 21:53) Name Value Range Interpretation Code Description Data Tasha rce(s) Supporting Document(s) ID Date Data Source [id number] 10/26/2020 04:42:00 PM [facility] Name Value Range Interpretation Code Description Data Tasha rce(s) Supporting Document(s) Thyrotropin [Units/volume] in Serum or Plasma by Detec tion limit <= 0.05 mIU/L 1.35 uIU/mL 0.47 - 5.01 [facility] ID Date Data Source [id number] 10/26/2020 04:42:00 PM [facility] Name Value Range Interpretation Code Description Data Tasha rce(s) Supporting Document(s) Lipase [Enzymatic activity/volume] in Serum or Plasma 30 U/L 13 - 60 [facility] ID Date Data Source [id number] 10/26/2020 04:42:00 PM [facility] Name Value Range Interpretation Code Description Data Tasha rce(s) Supporting Document(s) COMPREHENSIVE METABOLIC PANEL [facility] COMPREHENSIVE METABOLIC PANEL Sodium [Moles/volume] in Serum or Plasma 137 mEq/L 134 - 153 [facility] Potassium [Moles/volume] in Serum or Plasma 4.5 mEq/L 3.6 - 5.0 [facility] Chloride [Moles/volume] in Serum or Plasma 103 mEq/L 98 - 107 [facility] Carbon dioxide, total [Moles/volume] in Serum or Plasma 27 MEQ/L 22 - 30 [facility] Glucose [Mass/volume] in Serum or Plasma 86 MG/DL 65 - 110 [facility] BUN 11 MG/DL 7 - 21 [facility] Creatinine [Mass/volume] in Serum or Plasma 0.7 MG/DL 0.7 - 1.5 [facility] BUN/CREAT 16 8 - 27 [facility] Protein [Mass/volume] in Serum or Plasma 7.5 G/DL 6.3 - 8.2 [facility] Albumin [Mass/volume] in Serum or Plasma 4.8 G/DL 3.9 - 5.0 [facility] Globulin [Mass/volume] in Serum by calculation 2.7 GM/DL 2.4 - 3.2 [facility] A/G RATIO 1.8 0.8 - 2.0 [facility] Calcium [Mass/volume] in Serum or Plasma 9.8 MG/DL 8.4 - 10.2 [facility] Bilirubin.total [Mass/volume] in Serum or Plasma <0.7 MG/DL 0.2 - 1.3 [facility] Alkaline phosphatase [Enzymatic activity/volume] in Serum or Plasma 69 U/L 38 - 126 [facility] Aspartate aminotransferase [Enzymatic activity/volume] in Serum or Plasma 12 U/L 5 - 40 [facility] Alanine aminotransferase [Enzymatic activity/volume] in Seru m or Plasma 11 U/L 7 - 56 [facility] Anion gap 3 in Serum or Plasma 7.0 mmol/L 8.0 - 16.0 L [facility] AGE 20 yrs [facility] al NON-AA GFR >60 mL/min [facility] ital AFR AMER GFR >60 mL/min [facility] Ho spital Male GFR In terprentation [...] >32 mL/min Normal ID Date Data Source [id number] 10/26/2020 04:29:00 PM [facility] Name Value Range Interpretation Code Description Data Tasha rce(s) Supporting Document(s) HCG SERUM QUAL NEGATIVE NORMAL: NEGATIVE [facility] HCG SERUM QL REENTER NEGATIVE NORMAL: NEGATIVE [facility] { KIT LOT # [id number] ){ KIT EXP DATE 08.22.21 ){ PROCEDURAL CONTROL VALID ) ID Date Data Source [id number] 10/26/2020 04:29:00 PM [facility] Name Value Range Interpretation Code Description Data Tasha rce(s) Supporting Document(s) TROPONIN T <0.01 NG/ML 0.00 - 0.10 [facility] ospital TROPONIN T0.1 ng/ml Recommended as the c linical threshold value forTroponin T. ID Date Data Source [id number] 10/26/2020 03:57:00 PM [facility] Name Value Range Interpretation Code Description Data Tasha rce(s) Supporting Document(s) Fibrin D-dimer FEU [Mass/volume] in Platelet poor plasma 0.43 ug /mL 0.27 - 0.50 [facility] ID Date Data Source [id number] 10/26/2020 03:57:00 PM [facility] Name Value Range Interpretation Code Description Data Tasha rce(s) Supporting Document(s) CBC W/AUTOMATED DIFF [facility] COMPLETE BLOOD COUNT Leukocytes [#/volume] in Blood by Automated count 8.8 10^3/uL 4.2 - 1 1.0 [facility] Erythrocytes [#/volume] in Blood by Automated count 4.60 10^6/uL 4. 20 - 5.40 [facility] Hemoglobin [Mass/volume] in Blood 14.1 g/dL 12.0 - 16.0 [facility] Hematocrit [Volume Fraction] of Blood by Automated count 41.1 % 3 7.0 - 47.0 [facility] Erythrocyte mean corpuscular volume [Entitic volume] by Auto mated count 89.3 fL 81.0 - 101 [facility] Erythrocyte mean corpuscular hemoglobin [Entitic mass] by Automated count 30.7 pg 27.0 - 34.0 [facility] Erythrocyte mean corpuscular hemoglobin concentration [Mass/volume] by Automated count 34.3 g/dL 31.0 - 36.0 [facility] Erythrocyte distribution width [Ratio] by Automated count 12.4 % 11.5 - 14.5 [facility] Platelets [#/volume] in Blood by Automated count 332 10^3/uL 150 - 45 0 [facility] Platelet mean volume [Entitic volume] in Blood by Automated count 9.4 fL 7.4 - 10.4 [facility] Neutrophils/100 leukocytes in Blood by Automated count 52.1 % 37. 0 - 80.0 [facility] Lymphocytes/100 leukocytes in Blood by Manual count 39.0 % 25.0 - 40.0 [facility] Monocytes/100 leukocytes in Blood by Automated count 7.1 % 3.0 - 8.0 [facility] Eosinophils/100 leukocytes in Blood by Automated count 1.1 % 0.0 - 7.0 [facility] Basophils/100 leukocytes in Blood by Automated count 0.5 % 0.0 - 2.5 [facility] %IG 0.2 % 0.0 - 0.0 H [facility] al %NRBC 0.0 % 0.0 - 0.0 [facility] al Neutrophils [#/volume] in Blood by Automated count 4.56 10^3/uL 2.00 - 6.90 [facility] Lymphocytes [#/volume] in Blood by Automated count 3.42 10^3/uL 0.60 - 3.40 H [facility] Monocytes [#/volume] in Blood by Automated count 0.62 10^3/uL 0.00 - 0.90 [facility] Eosinophils [#/volume] in Blood by Automated count 0.10 10^3/uL 0.00 - 0.70 [facility] Basophils [#/volume] in Blood by Automated count 0.04 10^3/uL 0.00 - 0.20 [facility] #IG 0.02 10^3/uL 0.00 - 0.10 [facility] H ospital #NRBC 0.00 10^3/uL 0.00 - 0.00 [facility] H ospital MANUAL DIFF NOT INDICATED [facility] RBC MORPH NOT INDICATED [facility] ID Date Data Source [id number] 10/26/2020 03:56:00 PM EST [facility] Name Value Range Interpretation Code Description Data Tasha rce(s) Supporting Document(s) Prothrombin time (PT) 13.7 SECONDS 11.0 - 15.5 [facility] INR in Platelet poor plasma by Coagulation assay 1.00 0.93 - 1. 23 [facility] aPTT in Blood by Coagulation assay 29.8 SECONDS 24.8 - 36.7 [facility] \\BLDo\\INR INTERPRETATION\\BLDx\\ Therapeutic range for Coumadin and related oral anticoagulants. - International Normalized Ratio (INR): 2.0 - 3.0 for Venous Thrombosis, Pulmonary Embolus, Tissue heart valves, Acute MN Atrial Fibrillation, Valvular heart disease and recurrent Systemic Embolism. - International Normalized Ratio (INR): 2.5 - 3.5 for Mechanical Prosthetic valve. ID Date Data Source [id number] 10/26/2020 03:54:00 PM EST [facility] Name Value Range Interpretation Code Description Data [facility](s) Supporting Document(s) [facility] SOURCE R [facility] al COLOR yellow NORMAL: Yellow [facility] H ospital CLARITY clear NORMAL: Clear [facility] Ho spital Specific gravity of Urine by Test strip 1.010 1.001 - 1.030 [facility] pH 7 5 - 9 [facility] al Glucose [Mass/volume] in Urine by Test strip NORM NORMAL: Negat [facility] Bilirubin.total [Presence] in Urine by Test strip NEG NORMAL: Negative [facility] Ketones [Presence] in Urine by Test strip NEG NORMAL: Negative [facility] Protein [Mass/volume] in Urine by Test strip NEG NORMAL: Negat [facility] Nitrite [Presence] in Urine by Test strip NEG NORMAL: Negative [facility] BLOOD NEG NORMAL: Negative [facility] Leukocyte esterase [Presence] in Urine by Test strip NEG SERGEY L: Negative [facility] Urobilinogen [Mass/volume] in Urine by Test strip NOR less donis n 1.0 mg/dL [facility] MICROSCOPIC Not Indicate [facility] ospital ID Date Data Source [id number] 09/26/2020 04:48:00 PM EST [facility] 1 OrderSheet [facility] Emergency Department [address] [place] [address] Phone #: ext- [phone] 09/26/2020 16:41 Patient: [...] Juan JOE; Duke Paulino(NOW x1) 2 OrderSheet [facility] Emergency Department [address] [place] [address] Phone #: ext- [phone] 09/26/2020 16:41 Patient: JORJE FONSECA Sex: F : 2000 Age: 20yZofran IVP 4 mg 16:59 09/26/2020 17:20 Juan Deng; Duke PaulinoGENERAL ORDERSOrder Description Priority Entered Acknowledged InitialedCardiac Monitor 16:54 09/26/2020 17:00 Ish,(continuous) Juan JOE; Duke PaulinoBlood Pressure 16:54 09/26/2020 16:59 sIh,Monitor Juan JOE; Duke PaulinoNPO 16:54 09/26/2020 16:59 [...] rce(s) Supporting Document(s) ID Date Data Source [id number] 09/26/2020 04:48:00 PM [place] [address] Medication Reconciliation Report [facility] Emergency Department [address] [place] [address] Phone #: ext- [phone] 09/26/2020 16:41 Patient: JORJE FONSECA Sex: F [...] rce(s) Supporting Document(s) ID Date Data Source [id number] 09/26/2020 04:48:00 PM [place] [address] Medication Administration Record [facility] Emergency Department [address] [place] [address] Phone #: ext- [phone] 09/26/2020 16:41 Patient: JORJE FONSECA Sex: F : 2000 Age: 20yWeight: 58.0 kgHeight/Length: 62 inBMI: 23.4ALLERGIES: Bee venom, "numbing solution", Ceclor Date/Time Medication Administered Medication OrderedStart NS [IV] NS IV : Bolus 500 mL, then [id number] 09/26/2020 Dose: IV Fluids mL/hr (NOW x1)Duke [...] rce(s) Supporting Document(s) ID Date Data Source [id number] 09/26/2020 04:48:00 PM EST [facility] 1 General Instructions [facility] Emergency Department [address] [place] [address] Phone #: ext- [phone] 09/26/2020 16:41 Patient: [...] available appointment.Reason for referral: evaluation and recommend salvage laborer referral if symptoms persist. Summary of care providedto patient via paper.Understanding of the discharge instructions verbalized by patient. Expected course of illness, dischargeinstructions, a ctivity level, follow-up appointment and risks and benefits of treatment reviewed with patientand understanding verbalized. Agrees to plan of care. ADDITIONAL INFORMATIONPainful Menstrual Periods (Dysmenorrhea) 2 General Instructions [facility] Emergency Department [address] [place] [address] Phone #: ext- [phone] 09/26/2020 16:41 Patient: [...] the "Home care" section). 3 General Instructions [facility] Emergency Department [address] [place] [address] Phone #: ext- [phone] 09/26/2020 16:41 [id number] Sex: F : 2000 Age: 20yHome careMedicinesCertain [...] tissue from the vagina 4 General Instructions [facility] Emergency Department [address] [place] [address] Phone #: ext- [phone] 09/26/2020 16:41 Patient: JORJE FONSECA Sex: F : 2000 Age: 20y [id number] [employer] [place] [address]. All rights reserved. This information is not [...] rce(s) Supporting Document(s) ID Date Data Source [id number] 09/26/2020 04:48:00 PM EST [facility] 1 Clinical Report - Nurses [facility] Emergency Department [address] [place] [address] Phone #: ext- [phone] 09/26/2020 16:41 [facility]: [id number] Sex: F : 2000 Age: 20yTRIAGEHistorian: patient. [...] disorder.Anxiety Reaction.Asthma.Depression.PTSD.Herpes: (06/07/2020 refilled). --17:14 09/26/20 Duke Deng, RRichardNRichardMedication/allergy information source: the patient. --16:52 09/26/20 Gabo Melgar.ADDITIONAL SURGERIES: 2 Clinical Report - Nurses [facility] Emergency Department [address] [place] [address] Phone #: ext- [phone] 09/26/2020 16:41 Patient: JORJE FONSECA Sex: F : 2000 Age: 20y Biopsy [...] To treatment room. --16:52 09/26/20 Gabo Melgar.PHYSICAL [id number] 09/26/20. Ambulatory to room. Patient gowned.GENERAL / [...] PROGRESS NOTES 3 Clinical Report - Nurses [facility] Emergency Department [address] [place] [address] Phone #: ext- [phone] 09/26/2020 16:41 [facility]: [id number] Sex: F : 2000 Age: 20y 16:59 09/26/20. Patient gowned. Reassurance given. Two patient identifiers checked. Call light placed in reach. Bed placed in lowest position. Brakes of bed on. Patient ready for evaluation- PA notified. --16:59 09/26/20 Duke Deng R.N. 17:00 09/26/20. BP: 123/79. MAP: 93. HR: 70. RR: 26. O2 saturation: 99%. --17:11 09/26/20 [facility] TechFlory ER Tech1 17:12 09/26/2020 Site #1 started via IV [...] Verbalizes understanding. --17:20 09/26/20 So Duke simms RRichardN. Patient transported to [facility] by wheelchair with radiology aide. --17:39 09/26/20 Ny Delgado RN 18:12 09/26/20. BP: 116/63. MAP: 80. HR: 58. RR: 24. O2 saturation: 99%. --18:13 09/26/20 [facility]Flory ER Tech1 18:40 09/26/2020 IV Fluids NS via IV site #1 Discontinued: bag #1 infused upon discharge. Total amount infused: 600 mL. IV patency established. IV site checked: no pain, redness, or swelling. IV flushed thoroughly. --18:40 09/26/20 Duke Deng, R.N.DISPOSITION / DISCHARGE 18:43 09/26/20. Condition at [...] verbalized understanding. Written instruction s provided in [place]. The patient was discharged by the physician assistant printer floor covering. She was discharged home. She left ambulatory and via private vehicle. Patient driving. --18:48 09/26/20 Duke Deng R.N. 18:47 09/26/2020 Site #1 removed upon discharge. Catheter intact. Bandage applied. --18:47 09/26/20 Duke Deng R.N. 4 Clinical Report - Nurses [facility] Emergency Department [address] [place] [address] Phone #: ext- [phone] 09/26/2020 16:41 Patient: JORJE FONSECA Sex: F : 2000 Age: 20y 18:40 09/26/20. BP: 124/74. MAP: 90. HR: 78. RR: 26. O2 saturation: 100%. Temp: 98.5 F. Pain level now: 010. --18:48 09/26/20 Duke Deng R.N.Locked/Released at 09/26/2020 21:02 by Duke Deng R.N. Name Value Range Interpretation Code Description Data Tasha rce(s) Supporting Document(s) ID Date Data Source [id number] 09/26/2020 04:48:00 PM EST [facility] 1 Clinical Report - Physicians/Mid Levels [facility] Emergency Department [address] [place] [address] Phone #: ext- [phone] 09/26/2020 16:41 Patient: [...] Biopsy. 2 Clinical Report - Physicians/Mid Levels [facility] Emergency Department [address] [place] [address] Phone #: ext- [phone] 09/26/2020 16:41 Patient: JORJE FONSECA Sex: F [...] NEGATIVE (NORMAL: NEGAT { KIT LOT # [id number] ){ KIT EXP DATE 3 Clinical Report - Physicians/Mid Levels [facility] Emergency Department [address] [place] [address] Phone #: ext- [phone] 09/26/2020 16:41 Patient: JORJE FONSECA Sex: F : 2000 Age: 14 ){ PROCEDURAL CONTROL VALID)CBC w Diff: (LESLIE: [...] yrs 4 Clinical Report - Physicians/Mid Levels [facility] Emergency Department [address] [place] [address] Phone #: ext- [phone] 09/26/2020 16:41 Patient: OJRJE FONSECA Sex: F : 2000 Age: 20y [...] Thrombosis, Pulmonary Embolus, Tissue heart valves, Acute MN Atrial Fibrillation, Valvular heart disease and recurrent [...] results. 5 Clinical Report - Physicians/Mid Levels [facility] Emergency Department [address] [place] [address] Phone #: ext- [phone] 09/26/2020 16:41 Patient: JORJE FONSECA Sex: F : 2000 Age: 20y Disposition: [...] appointment. Reason for referral: evaluation and recommend salvage laborer referral if symptoms persist. Summary of care provided to patient via paper. Understanding of the discharge instructions verbalized by patient. Expected course of illness, discharge instructions, activity level, follow-up appointment and risks and benefits of treatment reviewed with patient and understanding verbalized. Agrees to plan of care.(Electronically signed by HEATH Castro 09/29/2020 10:16) 6Clinical Report - Physicians/Mid Levels [facility] Emergency Department [address] [place] [address] Phone #: ext- [phone] 09/26/2020 16:41 Patient: JORJE FONSECA Sex: F : 2000 Age: 20y Name Value Range Interpretation Code Description Data Tasha rce(s) Supporting Document(s) ID Date Data Source [id number] 09/27/2020 02:10:00 [place] [address] PHONE: [phone] FAX: [phone] Name .................. : RAYMUNDO RECINOS Acct Number.................. : [id number] ROOM. ................. : TR-05 MR Number ................... : [id number] Stay type ............. : E/R Discharge Date......... ... : 09/26/20 Admit Date ......... : 09/26/20 Admit Phys .................... : KENDRICK CEDENO Date of ....... : 2000 Family Phys ................... : ROSALINO GARCIA Phone .................. : [phone] Age ................................ : 20 Film# .................. .:[id number] Sex ................................. : F Unsigned transcriptions are preliminary reports and do not represent a medical or legal document TRANSVAGINAL(NON OB) [id number] COMPLETE:09/26/20 19:50 ADB [id number] Reason(s): Pelvic Pain TRANSVAGINAL PELVIC ULTRASOUND: INDICATION: Pelvic pain. FINDINGS: The uterus measures 7.1 x 2.6 x 4.2 cm. The endometrial stripe measures 1 mm in thickness. The left ovary is sonographica lly normal. The right ovary is not well visualized. IMPRESSION: No acute pelvic abnormality. The right ovary is not visualized. Electronically Reviewed and Signed By Roberto Mason M.D. , 09/27/20 14:10, [facility] Transcribe Initials: GET , Transcribe Date: 09/27/20 01:10, Dictation Date: Copy for: KENDRICK [place] via fax Copy for: EMERGENCY DEPT via [facility] [place] [place] Copy for: 710 MED REC DISCHARGED Page 1 of 1 Name Value Range Interpretation Code Description Data Tasha rce(s) Supporting Document(s) ID Date Data Source [id number] 09/27/2020 02:09:00 PM EST [facility] [address] [place] [address] PHONE: [phone] FAX: [phone] Name .................. : RAYMUNDO RECINOS Acct Number.................. : [id number] ROOM. ................. : TR-05 Number ................... : [id number] Stay type ............. : E/R Discharge Date......... ... : 09/26/20 Admit Date ......... : 09/26/20 Admit Phys .................... : KENDRICK [facility] Date of ....... : 2000 Family Phys ................... : ROSALINO GARCIA Phone .................. : [phone] Age ................................ : 20 Film# .................. .:[id number] Sex ................................. : F Unsigned transcriptions are preliminary reports and do not represent a medical or legal document PELVIC [id number] COMPLETE:09/26/20 19:50 ADB [id number] Reason(s): Abnormal Bleeding PELVIC ULTRASOUND: INDICATION: Abnormal [...] M.D. , 09/27/20 14:09, [facility] Transcribe Initials: DZ , Transcribe Date: 09/27/20 01:08, Dictation Date: Copy for: KENDRICK [place] via fax Copy for: EMERGENCY DEPT via modem Copy for: 710 MED REC DISCHARGED Page 1 of 1 Name Value Range Interpretation Code Description Data Tasha rce(s) Supporting Document(s) ID Date Data Source [id number] 09/26/2020 06:13:00 PM [facility] Name Value Range Interpretation Code Description Data Tasha rce(s) Supporting Document(s) Lipase [Enzymatic activity/volume] in Serum or Plasma 23 U/L 13 - 60 [facility] ID Date Data Source [id number] 09/26/2020 06:13:00 PM [facility] Name Value Range Interpretation Code Description Data Tasha rce(s) Supporting Document(s) COMPREHENSIVE METABOLIC PANEL [facility] COMPREHENSIVE METABOLIC PANEL Sodium [Moles/volume] in Serum or Plasma 140 mEq/L 134 - 153 [facility] Potassium [Moles/volume] in Serum or Plasma 3.8 mEq/L 3.6 - 5.0 [facility] Chloride [Moles/volume] in Serum or Plasma 106 mEq/L 98 - 107 [facility] Carbon dioxide, total [Moles/volume] in Serum or Plasma 25 MEQ/L 22 - 30 [facility] Glucose [Mass/volume] in Serum or Plasma 82 MG/DL 65 - 110 [facility] BUN 9 MG/DL 7 - 21 [facility] Creatinine [Mass/volume] in Serum or Plasma 0.7 MG/DL 0.7 - 1.5 [facility] BUN/CREAT 13 8 - 27 [facility] Protein [Mass/volume] in Serum or Plasma 7.2 G/DL 6.3 - 8.2 [facility] Albumin [Mass/volume] in Serum or Plasma 4.5 G/DL 3.9 - 5.0 [facility] Globulin [Mass/volume] in Serum by calculation 2.7 GM/DL 2.4 - 3.2 [facility] A/G RATIO 1.7 0.8 - 2.0 [facility] al Calcium [Mass/volume] in Serum or Plasma 9.5 MG/DL 8.4 - 10.2 [facility] Bilirubin.total [Mass/volume] in Serum or Plasma <0.7 MG/DL 0.2 - 1.3 [facility] Alkaline phosphatase [Enzymatic activity/volume] in Serum or Plasma 78 U/L 38 - 126 [facility] Aspartate aminotransferase [Enzymatic activity/volume] in Serum or Plasma 13 U/L 5 - 40 [facility] Alanine aminotransferase [Enzymatic activity/volume] in Seru m or Plasma 11 U/L 7 - 56 [facility] Anion gap 3 in Serum or Plasma 9.0 mmol/L 8.0 - 16.0 [facility] AGE 20 yrs [facility] al NON-AA GFR >60 mL/min [facility] ital AFR AMER GFR >60 mL/min [facility] Male GFR In terprentation [...] >32 mL/min Normal ID Date Data Source [id number] 09/26/2020 06:09:00 PM EST [facility] Name Value Range Interpretation Code Description Data Tasha rce(s) Supporting Document(s) Prothrombin time (PT) 13.3 SECONDS 11.0 - 15.5 [facility] INR in Platelet poor plasma by Coagulation assay 1.00 0.93 - 1. 23 [facility] aPTT in Blood by Coagulation assay 28.3 SECONDS 24.8 - 36.7 [facility] \\BLDo\\INR INTERPRETATION\\BLDx\\ Therapeutic range for Coumadin and related oral anticoagulants. - International Normalized Ratio (INR): 2.0 - 3.0 for Venous Thrombosis, Pulmonary Embolus, Tissue heart valves, Acute MN Atrial Fibrillation, Valvular heart disease and recurrent Systemic Embolism. - International Normalized Ratio (INR): 2.5 - 3.5 for Mechanical Prosthetic valve. ID Date Data Source [id number] 09/26/2020 05:35:00 PM EST [facility] Name Value Range Interpretation Code Description Data Tasha rce(s) Supporting Document(s) Lactate [Moles/volume] in Serum or Plasma 1.0 MMOL/L 0.2 - 2.2 [facility] ID Date Data Source [id number] 09/26/2020 05:33:00 PM EST [facility] Name Value Range Interpretation Code Description Data Tasha rce(s) Supporting Document(s) CBC W/AUTOMATED DIFF [facility] COMPLETE BLOOD COUNT Leukocytes [#/volume] in Blood by Automated count 8.9 10^3/uL 4.2 - 1 1.0 [facility] Erythrocytes [#/volume] in Blood by Automated count 4.54 10^6/uL 4. 20 - 5.40 [facility] Hemoglobin [Mass/volume] in Blood 14.0 g/dL 12.0 - 16.0 [facility] Hematocrit [Volume Fraction] of Blood by Automated count 41.0 % 3 7.0 - 47.0 [facility] Erythrocyte mean corpuscular volume [Entitic volume] by Auto mated count 90.3 fL 81.0 - 101 [facility] Erythrocyte mean corpuscular hemoglobin [Entitic mass] by Automated count 30.8 pg 27.0 - 34.0 [facility] Erythrocyte mean corpuscular hemoglobin concentration [Mass/volume] by Automated count 34.1 g/dL 31.0 - 36.0 [facility] Erythrocyte distribution width [Ratio] by Automated count 12.2 % 11.5 - 14.5 [facility] Platelets [#/volume] in Blood by Automated count 354 10^3/uL 150 - 45 0 [facility] Platelet mean volume [Entitic volume] in Blood by Automated count 9.2 fL 7.4 - 10.4 [facility] Neutrophils/100 leukocytes in Blood by Automated count 53.7 % 37. 0 - 80.0 [facility] Lymphocytes/100 leukocytes in Blood by Manual count 38.4 % 25.0 - 40.0 [facility] Monocytes/100 leukocytes in Blood by Automated count 5.7 % 3.0 - 8.0 [facility] Eosinophils/100 leukocytes in Blood by Automated count 1.5 % 0.0 - 7.0 [facility] Basophils/100 leukocytes in Blood by Automated count 0.5 % 0.0 - 2.5 [facility] %IG 0.2 % 0.0 - 0.0 H [facility] %NRBC 0.0 % 0.0 - 0.0 [facility] al Neutrophils [#/volume] in Blood by Automated count 4.76 10^3/uL 2.00 - 6.90 [facility] Lymphocytes [#/volume] in Blood by Automated count 3.41 10^3/uL 0.60 - 3.40 H [facility] Monocytes [#/volume] in Blood by Automated count 0.51 10^3/uL 0.00 - 0.90 [facility] Eosinophils [#/volume] in Blood by Automated count 0.13 10^3/uL 0.00 - 0.70 [facility] Basophils [#/volume] in Blood by Automated count 0.04 10^3/uL 0.00 - 0.20 [facility] #IG 0.02 10^3/uL 0.00 - 0.10 [facility] #NRBC 0.00 10^3/uL 0.00 - 0.00 [facility] ospital MANUAL DIFF NOT INDICATED [facility] RBC MORPH NOT INDICATED [facility] ID Date Data Source [id number] 09/26/2020 05:27:00 PM EST [facility] Name Value Range Interpretation Code Description Data Tasha rce(s) Supporting Document(s) [facility]YSIS [facility] URINALYSIS SOURCE Clean Catch [facility] ital COLOR yellow NORMAL: Yellow [facility] CLARITY clear NORMAL: Clear [facility] Specific gravity of Urine by Test strip 1.015 1.001 - 1.030 [facility] pH 6 5 - 9 [facility] al Glucose [Mass/volume] in Urine by Test strip NORM NORMAL: Negat tej [facility] Bilirubin.total [Presence] in Urine by Test strip NEG NORMAL: Negative [facility] Ketones [Presence] in Urine by Test strip 5 NORMAL: Negative [facility] Protein [Mass/volume] in Urine by Test strip 15 NORMAL: Negat tej [facility] Nitrite [Presence] in Urine by Test strip NEG NORMAL: Negative [facility] BLOOD 250 NORMAL: Negative [facility] Leukocyte esterase [Presence] in Urine by Test strip NEG SERGEY L: Negative [facility] Urobilinogen [Mass/volume] in Urine by Test strip NOR less donis n 1.0 mg/dL [facility] MICROSCOPIC See Below [facility] ital Erythrocytes [#/volume] in Urine by Test strip 5 - 7 NORMAL: NON E SEEN A [facility] EPITHELIAL FEW NORMAL: NONE SEEN [facility] ID Date Data Source [id number] 09/26/2020 05:21:00 PM EST [facility] Name Value Range Interpretation Code Description Data Tasha rce(s) Supporting Document(s) HCG URINE QUAL NEGATIVE NORMAL: NEGATIVE [facility] HCG URINE QL REENTER NEGATIVE NORMAL: NEGATIVE [facility] { KIT LOT # [id number] ){ KIT EXP DATE 08-22-21 ){ PROCEDURAL CONTROL VALID ) Procedure Social History Code Duration Value Status Description Data Source(s ) Smoking 08/03/2021 12:00:00 AM EDT Current Smoker completed Curre nt Smoker eCW1 ([facility]) Smoking 08/03/2021 12:00:00 AM EDT Current Smoker completed Curre nt Smoker eCW1 ([facility]) Smoking 08/03/2021 12:00:00 AM EDT Current Smoker completed Curre nt Smoker eCW1 ([facility]) Smoking 08/03/2021 12:00:00 AM EDT Current Smoker completed Curre nt Smoker eCW1 ([facility]) Smoking 07/05/2021 12:00:00 AM EDT Current Smoker completed Curre nt Smoker eCW1 ([facility]) Smoking 07/05/2021 12:00:00 AM EDT Current Smoker completed Curre nt Smoker eCW1 ([facility]) Smoking 07/05/2021 12:00:00 AM EDT Current Smoker completed Curre nt Smoker eCW1 ([facility]) Smoking 07/05/2021 12:00:00 AM EDT Current Smoker completed Curre nt Smoker eCW1 ([facility]) Smoking 07/05/2021 12:00:00 AM EDT Current Smoker completed Curre nt Smoker eCW1 ([facility]) Smoking 05/11/2021 12:00:00 AM EDT Current Smoker completed Curre nt Smoker eCW1 ([facility]) Smoking 05/11/2021 12:00:00 AM EDT Current Smoker completed Curre nt Smoker eCW1 ([facility]) Smoking 05/11/2021 12:00:00 AM EDT Current Smoker completed Curre nt Smoker eCW1 ([facility]) Smoking 05/11/2021 12:00:00 AM EDT Current Smoker completed Curre nt Smoker eCW1 ([facility]) Smoking 12/22/2020 12:00:00 AM EST Former Smoker completed Former Smoker eCW1 ([facility]) Smoking 12/22/2020 12:00:00 AM EST Former Smoker completed Former Smoker eCW1 ([facility]) Smoking 12/22/2020 12:00:00 AM EST Former Smoker completed Former Smoker eCW1 ([facility]) Smoking 11/24/2020 12:00:00 AM EST Former Smoker completed Former Smoker eCW1 ([facility]) Smoking 11/24/2020 12:00:00 AM EST Former Smoker completed Former Smoker eCW1 ([facility]) Smoking 11/24/2020 12:00:00 AM EST Former Smoker completed Former Smoker eCW1 ([facility]) Smoking 11/24/2020 12:00:00 AM EST Former Smoker completed Former Smoker eCW1 ([facility]) Smoking 11/24/2020 12:00:00 AM EST Former Smoker completed Former Smoker eCW1 ([facility]) Smoking 11/20/2020 12:00:00 AM EST Former Smoker completed Former Smoker eCW1 ([facility]) Smoking 10/27/2020 12:00:00 AM EST Former Smoker completed Former Smoker eCW1 ([facility]) Smoking 10/27/2020 12:00:00 AM EST Former Smoker completed Former Smoker eCW1 ([facility]) Smoking 10/27/2020 12:00:00 AM EST Former Smoker completed Former Smoker eCW1 ([facility]) Smoking 10/27/2020 12:00:00 AM EST Former Smoker completed Former Smoker eCW1 ([facility]) Smoking 10/27/2020 12:00:00 AM EST Former Smoker completed Former Smoker eCW1 ([facility]) Smoking 10/27/2020 12:00:00 AM EST Former Smoker completed Former Smoker eCW1 ([facility]) Smoking 09/29/2020 12:00:00 AM EST Current Smoker completed Curre nt Smoker eCW1 ([facility]) Smoking 09/29/2020 12:00:00 AM EST Current Smoker completed Curre nt Smoker eCW1 ([facility]) Vital Signs ID Date Data Source UNK Name Value Range Interpretation Code Description Data Source(s) Body weight 111.2 [lb_av] 111.2 [lb_av] eCW1 (On license of [facility]) Body weight 50.44 kg 50.44 kg W1 ([facility]) Body height 61 [in_i] 61 [in_i] eCW1 ([facility]) Body mass index (BMI) [Ratio] 21.01 kg/m2 21.01 kg/m2 eCW1 ([facility]) Heart rate 68 /min 68 /min eCW1 ([facility]) Respiratory rate 17 /min 17 /min eCW1 ([facility]) Body temperature 98.6 [degF] 98.6 [degF] eCW1 ( [facility]) Systolic blood pressure 10 mm[Hg] 10 mm[Hg] e CW1 ([facility]) Diastolic blood pressure 65 mm[Hg] 65 mm[Hg] eCW1 ([facility]) Body weight 115.2 [lb_av] 115.2 [lb_av] eCW1 (On license of [facility]) Body weight 52.25 kg 52.25 kg eCW1 ([facility]) Body height 61 [in_i] 61 [in_i] eCW1 ([facility]) Body mass index (BMI) [Ratio] 21.76 kg/m2 21.76 kg/m2 eCW1 ([facility]) Heart rate 67 /min 67 /min eCW1 ([facility]) Respiratory rate 17 /min 17 /min eCW1 ([facility]) Body temperature 99.4 [degF] 99.4 [degF] eCW1 ( [facility]) Systolic blood pressure 109 mm[Hg] 109 mm[Hg] e CW1 ([facility]) Diastolic blood pressure 61 mm[Hg] 61 mm[Hg] eCW1 ([facility]) Respiratory rate 12 /min 12 /min MEDENT ( [facility] ) Body mass index (BMI) [Ratio] 21.9 kg/m2 21.9 k g/m2 MEDENT ([facility] ) [place] body weight 110 [lb_av] 110 [lb_av] MEDEN T ([facility], ) Body height 62 [in_i] 62 [in_i] MEDENT ([facility], ) 5'2" Body weight 120.00 [lb_av] 120.00 [lb_av] MEDEN T ([facility]) Body weight 121 [lb_av] 121 [lb_av] eCW1 ([facility]) Body height 61 [in_i] 61 [in_i] eCW1 ([facility]) Body mass index (BMI) [Ratio] 22.86 kg/m2 22.86 kg/m2 W1 ([facility]) Heart rate 71 /min 71 /min eCW1 ([facility]) Respiratory rate 17 /min 17 /min eCW1 ([facility]) Body temperature 98.9 [degF] 98.9 [degF] eCW1 ( [facility]) Systolic blood pressure 112 mm[Hg] 112 mm[Hg] e CW1 ([facility]) Diastolic blood pressure 64 mm[Hg] 64 mm[Hg] eCW1 ([facility]) Body weight 120.00 [lb_av] 120.00 [lb_av] MEDEN T ([facility]) Respiratory rate 12 /min 12 /min MEDENT ( [facility]) Body height 62 [in_i] 62 [in_i] MEDENT ([facility]) 5'2" Body mass index (BMI) [Ratio] 21.9 kg/m2 21.9 k g/m2 MEDENT ([facility]) [place] body weight 110 [lb_av] 110 [lb_av] MEDEN T ([facility]) Systolic blood pressure 98 mm[Hg] 98 mm[Hg] M EDENT ([facility]) Diastolic blood pressure 58 mm[Hg] 58 mm[Hg] MEDENT ([facility]) Heart rate 107 /min 107 /min MEDENT ([facility]) Body temperature 97.5 [degF] 97.5 [degF] MEDENT ([facility]) Body height 61.1 [in_i] 61.1 [in_i] MEDENT ([facility]) 5'1.10" Body weight 126.50 [lb_av] 126.50 [lb_av] MEDEN T ([facility]) Body mass index (BMI) [Ratio] 23.8 kg/m2 23.8 k g/m2 MEDENT ([facility] ) Oxygen saturation in Arterial blood by Pulse oximetry 98 % 98 % MEDENT ([facility]) Body weight 130 [lb_av] 130 [lb_av] eCW1 ([facility]) Body height 61 [in_i] 61 [in_i] eCW1 ([facility]) Body mass index (BMI) [Ratio] 24.56 kg/m2 24.56 kg/m2 eCW1 ([facility]) Heart rate 102 /min 102 /min eCW1 ([facility]) Respiratory rate 17 /min 17 /min eCW1 ([facility]) Body temperature 98.8 [degF] 98.8 [degF] eCW1 ( [facility]) Systolic blood pressure 120 mm[Hg] 120 mm[Hg] e CW1 ([facility]) Diastolic blood pressure 86 mm[Hg] 86 mm[Hg] eCW1 ([facility]) Respiratory rate 12 /min 12 /min MEDENT ( [facility] ) Body height 62 [in_i] 62 [in_i] MEDENT ([facility], ) 5'2" Body weight 130.00 [lb_av] 130.00 [lb_av] MEDEN T ([facility], ) Body mass index (BMI) [Ratio] 23.8 kg/m2 23.8 k g/m2 MEDENT ([facility], ) [place] body weight 110 [lb_av] 110 [lb_av] MEDEN T ([facility], ) Body weight 130 [lb_av] 130 [lb_av] eCW1 ([facility]) Body mass index (BMI) [Ratio] 24.56 kg/m2 24.56 kg/m2 eCW1 ([facility]) Body height 61 [in_i] 61 [in_i] eCW1 ([facility]) Body weight 130 [lb_av] 130 [lb_av] eCW1 ([facility]) Body height 61 [in_i] 61 [in_i] eCW1 ([facility]) Body mass index (BMI) [Ratio] 24.56 kg/m2 24.56 kg/m2 eCW1 ([facility]) Heart rate 85 /min 85 /min eCW1 ([facility]) Respiratory rate 17 /min 17 /min eCW1 ([facility]) Body temperature 98.6 [degF] 98.6 [degF] eCW1 ( [facility]) Systolic blood pressure 104 mm[Hg] 104 mm[Hg] e CW1 ([facility]) Diastolic blood pressure 67 mm[Hg] 67 mm[Hg] eCW1 ([facility]) Body weight 129 [lb_av] 129 [lb_av] eCW1 ([facility]) Heart rate 78 /min 78 /min eCW1 ([facility]) Respiratory rate 17 /min 17 /min eCW1 ([facility]) Body temperature 98.6 [degF] 98.6 [degF] eCW1 ( [facility]) Systolic blood pressure 127 mm[Hg] 127 mm[Hg] e CW1 ([facility]) Diastolic blood pressure 56 mm[Hg] 56 mm[Hg] eCW1 ([facility]) Body mass index (BMI) [Ratio] 24.37 kg/m2 24.37 kg/m2 eCW1 ([facility]) Body height 61 [in_i] 61 [in_i] eCW1 ([facility] [facility] Body weight 128.8 [lb_av] 128.8 [lb_av] eCW1 (On license of [facility]) Body height 61 [in_i] 61 [in_i] eCW1 ([facility]) Body mass index (BMI) [Ratio] 24.33 kg/m2 24.33 kg/m2 eCW1 ([facility]) Heart rate 72 /min 72 /min eCW1 ([facility]) Respiratory rate 17 /min 17 /min eCW1 ([facility]) Body temperature 99.6 [degF] 99.6 [degF] eCW1 ( [facility]) Systolic blood pressure 94 mm[Hg] 94 mm[Hg] e CW1 ([facility]) Diastolic blood pressure 55 mm[Hg] 55 mm[Hg] eCW1 ([facility]) ID Date Data Source [id number] 07/18/2020 12:50:00 PM EDT [facility] Name Value Range Interpretation Code Description Data Source(s) [facility] 58[facility]8 [facility] 154.94 centimeters 154.94 centimeter [facility] WEIGHT 59.0909 kilos 59.0909 kilos [facility] HEIGHT 154.94 centimeters 154.94 centimeter [facility] Patient Treatment Plan of Care Planned Activity Planned Date Details Description Data Source (s) Fluconazole 150 MG Oral Tablet [Diflucan] 08/31/2021 12:00:00 AM ED T eCW1 ([facility]) Fluconazole 150 MG Oral Tablet [Diflucan] 08/31/2021 12:00:00 AM ED T eCW1 ([facility]) Levofloxacin 500 MG Oral Tablet 05/14/2021 12:00:00 AM EDT eCW1 ([facility]) Levofloxacin 500 MG Oral Tablet 05/14/2021 12:00:00 AM EDT eCW1 ([facility]) Levofloxacin 500 MG Oral Tablet 05/14/2021 12:00:00 AM EDT eCW1 ([facility]) Levofloxacin 500 MG Oral Tablet 05/14/2021 12:00:00 AM EDT eCW1 ([facility]) Levofloxacin 500 MG Oral Tablet 05/14/2021 12:00:00 AM EDT eCW1 ([facility]) Levofloxacin 500 MG Oral Tablet 05/14/2021 12:00:00 AM EDT eCW1 ([facility]) Levofloxacin 500 MG Oral Tablet 05/14/2021 12:00:00 AM EDT eCW1 ([facility]) Levofloxacin 500 MG Oral Tablet 05/14/2021 12:00:00 AM EDT eCW1 ([facility]) Triamcinolone Acetonide 1 MG/ML Topical Cream 11/24/2020 12:00:00 A M EST eCW1 ([facility]) Triamcinolone Acetonide 1 MG/ML Topical Cream 11/24/2020 12:00:00 A M EST eCW1 ([facility]) Triamcinolone Acetonide 1 MG/ML Topical Cream 11/24/2020 12:00:00 A M EST eCW1 ([facility]) Triamcinolone Acetonide 1 MG/ML Topical Cream 11/24/2020 12:00:00 A M EST eCW1 ([facility]) Triamcinolone Acetonide 1 MG/ML Topical Cream 11/24/2020 12:00:00 A M EST eCW1 ([facility]) valacyclovir 1000 MG Oral Tablet 09/29/2020 12:00:00 AM EST eCW1 ([facility]) valacyclovir 1000 MG Oral Tablet 09/29/2020 12:00:00 AM EST eCW1 ([facility]) valacyclovir 1000 MG Oral Tablet 09/29/2020 12:00:00 AM EST eCW1 ([facility])
--- OUTSIDE RECORDS SUMMARY | 2021-09-13 14:23 | CCD | Continuity of Care Document ---
Author Author Kesha AVILA M.D. Organization Unknown Address [address] [place] [address] Phone [phone] Problems Active Problems Provider Date MRI scan abnormal Liane Avila M.D. Onset: 11/27/2020 Headache Liane Avila M.D. Onset: 11/27/2020 Dizziness Liane Avila M.D. Onset: 11/27/2020 Social History Type Date Description Comments Sex Unknown Tobacco Use Start: Unknown Patient is a current smoker, smo kes every day Allergies, Adverse Reactions, Alerts Active Allergies Criticality Reaction | Severity Comments Date Cefaclor Unable to assess criticality 11/27/2020 Bee Sting Unable to assess criticality 11/27/2020 Wasps Unable to assess criticality 11/27/2020 Yellow Hornet Venom Unable to assess criticality 11/27/2020 Medications Active Medications SIG Qnty Indications Ordering Provide r Date Botox 200Unit Solution Rec inject 155 units intramuscular into head neck and shoulders for migraines every 3 months wasting 45 units 1units G43.719 Liane Avila M.D. 1 Valacyclovir HCL 1gm Tablets 1 tablet Orally [...] Available Vital Signs Date Vital Result Comment 06/11/2021 1:29pm Respiratory Rate 12 /min Height 62 inches 5'2" Weight 120.00 lb BMI (Body Mass Index) 21.9 kg/m2 [place] Body Weight 110 lb 02/26/2021 11:35am Respiratory Rate 12 /min Height 62 inches 5'2" Weight 120.00 lb BMI (Body Mass Index) 21.9 kg/m2 [place] Body Weight 110 lb Results Description No Information Available Procedures Date Code Description Status 07/05/2021 24727 [place] [place] ervated By Facial, Trigeminal, Cerv And Acces Completed 06/11/2021 40346 Office/Outpatient Established Mo d MDM 30-39 Min Completed 02/26/2021 33804 Office/Outpatient Established Mo d MDM 30-39 Min Completed 02/21/2021 39107 [place] ervated By Facial, Trigeminal, Cerv And Acces Completed Medical Devices Description No Information Available Encounters Type Date Location Provider Dx Diagnosis Office Visit 06/11/2021 1:00p Main office - [place] Liane chen M.D. G43.719 Chronic migraine w/o aura, intractable, w/o stat migr R42 Dizziness and giddiness I95.1 Orthostatic hypotension Office Visit 02/26/2021 11:00a Main office - [place] Liane chen M.D. G25.3 Myoclonus Assessments Date Code Description Provider 07/05/2021 G43.719 Chronic migraine wit hout aura, intractable, without status migrainosus Liane Avila M.D. 06/11/2021 G43.719 Chronic migraine wit hout aura, intractable, without status migrainosus Liane Avila M.D. 06/11/2021 R42 Dizziness and giddiness Liane arguelles M.D. 06/11/2021 I95.1 Orthostatic hypotension Liane arguelles M.D. 02/26/2021 G25.3 Myoclonus Liane Avila M.D. 02/21/2021 G43.719 Chronic migraine wit hout aura, intractable, without status migrainosus Liane Avila M.D. Plan of Treatment Future Appointment(s):* 09/17/2021 2:15 pm - Liane Avila M.D. at Main office - [place] Functional Status Description No Information Available Mental Status Description No Information Available Referrals Refer to Reason for Referral Status Appt Date Liane Avila M.D. Created [address] [place] [address] [phone] Liane Avila M.D. Created 0 [address] [place] [address] [phone]
--- OUTSIDE RECORDS SUMMARY | 2021-09-13 14:23 | CCD | Continuity of Care Document ---
Author Author Kesha AVILA M.D. Organization Unknown Address [address] [place] [address] Phone [phone] Problems Active Problems Provider Date MRI scan [...] lb BMI (Body Mass Index) 21.9 kg/m2 [place] Body Weight 110 lb 02/26/2021 11:35am Respiratory Rate 12 /min Height 62 inches 5'2" Weight 120.00 lb BMI (Body Mass Index) 21.9 kg/m2 [place] Body Weight 110 lb Results Description No Information Available Procedures Date Code Description Status 06/11/2021 69323 Office/Outpatient Established Mo d MDM 30-39 Min Completed 02/26/2021 75876 Office/Outpatient Established Mo d MDM 30-39 Min Completed 02/21/2021 07993 [place] ervated By Facial, Trigeminal, Cerv And Acces Completed Medical Devices Description No Information Available Encounters Type Date Location Provider Dx Diagnosis Office Visit 06/11/2021 1:00p Main office - [place] Liane chen M.D. G43.719 Chronic migraine w/o aura, intractable, w/o stat migr R42 Dizziness and giddiness I95.1 Orthostatic hypotension Office Visit 02/26/2021 11:00a [facility] [place] Liane chen M.D. G25.3 Myoclonus Assessments Date Code Description Provider 06/11/2021 G43.719 Chronic migraine wit hout aura, intractable, without status migrainosus Liane Avila M.D. 06/11/2021 R42 Dizziness and giddiness Liane arguelles M.D. 06/11/2021 I95.1 Orthostatic hypotension Liane arguelles M.D. 02/26/2021 G25.3 Myoclonus Liane Avila M.D. 02/21/2021 G43.719 Chronic migraine wit hout aura, intractable, without status migrainosus Liane Avila M.D. Plan of Treatment Future Appointment(s):* 09/17/2021 2:15 pm - Liane Avila M.D. at [facility] Functional Status Description No Information Available Mental Status Description No Information Available Referrals Refer to Dr Reason for Referral Status Appt Date Liane Avila M.D. Created [address] [place] [address] [phone] Liane Avila M.D. Created 0 [address] [place] [address] [phone]
--- OUTSIDE RECORDS SUMMARY | 2021-09-13 14:23 | CCD ---
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 confirmed 471014544 Problem Missed menses N92.6 Active confirmed 198071 00 Problem Allergy to bee sting Z91.030 Active confirmed 131428276 Problem Intrinsic eczema L20.84 Active confirmed 240 51318 Problem Bipolar disorder, current episode depressed, mild F31.31 Active confirmed 642312063 Problem 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 Active confirmed 50946407 Problem Exercise-induced asthma J45.990 Active confirmed 23435488 Problem 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 Active confirmed 116585788 Problem Abnormal findings on imaging test R93.89 Active confirmed 232054450 Problem Bipolar disorder, current episode mixed, moderate F31.62 Active confirmed 979127325 Problem Atopic dermatitis, mild L20.9 Active confirmed 10262029 ALLERGIES Allergen (clinical drug ingredient) Drug/Non Drug Allergy do cumented on EMR Reaction Allergy Type Onset Date Status ceclor Anaphylaxis Drug Allergy Active Bees, hornets and wasp Anaphylaxis Non Drug Allergy Active Clindamycin Phos & Cleanser peeling skin Drug Allergy Active benzethonium / benzocaine Benzocaine Angioedema Drug Allergy Active ENCOUNTERS from 1999 to 2021-07-11 Encounter Location Date Provider Diagnosis [facility] [address] [facility] [phone] [place] [address] Jun, Shawna Mosquera Cracked tooth K03.81 IMMUNIZATIONS No Information SOCIAL HISTORY Tobacco Use: Social History Observation Description Date Details (start date - stop date) Current Smoker Sex Assigned At : Social History Observation Description Sex Assigned At Unknown Education: Question Answer Notes Level of Education: Finished High School Audit Question Answer Notes Total Score: 0 Interpretation: Alcohol Education Language: Question Answer Notes Languages spoken: Austrian Scientology: Question Answer Notes Scientology 33 None Sexual Hx: Question Answer Notes [...] FOR REFERRAL No Information VITAL SIGNS Weight 115.2 lbs Jun, Weight-kg 52.25 kg Jun, Height 61 in Jun, BMI 21.76 kg/m2 Jun, Heart Rate 67 /min Jun, Respiratory Rate 17 /min Jun, Temperature 99.4 degrees Fahrenheit Jun, Oximetry 98 Jun, Blood pressure systolic 109 mm Hg Jun, Blood pressure diastolic 61 mm Hg Jun, MEDICATIONS Medication SIG (Take, Route, Frequency, Duration) Notes Start Da te End Date Status Multivitamins - 1 tablet Orally Once a day for 30 day(s) Not-Taking levoFLOXacin 500 MG 1 tablet Orally Once a day for 7 day(s) Apr, Not-Taking predniSONE 20 MG 2 tablets Orally Once a day for 5 day(s) Oct, Not-Taking SEROquel 100 MG 1 tablet at bedtime Orally Once a day Not-Taking EpiPen Active metroNIDAZOLE 0.75 % 1 applicator [...] Information RESULTS No Results REASON FOR VISIT ER F/U. TMJ DIAGNOSIS. MEDICAL (GENERAL) HISTORY Type Description Date Medical History Bipolar disorder Medical History Borderline personality disorder Medical History PDSD Medical History Anxiety/depression Medical History Asthma Surgical History root canal 2013 Hospitalization History [facility] 08/2019 Goals Section No Information Health Concerns No Information MEDICAL EQUIPMENT No Information MENTAL STATUS No Information FUNCTIONAL STATUS No Information ASSESSMENTS Encounter Date Diagnosis Assessment Notes Treatment Notes Treatm ent Clinical Notes Jun, Cracked tooth (ICD-10 - K03.81) Following w/ [facility], presently on abx w/ plans for root canal. Continue as directed by specialist. PLAN OF TREATMENT Treatment Notes Assessment Notes Clinical Notes Cracked tooth Following w/ [facility], presently on abx w/ plans for root canal. Continue as directed by specialist. Next Appt Details w/ dentist Reason: Insurance Providers Payer Name Payer Address Payer Phone Insured Name Patient Relati onship to Insured Coverage Start Date Coverage End Date [facility] [address] [place] [address] JOHNATHAN FONSECA
--- OUTSIDE RECORDS SUMMARY | 2021-09-13 14:23 | CCD ---
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 confirmed 813684003 Problem Missed menses N92.6 Active confirmed 016611 00 Problem Allergy to bee sting Z91.030 Active confirmed 532940869 Problem Intrinsic eczema L20.84 Active confirmed 240 79068 Problem Bipolar disorder, current episode depressed, mild F31.31 Active confirmed 323060441 Problem 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 Active confirmed 33443293 Problem Exercise-induced asthma J45.990 Active confirmed 65034665 Problem 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 Active confirmed 215151168 Problem Abnormal findings on imaging test R93.89 Active confirmed 129773166 Problem Bipolar disorder, current episode mixed, moderate F31.62 Active confirmed 495747671 Problem Atopic dermatitis, mild L20.9 Active confirmed 97942628 ALLERGIES Allergen (clinical drug ingredient) Drug/Non Drug Allergy do cumented on EMR Reaction Allergy Type Onset Date Status lidocaine Lidocaine([facility] Code:[address]-05) swollen,hives Drug Aller gy Active Bees, hornets and wasp Anaphylaxis Non Drug Allergy Active Clindamycin Phos & Cleanser peeling skin Drug Allergy Active ceclor Anaphylaxis Drug Allergy Active ENCOUNTERS from 1999 to 2021-06-26 Encounter Location Date Provider Diagnosis [facility] [address] [address] [facility] [phone] [place] [address] Jun, Shawna Mosquera Herpes simplex virus (HSV) i nfection of vagina A60.04 IMMUNIZATIONS No Information SOCIAL HISTORY Tobacco Use: Social History Observation Description Date Details (start date - stop date) Current Smoker Sex Assigned At : Social History Observation Description Sex Assigned At Unknown Education: Question Answer Notes Level of Education: Finished High School Audit Question Answer Notes Total Score: 0 Interpretation: Alcohol Education Language: Question Answer Notes Languages spoken: Bulgarian Latter-Day: Question Answer Notes Latter-Day 33 None Sexual Hx: Question Answer Notes [...] a: current smoker Smoking Cessation Information Given 10/27/2020 Are you interested in quitting? 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 Aug, Not -Taking AZO Cranberry 250-30 MG as directed Orally Not-Taking valACYclovir HCl 1 GM 1 tablet Orally bid for 10 day(s) Jan, Not-Taking Rexulti 1 MG 1 tablet Orally Once a day for 30 day(s) Not-Taking Macrobid 100 MG 1 capsule Orally twice daily for 5 day(s) Feb, Not-Taking predniSONE 20 MG 2 tablets Orally Once a day for 5 day(s) Oct, Not-Taking Melatonin 5 MG 2 tablet in the evening Orally Once a day Not-Taking EpiPen Not-Taking One-A-Day Womens 1 28-0.8-235 MG 1 capsule Or ally Once a day for 30 day(s) Oct, Not-Taking Prazosin HCl 1 MG 1 capsule at bedtime Orally Once a day for 30 day(s ) Not-Taking Nicotine Step 3 7 MG/24HR 1 patch to skin Transdermal Once a day for 30 day(s) May, Not-Taking Azithromycin 250 MG 2 tablets on day 1 then 1 ta blet x 4 days Orally Daily for 5 day(s) Oct, Not-Taking levoFLOXacin 500 MG 1 tablet Orally Once a day for 7 day(s) Apr, Active Triamcinolone Acetonide 0.1 % 1 application Externally Once a da y for 14 days Nov, Active Nicotine Step 2 14 MG/24HR 1 patch to skin Transdermal Once a day for 30 day(s) May, Not-Taking EpiPen 2-Jay 0.3 MG/0.3ML as directed Injection as nee ded for allergic rxn for 1 days May, Active Multivitamins - 1 tablet Orally Once a day for 30 day(s) Not-Taking - 1 tablet Orally Once a day for 30 day(s) Active SEROquel 100 MG 1 tablet at bedtime Orally Once a day Not-Taking ARIPiprazole 5 MG TAKE 1 TABLET BY MOUTH ONCE DAILY Oral for 30 Not-Taking Albuterol 90 MCG/ACT 1 Inhalation every 4 hours as needed for 30 days Active valACYclovir HCl 1 GM 1 tablet Orally Once a day for 90 day(s) Sep, Active PROCEDURES No Information RESULTS No Results REASON FOR VISIT Note for work/Refill MEDICAL (GENERAL) HISTORY Type Description Date Medical History Bipolar disorder Medical History Borderline personality disorder Medical History PDSD Medical History Anxiety/depression Medical History Asthma Surgical History root canal 2013 Hospitalization History [facility] 08/2019 Goals Section No Information Health Concerns No Information MEDICAL EQUIPMENT No Information MENTAL STATUS No Information FUNCTIONAL STATUS No Information ASSESSMENTS Encounter Date Diagnosis Assessment Notes Treatment Notes Treatm ent Clinical Notes Jun, Herpes simplex virus (HSV) infection of vagina ( ICD-10 - A60.04) PLAN OF TREATMENT Medication Medication Name Sig Start Date Stop Date EpiPen 2-Jay 0.3 MG/0.3ML as directed Injection as nee ded for allergic rxn for 1 days May, valACYclovir HCl 1 GM 1 tablet Orally Once a day for 90 day(s) 1 2020 levoFLOXacin 500 MG 1 tablet Orally Once a day for 7 day(s) 28 J 2020 Insurance Providers Payer Name Payer Address Payer Phone Insured Name Patient Relati onship to Insured Coverage Start Date Coverage End Date [facility] [address] [place] [address] JOHNATHAN FONSECA
[2021-09-13] MEDS ORDERED: predniSONE 20 MG TAB PO ONE (16:45)
[2021-09-13] MEDS ORDERED: PRED20TA PO (16:47)
--- OUTSIDE RECORDS SUMMARY | 2021-09-13 17:02 | CCD ---
Author Author [facility] Organization [facility] Address Unknown Phone Unavailable Care Team Providers Care Car Lot Attendant Name Role Phone CATHERINE, B LARRY SHAFT HEADMAN Unavailable Unavailable CATHERINE, B LARRY SHAFT HEADMAN Unavailable Unavailable CATHERINE, B LARRY SHAFT HEADMAN Unavailable Unavailable CATHERINE, B LARRY SHAFT HEADMAN Unavailable Unavailable CATHERINE, B LARRY SHAFT HEADMAN Unavailable Unavailable CATHERINE, B LARRY SHAFT HEADMAN Unavailable Unavailable CATHERINE, B LARRY SHAFT HEADMAN Unavailable Unavailable CATHERINE, B LARRY SHAFT HEADMAN Unavailable Unavailable CATHERINE, B LARRY SHAFT HEADMAN Unavailable Unavailable CATHERINE, B LARRY SHAFT HEADMAN Unavailable Unavailable CATHERINE, B LARRY SHAFT HEADMAN Unavailable Unavailable CATHERINE, B LARRY SHAFT HEADMAN Unavailable Unavailable CATHERINE, B LARRY SHAFT HEADMAN Unavailable Unavailable CATHERINE, B LARRY SHAFT HEADMAN Unavailable Unavailable CATHERINE, B LARRY SHAFT HEADMAN Unavailable Unavailable CATHERINE, B LARRY SHAFT HEADMAN Unavailable Unavailable CATHERINE, B LARRY SHAFT HEADMAN Unavailable Unavailable CATHERINE, B LARRY SHAFT HEADMAN Unavailable Unavailable CATHERINE, B LARRY SHAFT HEADMAN Unavailable Unavailable CATHERINE, B LARRY SHAFT HEADMAN Unavailable Unavailable CATHERINE, B LARRY SHAFT HEADMAN Unavailable Unavailable CATHERINE, B LARRY SHAFT HEADMAN Unavailable Unavailable CATHERINE, B LARRY SHAFT HEADMAN Unavailable Unavailable CATHERINE, B LARRY SHAFT HEADMAN Unavailable Unavailable CATHERINE, B LARRY SHAFT HEADMAN Unavailable Unavailable CATHERINE, B LARRY SHAFT HEADMAN Unavailable Unavailable CATHERINE, B LARRY SHAFT HEADMAN Unavailable Unavailable CATHERINE, B LARRY SHAFT HEADMAN Unavailable Unavailable CATHERINE, B LARRY SHAFT HEADMAN Unavailable Unavailable CATHERINE, B LARRY SHAFT HEADMAN Unavailable Unavailable CATHERINE, B LARRY SHAFT HEADMAN Unavailable Unavailable CATHERINE, B LARRY SHAFT HEADMAN Unavailable Unavailable CATHERINE, B LARRY SHAFT HEADMAN Unavailable Unavailable CATHERINE, B LARRY SHAFT HEADMAN Unavailable Unavailable CATHERINE, B LARRY SHAFT HEADMAN Unavailable Unavailable CATHERINE, B LARRY SHAFT HEADMAN Unavailable Unavailable CATHERINE, B LARRY SHAFT HEADMAN Unavailable Unavailable CATHERINE, B LARRY SHAFT HEADMAN Unavailable Unavailable CATHERINE, B LARRY SHAFT HEADMAN Unavailable Unavailable CATHERINE, B LARRY SHAFT HEADMAN Unavailable Unavailable CATHERINE, B LARRY SHAFT HEADMAN Unavailable Unavailable CATHERINE, B LARRY SHAFT HEADMAN Unavailable Unavailable CATHERINE, B LARRY SHAFT HEADMAN Unavailable Unavailable CATHERINE, B LARRY SHAFT HEADMAN Unavailable Unavailable CATHERINE, B LARRY SHAFT HEADMAN Unavailable Unavailable CATHERINE, B LARRY SHAFT HEADMAN Unavailable Unavailable CATHERINE, B LARRY SHAFT HEADMAN Unavailable Unavailable CATHERINE, B LRARY SHAFT HEADMAN Unavailable Unavailable CATHERINE, B LARRY SHAFT HEADMAN Unavailable Unavailable CATHERINE, B LARRY SHAFT HEADMAN Unavailable Unavailable CATHERINE, B LARRY SHAFT HEADMAN Unavailable Unavailable CATHERINE, B LARRY SHAFT HEADMAN Unavailable Unavailable CATHERINE, B LARRY SHAFT HEADMAN Unavailable Unavailable CATHERINE, B LARRY SHAFT HEADMAN Unavailable Unavailable CATHERINE, B LARRY SHAFT HEADMAN Unavailable Unavailable CATHERINE, B LARRY SHAFT HEADMAN Unavailable Unavailable CATHERINE, B LARRY SHAFT HEADMAN Unavailable Unavailable CATHERINE, B LARRY SHAFT HEADMAN Unavailable Unavailable CATHERINE, B LARRY SHAFT HEADMAN Unavailable Unavailable CATHERINE, B LARRY SHAFT HEADMAN Unavailable Unavailable CATHERINE, B LARRY SHAFT HEADMAN Unavailable Unavailable CATHERINE, B LARRY SHAFT HEADMAN Unavailable Unavailable SAMANTAJAYNA Jaffe MD Unavailable Unavailable [...] MOTA MD Unavailable Unavailable Rosalino, R Shawna Z OS MAINFRAME SYSTEMS PROGRAMMER Unavailable Unavailable Rosalino, R Shawna Z OS MAINFRAME SYSTEMS PROGRAMMER Unavailable Unavailable Rosalino, R Shawna Z OS MAINFRAME SYSTEMS PROGRAMMER Unavailable Unavailable Rosalino, R Shawna Z OS MAINFRAME SYSTEMS PROGRAMMER Unavailable Unavailable Rosalino, R Shawna Z OS MAINFRAME SYSTEMS PROGRAMMER Unavailable Unavailable Rosalino, R Shawna Z OS MAINFRAME SYSTEMS PROGRAMMER Unavailable Unavailable Rosalino, R Shawna Z OS MAINFRAME SYSTEMS PROGRAMMER Unavailable Unavailable Rosalino, R Shawna Z OS MAINFRAME SYSTEMS PROGRAMMER Unavailable Unavailable Rosalino, R Shawna Z OS MAINFRAME SYSTEMS PROGRAMMER Unavailable Unavailable Rosalino, R Shawna Z OS MAINFRAME SYSTEMS PROGRAMMER Unavailable Unavailable Rosalino, R Shawna Z OS MAINFRAME SYSTEMS PROGRAMMER Unavailable Unavailable Rosalino, R Shawna Z OS MAINFRAME SYSTEMS PROGRAMMER Unavailable Unavailable Rosalino, R Shawna Z OS MAINFRAME SYSTEMS PROGRAMMER Unavailable Unavailable Rosalino, R Shawna Z OS MAINFRAME SYSTEMS PROGRAMMER Unavailable Unavailable Rosalino, R Shawna Z OS MAINFRAME SYSTEMS PROGRAMMER Unavailable Unavailable Rosalino, R Shawna Z OS MAINFRAME SYSTEMS PROGRAMMER Unavailable Unavailable Rosalino, R Shawna Z OS MAINFRAME SYSTEMS PROGRAMMER Unavailable Unavailable Rosalino, R Shawna Z OS MAINFRAME SYSTEMS PROGRAMMER Unavailable Unavailable Rosalino, R Shawna Z OS MAINFRAME SYSTEMS PROGRAMMER Unavailable Unavailable Rosalino, R Shawna Z OS MAINFRAME SYSTEMS PROGRAMMER Unavailable Unavailable Rosalino, R Shawna Z OS MAINFRAME SYSTEMS PROGRAMMER Unavailable Unavailable Rosalino, R Shawna Z OS MAINFRAME SYSTEMS PROGRAMMER Unavailable Unavailable Rosalino, R Shawna Z OS MAINFRAME SYSTEMS PROGRAMMER Unavailable Unavailable Rosalino, R Shawna Z OS MAINFRAME SYSTEMS PROGRAMMER Unavailable Unavailable Rosalino, R Shawna Z OS MAINFRAME SYSTEMS PROGRAMMER Unavailable Unavailable Rosalino, R Shawna Z OS MAINFRAME SYSTEMS PROGRAMMER Unavailable Unavailable Rosalino, R Shawna Z OS MAINFRAME SYSTEMS PROGRAMMER Unavailable Unavailable Rosalino, R Shawna Z OS MAINFRAME SYSTEMS PROGRAMMER Unavailable Unavailable Rosalino, R Shawna Z OS MAINFRAME SYSTEMS PROGRAMMER Unavailable Unavailable Rosalino, R Shawna Z OS MAINFRAME SYSTEMS PROGRAMMER Unavailable Unavailable Rosalino, R Shawna Z OS MAINFRAME SYSTEMS PROGRAMMER Unavailable Unavailable Rosalino, R Shawna Z OS MAINFRAME SYSTEMS PROGRAMMER Unavailable Unavailable Rosalino, R Shawna Z OS MAINFRAME SYSTEMS PROGRAMMER Unavailable Unavailable Rosalino, R Shawna Z OS MAINFRAME SYSTEMS PROGRAMMER Unavailable Unavailable Rosalino, R Shawna Z OS MAINFRAME SYSTEMS PROGRAMMER Unavailable Unavailable Rosalino, R Shawna Z OS MAINFRAME SYSTEMS PROGRAMMER Unavailable Unavailable Rosalino, R Shawna Z OS MAINFRAME SYSTEMS PROGRAMMER Unavailable Unavailable Rosalino, R Shawna Z OS MAINFRAME SYSTEMS PROGRAMMER Unavailable Unavailable Rosalino, R Shawna Z OS MAINFRAME SYSTEMS PROGRAMMER Unavailable Unavailable Rosalino, R Shawna Z OS MAINFRAME SYSTEMS PROGRAMMER Unavailable Unavailable JACKY, Ranjith RINCON MD Unavailable [...] is protected by Article 27-F of the [facility] Public Health law. If you continue you may have access to information: Regarding HIV / AIDS; Provided by facilities licensed or operated by the [facility] Office of Mental Health; or Provided by the [facility] Office for People With Developmental Disabilities. If such information is present, then the following [facility] mandated warning applies: This information has [...] law may result in a fine or alf sentence or both. A general authorization for the release of medical or other information is NOT sufficient authorization for further disc losure. Encounters Encounter Providers Location Date Indications Data Source(s ) [place] [address] [facility] [place] [address] 08/31/2021 12:00:00 AM EDT eCW1 ([facility]) [place] [address] [facility] [place] [address] 08/31/2021 12:00:00 AM EDT eCW1 ([facility]) [place] [address] [facility] [place] [address] 08/07/2021 12:00:00 AM EDT eCW1 ([facility]) Outpatient [address] [facility] [place] [address] 08/03/2021 12:00:00 AM EDT eCW1 ([facility]) [place] [address] [facility] [place] [address] 07/26/2021 12:00:00 AM EDT eCW1 ([facility]) [place] [address] [facility] [place] [address] 07/20/2021 12:00:00 AM EDT eCW1 ([facility]) [place] [address] [facility] [place] [address] 07/17/2021 12:00:00 AM EDT eCW1 ([facility]) [place] [address] [facility] [place] [address] 07/12/2021 12:00:00 AM EDT eCW1 ([facility]) [place]patient [address] [facility] [place] [address] 07/05/2021 12:00:00 AM EDT eCW1 ([facility]) Emergency Attender: ELIZABETH STYLES MDConsultant: Dick Mosquera Z OS MAINFRAME SYSTEMS PROGRAMMER 07/02/2021 08:59:00 PM EDT - 07/03/2021 03:03:00 AM EDT [facility] Patient discharged. Unknown [address] [facility] [place] [address] 06/25/2021 12:00:00 AM EDT eCW1 ([facility]) Outpatient Attender: Liane Dodge MD Main office - [facility] 06/11/2021 01:00:00 PM EDT MEDENT ([facility]) [place] [address] [facility] [place] [address] 05/25/2021 12:00:00 AM EDT eCW1 ([facility]) [place] [address] [facility] [place] [address] 05/14/2021 12:00:00 AM EDT eCW1 ([facility]) [place]patient [address] [facility] [place] [address] 05/11/2021 12:00:00 AM EDT eCW1 ([facility]) [place] [address] [facility] [place] [address] 04/05/2021 12:00:00 AM EDT eCW1 ([facility]) Outpatient Attender: Liane Dodge MD [facility] 02/26/2021 11:00:00 AM EDT MEDENT ([facility]) Outpatient Attender: LARRY ALEXANDER NP Physical Therapy 01:45:00 PM EST MEDENT ([facility]) [place] [address] [facility] [place] [address] 12/28/2020 12:00:00 AM EST eCW1 ([facility]) [place]patient [address] [facility] [place] [address] 12/22/2020 12:00:00 AM EST eCW1 ([facility]) [place] [address] [facility] [place] [address] 12/08/2020 12:00:00 AM EST eCW1 ([facility]) [place] [address] [facility] [place] [address] 12/07/2020 12:00:00 AM EST eCW1 ([facility]) [place] [address] [facility] [place] [address] 12/07/2020 12:00:00 AM EST eCW1 ([facility]) Outpatient Attender: Liane Dodge MD [facility] 11/27/2020 08:00:00 AM EST MEDENT ([facility]) TeleMedicine Phone E/M by Phys 11-20 Min [address] [place] [address] 11/24/2020 12:00:00 AM EST eCW1 ([facility]) Unknown [address] [facility] [place] [address] 11/22/2020 12:00:00 AM EST eCW1 ([facility]) Outpatient [address] [facility] [place] [address] 11/20/2020 12:00:00 AM EST eCW1 ([facility]) Unknown [address] [facility] [place] [address] 11/13/2020 12:00:00 AM EST eCW1 ([facility]) Unknown [address] [facility] [address] 11/02/2020 12:00:00 AM EST [facility]CW1 ([facility]) Unknown [address] [facility] [address] 11/01/2020 12:00:00 AM EST [facility]CW[facility] Outpatient [address] [facility] [address] 10/27/2020 12:00:00 AM EST eCW1 ([facility]) Emergency Attender: SERGEY RICO MDConsultant: Shawna gaspar Z OS MAINFRAME SYSTEMS PROGRAMMER 10/26/2020 03:02:00 PM EST - 10/26/2020 08:33:00 PM EST [facility] Patient discharged. Unknown [address] [facility] [place] [address] 10/26/2020 12:00:00 AM EST eCW1 ([facility]) Unknown [address] [facility] [place] [address] 10/24/2020 12:00:00 AM EST eCW1 ([facility]) Unknown [address] [facility] [place] [address] 10/06/2020 12:00:00 AM EST [facility]CW1 ([facility]) Outpatient [address] [facility] [address] 09/29/2020 12:00:00 AM EST eCW1 ([facility]) Emergency Attender: Juan BESTCConsultant: Shawna PULIDO 09/26/2020 04:48:00 PM EST - 09/26/2020 07:19:00 PM EST [facility] Patient discharged. [place] [address] [facility] [address] 09/12/2020 12:00:00 AM EDT eCW1 ([facility]) Inpatient Attender: JAYNA ENGLAND MDAtten paloo: XIAO POWELL MDAttender: ALPA MOTA MDAdmitter: JAYNA ENGLAND MD ER-3RD 08/19/2019 09:03: 00 PM EDT - 08/24/2019 01:40:00 [facility]. Immunizations Vaccine Date Status Description Data Source(s) COVID-19 VACCINE Moderna 04/28/2021 12:00:00 AM EDT completed [facility]SIIS Vaccine Series Complete: NOThis Data was Submitted to [facility] Via [employer]. Medications Medication Brand Name Start Date Product Form Dose Route Admi nistrative Instructions Pharmacy Instructions Status Indications Reaction Description Data Source(s) Fluconazole 150 MG Oral Tablet [Diflucan] Diflucan 150 MG Di flucan 150 MG 08/31/2021 12:00:00 AM EDT 1.0 {tablet} active Diflucan 150 MG eCW1 ([facility]) Fluconazole 150 MG Oral Tablet [Diflucan] Diflucan 150 MG Di flucan 150 MG 08/31/2021 12:00:00 AM EDT 1.0 {tablet} active Diflucan 150 MG eCW1 ([facility]) Levofloxacin 500 MG Oral Tablet levoFLOXacin 500 MG levoFLOX acin 500 MG 05/14/2021 12:00:00 AM EDT 1.0 {tablet} suspende d levoFLOXacin 500 MG eCW1 ([facility]) Levofloxacin 500 MG Oral Tablet levoFLOXacin 500 MG levoFLOX acin 500 MG 05/14/2021 12:00:00 AM EDT 1.0 {tablet} active levoFLOXacin 500 MG eCW1 ([facility]) Levofloxacin 500 MG Oral Tablet levoFLOXacin 500 MG levoFLOX acin 500 MG 05/14/2021 12:00:00 AM EDT 1.0 {tablet} active levoFLOXacin 500 MG eCW1 ([facility]) Levofloxacin 500 MG Oral Tablet levoFLOXacin 500 MG levoFLOX acin 500 MG 05/14/2021 12:00:00 AM EDT 1.0 {tablet} suspende d levoFLOXacin 500 MG eCW1 ([facility]) Levofloxacin 500 MG Oral Tablet levoFLOXacin 500 MG levoFLOX acin 500 MG 05/14/2021 12:00:00 AM EDT 1.0 {tablet} suspende d levoFLOXacin 500 MG eCW1 ([facility]) Levofloxacin 500 MG Oral Tablet levoFLOXacin 500 MG levoFLOX acin 500 MG 05/14/2021 12:00:00 AM EDT 1.0 {tablet} active levoFLOXacin 500 MG eCW1 ([facility]) Levofloxacin 500 MG Oral Tablet levoFLOXacin 500 MG levoFLOX acin 500 MG 05/14/2021 12:00:00 AM EDT 1.0 {tablet} suspende d levoFLOXacin 500 MG eCW1 ([facility]) Levofloxacin 500 MG Oral Tablet levoFLOXacin 500 MG levoFLOX acin 500 MG 05/14/2021 12:00:00 AM EDT 1.0 {tablet} active levoFLOXacin 500 MG eCW1 ([facility]) Levofloxacin 500 MG Oral Tablet levoFLOXacin 500 MG levoFLOX acin 500 MG 05/14/2021 12:00:00 AM EDT 1.0 {tablet} active levoFLOXacin 500 MG eCW1 ([facility]) Levofloxacin 500 MG Oral Tablet levoFLOXacin 500 MG levoFLOX acin 500 MG 05/14/2021 12:00:00 AM EDT 1.0 {tablet} active levoFLOXacin 500 MG eCW1 ([facility]) Levofloxacin 500 MG Oral Tablet levoFLOXacin 500 MG levoFLOX acin 500 MG 05/14/2021 12:00:00 AM EDT 1.0 {tablet} suspende d levoFLOXacin 500 MG eCW1 ([facility]) Levofloxacin 500 MG Oral Tablet levoFLOXacin 500 MG levoFLOX acin 500 MG 05/14/2021 12:00:00 AM EDT 1.0 {tablet} active levoFLOXacin 500 MG eCW1 ([facility]) Levofloxacin 500 MG Oral Tablet levoFLOXacin 500 MG levoFLOX acin 500 MG 05/14/2021 12:00:00 AM EDT 1.0 {tablet} active levoFLOXacin 500 MG eCW1 ([facility]) onabotulinumtoxinA 200 UNT/ML Injectable Solution [Botox] Samy tox 01/01/2021 12:00:00 AM EST active M EDXIOMY ([facility] ) Triamcinolone Acetonide 1 MG/ML Topical Cream Triamcin olone Acetonide 0.1 % Triamcinolone Acetonide 0.1 % 11/24/2020 12:00:00 AM EST 1.0 {appli cation} active Triamcinolone Acetonide 0 .1 % eCW1 ([facility]) Triamcinolone Acetonide 1 MG/ML Topical Cream Triamcin olone Acetonide 0.1 % Triamcinolone Acetonide 0.1 % 11/24/2020 12:00:00 AM EST 1.0 {appli cation} active Triamcinolone Acetonide 0 .1 % eCW1 ([facility]) Triamcinolone Acetonide 1 MG/ML Topical Cream Triamcin olone Acetonide 0.1 % Triamcinolone Acetonide 0.1 % 11/24/2020 12:00:00 AM EST 1.0 {appli cation} active Triamcinolone Acetonide 0 .1 % eCW1 ([facility]) Triamcinolone Acetonide 1 MG/ML Topical Cream Triamcin olone Acetonide 0.1 % Triamcinolone Acetonide 0.1 % 11/24/2020 12:00:00 AM EST 1.0 {appli cation} active Triamcinolone Acetonide 0 .1 % eCW1 ([facility]) Triamcinolone Acetonide 1 MG/ML Topical Cream Triamcin olone Acetonide 0.1 % Triamcinolone Acetonide 0.1 % 11/24/2020 12:00:00 AM EST 1.0 {appli cation} active Triamcinolone Acetonide 0 .1 % eCW1 ([facility]) Triamcinolone Acetonide 1 MG/ML Topical Cream Triamcin olone Acetonide 0.1 % Triamcinolone Acetonide 0.1 % 11/24/2020 12:00:00 AM EST 1.0 {appli cation} suspended Triamcinolone Acetonide 0 .1 % eCW1 ([facility]) Triamcinolone Acetonide 1 MG/ML Topical Cream Triamcin olone Acetonide 0.1 % Triamcinolone Acetonide 0.1 % 11/24/2020 12:00:00 AM EST 1.0 {appli cation} suspended Triamcinolone Acetonide 0 .1 % eCW1 ([facility]) Triamcinolone Acetonide 1 MG/ML Topical Cream Triamcin olone Acetonide 0.1 % Triamcinolone Acetonide 0.1 % 11/24/2020 12:00:00 AM EST 1.0 {appli cation} active Triamcinolone Acetonide 0 .1 % eCW1 ([facility]) Triamcinolone Acetonide 1 MG/ML Topical Cream Triamcin olone Acetonide 0.1 % Triamcinolone Acetonide 0.1 % 11/24/2020 12:00:00 AM EST 1.0 {appli cation} active Triamcinolone Acetonide 0 .1 % eCW1 ([facility]) Triamcinolone Acetonide 1 MG/ML Topical Cream Triamcin olone Acetonide 0.1 % Triamcinolone Acetonide 0.1 % 11/24/2020 12:00:00 AM EST 1.0 {appli cation} active Triamcinolone Acetonide 0 .1 % eCW1 ([facility]) Triamcinolone Acetonide 1 MG/ML Topical Cream Triamcin olone Acetonide 0.1 % Triamcinolone Acetonide 0.1 % 11/24/2020 12:00:00 AM EST 1.0 {appli cation} active Triamcinolone Acetonide 0 .1 % eCW1 ([facility]) Triamcinolone Acetonide 1 MG/ML Topical Cream Triamcin olone Acetonide 0.1 % Triamcinolone Acetonide 0.1 % 11/24/2020 12:00:00 AM EST 1.0 {appli cation} active Triamcinolone Acetonide 0 .1 % eCW1 ([facility]) Triamcinolone Acetonide 1 MG/ML Topical Cream Triamcin olone Acetonide 0.1 % Triamcinolone Acetonide 0.1 % 11/24/2020 12:00:00 AM EST 1.0 {appli cation} active Triamcinolone Acetonide 0 .1 % eCW1 ([facility]) Triamcinolone Acetonide 1 MG/ML Topical Cream Triamcin olone Acetonide 0.1 % Triamcinolone Acetonide 0.1 % 11/24/2020 12:00:00 AM EST 1.0 {appli cation} active Triamcinolone Acetonide 0 .1 % eCW1 ([facility]) Triamcinolone Acetonide 1 MG/ML Topical Cream Triamcin olone Acetonide 0.1 % Triamcinolone Acetonide 0.1 % 11/24/2020 12:00:00 AM EST 1.0 {appli cation} suspended Triamcinolone Acetonide 0 .1 % eCW1 ([facility]) Triamcinolone Acetonide 1 MG/ML Topical Cream Triamcin olone Acetonide 0.1 % Triamcinolone Acetonide 0.1 % 11/24/2020 12:00:00 AM EST 1.0 {appli cation} active Triamcinolone Acetonide 0 .1 % eCW1 ([facility]) Triamcinolone Acetonide 1 MG/ML Topical Cream Triamcin olone Acetonide 0.1 % Triamcinolone Acetonide 0.1 % 11/24/2020 12:00:00 AM EST 1.0 {appli cation} active Triamcinolone Acetonide 0 .1 % eCW1 ([facility]) Triamcinolone Acetonide 1 MG/ML Topical Cream Triamcin olone Acetonide 0.1 % Triamcinolone Acetonide 0.1 % 11/24/2020 12:00:00 AM EST 1.0 {appli cation} active Triamcinolone Acetonide 0 .1 % eCW1 ([facility]) Triamcinolone Acetonide 1 MG/ML Topical Cream Triamcin olone Acetonide 0.1 % Triamcinolone Acetonide 0.1 % 11/24/2020 12:00:00 AM EST 1.0 {appli cation} active Triamcinolone Acetonide 0 .1 % eCW1 ([facility]) Triamcinolone Acetonide 1 MG/ML Topical Cream Triamcin olone Acetonide 0.1 % Triamcinolone Acetonide 0.1 % 11/24/2020 12:00:00 AM EST 1.0 {appli cation} active Triamcinolone Acetonide 0 .1 % eCW1 ([facility]) Triamcinolone Acetonide 1 MG/ML Topical Cream Triamcin olone Acetonide 0.1 % Triamcinolone Acetonide 0.1 % 11/24/2020 12:00:00 AM EST 1.0 {appli cation} suspended Triamcinolone Acetonide 0 .1 % eCW1 ([facility]) valacyclovir 1000 MG Oral Tablet Valacyclovir HCl 1 GM Valac yclovir HCl 1 GM 09/29/2020 12:00:00 AM EST 1.0 {tablet} active Valacyclovir HCl 1 GM eCW1 ([facility]) valacyclovir 1000 MG Oral Tablet Valacyclovir HCl 1 GM Valac yclovir HCl 1 GM 09/29/2020 12:00:00 AM EST 1.0 {tablet} active Valacyclovir HCl 1 GM eCW1 ([facility]) valacyclovir 1000 MG Oral Tablet Valacyclovir HCL 09/29/2020 12:00: 00 AM EST active MEDENT ([facility], ) valacyclovir 1000 MG Oral Tablet valACYclovir HCl 1 GM valAC Yclovir HCl 1 GM 09/29/2020 12:00:00 AM EST 1.0 {tablet} suspende d valACYclovir HCl 1 GM eCW1 ([facility]) valacyclovir 1000 MG Oral Tablet Valacyclovir HCl 1 GM Valac yclovir HCl 1 GM 09/29/2020 12:00:00 AM EST 1.0 {tablet} active Valacyclovir HCl 1 GM eCW1 ([facility]) valacyclovir 1000 MG Oral Tablet Valacyclovir HCl 1 GM Valac yclovir HCl 1 GM 09/29/2020 12:00:00 AM EST 1.0 {tablet} active Valacyclovir HCl 1 GM eCW1 ([facility]) valacyclovir 1000 MG Oral Tablet valACYclovir HCl 1 GM valAC Yclovir HCl 1 GM 09/29/2020 12:00:00 AM EST 1.0 {tablet} active valACYclovir HCl 1 GM eCW1 ([facility]) valacyclovir 1000 MG Oral Tablet valACYclovir HCl 1 GM valAC Yclovir HCl 1 GM 09/29/2020 12:00:00 AM EST 1.0 {tablet} active valACYclovir HCl 1 GM eCW1 ([facility]) valacyclovir 1000 MG Oral Tablet Valacyclovir HCl 1 GM Valac yclovir HCl 1 GM 09/29/2020 12:00:00 AM EST 1.0 {tablet} active Valacyclovir HCl 1 GM eCW1 ([facility]) valacyclovir 1000 MG Oral Tablet Valacyclovir HCl 1 GM Valac yclovir HCl 1 GM 09/29/2020 12:00:00 AM EST 1.0 {tablet} active Valacyclovir HCl 1 GM eCW1 ([facility]) valacyclovir 1000 MG Oral Tablet valACYclovir HCl 1 GM valAC Yclovir HCl 1 GM 09/29/2020 12:00:00 AM EST 1.0 {tablet} suspende d valACYclovir HCl 1 GM eCW1 ([facility]) valacyclovir 1000 MG Oral Tablet valACYclovir HCl 1 GM valAC Yclovir HCl 1 GM 09/29/2020 12:00:00 AM EST 1.0 {tablet} suspende d valACYclovir HCl 1 GM eCW1 ([facility]) valacyclovir 1000 MG Oral Tablet Valacyclovir HCl 1 GM Valac yclovir HCl 1 GM 09/29/2020 12:00:00 AM EST 1.0 {tablet} active Valacyclovir HCl 1 GM eCW1 ([facility]) valacyclovir 1000 MG Oral Tablet valACYclovir HCl 1 GM valAC Yclovir HCl 1 GM 09/29/2020 12:00:00 AM EST 1.0 {tablet} active valACYclovir HCl 1 GM eCW1 ([facility]) valacyclovir 1000 MG Oral Tablet valACYclovir HCl 1 GM valAC Yclovir HCl 1 GM 09/29/2020 12:00:00 AM EST 1.0 {tablet} active valACYclovir HCl 1 GM eCW1 ([facility]) valacyclovir 1000 MG Oral Tablet valACYclovir HCl 1 GM valAC Yclovir HCl 1 GM 09/29/2020 12:00:00 AM EST 1.0 {tablet} active valACYclovir HCl 1 GM eCW1 ([facility]) valacyclovir 1000 MG Oral Tablet valACYclovir HCl 1 GM valAC Yclovir HCl 1 GM 09/29/2020 12:00:00 AM EST 1.0 {tablet} active valACYclovir HCl 1 GM eCW1 ([facility]) valacyclovir 1000 MG Oral Tablet Valacyclovir HCl 1 GM Valac yclovir HCl 1 GM 09/29/2020 12:00:00 AM EST 1.0 {tablet} active Valacyclovir HCl 1 GM eCW1 ([facility]) valacyclovir 1000 MG Oral Tablet valACYclovir HCl 1 GM valAC Yclovir HCl 1 GM 09/29/2020 12:00:00 AM EST 1.0 {tablet} active valACYclovir HCl 1 GM eCW1 ([facility]) valacyclovir 1000 MG Oral Tablet Valacyclovir HCl 1 GM Valac yclovir HCl 1 GM 09/29/2020 12:00:00 AM EST 1.0 {tablet} active Valacyclovir HCl 1 GM eCW1 ([facility]) valacyclovir 1000 MG Oral Tablet valACYclovir HCl 1 GM valAC Yclovir HCl 1 GM 09/29/2020 12:00:00 AM EST 1.0 {tablet} active valACYclovir HCl 1 GM eCW1 ([facility]) valacyclovir 1000 MG Oral Tablet Valacyclovir HCl 1 GM Valac yclovir HCl 1 GM 09/29/2020 12:00:00 AM EST 1.0 {tablet} active Valacyclovir HCl 1 GM eCW1 ([facility]) valacyclovir 1000 MG Oral Tablet Valacyclovir HCl 1 GM Valac yclovir HCl 1 GM 09/29/2020 12:00:00 AM EST 1.0 {tablet} active Valacyclovir HCl 1 GM eCW1 ([facility]) valacyclovir 1000 MG Oral Tablet Valacyclovir HCl 1 GM Valac yclovir HCl 1 GM 09/29/2020 12:00:00 AM EST 1.0 {tablet} active Valacyclovir HCl 1 GM eCW1 ([facility]) valacyclovir 1000 MG Oral Tablet Valacyclovir HCl 1 GM Valac yclovir HCl 1 GM 09/29/2020 12:00:00 AM EST 1.0 {tablet} active Valacyclovir HCl 1 GM eCW1 ([facility]) valacyclovir 1000 MG Oral Tablet Valacyclovir HCl 1 GM Valac yclovir HCl 1 GM 09/29/2020 12:00:00 AM EST 1.0 {tablet} active Valacyclovir HCl 1 GM eCW1 ([facility]) valacyclovir 1000 MG Oral Tablet valACYclovir HCl 1 GM valAC Yclovir HCl 1 GM 09/29/2020 12:00:00 AM EST 1.0 {tablet} suspende d valACYclovir HCl 1 GM eCW1 ([facility]) valacyclovir 1000 MG Oral Tablet Valacyclovir HCl 1 GM Valac yclovir HCl 1 GM 09/29/2020 12:00:00 AM EST 1.0 {tablet} active Valacyclovir HCl 1 GM eCW1 ([facility]) valacyclovir 1000 MG Oral Tablet Valacyclovir HCl 1 GM Valac yclovir HCl 1 GM 09/29/2020 12:00:00 AM EST 1.0 {tablet} active Valacyclovir HCl 1 GM eCW1 ([facility]) valacyclovir 1000 MG Oral Tablet Valacyclovir HCl 1 GM Valac yclovir HCl 1 GM 09/29/2020 12:00:00 AM EST 1.0 {tablet} active Valacyclovir HCl 1 GM eCW1 ([facility]) valacyclovir 1000 MG Oral Tablet valACYclovir HCl 1 GM valAC Yclovir HCl 1 GM 09/29/2020 12:00:00 AM EST 1.0 {tablet} active valACYclovir HCl 1 GM eCW1 ([facility]) Insurance Providers Payer name Policy type / Coverage type Policy ID Covered democrat ID Covered democrat's relationship to yousif Policy Yousif Plan Information Medicaid Dental P [id number] SELF PAY ONLY [id number] SP [id number] [facility] - O/P [id number] 01 [id number] [facility] - O/P [id number] 18 [id number] [facility] [id number] [facility] [id number] [facility] [id number] S [id number] [facility] - O/P [id number] 01 [id number] [facility] [id number] [facility] [id number] ANSI-Not a Secondary Insurance [id number] ANSI-Not a Secondary Insurance [id number] MEDICAID [id number] ANSI-Not a Secondary Insurance [id number] ANSI-Medicaid [id number] MEDICAID [id number] S [id number] [facility] [id number] [facility] [id number] ANSI-Medicaid [id number] Problems, Conditions, and Diagnoses Code Display Name Description Problem Type Effective Dates Data Source(s) T38678 Unspecified asthma, uncomplicated Unspecified as thma, uncomplicated Diagnosis 07/02/2021 08:59:00 PM EDT [facility] [id number] Nicotine dependence, cigarettes, uncompl icated Nicotine dependence, cigarettes, uncomplicated Diagnosis 07/02/2021 08:59:00 PM EDT [facility] R6884 Jaw pain Jaw pain Diagnosis 07/02/2021 08:59:00 PM ED T [facility] 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 Diagnosis 10/26/2020 03:02:00 P [facility] B9689 Other specified bacterial ag ents as the cause of diseases classified elsewhere Other specified bacterial agents as the cause of diseases classified elsewhere Diagnosis 10/26/2020 03:02:00 PM [facility] J208 Acute bronchitis due to other specified organisms Acute bronchitis due to other specified organisms Diagnosis 10/26/2020 03:02:00 PM [facility] R0789 Other chest pain Other chest pain Diagnosis 10/26/2020 03 :02:00 PM [facility] N939 Abnormal uterine and vaginal bleeding, u nspecified Abnormal uterine and vaginal bleeding, unspecified Diagnosis 09/26/2020 04:48:00 PM [facility] R102 Pelvic and perineal pain Pelvic and perineal pain Diag nosis 09/26/2020 04:48:00 PM [facility] G93.89 87722416 Calcium deposits of brain Problem 12/22/2020 12:00:00 AM EST eCW1 ([facility]) [id number] Dizziness Dizziness Problem 11/27/2020 12:00:00 AM ES T MEDENT ([facility] ) 78193209 Headache Headache Problem 11/27/2020 12:00:00 AM ES T [facility] ([facility] ) [id number] MRI scan abnormal MRI scan abnormal Problem 11/27 12:00:00 AM EST [facility] ([facility]) L20.9 02691661 Atopic dermatitis, mild Problem 11/24/2020 1 2:00:00 AM EST eCW1 ([facility]) L20.84 27647135 Intrinsic eczema Problem 11/24/2020 12:00:00 AM EST eCW1 ([facility]) F31.62 828056539 Bipolar disorder, current episode mixed, moderate Problem 10/27/2020 12:00:00 AM EST eCW1 ([facility]) R93.89 664539946 Abnormal findings on imaging test Problem 10/27/2020 12:00:00 AM EST eCW1 ([facility]) A60.04 842619711 Herpes simplex virus (HSV) infection of v agina Problem 09/29/2020 12:00:00 AM EST eCW1 ([facility]) Surgeries/Procedures Procedure Description Date Indications Data Source(s) CHEMODNRVTJ [facility] INNERVATED FACIAL NRV 07/05/2021 12:00:00 AM EDT MEDENT ([facility]) OFFICE OUTPATIENT VISIT 25 MINUTES 06/11/2021 12:00:00 AM EDT MED[facility] ([facility]) OFFICE OUTPATIENT VISIT 25 MINUTES 02/26/2021 12:00:00 AM EDT [facility] ([facility]) [facility] 02/21/2021 12:00:00 AM EDT MED[facility] ([facility]) Magnetic Resonance Angiogtaphy Head W/O Contrast Material(S) 12/15/2020 12:00:00 AM EST [facility] ([facility]) Magnetic Resonance Angiogtaphy Head W/O Contrast Material(S) 12/15/2020 12:00:00 AM EST [facility] ([facility]) Magnetic Resonance Angiography Neck W/O Contrast Materials 12/15/2020 12:00:00 AM EST [facility] ([facility]) Magnetic Resonance Angiography Neck W/O Contrast Materials 12/15/2020 12:00:00 AM EST [facility] ([facility]) MRI BRAIN BRAIN STEM W/O CONTRAST MATERIAL 12/15/2020 12:00:00 AM EST [facility] ([facility]) MRI BRAIN BRAIN STEM W/O CONTRAST MATERIAL 12/15/2020 12:00:00 AM EST [facility] ([facility]) ELECTROENCEPHALOGRAM W/REC AWAKE&ASLEEP 12/01/2020 12: 00:00 AM EST [facility] ([facility]) ELECTROENCEPHALOGRAM W/REC AWAKE&ASLEEP 12/01/2020 12: 00:00 AM EST MED[facility] ([facility]) Results ID Date Data Source [id number] 07/03/2021 07:31:00 PM EDT [facility] [place] [address] PHONE: [phone] FAX: [phone] Name .................. : RAYMUNDO RECINOS Acct Number.................. : [id number] ROOM. ................. : [address] Number ................... : [id number] Stay type ............. : E/R Discharge Date......... ... : 07/03/21 Admit Date ......... : 07/02/21 Admit Phys .................... : MIRIAMRI Date of ....... : 2000 Family Phys ................... : ROSALINO GARCIA Phone .................. : [phone] Age ................................ : 20 Film# .................. .:[id number] Sex ................................. : F Unsigned transcriptions are preliminary reports and do not represent a medical or legal document MANDIBLE COMP-4 OR MORE VIEWS 62865 COMPLETE:07/03/21 01:49 DLA 64869 Reason(s): pain on the left mandible possible [...] rce(s) Supporting Document(s) ID Date Data Source [id number] 07/03/2021 07:13:00 PM EDT [facility] [address] [place] [address] PHONE: [phone] FAX: [phone] Name .................. : RAYMUNDO RECINOS Acct Number.................. : [id number] ROOM. ................. : [address] Number ................... : [id number] Stay type ............. : E/R Discharge Date......... ... : 07/03/21 Admit Date ......... : 07/02/21 Admit Phys .................... : [facility] Date of ....... : 2000 Family Phys ................... : ROSALINO GARCIA Phone . ................. : [phone] Age ................................ : 20 Film# .................. .:[id number] Sex ................................. : F Unsigned transcriptions are preliminary reports and do not represent a medical or legal document TMJ BILAT 21453 COMPLETE:07/03/21 02:57 DLA 78898 Reason(s): Pain Study: TMJ Number of views: [...] rce(s) Supporting Document(s) ID Date Data Source [id number] 07/02/2021 08:59:00 PM EDT [facility] 1 OrderSheet [facility] Emergency Department [address] [place] [address] Phone #: ext- [phone] 07/02/2021 20:49 Patient: [...] rce(s) Supporting Document(s) ID Date Data Source [id number] 07/02/2021 08:59:00 PM EDT [place] [address] Medication Reconciliation Report [facility] Emergency Department [address] [place] [address] Phone #: [facility]- [phone] 07/02/2021 20:49 [id number] Sex: F : 2000 Age: 20yWeight: 50.8 [...] rce(s) Supporting Document(s) ID Date Data Source [id number] 07/02/2021 08:59:00 PM EDT [facility] 1 Medication Administration Record [facility] Emergency Department [address] [place] [address] Phone #: ext- [phone] 07/02/2021 20:49 Patient: JORJE FONSECA Sex: F : 2000 Age: 20yWeight: 50.8 kgHeight/Length: 62 inBMI: 20.5ALLERGIES: Lidocaine, Cefaclor, Clindamycin HClDate/Time Medication Administered Medication Ordered Name Value Range Interpretation Code Description Data Tasha rce(s) Supporting Document(s) ID Date Data Source [id number] 07/02/2021 08:59:00 PM EDT [facility] 1 General Instructions [facility] Emergency Department [address] [place] [address] Phone #: ext- [phone] 07/02/2021 20:49 Patient: [...] not prescribed for pain, you can take owfwuh-uvl-jxwcwhs pain medicine such as ibuprofen or acetaminophen. Use these as directed on thelabel.Follow-up careFollow up with your healthcare provider or our staff as directed.When to seek medical adviceCall your healthcare provider for any of the followin General Instructions [facility] Emergency Department [address] [place] [address] Phone #: ext- [phone] 07/02/2021 20:49 Patient: JORJE FONSECA Sex: F : 2000 Age: 20y Pain changes in pattern Pain doesn't lessen or gets worse New symptoms appear Fever of 100.4F (38C) or higher, or as directed by your healthcare provider [phone] [employer]. [address] [place] [address]. All rights reserved. This information is not [...] Rest the jaw by avoiding crunchy or cmxm-yb-brev foods. Don't eat hard or sticky candies. Soft foods and liquids are easier on the jaw. Protect your jaw while yawning. If you need to yawn, put your fist under your chin to prevent your mouth from opening up too wide. 3 [facility] Instructions [facility] [address] [place] [address] Phone #: ext- [phone] 07/02/2021 20:49 Patient: [...] not respond to the 4 General Instructions [facility] Emergency Department [address] [place] [address] Phone #: hsh- [phone] 07/02/2021 20:49 Patient: JORJE FONSECA Sex: F : 2000 Age: 20yabove simple measures, talk with your healthcare provider about a referral for stress management.If X-rays were done, they will be reviewed by a specialist. You will be notified of the results, especiallyif they affect treatment.Call [id number] if any of these occur: Trouble breathing [...] or as directed by your healthcare provider [phone] [employer]. [address] [place] [address], [place] [address]. All rights reserved. This information is not intended as asubstitute for professional medical care. Always follow your healthcare professional's instructions. You have been given the following additional information: Pain, Acute, Uncertain Cause TMJ Syndrome(Electronically signed by Elizabeth Styles 07/03/2021 03:45) Name Value Range Interpretation Code Description Data Tasha rce(s) Supporting Document(s) ID Date Data Source [id number] 07/02/2021 08:59:00 PM EDT [facility] 1 Clinical Report - Nurses [facility] Emergency Department [address] [place] [address] Phone #: [phone] pxp- [phone] 07/02/2021 20:49 Patient: JORJE FONSECA Sex: F : 2000 Age: 20yTRIAGEArrived by private vehicle. Historian: patient.Acuity: LEVEL 4.Alert. No acute distress.Location of injuries: left mandible. Occurred 23:50 06/27/2021. ( PT states Friday night she had aPTSD attack and woke up on the floor with left jaw pain. [facility] and was told shehad TMJ. The pain is getting worse so she wanted to get a second opinion.).Treatment [employer]:Seen within the last 30 days at another [...] personality disorder. 2 Clinical Report - Nurses [facility] Emergency Department [address] [place] [address] Phone #: ext- [phone] 07/02/2021 20:49 Patient: [...] waiting room. --20:57 07/02/21 Rosalina Dickey R.N.PHYSICAL [id number] 07/03/21. Ambulatory to room.GENERAL / NEURO / PSYCH: Alert.HEENT: No signs of head trauma. ( speech clear).RESPIRATORY: Respirations not labored. 3 Clinical Report - Nurses [facility] Emergency Department [address] [place] [address] Phone #: ext- [phone] 07/02/2021 20:49 Patient: JORJE FONSECA Sex: F [...] Patient verbalized understanding. Written instructions provided in Indian. The patient was discharged by the physician. She was discharged home. She left ambulatory and via private vehicle. Marketing Services Coordinator driving. --03:03 07/03/21 Maggy Estrada R.N. 03:02 07/03/21. BP: 99/74. MAP: 82. HR: 72. RR: 18. O2 saturation: 99%. Temp: 99.1 F. Pain level now: 01/24. --03:03 07/03/21 Maggy Estrada R.N.Locked/Released at 07/03/2021 05:11 by Maggy Estrada R.N. Name Value Range Interpretation Code Description Data Tasha rce(s) Supporting Document(s) ID Date Data Source [id number] 07/02/2021 08:59:00 PM EDT [facility] 1 Clinical Report - Physicians/Mid Levels [facility] Emergency Department [address] [place] [address] Phone #: ext- [phone] 07/02/2021 20:49 Patient: JORJE FONSECA Sex: F [...] pain on her jaw. she went to [facility] and was told that she has TMJ. she is able to take and open and close her mouth. she states that her left jaw is not the same as her right jaw. [facility] did not do an Xray on her [...] Cefaclor. 2 Clinical Report - Physicians/Mid Levels [facility] Emergency Department [address] [place] [address] Phone #: ext- [phone] 07/02/2021 20:49 Patient: JORJE FONSECA Sex: F [...] treatment. 3 Clinical Report - Physicians/Mid Levels [facility] Emergency Department [address] [place] [address] Phone #: ext- [phone] 07/02/2021 20:49 Patient: [...] GENITAL CULTURE 05/11/2021 12:00:00 AM EDT eCW1 ([facility]) Name Value Range Interpretation Code Description Data Tasha rce(s) Supporting Document(s) GENITAL CULTURE eCW1 ([facility]) ID Date Data Source [id number] 04/04/2021 12:00:00 AM EDT [facility] Name Value Range Interpretation Code Description Data Tasha rce(s) Supporting Document(s) SARS-CoV2 Rapid Antigen Negative [facility] This lab was ordered by [facility] and reported by [facility]. ID Date Data Source GASTROINTESTINAL GI PANEL (GIPANEL) 11/20/2020 12:00:00 AM EST eCW1 ([facility]) Name Value Range Interpretation Code Description Data Tasha rce(s) Supporting Document(s) This Gastrointestinal PCR Panel detects the following bacteria, GASTROINTESTINAL (GI) PANEL W1 ([facility]) ID Date Data Source [id number] 10/27/2020 03:09:00 PM EST [facility] [address] [place] [address] PHONE: [phone] FAX: [phone] Name .................. : RAYMUNDO RECINOS Acct Number.................. : [id number] ROOM. ................. : TR-06 Number ................... : [id number] Stay type ............. : E/R Discharge Date......... ... : 10/26/20 Admit Date .... ..... : 10/26/20 Admit Phys .................... : COONEYNORM Date of ....... : 2000 Family Phys ................... : ROSALINO GARCIA Phone .................. : [phone] Age ................................ : 20 Film# .................. .:[id number] Sex ................................. : F Unsigned transcriptions are preliminary reports and do not represent a medical or legal document CT HEAD W/O CONTRAST [id number] COMPLETE:10/26/20 17:08 [place] 11156 Reaso n(s): Dizziness CT OF THE HEAD [...] 00:10, Dictation Date: Page 1 of 2 [facility] [address] [place] [address] PHONE: [phone] FAX: [phone] Name .................. : RAYMUNDO RECINOS Acct Number.................. : [id number] ROOM. ................. : TR-06 MR Number ................... : [id number] Stay type ............. : E/R Discharge Date......... ... : 10/26/20 Admit Date ......... : 10/26/20 Admit Phys .................... : COONEYNORM Date of ....... : 2000 Family Phys ................... : ROSALINO JOSE Phone .................. : [phone] Age ................................ : 20 Film# .................. .:[id number] Sex ................................. : F Unsigned transcriptions are preliminary reports and do not represent a medical or legal document CT HEAD W/O CONTRAST 94695 COMPLE TE:10/26/20 17:08 [place] 35943 Reason(s): Dizziness Copy for: LOUISE KATZ via fax Copy for: EMERGENCY DEPT via modem Copy for: [facility] REC DISCHARGED Page 2 of 2 Name Value Range Interpretation Code Description Data Tasha rce(s) Supporting Document(s) ID Date Data Source [id number] 10/27/2020 03:09:00 [place] [address] PHONE: [phone] FAX: [phone] Name .................. : RAYMUNDO RECINOS Acct Number.................. : [id number] ROOM. ................. : TR-06 MR Number ................... : [id number] Stay type ............. : E/R Discharge Date......... ... : 10/26/20 Admit Date ......... : 10/26/20 Admit Phys .................... : COONEYNORM Date of ....... : 2000 Family Phys ................... : ROSALINO JOSE Phone .................. : [phone] Age ................................ : 20 Film# .................. .:[id number] Sex ................................. : F Unsigned transcriptions are preliminary reports and do not represent a medical or legal document CHEST 2 VIEWS 03738 COMPLETE:10/26/20 17:08 [place] 08138 Reason(s): Chest Pain CHEST X-RAY: PA AND [...] via fax Copy for: EMERGENCY DEPT [place] [facility] Copy for: 710 MED REC DISCHARGED Page 1 of 1 Name Value Range Interpretation Code Description Data Tasha rce(s) Supporting Document(s) ID Date Data Source [id number] 10/27/2020 02:41:00 PM [facility] [address] [place] [address] PHONE: [phone] FAX: [phone] Name .................. : RAYMUNDO RECINOS Acct Number.................. : [id number] ROOM. ................. : TR-06 MR Number ................... : [id number] Stay type ............. : E/R Discharge Date......... ... : 10/26/20 Admit Date ......... : 10/26/20 Admit Phys .................... : COONEYNORM Date of ....... : 2000 Family Phys ................... : ROSALINO MA Phone .................. : [phone] Age ................................ : 20 Film# .................. .:[id number] Sex ................................. : F Unsigned transcriptions are preliminary reports and do not represent a medical or legal document [place] [address] COMPLETE:10/26/20 19:10 [facility] [address] Reason(s): chest pain w/ dizziness CTA OF [...] rce(s) Supporting Document(s) ID Date Data Source [id number] 10/27/2020 02:41:00 PM EST [facility] [address] [place] [address] PHONE: [phone] FAX: [phone] Name .................. : RAYMUNDO RECINOS Acct Number.................. : [id number] ROOM. ................. : TR-06 Number ................... : [id number] Stay type ............. : E/R Discharge Date......... ... : 10/26/20 Admit Date ......... : 10/26/20 Admit Phys .................... : COONEYNORM Date of ....... : 2000 Family Phys ................... : ROSALINO GARCIA Phone .................. : [phone] Age ................................ : 20 Film# .................. .:[id number] Sex ................................. : F Unsigned transcriptions are preliminary reports and do not represent a medical or legal document [place] [address] COMPLETE:10/26/20 19:10 [place] [address]28 Reason(s): chest pain w/ dizziness CTA OF [...] EMERGENCY DEPT via modem Copy for: [address] [facility] REC Page 1 of 2 [place] [address] PHONE: [phone] FAX: [phone] Name .................. : RAYMUNDO RECINOS Acct Number.................. : [id number] ROOM. ................. : TR-06 MR Number ................... : [id number] Stay type ............. : E/R Discharge Date......... ... : 10/26/20 Admit Date ......... : 10/26/20 Admit Phys .................... : COONEYNORM Date of ....... : 2000 Family Phys ................... : ROSALINO MA Phone .................. : [phone] Age ................................ : 20 Film# .................. .:[id number] Sex ................................. : F Unsigned transcriptions are preliminary reports and do not represent a medical or legal document [place] [address] COMPLETE:10/26/20 19:10 [place] [address] Reason(s): chest pain w/ dizziness DISCHARGED Page 2 of 2 Name Value Range Interpretation Code Description Data Tasha rce(s) Supporting Document(s) ID Date Data Source [id number] 10/27/2020 01:27:00 [place] [address] RESPIRATORY CARE REPORT ==== ---------NAME------- NUMBER SEX AGE ADMIT DISC. XRAY# F/C XIMENAJOY RECINOS [id number] F 20 10/26/20 10/26/20 [id number] SB4 E/R DATE OF : 2000 M/R# [id number] #: [id number] LOCATION: EMERGENCY DEPT EKG [id number] COMPLE TE:10/27/20 07:27 M [id number] PHYSICIAN: SRINIVAS GIL CH Name Value Range Interpretation Code Description Data Tasha rce(s) Supporting Document(s) ID Date Data Source [id number] 10/26/2020 03:02:00 PM EST [facility] 1 OrderSheet [facility] Emergency Department [address] [place] [address] Phone #: ext- [phone] 10/26/2020 15:01 Patient: JORJE FONSECA Sex: F : 2000 Age: 20yWEIGHT:58.0 kg (S) HEIGHT:62 inches (S) BMI:23.4ALLERGIES: Cecor, LidocainesCHIEF COMPLAINT: discomfortDIAGNOSIS: Atypical chest pain, Problem, BronchitisLAB ORDERSOrder Description Priority Entered Acknowledged InitialedCBC w Diff STAT 15:39 10/26/2020 15:39 [facility] property economist, Michael ER P.A.-C; Ggfc7SHA STAT 15:39 10/26/2020 15:39 [facility] property economist, Michael ER P.A.-C; Nwjs0Vkqtya STAT 15:39 10/26/2020 15:39 [facility] property economist, Michael ER P.A.-C; Dpek5WC/PTT STAT 15:39 10/26/2020 15:39 [facility] property economist, Michael ER P.A.-C; Dwfv5Couswojj-N STAT 15:39 10/26/2020 15:39 [facility] property economist, Michael ER P.A.-C; Ogen8V-Xegex STAT 15:39 10/26/2020 15:39 [facility] property economist, Michael ER P.A.-C; Ggvd9IED STAT 15:39 10/26/2020 15:39 [place] Jayminda Gil property economist, Michael RUBIO P.A.-C; Ddkp0Rhejgdgibi (Clean STAT 15:39 10/26/2020 15:39 [facility] Vickey Gil property economist, Michael RUBIO P.A.-C; Fiuw3HLT Serum Qual STAT 15:39 10/26/2020 15:39 [place] Vickey Gil property economist, Michael RUBIO P.A.-C; [id number] STUDY ORDERSOrder Description Priority Entered Acknowledged InitialedChest 2 View STAT 16:47 10/26/2020 16:55 Peter 2 OrderSheet [facility] Emergency Department [address] [place] [address] Phone #: ext- [phone] 10/26/2020 15:01 Patient: [...] Entered Acknowledged InitialedBlood Pressure 15:39 10/26/2020 15:39 [place] property economist, Michael ER P.A.-C; Tzii1Qzbhuok Monitor 15:39 10/26/2020 15:39 [place](continuous) Vickey Gil property economist, Michael ER P.A.-C; Ubrh0NKC 15:39 10/26/2020 15:39 [place] Vickey Gil property economist, Michael ER P.A.-C; Xlfe9ONI 15:39 10/26/2020 15:39 [place] Arcenio Gil property economist, Michael RAMIRO P.A.-C; Jovy7Blkvis Old EKG 15:39 10/26/2020 15:39 [place] Vickey Gil property economist, Michael RAMIRO P.A.-C; Klwx8Ohgmje Old Records 15:39 10/26/2020 15:39 [place] Vickey Gil property economist, Michael ER 3 OrderSheet [facility] Emergency Department [address] [place] [address] Phone #: ext- [phone] 10/26/2020 15:01 Patient: JORJE FONSECA Sex: F : 2000 Age: 20y P.A.-C; Mjiq8Xurkd oximeter 15:39 10/26/2020 15:39 [place](Continuous) Vickey Gil property economist, Michael ER P.A.-C; Xvcr8Umhjqh Lock 15:39 10/26/2020 15:49 Matt Peña RN P.A.-C;Vitals 15:39 10/26/2020 15:39 [place] Vickey Gil property economist, Michael ER P.A.-C; Tech1-- (gait test) 18:40 10/26/2020 18:47 Matt Peña RN P.A.-Mingo;[Electronically signed by Matt Peña RN (20:33 12)][Electronically signed by Vickey Gil P.A.-C (21:53 10/26/2020)][Electronically locked by Matt Peña RN (20:33 10/26/2020)] Name Value Range Interpretation Code Description Data Tasha rce(s) Supporting Document(s) ID Date Data Source [id number] 10/26/2020 03:02:00 PM EST [facility] 1 Medication Reconciliation Report [facility] Emergency Department [address] [place] [address] Phone #: ext- [phone] 10/26/2020 15:01 Patient: [...] 6 tablet. Refills: 0. Substitution permitted.Pharmacy - [facility] [address] ; [place] [address]. .Zyrtec 10 mg tablet Take 1 tablet once a day for 15 days -- Dispense 15 tablet. Refills: 0. Substitutionpermitted.Pharmacy - [facility] [address] ; [place] [id number]. . -- Vickey Gil P.A.-C Name Value Range Interpretation Code Description Data Tasha rce(s) Supporting Document(s) ID Date Data Source [id number] 10/26/2020 03:02:00 PM [place] [address] Medication Administration Record [facility] Emergency Department [address] [place] [address] Phone #: ext- [phone] 10/26/2020 15:01 Patient: JORJE FONSECA Sex: F : 2000 Age: 20yWeight: 58.0 kgHeight/Length: 62 inBMI: 23.4ALLERGIES: Lidocaines, Cecor Date/Time Medication Administered Medication OrderedStart IV NS IV NS : Bolus 500 mL, then 22544:50 10/26/2020 Dose: IV Fluids mL/Yolanda Peña RN Rate: 100 mL/hr over 5 hour(s)---- Bolus: 500 mL over 20 minute(s)Stop Dispensed: 1000 mL bag20:26 10/26/2020 Site: #1 left Octavio Pñea RN Name Value Range Interpretation Code Description Data Tasha rce(s) Supporting Document(s) ID Date Data Source [id number] 10/26/2020 03:02:00 PM [facility] 1 General Instructions [facility] Emergency Department [address] [place] [address] Phone #: ext- [phone] 10/26/2020 15:01 Patient: JORJE FONSECA [facility]#: [id number] Sex: F : 2000 Age: 20yAtypical chest [...] 6 tablet. Refills: 0. Substitution permitted.Pharmacy - [facility] [address] ; [place] [address]. .Zyrtec 10 mg tablet Take 1 tablet once a day for 15 days -- Dispense 15 tablet. Refills: 0. Substitutionpermitted.[facility] [address] ; [place] [address]. .Follow-up:Return to the emergency department as needed. Follow up with your healthcare provider in about twodays. Call for an appointment.Understanding of the discharge instructions verbalized by patient.Follow-up with: Jefry Morales MD, Cardiology, , [address] [place] [address], [id number] Follow up. Call for the next available appointment. Reason for referral: evaluation and treatment.Follow-up with: [facility], , [id number], [address] [place] [address], [facility] 2 General Instructions [facility] Emergency Department [address] [place] [address] Phone #: ext- [phone] 10/26/2020 15:01 Patient: [...] Anxiety and panic disorders 3 General Instructions [facility] Emergency Department [address] [place] [address] Phone #: ext- [phone] 10/26/2020 15:01 Patient: [...] better within 24 hours, or as advised.Call [phone] if any of these occur: A change [...] Swelling, pain or redness in one leg [phone] [employer]. [address] [place] [address]. All rights reserved. This information is not intended as asubstitute for professional medical care. Always follow your healthcare professional's instructions.Bronchitis, Antibiotic Treatment (Adult) 4 General Instructions [facility] Emergency Department [address] [place] [address] Phone #: ext- [phone] 10/26/2020 15:01 Patient: JORJE FONSECA Becca cct#: [id number] Sex: F : 2000 Age: 20yBronchitis is [...] away from secondhand smoke. 5 General Instructions [facility] Emergency Department [address] [place] [address] Phone #: ext- [phone] 10/26/2020 15:01 Patient: JORJE FONSECA Sex: F : 2000 Age: 20y You may use anbq-lwx-qipxmft medicines to control fever or pain, unless [...] loosen mucus in your nose and lungs. Segl-wvg-fcfizyo cough, cold, and sore- throat medicines will [...] or pain with breathing 6 General Instructions [facility] Emergency Department [address] [place] [address] Phone #: ext- [phone] 10/26/2020 15:01 Patient: JORJE FONSECA Sex: F : 2000 Age: 20y [id number] [employer]. [address] [place] [address]. All rights reserved. This information is not [...] rce(s) Supporting Document(s) ID Date Data Source [id number] 10/26/2020 03:02:00 PM EST [facility] 1 Clinical Report - Nurses [facility] Emergency Department [address] [place] [address] Phone #: uul- [phone] 10/26/2020 15:01 [facility]: [facility]CA [id number] Sex: F : 2000 Age: 20yTRIAGEArrived by private vehicle. Historian: patient.Acuity: LEVEL 3.Chief Complaint: CHEST PAIN and DISCOMFORT and (dizziness, back spasms).Onset. (6 months ago). ( pt states she has had left chest pain for the past 6 months along with dizziness,she feels it may be related to her anxiety, she also reports back and neck spasms).Treatment FINAL INSPECTOR MOTORCYLES:None.SEPSIS SCREEN: SIRS SCREEN NEGATIVE. SEPSIS SCREEN NEGATIVE. [...] to Coronavirus. 2 Clinical Report - Nurses [facility] Emergency Department [address] [place] [address] Phone #: ext- [phone] 10/26/2020 15:01 Patient: [...] monitor and pulse oximeter placed on patient; school child care attendant- Lead II; monitoralarms on. Patient gowned. Head of bed elevated. Reassurance given. Call light placed in reach.Side rails up x 2. Bed placed in lowest position. Patient ready for evaluation- ED physician notified.--15:17 10/26/20 Matt Peña RN EKG time: (15:08 10/26/2020). EKG was performed by a tech and shown to the PARichard Gil. 3 Clinical Report - Nurses [facility] Emergency Department [address] [place] [address] Phone #: ext- [phone] 10/26/2020 15:01 Patient: JORJE FONSECA Sex: F : 2000 Age: 20y --15:18 10/26/20 [place] property economistMichael Gillis ER Tech1 15:32 10/26/2020 Site #1 [...] and CT by wheelchair with mask and service center technician. --16:57 10/26/20 Matt Peña RN Patient returned from radiology and CT by wheelchair with mask and service center technician. --17:04 10/26/20 Matt Peña RN 17:10 [...] information. Prescription(s) 4 Clinical Report - Nurses [facility] Emergency Department [address] [place] [address] Phone #: ext- [phone] 10/26/2020 15:01 Patient: JORJE FONSECA Sex: F : 2000 Age: 20y sent electronically to pharmacy. Activity restrictions (rest) reviewed. Patient verbalized understanding. Written instructions provided in Indian. The patient was discharged by the physician malt specifications control assistant. She was discharged home and accompanied by commercial finance manager. She left ambulatory and via private vehicle. Marketing Services Coordinator driving. --20:33 10/26/20 Matt Peña RN 20:27 10/26/20. BP: 119/82. MAP: 94. HR: 62. RR: 16. O2 saturation: 100%. Temp: 98.7 F. Pain level now: 02/24. --20:33 10/26/20 Matt Peña RN.Locked/Released at 10/26/2020 20:33 by Matt Peña RN Name Value Range Interpretation Code Description Data Tasha rce(s) Supporting Document(s) ID Date Data Source [id number] 10/26/2020 03:02:00 PM EST [facility] 1 Clinical Report - Physicians/Mid Levels [facility] Emergency Department [address] [place] [address] Phone #: ext- [phone] 10/26/2020 15:01 Patient: [...] Medications: 2 Clinical Report - Physicians/Mid Levels [facility] Emergency Department [address] [place] [address] Phone #: ext- [phone] 10/26/2020 15:01 Patient: JORJE FONSECA Sex: F [...] attending. 3 Clinical Report - Physicians/Mid Levels [facility] Emergency Department [address] [place] [address] Phone #: ext- [phone] 10/26/2020 15:01 Patient: JORJE FONSECA Sex: F [...] 0.70) 4 Clinical Report - Physicians/Mid Levels [facility] Emergency Department [address] [place] [address] Phone #: ext- [phone] 10/26/2020 15:01 Patient: [facility]ORJE [facility]ONSECA [id number] Sex: F : 2000 Age: 20y #BASO [...] Male GFR Interprentation 20-49 yrs >60 mL/min Zluawi34-24 yrs >56 mL/min Normal 60-69 yrs >49 mL/min Normal 70-79yrs>42 mL/min Normal 80 and above >35 mL/min Normal Female GFRInterpretation 20-39 yrs >60 mL/min Normal 40-49 yrs >58 mL/minNormal 50-59 yrs >51 mL/min Normal 60-69 yrs >45 mL/min Oealqk50-33 yrs >39 mL/min Normal 80 and above >32 mL/min NormalLipase: (LESLIE: 10/26/2020 15:11) ( MsgRcvd 10/26/2020 16:42) Final results Test Result Flag Units (Reference) LIPASE 30 U/L (13 - 60)PT/PTT: (LESLIE: 10/26/2020 15:11) ( [facility] 10/26/2020 15:56) Final results Test Result Flag Units (Reference) PROTIME 13.7 SECONDS (11.0 - 15.5) INR 1.00 (0.93 - 1.23) PTT 29.8 SECONDS (24.8 - 36.7) \\BLDo\\INR INTERPRETATION\\BLDx\\ Therapeutic range for Coumadin andrelated oral anticoagulants. -International Normalized Ratio (INR): 2.0 - 3.0 for VenousThrombosis, Pulmonary Embolus, Tissue heart valves, Acute [place] Atrial Fibrillation, Valvular heart diseaseand recurrent Systemic Embolism. - International Normalized Ratio (INR): 2.5 - 3.5 forMechanical Prosthetic valve.Troponin-T: (LESLIE: 10/26/2020 15:11) ( [facility] 10/26/2020 16:29) Final results Test Result Flag Units (Reference) 5 Clinical Report - Physicians/Mid Levels [facility] Emergency Department [address] [place] [address] Phone #: ext- [phone] 10/26/2020 15:01 Patient: JORJE FONSECA Sex: F : 2000 Age: 20y TROPONIN T <0.01 NG/ML (0.00 - 0.10) TROPONIN T0.1 ng/ml Recommended as the clinical threshold value forTroponin T. D-Dimer: (LESLIE: 10/26/2020 15:11) ( [facility] 10/26/2020 15:57) Final results Test Result Flag Units (Reference) D-DIMER QUANT 0.43 ug/mL (0.27 - 0.50) TSH: (LESLIE: 10/26/2020 15:11) ( [facility] 10/26/2020 16:42) Final results [...] Beta-HCG, Qual Serum: (LESLIE: 10/26/2020 15:11) ( [facility] 10/26/2020 16:30) Final results Test Result Flag Units (Reference) HCG SERUM QUAL NEGATIVE (NORMAL: NEGAT HCG SERUM QL REENTER NEGATIVE (NORMAL: NEGAT { KIT LOT # [id number] ){ KIT EXP DATE 08.22.21 ){ PROCEDURAL [...] resuts. 6 Clinical Report - Physicians/Mid Levels [facility] Emergency Department [address] [place] [address] Phone #: ext- [phone] 10/26/2020 15:01 Patient: JORJE FONSECA Sex: F [...] Pt agrees and undestands. Penidng resutls. Discussed [facility] nurse and indicates he has seen pt [...] ganglia). 7 Clinical Report - Physicians/Mid Levels [facility] Emergency Department [address] [place] [address] Phone #: ext- [phone] 10/26/2020 15:01 Patient: [...] Dispense 6 tablet. Refills: 0. Substitution permitted. [facility] [address] ; [place] [address]. . Zyrtec 10 mg tablet Take 1 tablet once a day for 15 days -- Dispense 15 tablet. Refills: 0. Substitution p ermitted. [facility] [address] ; [place] [address]. . Follow-up: Return to the emergency department as needed. Follow up with your healthcare provider in about two days. Call for an appointment. Understanding of the discharge instructions verbalized by patient. Follow-up with: Jefry Morales MD, Cardiology, , [address] [place] [address], [id number] Follow up. Call for the next available appointment. Reason for referral: evaluation and treatment. Follow-up with: [facility], , [id number], [address] [place] [address], [id number] Follow up. Call for the next available appointment. Reason for referral: evaluation, treatment and Based on finding today on head CT. severe dense calcofication bilat basxal ganglia.(Electronically signed by Vickey Gil P.A.-C 10/26/2020 21:53) Name Value Range Interpretation Code Description Data Tasha rce(s) Supporting Document(s) ID Date Data Source [id number] 10/26/2020 04:42:00 PM [facility] Name Value Range Interpretation Code Description Data Tasha rce(s) Supporting Document(s) Thyrotropin [Units/volume] in Serum or Plasma by Detec tion limit <= 0.05 mIU/L 1.35 uIU/mL 0.47 - 5.01 [facility] ID Date Data Source [id number] 10/26/2020 04:42:00 PM [facility] Name Value Range Interpretation Code Description Data Tasha rce(s) Supporting Document(s) Lipase [Enzymatic activity/volume] in Serum or Plasma 30 U/L 13 - 60 [facility] ID Date Data Source [id number] 10/26/2020 04:42:00 PM [facility] Name Value Range Interpretation Code Description Data Tasha rce(s) Supporting Document(s) COMPREHENSIVE METABOLIC PANEL [facility] COMPREHENSIVE METABOLIC PANEL Sodium [Moles/volume] in Serum or Plasma 137 mEq/L 134 - 153 [facility] Potassium [Moles/volume] in Serum or Plasma 4.5 mEq/L 3.6 - 5.0 [facility] Chloride [Moles/volume] in Serum or Plasma 103 mEq/L 98 - 107 [facility] Carbon dioxide, total [Moles/volume] in Serum or Plasma 27 MEQ/L 22 - 30 [facility] Glucose [Mass/volume] in Serum or Plasma 86 MG/DL 65 - 110 [facility] BUN 11 MG/DL 7 - 21 [facility] Creatinine [Mass/volume] in Serum or Plasma 0.7 MG/DL 0.7 - 1.5 [facility] BUN/CREAT 16 8 - 27 [facility] Protein [Mass/volume] in Serum or Plasma 7.5 G/DL 6.3 - 8.2 [facility] Albumin [Mass/volume] in Serum or Plasma 4.8 G/DL 3.9 - 5.0 [facility] Globulin [Mass/volume] in Serum by calculation 2.7 GM/DL 2.4 - 3.2 [facility] A/G RATIO 1.8 0.8 - 2.0 [facility] Calcium [Mass/volume] in Serum or Plasma 9.8 MG/DL 8.4 - 10.2 [facility] Bilirubin.total [Mass/volume] in Serum or Plasma <0.7 MG/DL 0.2 - 1.3 [facility] Alkaline phosphatase [Enzymatic activity/volume] in Serum or Plasma 69 U/L 38 - 126 [facility] Aspartate aminotransferase [Enzymatic activity/volume] in Serum or Plasma 12 U/L 5 - 40 [facility] Alanine aminotransferase [Enzymatic activity/volume] in Seru m or Plasma 11 U/L 7 - 56 [facility] Anion gap 3 in Serum or Plasma 7.0 mmol/L 8.0 - 16.0 L [facility] AGE [address] [facility] al NON-AA GFR >60 mL/min [facility] ital AFR AMER GFR >60 mL/min [facility] Male GFR In terprentation 20-49 [...] >32 mL/min Normal ID Date Data Source [id number] 10/26/2020 04:29:00 PM [facility] Name Value Range Interpretation Code Description Data Tasha rce(s) Supporting Document(s) HCG SERUM QUAL NEGATIVE NORMAL: NEGATIVE [facility] HCG SERUM QL REENTER NEGATIVE NORMAL: NEGATIVE [facility] { KIT LOT # [id number] ){ KIT EXP DATE 08.22.21 ){ PROCEDURAL CONTROL VALID ) ID Date Data Source [id number] 10/26/2020 04:29:00 PM [facility] Name Value Range Interpretation Code Description Data Tasha rce(s) Supporting Document(s) TROPONIN T <0.01 NG/ML 0.00 - 0.10 [facility] ospital TROPONIN T0.1 ng/ml Recommended as the c linical threshold value forTroponin T. ID Date Data Source [id number] 10/26/2020 03:57:00 PM [facility] Name Value Range Interpretation Code Description Data Tasha rce(s) Supporting Document(s) Fibrin D-dimer FEU [Mass/volume] in Platelet poor plasma 0.43 ug /mL 0.27 - 0.50 [facility] ID Date Data Source [id number] 10/26/2020 03:57:00 PM [facility] Name Value Range Interpretation Code Description Data Tasha rce(s) Supporting Document(s) CBC W/AUTOMATED DIFF [facility] COMPLETE BLOOD COUNT Leukocytes [#/volume] in Blood by Automated count 8.8 10^3/uL 4.2 - 1 1.0 [facility] Erythrocytes [#/volume] in Blood by Automated count 4.60 10^6/uL 4. 20 - 5.40 [facility] Hemoglobin [Mass/volume] in Blood 14.1 g/dL 12.0 - 16.0 [facility] Hematocrit [Volume Fraction] of Blood by Automated count 41.1 % 3 7.0 - 47.0 [facility] Erythrocyte mean corpuscular volume [Entitic volume] by Auto mated count 89.3 fL 81.0 - 101 [facility] Erythrocyte mean corpuscular hemoglobin [Entitic mass] by Automated count 30.7 pg 27.0 - 34.0 [facility] Erythrocyte mean corpuscular hemoglobin concentration [Mass/volume] by Automated count 34.3 g/dL 31.0 - 36.0 [facility] Erythrocyte distribution width [Ratio] by Automated count 12.4 % 11.5 - 14.5 [facility] Platelets [#/volume] in Blood by Automated count 332 10^3/uL 150 - 45 0 [facility] Platelet mean volume [Entitic volume] in Blood by Automated count 9.4 fL 7.4 - 10.4 [facility] Neutrophils/100 leukocytes in Blood by Automated count 52.1 % 37. 0 - 80.0 [facility] Lymphocytes/100 leukocytes in Blood by Manual count 39.0 % 25.0 - 40.0 [facility] Monocytes/100 leukocytes in Blood by Automated count 7.1 % 3.0 - 8.0 [facility] Eosinophils/100 leukocytes in Blood by Automated count 1.1 % 0.0 - 7.0 [facility] Basophils/100 leukocytes in Blood by Automated count 0.5 % 0.0 - 2.5 [facility] %IG 0.2 % 0.0 - 0.[address] [facility] al %NRBC 0.0 % 0.0 - 0.0 [facility] al Neutrophils [#/volume] in Blood by Automated count 4.56 10^3/uL 2.00 - 6.90 [facility] Lymphocytes [#/volume] in Blood by Automated count 3.42 10^3/uL 0.60 - 3.40 H [facility] Monocytes [#/volume] in Blood by Automated count 0.62 10^3/uL 0.00 - 0.90 [facility] Eosinophils [#/volume] in Blood by Automated count 0.10 10^3/uL 0.00 - 0.70 [facility] Basophils [#/volume] in Blood by Automated count 0.04 10^3/uL 0.00 - 0.20 [facility] #IG 0.02 10^3/uL 0.00 - 0.10 [facility] #NRBC 0.00 10^3/uL 0.00 - 0.00 [facility] MANUAL DIFF NOT INDICATED [facility] RBC MORPH NOT INDICATED [facility] ID Date Data Source [id number] 10/26/2020 03:56:00 PM EST [facility] Name Value Range Interpretation Code Description Data Tasha rce(s) Supporting Document(s) Prothrombin time (PT) 13.7 SECONDS 11.0 - 15.5 [facility] INR in Platelet poor plasma by Coagulation assay 1.00 0.93 - 1. 23 [facility] aPTT in Blood by Coagulation assay 29.8 SECONDS 24.8 - 36.7 [facility] \\BLDo\\INR INTERPRETATION\\BLDx\\ Therapeutic range for Coumadin and related oral anticoagulants. - International Normalized Ratio (INR): 2.0 - 3.0 for Venous Thrombosis, Pulmonary Embolus, Tissue heart valves, Acute [place] Atrial Fibrillation, Valvular heart disease and recurrent Systemic Embolism. - International Normalized Ratio (INR): 2.5 - 3.5 for Mechanical Prosthetic valve. ID Date Data Source [id number] 10/26/2020 03:54:00 PM EST [facility] Name Value Range Interpretation Code Description Data [facility](s) Supporting Document(s) [facility] SOURCE R [facility] al COLOR yellow NORMAL: Yellow [facility] CLARITY clear NORMAL: Clear [facility] Specific gravity of Urine by Test strip 1.010 1.001 - 1.030 [facility] pH 7 5 - 9 [facility] al Glucose [Mass/volume] in Urine by Test strip NORM NORMAL: Negat [facility] Bilirubin.total [Presence] in Urine by Test strip NEG NORMAL: Negative [facility] Ketones [Presence] in Urine by Test strip NEG NORMAL: Negative [facility] Protein [Mass/volume] in Urine by Test strip NEG NORMAL: Negat [facility] Nitrite [Presence] in Urine by Test strip NEG NORMAL: Negative [facility] BLOOD NEG NORMAL: Negative [facility] [facility] Leukocyte esterase [Presence] in Urine by Test strip NEG SERGEY L: Negative [facility] Urobilinogen [Mass/volume] in Urine by Test strip NOR less donis n 1.0 mg/dL [facility] MICROSCOPIC Not Indicate [facility] ospital ID Date Data Source [id number] 09/26/2020 04:48:00 PM EST [facility] 1 OrderSheet [facility] Emergency Department [address] [place] [address] Phone #: ext- [phone] 09/26/2020 16:41 Patient: [...] Juan JOE; Duke Paulino(NOW x1) 2 OrderSheet [facility] Emergency Department [address] [place] [address] Phone #: ext- [phone] 09/26/2020 16:41 Patient: [...] rce(s) Supporting Document(s) ID Date Data Source [id number] 09/26/2020 04:48:00 PM [place] [address] Medication Reconciliation Report [facility] Emergency Department [address] [place] [address] Phone #: ext- [phone] 09/26/2020 16:41 Patient: JORJE FONSECA Sex: F [...] rce(s) Supporting Document(s) ID Date Data Source [id number] 09/26/2020 04:48:00 PM [place] [address] Medication Administration Record [facility] Emergency Department [address] [place] [address] Phone #: ext- [phone] 09/26/2020 16:41 Patient: JORJE FONSECA Sex: F : 2000 Age: 20yWeight: 58.0 kgHeight/Length: 62 inBMI: 23.4ALLERGIES: Bee venom, "numbing solution", Ceclor Date/Time Medication Administered Medication OrderedStart NS [IV] NS IV : Bolus 500 mL, then 57774:20 09/26/2020 Dose: IV Fluids mL/hr (NOW x1)Duke [...] rce(s) Supporting Document(s) ID Date Data Source [id number] 09/26/2020 04:48:00 PM EST [facility] 1 General Instructions [facility] Emergency Department [address] [place] [address] Phone #: ext- [phone] 09/26/2020 16:41 Patient: [...] available appointment.Reason for referral: evaluation and recommend crystal gazer referral if symptoms persist. Summary of care providedto patient via paper.Understanding of the discharge instructions verbalized by patient. Expected course of illness, dischargeinstructions, a ctivity level, follow-up appointment and risks and benefits of treatment reviewed with patientand understanding verbalized. Agrees to plan of care. ADDITIONAL INFORMATIONPainful Menstrual Periods (Dysmenorrhea) 2 General Instructions [facility] Emergency Department [address] [place] [address] Phone #: ext- [phone] 09/26/2020 16:41 Patient: [...] the "Home care" section). 3 General Instructions [facility] Emergency Department [address] [place] [address] Phone #: ext- [phone] 09/26/2020 16:41 [facility]: [id number] Sex: F : 2000 Age: 20yHome careMedicinesCertain [...] tissue from the vagina 4 General Instructions [facility] Emergency Department [address] [place] [address] Phone #: ext- [phone] 09/26/2020 16:41 Patient: JORJE FONSECA Sex: F : 2000 Age: 20y [id number] [employer]. [address] [place] [address]. All rights reserved. This information is not [...] rce(s) Supporting Document(s) ID Date Data Source [id number] 09/26/2020 04:48:00 PM EST [facility] 1 Clinical Report - Nurses [facility] Emergency Department [address] [place] [address] Phone #: ext- [phone] 09/26/2020 16:41 Patient: [facility]ORJE FONSECA [id number] Sex: F : 2000 Age: 20yTRIAGEHistorian: patient. [...] Melgar.ADDITIONAL SURGERIES: 2 Clinical Report - Nurses [facility] Emergency Department [address] [place] [address] Phone #: ext- [phone] 09/26/2020 16:41 Patient: [...] To treatment room. --16:52 09/26/20 Gabo Melgar.PHYSICAL [id number] 09/26/20. Ambulatory to room. Patient gowned.GENERAL / [...] PROGRESS NOTES 3 Clinical Report - Nurses [facility] Emergency Department [address] [place] [address] Phone #: ext- [phone] 09/26/2020 16:41 Patient: JORJE FONSECA [id number] Sex: F : 2000 Age: 20y 16:59 09/26/20. Patient gowned. Reassurance given. Two patient identifiers checked. Call light placed in reach. Bed placed in lowest position. Brakes of bed on. Patient ready for evaluation- PA notified. --16:59 09/26/20 Duke Deng R.N. 17:00 09/26/20. BP: 123/79. MAP: 93. HR: 70. RR: 26. O2 saturation: 99%. --17:11 09/26/20 [facility] TechFlory ER Tech1 17:12 09/26/2020 Site #1 [...] So Duke simms RRichardN. Patient transported to [facility] by wheelchair with service center technician. --17:39 09/26/20 Ny Delgado RN 18:12 09/26/20. BP: 116/63. MAP: 80. HR: 58. RR: 24. O2 saturation: 99%. --18:13 09/26/20 [facility] TechFlory ER Tech1 18:40 09/26/2020 IV Fluids [...] verbalized understanding. Written instruction s provided in Indian. The patient was discharged by the physician malt specifications control assistant. She was discharged home. She left ambulatory and via private vehicle. Patient driving. --18:48 09/26/20 Duke Deng R.N. 18:47 09/26/2020 Site #1 removed upon discharge. Catheter intact. Bandage applied. --18:47 09/26/20 Duke Deng R.N. 4 Clinical Report - Nurses [facility] Emergency Department [address] [place] [address] Phone #: ext- [phone] 09/26/2020 16:41 Patient: JORJE FONSECA Sex: F : 2000 Age: 20y 18:40 09/26/20. BP: 124/74. MAP: 90. HR: 78. RR: 26. O2 saturation: 100%. Temp: 98.5 F. Pain level now: 010. --18:48 09/26/20 Duke Deng R.N.Locked/Released at 09/26/2020 21:02 by Duke Deng R.N. Name Value Range Interpretation Code Description Data Tasha rce(s) Supporting Document(s) ID Date Data Source [id number] 09/26/2020 04:48:00 PM EST [facility] 1 Clinical Report - Physicians/Mid Levels [facility] Emergency Department [address] [place] [address] Phone #: ext- [phone] 09/26/2020 16:41 Patient: [...] Biopsy. 2 Clinical Report - Physicians/Mid Levels [facility] Emergency Department [address] [place] [address] Phone #: ext- [phone] 09/26/2020 16:41 Patient: JORJE FONSECA Sex: F [...] NEGATIVE (NORMAL: NEGAT { KIT LOT # [id number] ){ KIT EXP DATE 3 Clinical Report - Physicians/Mid Levels [facility] Emergency Department [address] [place] [address] Phone #: ext- [phone] 09/26/2020 16:41 Patient: JORJE FONSECA Sex: F : 2000 Age: [id number] ){ PROCEDURAL CONTROL VALID)CBC w Diff: (LESLIE: [...] yrs 4 Clinical Report - Physicians/Mid Levels [facility] Emergency Department [address] [place] [address] Phone #: ext- [phone] 09/26/2020 16:41 Patient: [...] Thrombosis, Pulmonary Embolus, Tissue heart valves, Acute [place] Atrial Fibrillation, Valvular heart disease and recurrent [...] results. 5 Clinical Report - Physicians/Mid Levels [facility] Emergency Department [address] [place] [address] Phone #: ext- [phone] 09/26/2020 16:41 Patient: [...] appointment. Reason for referral: evaluation and recommend crystal gazer referral if symptoms persist. Summary of care provided to patient via paper. Understanding of the discharge instructions verbalized by patient. Expected course of illness, discharge instructions, activity level, follow-up appointment and risks and benefits of treatment reviewed with patient and understanding verbalized. Agrees to plan of care.(Electronically signed by HEATH Castro 09/29/2020 10:16) 6Clinical Report - Physicians/Mid Levels [facility] Emergency Department [address] [place] [address] Phone #: ext- [phone] 09/26/2020 16:41 Patient: JORJE FONSECA Sex: F : 2000 Age: 20y Name Value Range Interpretation Code Description Data Tasha rce(s) Supporting Document(s) ID Date Data Source [id number] 09/27/2020 02:10:00 [place] [address] PHONE: [phone] FAX: [phone] Name .................. : RAYMUNDO RECINOS Acct Number.................. : [id number] ROOM. ................. : TR-05 MR Number ................... : [id number] Stay type ............. : E/R Discharge Date......... ... : 09/26/20 Admit Date ......... : 09/26/20 Admit Phys .................... : KENDRICK CEDENO Date of ....... : 2000 Family Phys ................... : ROSALINO GARCIA Phone .................. : [phone] Age ................................ : 20 Film# .................. .:[id number] Sex ................................. : F Unsigned transcriptions are preliminary reports and do not represent a medical or legal document TRANSVAGINAL(NON OB) 56209 COMPLETE:09/26/20 19:50 ADB 89561 Reason(s): Pelvic Pain TRANSVAGINAL PELVIC ULTRASOUND: INDICATION: Pelvic pain. FINDINGS: The uterus measures 7.1 x 2.6 x 4.2 cm. The endometrial stripe measures 1 mm in thickness. The left ovary is sonographica lly normal. The right ovary is not well visualized. IMPRESSION: No acute pelvic abnormality. The right ovary is not visualized. Electronically Reviewed and Signed By Roberto Mason M.D. , 09/27/20 14:10, [facility] Transcribe Initials: GET , Transcribe Date: 09/27/20 01:10, Dictation Date: Copy for: KENDRICK Walton via fax Copy for: [place] [facility] Copy for: 710 MED REC DISCHARGED Page 1 of 1 Name Value Range Interpretation Code Description Data Tasha rce(s) Supporting Document(s) ID Date Data Source [id number] 09/27/2020 02:09:00 PM EST [facility] [address] [place] [address] PHONE: [phone] FAX: [phone] Name .................. : RAYMUNDO RECINOS Acct Number.................. : [id number] ROOM. ................. : TR-05 Number ................... : [id number] Stay type ............. : E/R Discharge Date......... ... : 09/26/20 Admit Date ......... : 09/26/20 Admit Phys .................... : KENDRICK [facility] Date of ....... : 2000 Family Phys ................... : ROSALINO GARCIA Phone .................. : [phone] Age ................................ : 20 Film# .................. .:[id number] Sex ................................. : F Unsigned transcriptions are preliminary reports and do not represent a medical or legal document PELVIC 66522 COMPLETE:09/26/20 19:50 ADB 74236 Reason(s): Abnormal Bleeding PELVIC ULTRASOUND: INDICATION: Abnormal [...] rce(s) Supporting Document(s) ID Date Data Source [id number] 09/26/2020 06:13:00 PM [facility] Name Value Range Interpretation Code Description Data Tasha rce(s) Supporting Document(s) Lipase [Enzymatic activity/volume] in Serum or Plasma 23 U/L 13 - 60 [facility] ID Date Data Source [id number] 09/26/2020 06:13:00 PM [facility] Name Value Range Interpretation Code Description Data Tasha rce(s) Supporting Document(s) COMPREHENSIVE METABOLIC PANEL [facility] COMPREHENSIVE METABOLIC PANEL Sodium [Moles/volume] in Serum or Plasma 140 mEq/L 134 - 153 [facility] Potassium [Moles/volume] in Serum or Plasma 3.8 mEq/L 3.6 - 5.0 [facility] Chloride [Moles/volume] in Serum or Plasma 106 mEq/L 98 - 107 [facility] Carbon dioxide, total [Moles/volume] in Serum or Plasma 25 MEQ/L 22 - 30 [facility] Glucose [Mass/volume] in Serum or Plasma 82 MG/DL 65 - 110 [facility] BUN 9 MG/DL 7 - 21 [facility] Creatinine [Mass/volume] in Serum or Plasma 0.7 MG/DL 0.7 - 1.5 [facility] BUN/CREAT 13 8 - 27 [facility] Protein [Mass/volume] in Serum or Plasma 7.2 G/DL 6.3 - 8.2 [facility] Albumin [Mass/volume] in Serum or Plasma 4.5 G/DL 3.9 - 5.0 [facility] Globulin [Mass/volume] in Serum by calculation 2.7 GM/DL 2.4 - 3.2 [facility] A/G RATIO 1.7 0.8 - 2.0 [facility] al Calcium [Mass/volume] in Serum or Plasma 9.5 MG/DL 8.4 - 10.2 [facility] Bilirubin.total [Mass/volume] in Serum or Plasma <0.7 MG/DL 0.2 - 1.3 [facility] Alkaline phosphatase [Enzymatic activity/volume] in Serum or Plasma 78 U/L 38 - 126 [facility] Aspartate aminotransferase [Enzymatic activity/volume] in Serum or Plasma 13 U/L 5 - 40 [facility] Alanine aminotransferase [Enzymatic activity/volume] in Seru m or Plasma 11 U/L 7 - 56 [facility] Anion gap 3 in Serum or Plasma 9.0 mmol/L 8.0 - 16.0 [facility] AGE [address] [facility] al NON-AA GFR >60 mL/min [facility] ital AFR AMER GFR >60 mL/min [facility] spital Male GFR In terprentation 20-49 [...] >32 mL/min Normal ID Date Data Source [id number] 09/26/2020 06:09:00 PM EST [facility] Name Value Range Interpretation Code Description Data Tasha rce(s) Supporting Document(s) Prothrombin time (PT) 13.3 SECONDS 11.0 - 15.5 [facility] INR in Platelet poor plasma by Coagulation assay 1.00 0.93 - 1. 23 [facility] aPTT in Blood by Coagulation assay 28.3 SECONDS 24.8 - 36.7 [facility] \\BLDo\\INR INTERPRETATION\\BLDx\\ Therapeutic range for Coumadin and related oral anticoagulants. - International Normalized Ratio (INR): 2.0 - 3.0 for Venous Thrombosis, Pulmonary Embolus, Tissue heart valves, Acute [place] Atrial Fibrillation, Valvular heart disease and recurrent Systemic Embolism. - International Normalized Ratio (INR): 2.5 - 3.5 for Mechanical Prosthetic valve. ID Date Data Source [id number] 09/26/2020 05:35:00 PM EST [facility] Name Value Range Interpretation Code Description Data Tasha rce(s) Supporting Document(s) Lactate [Moles/volume] in Serum or Plasma 1.0 MMOL/L 0.2 - 2.2 [facility] ID Date Data Source [id number] 09/26/2020 05:33:00 PM EST [facility] Name Value Range Interpretation Code Description Data Tasha rce(s) Supporting Document(s) CBC W/AUTOMATED DIFF [facility] COMPLETE BLOOD COUNT Leukocytes [#/volume] in Blood by Automated count 8.9 10^3/uL 4.2 - 1 1.0 [facility] Erythrocytes [#/volume] in Blood by Automated count 4.54 10^6/uL 4. 20 - 5.40 [facility] Hemoglobin [Mass/volume] in Blood 14.0 g/dL 12.0 - 16.0 [facility] Hematocrit [Volume Fraction] of Blood by Automated count 41.0 % 3 7.0 - 47.0 [facility] Erythrocyte mean corpuscular volume [Entitic volume] by Auto mated count 90.3 fL 81.0 - 101 [facility] Erythrocyte mean corpuscular hemoglobin [Entitic mass] by Automated count 30.8 pg 27.0 - 34.0 [facility] Erythrocyte mean corpuscular hemoglobin concentration [Mass/volume] by Automated count 34.1 g/dL 31.0 - 36.0 [facility] Erythrocyte distribution width [Ratio] by Automated count 12.2 % 11.5 - 14.5 [facility] Platelets [#/volume] in Blood by Automated count 354 10^3/uL 150 - 45 0 [facility] Platelet mean volume [Entitic volume] in Blood by Automated count 9.2 fL 7.4 - 10.4 [facility] Neutrophils/100 leukocytes in Blood by Automated count 53.7 % 37. 0 - 80.0 [facility] Lymphocytes/100 leukocytes in Blood by Manual count 38.4 % 25.0 - 40.0 [facility] Monocytes/100 leukocytes in Blood by Automated count 5.7 % 3.0 - 8.0 [facility] Eosinophils/100 leukocytes in Blood by Automated count 1.5 % 0.0 - 7.0 [facility] Basophils/100 leukocytes in Blood by Automated count 0.5 % 0.0 - 2.5 [facility] %IG 0.2 % 0.0 - 0.0 H [facility] %NRBC 0.0 % 0.0 - 0.0 [facility] al Neutrophils [#/volume] in Blood by Automated count 4.76 10^3/uL 2.00 - 6.90 [facility] Lymphocytes [#/volume] in Blood by Automated count 3.41 10^3/uL 0.60 - 3.40 H [facility] Monocytes [#/volume] in Blood by Automated count 0.51 10^3/uL 0.00 - 0.90 [facility] Eosinophils [#/volume] in Blood by Automated count 0.13 10^3/uL 0.00 - 0.70 [facility] Basophils [#/volume] in Blood by Automated count 0.04 10^3/uL 0.00 - 0.20 [facility] #IG 0.02 10^3/uL 0.00 - 0.10 [facility] #NRBC 0.00 10^3/uL 0.00 - 0.00 [facility] ospital MANUAL DIFF NOT INDICATED [facility] RBC MORPH NOT INDICATED [facility] ID Date Data Source [id number] 09/26/2020 05:27:00 PM EST [facility] Name Value Range Interpretation Code Description Data Tasha rce(s) Supporting Document(s) [facility]IS [facility] SOURCE Clean Catch [facility] ital COLOR yellow NORMAL: Yellow [facility] CLARITY clear NORMAL: Clear [facility] Specific gravity of Urine by Test strip 1.015 1.001 - 1.030 [facility] pH 6 5 - [address] [facility] al Glucose [Mass/volume] in Urine by Test strip NORM NORMAL: Negat tej [facility] Bilirubin.total [Presence] in Urine by Test strip NEG NORMAL: Negative [facility] Ketones [Presence] in Urine by Test strip 5 NORMAL: Negative [facility] Protein [Mass/volume] in Urine by Test strip 15 NORMAL: Negat tej [facility] Nitrite [Presence] in Urine by Test strip NEG NORMAL: Negative [facility] BLOOD 250 NORMAL: Negative [facility] Leukocyte esterase [Presence] in Urine by Test strip NEG SERGEY L: Negative [facility] Urobilinogen [Mass/volume] in Urine by Test strip NOR less donis n 1.0 mg/dL [facility] MICROSCOPIC See Below [facility] ital Erythrocytes [#/volume] in Urine by Test strip 5 - 7 NORMAL: NON E SEEN A [facility] EPITHELIAL FEW NORMAL: NONE SEEN [facility] ID Date Data Source [id number] 09/26/2020 05:21:00 PM EST [facility] Name Value Range Interpretation Code Description Data Tasha rce(s) Supporting Document(s) HCG URINE QUAL NEGATIVE NORMAL: NEGATIVE [facility] HCG URINE QL REENTER NEGATIVE NORMAL: NEGATIVE [facility] { KIT LOT # [id number] ){ KIT EXP DATE 08-22-21 ){ PROCEDURAL CONTROL VALID ) Procedure Social History Code Duration Value Status Description Data Source(s ) Smoking 08/03/2021 12:00:00 AM EDT Current Smoker completed Curre nt Smoker eCW1 ([facility]) Smoking 08/03/2021 12:00:00 AM EDT Current Smoker completed Curre nt Smoker eCW1 ([facility]) Smoking 08/03/2021 12:00:00 AM EDT Current Smoker completed Curre nt Smoker eCW1 ([facility]) Smoking 08/03/2021 12:00:00 AM EDT Current Smoker completed Curre nt Smoker eCW1 ([facility]) Smoking 07/05/2021 12:00:00 AM EDT Current Smoker completed Curre nt Smoker eCW1 ([facility]) Smoking 07/05/2021 12:00:00 AM EDT Current Smoker completed Curre nt Smoker eCW1 ([facility]) Smoking 07/05/2021 12:00:00 AM EDT Current Smoker completed Curre nt Smoker eCW1 ([facility]) Smoking 07/05/2021 12:00:00 AM EDT Current Smoker completed Curre nt Smoker eCW1 ([facility]) Smoking 07/05/2021 12:00:00 AM EDT Current Smoker completed Curre nt Smoker eCW1 ([facility]) Smoking 05/11/2021 12:00:00 AM EDT Current Smoker completed Curre nt Smoker eCW1 ([facility]) Smoking 05/11/2021 12:00:00 AM EDT Current Smoker completed Curre nt Smoker eCW1 ([facility]) Smoking 05/11/2021 12:00:00 AM EDT Current Smoker completed Curre nt Smoker eCW1 ([facility]) Smoking 05/11/2021 12:00:00 AM EDT Current Smoker completed Curre nt Smoker eCW1 ([facility]) Smoking 12/22/2020 12:00:00 AM EST Former Smoker completed Former Smoker eCW1 ([facility]) Smoking 12/22/2020 12:00:00 AM EST Former Smoker completed Former Smoker eCW1 ([facility]) Smoking 12/22/2020 12:00:00 AM EST Former Smoker completed Former Smoker eCW1 ([facility]) Smoking 11/24/2020 12:00:00 AM EST Former Smoker completed Former Smoker eCW1 ([facility]) Smoking 11/24/2020 12:00:00 AM EST Former Smoker completed Former Smoker eCW1 ([facility]) Smoking 11/24/2020 12:00:00 AM EST Former Smoker completed Former Smoker eCW1 ([facility]) Smoking 11/24/2020 12:00:00 AM EST Former Smoker completed Former Smoker eCW1 ([facility]) Smoking 11/24/2020 12:00:00 AM EST Former Smoker completed Former Smoker eCW1 ([facility]) Smoking 11/20/2020 12:00:00 AM EST Former Smoker completed Former Smoker eCW1 ([facility]) Smoking 10/27/2020 12:00:00 AM EST Former Smoker completed Former Smoker eCW1 ([facility]) Smoking 10/27/2020 12:00:00 AM EST Former Smoker completed Former Smoker eCW1 ([facility]) Smoking 10/27/2020 12:00:00 AM EST Former Smoker completed Former Smoker eCW1 ([facility]) Smoking 10/27/2020 12:00:00 AM EST Former Smoker completed Former Smoker eCW1 ([facility]) Smoking 10/27/2020 12:00:00 AM EST Former Smoker completed Former Smoker eCW1 ([facility]) Smoking 10/27/2020 12:00:00 AM EST Former Smoker completed Former Smoker eCW1 ([facility]) Smoking 09/29/2020 12:00:00 AM EST Current Smoker completed Curre nt Smoker eCW1 ([facility]) Smoking 09/29/2020 12:00:00 AM EST Current Smoker completed Curre nt Smoker eCW1 ([facility]) Vital Signs ID Date Data Source UNK Name Value Range Interpretation Code Description Data Source(s) Body weight 111.2 [lb_av] 111.2 [lb_av] eCW1 ([facility]) Body weight 50.44 kg 50.44 kg W1 ([facility]) Body height 61 [in_i] 61 [in_i] eCW1 ([facility]) Body mass index (BMI) [Ratio] 21.01 kg/m2 21.01 kg/m2 eCW1 ([facility]) Heart rate 68 /min 68 /min eCW1 ([facility]) Respiratory rate 17 /min 17 /min eCW1 ([facility]) Body temperature 98.6 [degF] 98.6 [degF] eCW1 ( [facility]) Systolic blood pressure 10 mm[Hg] 10 mm[Hg] e CW1 ([facility]) Diastolic blood pressure 65 mm[Hg] 65 mm[Hg] eCW1 ([facility]) Body weight 115.2 [lb_av] 115.2 [lb_av] eCW1 ([facility]) Body weight 52.25 kg 52.25 kg eCW1 ([facility]) Body height 61 [in_i] 61 [in_i] eCW1 ([facility]) Body mass index (BMI) [Ratio] 21.76 kg/m2 21.76 kg/m2 eCW1 ([facility]) Heart rate 67 /min 67 /min eCW1 ([facility]) Respiratory rate 17 /min 17 /min eCW1 ([facility]) Body temperature 99.4 [degF] 99.4 [degF] eCW1 ( [facility]) Systolic blood pressure 109 mm[Hg] 109 mm[Hg] e CW1 ([facility]) Diastolic blood pressure 61 mm[Hg] 61 mm[Hg] eCW1 ([facility]) Body mass index (BMI) [Ratio] 21.9 kg/m2 21.9 k g/m2 MEDENT ([facility], ) Respiratory rate 12 /min 12 /min MEDENT ( [facility], ) Body height 62 [in_i] 62 [in_i] MEDENT ([facility], ) 5'2" Body weight 120.00 [lb_av] 120.00 [lb_av] MEDEN T ([facility], ) [place] body weight 110 [lb_av] 110 [lb_av] MEDEN T ([facility], ) Body weight 121 [lb_av] 121 [lb_av] eCW1 ([facility]) Body height 61 [in_i] 61 [in_i] eCW1 ([facility]) Body mass index (BMI) [Ratio] 22.86 kg/m2 22.86 kg/m2 W1 ([facility]) Heart rate 71 /min 71 /min eCW1 ([facility]) Respiratory rate 17 /min 17 /min eCW1 ([facility]) Body temperature 98.9 [degF] 98.9 [degF] eCW1 ( [facility]) Systolic blood pressure 112 mm[Hg] 112 mm[Hg] e CW1 ([facility]) Diastolic blood pressure 64 mm[Hg] 64 mm[Hg] eCW1 ([facility]) Respiratory rate 12 /min 12 /min MEDENT ( [facility]) Body weight 120.00 [lb_av] 120.00 [lb_av] MEDEN T ([facility]) Body mass index (BMI) [Ratio] 21.9 kg/m2 21.9 k g/m2 MEDENT ([facility]) Body height 62 [in_i] 62 [in_i] MEDENT ([facility]) 5'2" [place] body weight 110 [lb_av] 110 [lb_av] MEDEN T ([facility]) Systolic blood pressure 98 mm[Hg] 98 mm[Hg] M EDENT ([facility]) Diastolic blood pressure 58 mm[Hg] 58 mm[Hg] MEDENT ([facility]) Heart rate 107 /min 107 /min MEDENT ([facility]) Body temperature 97.5 [degF] 97.5 [degF] MEDENT ([facility]) Body height 61.1 [in_i] 61.1 [in_i] MEDENT ([facility]) 5'1.10" Body weight 126.50 [lb_av] 126.50 [lb_av] MEDEN T ([facility]) Body mass index (BMI) [Ratio] 23.8 kg/m2 23.8 k g/m2 MEDENT ([facility]) Oxygen saturation in Arterial blood by Pulse oximetry 98 % 98 % MEDENT ([facility]) Body weight 130 [lb_av] 130 [lb_av] eCW1 ([facility]) Body height 61 [in_i] 61 [in_i] eCW1 ([facility]) Body mass index (BMI) [Ratio] 24.56 kg/m2 24.56 kg/m2 eCW1 ([facility]) Heart rate 102 /min 102 /min eCW1 ([facility]) Respiratory rate 17 /min 17 /min eCW1 ([facility]) Body temperature 98.8 [degF] 98.8 [degF] eCW1 ( [facility]) Systolic blood pressure 120 mm[Hg] 120 mm[Hg] e CW1 ([facility]) Diastolic blood pressure 86 mm[Hg] 86 mm[Hg] eCW1 ([facility]) Respiratory rate 12 /min 12 /min MEDENT ( [facility], ) Body height 62 [in_i] 62 [in_i] MEDENT ([facility], ) 5'2" Body weight 130.00 [lb_av] 130.00 [lb_av] MEDEN T ([facility], ) Body mass index (BMI) [Ratio] 23.8 kg/m2 23.8 k g/m2 MEDENT ([facility], ) [place] body weight 110 [lb_av] 110 [lb_av] MEDEN T ([facility], ) Body mass index (BMI) [Ratio] 24.56 kg/m2 24.56 kg/m2 eCW1 ([facility]) Body weight 130 [lb_av] 130 [lb_av] eCW1 ([facility]) Body height 61 [in_i] 61 [in_i] eCW1 ([facility]) Body weight 130 [lb_av] 130 [lb_av] eCW1 ([facility]) Body height 61 [in_i] 61 [in_i] eCW1 ([facility]) Body mass index (BMI) [Ratio] 24.56 kg/m2 24.56 kg/m2 eCW1 ([facility]) Heart rate 85 /min 85 /min eCW1 ([facility]) Respiratory rate 17 /min 17 /min eCW1 ([facility]) Body temperature 98.6 [degF] 98.6 [degF] eCW1 ( [facility]) Systolic blood pressure 104 mm[Hg] 104 mm[Hg] e CW1 ([facility]) Diastolic blood pressure 67 mm[Hg] 67 mm[Hg] eCW1 ([facility]) Body weight 129 [lb_av] 129 [lb_av] eCW1 ([facility]) Body height 61 [in_i] 61 [in_i] eCW1 ([facility]) Respiratory rate 17 /min 17 /min eCW1 ([facility]) Heart rate 78 /min 78 /min eCW1 ([facility]) Body mass index (BMI) [Ratio] 24.37 kg/m2 24.37 kg/m2 eCW1 ([facility]) Body temperature 98.6 [degF] 98.6 [degF] eCW1 ( [facility]) Systolic blood pressure 127 mm[Hg] 127 mm[Hg] e CW1 ([facility]) Diastolic blood pressure 56 mm[Hg] 56 mm[Hg] eCW1 ([facility]) Body weight 128.8 [lb_av] 128.8 [lb_av] eCW1 ([facility]) Body height 61 [in_i] 61 [in_i] eCW1 ([facility]) Body mass index (BMI) [Ratio] 24.33 kg/m2 24.33 kg/m2 eCW1 ([facility]) Heart rate 72 /min 72 /min eCW1 ([facility]) Respiratory rate 17 /min 17 /min eCW1 ([facility]) Body temperature 99.6 [degF] 99.6 [degF] eCW1 ( [facility]) Systolic blood pressure 94 mm[Hg] 94 mm[Hg] e CW1 ([facility]) Diastolic blood pressure 55 mm[Hg] 55 mm[Hg] eCW1 ([facility]) ID Date Data Source [id number] 07/18/2020 12:50:00 PM EDT [facility] Name Value Range Interpretation Code Description Data Source(s) [facility].94 [facility] 154.94 centimeter [facility] WEIGHT 59.0909 kilos 59.0909 kilos [facility] HEIGHT 154.94 centimeters 154.94 centimeter [facility] Patient Treatment Plan of Care Planned Activity Planned Date Details Description Data Source (s) Fluconazole 150 MG Oral Tablet [Diflucan] 08/31/2021 12:00:00 AM ED T eCW1 ([facility]) Fluconazole 150 MG Oral Tablet [Diflucan] 08/31/2021 12:00:00 AM ED T eCW1 ([facility]) Levofloxacin 500 MG Oral Tablet 05/14/2021 12:00:00 AM EDT eCW1 ([facility]) Levofloxacin 500 MG Oral Tablet 05/14/2021 12:00:00 AM EDT eCW1 ([facility]) Levofloxacin 500 MG Oral Tablet 05/14/2021 12:00:00 AM EDT eCW1 ([facility]) Levofloxacin 500 MG Oral Tablet 05/14/2021 12:00:00 AM EDT eCW1 ([facility]) Levofloxacin 500 MG Oral Tablet 05/14/2021 12:00:00 AM EDT eCW1 ([facility]) Levofloxacin 500 MG Oral Tablet 05/14/2021 12:00:00 AM EDT eCW1 ([facility]) Levofloxacin 500 MG Oral Tablet 05/14/2021 12:00:00 AM EDT eCW1 ([facility]) Levofloxacin 500 MG Oral Tablet 05/14/2021 12:00:00 AM EDT eCW1 ([facility]) Triamcinolone Acetonide 1 MG/ML Topical Cream 11/24/2020 12:00:00 A M EST eCW1 ([facility]) Triamcinolone Acetonide 1 MG/ML Topical Cream 11/24/2020 12:00:00 A M EST eCW1 ([facility]) Triamcinolone Acetonide 1 MG/ML Topical Cream 11/24/2020 12:00:00 A M EST eCW1 ([facility]) Triamcinolone Acetonide 1 MG/ML Topical Cream 11/24/2020 12:00:00 A M EST eCW1 ([facility]) Triamcinolone Acetonide 1 MG/ML Topical Cream 11/24/2020 12:00:00 A M EST eCW1 ([facility]) valacyclovir 1000 MG Oral Tablet 09/29/2020 12:00:00 AM EST eCW1 ([facility]) valacyclovir 1000 MG Oral Tablet 09/29/2020 12:00:00 AM EST eCW1 ([facility]) valacyclovir 1000 MG Oral Tablet 09/29/2020 12:00:00 AM EST eCW1 ([facility])
[2021-09-13 18:10] VITALS: BP 100/52
== END 2021-09-13 18:23 | disposition home or self-care (01) ==
LOC: M ED 14:08
DX: R22.0 Localized swelling, mass and lump, head (principal); K08.89 Other specified disorders of teeth and supporting structures; Z88.1 Allergy status to other antibiotic agents; Z88.4 Allergy status to anesthetic agent; Z88.8 Allergy status to other drugs, medicaments and biological substances; Z91.030 Bee allergy status
CPT/HCPCS: 99283; J7512

== ENCOUNTER 2021-11-17 15:42 | Emergency (ER) | payer OTHER ==
[~2021-11-17] VITALS: Ht 157.5 cm; Wt 47.7 kg
[2021-11-17] MEDS ORDERED: CARB1CAP3 (16:03)
[2021-11-17] MEDS ORDERED: VALA1TAB5 (16:03)
[2021-11-17] MEDS ORDERED: TRIA1CR80 (16:03)
[2021-11-17] MEDS ORDERED: FLUC150T (16:03)
[2021-11-17 17:40] LABS: BASO % 0.5 % (0.0-1.0); EOS # 0.1 10^3/uL (0.0-0.5); EOS % 0.8 % (0.0-3.0); HEMATOCRIT 39.5 % (36.0-47.0); HEMOGLOBIN 13.3 g/dl (12.0-15.5); LYMPH # 2.5 10^3/uL (1.5-5.0); LYMPH % 37.1 % (24.0-44.0); MEAN CORPUSCULAR HEMOGLOBIN 31.3 pg (27.0-33.0); MEAN CORPUSCULAR HGB CONC 33.7 g/dl (32.0-36.5); MEAN CORPUSCULAR VOLUME 92.9 fl (80.0-96.0); MONO # 0.5 10^3/uL (0.0-0.8); MONO % 7.2 % (2.0-8.0); NEUTROPHILS # 3.6 10^3/uL (1.5-8.5); NEUTROPHILS % 54.2 % (36.0-66.0); PLATELET COUNT, AUTOMATED 318 10^3/uL (150-450); RED BLOOD COUNT 4.25 10^6/uL (4.00-5.40); WHITE BLOOD COUNT 6.7 10^3/uL (4.0-10.0)
[2021-11-17] MEDS ORDERED: PANTOPRAZOLE 40MG VIAL (C9113 PER 1) IV ONE (18:00)
[2021-11-17] MEDS ORDERED: KETOROLAC 30 MG/ML 1ML VIAL IV ONE (18:00)
[2021-11-17] MEDS ORDERED: NS 1,000 ML IV ONE (18:00)
[2021-11-17 18:10] LABS: ALT/SGPT 20 U/L (12-78); BILIRUBIN,TOTAL 0.2 MG/DL (0.2-1.0); BLOOD UREA NITROGEN 9 MG/DL (7-18); CALCIUM LEVEL 9.1 MG/DL (8.5-10.1); CARBON DIOXIDE LEVEL 26 MEQ/L (21-32); CHLORIDE LEVEL 108 MEQ/L (98-107); CREATININE FOR GFR 0.66 MG/DL (0.55-1.30); GLOMERULAR FILTRATION RATE > 60.0 (>60); GLUCOSE, FASTING 87 MG/DL (70-100); LIPASE 74 U/L (73-393); POTASSIUM SERUM 4.6 MEQ/L (3.5-5.1); SODIUM LEVEL 139 MEQ/L (136-145); TOTAL PROTEIN 7.3 GM/DL (6.4-8.2)
[2021-11-17 18:20] LABS: HCG, SERUM QUALITATIVE NEGATIVE (NEGATIVE)
[2021-11-17] MEDS ORDERED: ISOVUE-370 76% 100ML VIAL As Ordered ONE (18:52)
--- NOTE | 2021-11-17 20:30 | REPVR ---
PROCEDURE INFORMATION: Exam: CT Abdomen And Pelvis With Contrast Exam date and time: 11/17/2021 6:59 PM Age: 21 years old Clinical indication: Abdominal pain; Localized; Right lower quadrant (rlq); Additional info: Rlq pain TECHNIQUE: Imaging protocol: Computed tomography of the abdomen and pelvis with contrast. Radiation optimization: All CT scans at this facility use at least one of these dose optimization techniques: automated exposure control; mA and/or kV adjustment per patient size (includes targeted exams where dose is matched to clinical indication); or iterative reconstruction. Contrast material: ISOVUE 370; Contrast volume: 100 ml; Contrast route: INTRAVENOUS (IV); COMPARISON: 1. CT ABD/PEL W/IV CONTRAST ONLY 2020-12-07 22:20 2. US PELVIC NON-OB COMPLETE 2020-02-28 15:18 FINDINGS: Liver: Normal. No mass. Gallbladder and bile ducts: Normal. No calcified stones. No ductal dilation. Pancreas: Normal. No ductal dilation. Spleen: Normal. No splenomegaly. Adrenal glands: Normal. No mass. Kidneys and ureters: Normal. No hydronephrosis. Stomach and bowel: Unremarkable. No obstruction. No mucosal thickening. Appendix: No evidence of appendicitis. Intraperitoneal space: Unremarkable. No free air. No significant fluid collection. Vasculature: Unremarkable. No abdominal aortic aneurysm. Lymph nodes: Unremarkable. No enlarged lymph nodes. Urinary bladder: Unremarkable as visualized. Reproductive: Unremarkable as visualized. Bones/joints: Unremarkable. No acute fracture. Soft tissues: Unremarkable. IMPRESSION: Normal Appendix. Electronically signed by: Washington Wolfe On 11/17/2021 20:30:01 PM
[2021-11-17] MEDS ORDERED: PANT40TA29 PO (21:35)
[2021-11-17] MEDS ORDERED: PROB250C PO (21:35)
[2021-11-17] MEDS ORDERED: ONDA4TAB6 PO (21:35)
[2021-11-17 21:54] VITALS: BP 115/62
== END 2021-11-17 21:57 | disposition home or self-care (01) ==
LOC: M ED 15:42
DX: K21.9 Gastro-esophageal reflux disease without esophagitis (principal); R19.7 Diarrhea, unspecified; F31.9 Bipolar disorder, unspecified; F43.10 Post-traumatic stress disorder, unspecified; F60.3 Borderline personality disorder; G23.8 Other specified degenerative diseases of basal ganglia; G43.909 Migraine, unspecified, not intractable, without status migrainosus; Z79.899 Other long term (current) drug therapy; Z88.1 Allergy status to other antibiotic agents; Z88.4 Allergy status to anesthetic agent; Z88.8 Allergy status to other drugs, medicaments and biological substances; Z91.030 Bee allergy status; Z77.098 Contact with and (suspected) exposure to other hazardous, chiefly nonmedicinal, chemicals; F12.20 Cannabis dependence, uncomplicated
CPT/HCPCS: 74177; 80053; 81001; 83690; 84703; 85025; 96361; 96374; 96375; 99284; C9113; J1885; Q9967

== ENCOUNTER → 2022-01-07 | Outpatient (REF) | payer OTHER ==
[~2022-01-07] MED LIST changes: +CARB1CAP3; +FLUC150T9; +PANT40TA29 PO; +PROB250C PO; +TRIA1CR80
[2022-01-12 15:07] LABS: CALPROTECTIN STOOL 76 ug/g (0-120); FATS NEUTRAL Normal (.); FATS TOTAL Normal (.); PANCREATIC ELASTASE STOOL 455 (>200)
== END ==
LOC: M LAB REF 16:05
PROVIDERS: ATTEND Physician Assistant Medical
DX: R19.7 Diarrhea, unspecified (principal); R63.4 Abnormal weight loss

== ENCOUNTER → 2022-01-26 | Outpatient (CLI) | payer OTHER ==
[~2022-01-26] MED LIST changes: -TRIA1CR80; +TRIA1CR80 TOP; +VALA1TAB5 PO
== END ==
LOC: M LABSMTC 11:07
PROVIDERS: ATTEND Anesthesiology
DX: Z01.812 Encounter for preprocedural laboratory examination (principal); Z20.822 Contact with and (suspected) exposure to COVID-19

== ENCOUNTER 2022-01-31 11:39 | Day surgery (SDC) | payer OTHER ==
[~2022-01-31] VITALS: Ht 157.5 cm; Wt 44.8 kg
[~2022-01-31 11:39] MED LIST changes: +NS 1,000 ML IV ONE
[2022-01-31] MEDS ORDERED: propofoL 200 MG/20 ML VIAL As Ordered ONE ×2 (13:23→13:24)
[2022-01-31] MEDS ORDERED: LIDOCAINE 2% 100MG/5ML SDV (FOR ANES.) As Ordered ONE (13:24)
[2022-01-31 14:10] VITALS: BP 116/55
== END 2022-01-31 14:25 | disposition home or self-care (01) ==
LOC: M OPP 11:39
PROVIDERS: ATTEND Internal Medicine Gastroenterology
DX: K52.9 Noninfective gastroenteritis and colitis, unspecified (principal); R10.13 Epigastric pain; D12.6 Benign neoplasm of colon, unspecified; D13.39 Benign neoplasm of other parts of small intestine; D13.1 Benign neoplasm of stomach; K64.8 Other hemorrhoids; K29.70 Gastritis, unspecified, without bleeding; M19.90 Unspecified osteoarthritis, unspecified site; L30.9 Dermatitis, unspecified; F41.9 Anxiety disorder, unspecified; F32.A Depression, unspecified; G43.909 Migraine, unspecified, not intractable, without status migrainosus; G62.9 Polyneuropathy, unspecified; F17.290 Nicotine dependence, other tobacco product, uncomplicated; F43.10 Post-traumatic stress disorder, unspecified; Z88.1 Allergy status to other antibiotic agents; Z88.4 Allergy status to anesthetic agent; Z88.8 Allergy status to other drugs, medicaments and biological substances; Z91.030 Bee allergy status; Z91.040 Latex allergy status; Z79.899 Other long term (current) drug therapy; Z83.3 Family history of diabetes mellitus